=== PATIENT | female | born 1955 | race Caucasian/White ===

== ENCOUNTER 2017-04-15 17:23 | Emergency (ER) | payer OTHER ==
[~2017-04-15] VITALS: Ht 163.8 cm; Wt 91.1 kg
[2017-04-15 17:25] VITALS: BP 182/96; PULSE 100; TEMP 36.4; O2SAT 97; Ht 163.8 cm; Wt 91.1 kg
[2017-04-15] MEDS ORDERED: SULF-183 PO (18:17)
--- NOTE | 2017-04-15 20:33 | EMERGENCY ROOM VISIT NOTE ---
ED Visit Note First contact with patient: 17:32 CHIEF COMPLAINT: Nosebleed HISTORY OF PRESENT ILLNESS: This 61-year-old white female patient developed sudden onset of a nosebleed from the left nares about 30 minutes ago. The bleeding has not stopped with pressure. There was no trauma to the nose. She states she is being treated for sinusitis on the left side. She has are been on 3 weeks worth of Augmentin but did not take care of her sinus infection. She has been on 3 days of Bactrim. She does get migraine headaches with sinusitis. She has taken 3 Excedrin today. She notes fatigue and difficulty sleeping. She states that when she takes frequent Excedrin, she usually gets nosebleeds. The patient is not on Coumadin or other anticoagulants. No difficulty breathing, no cough, or sore throat. No other complaints. She notes some pressure in her left ear, but denies any pain. REVIEW OF SYSTEMS: Throat: No sore throat, dysphagia, or hoarseness. Neurological: No new changes in mental status, vertigo, focal weakness, numbness. Cardiac: No chest pain, diaphoresis, dyspnea on exertion, orthopnea , pedal edema, or palpitations. Respiratory: No cough, change in sputum, wheezes, hemoptysis, shortness of breath, or stridor. General: No fever or chills, fatigue, loss of appetite, or significant recent weight gain or loss. PMH: Significant for frequent sinus infections, migraine headaches, and occasional nosebleeds Previous surgeries: None Current medications: Excedrin and Bactrim Allergies: NKDA Family history: Significant for diabetes, heart attack, dementia, and hypertension. Parents are . SOCIAL HISTORY: Patient lives at home with her . No tobacco use, no EtOH use. Unemployed. PHYSICAL EXAM: Vital Signs: Reviewed Nurse's notes. Afebrile. General appearance: The patient is sitting upright and has nasal clips in place. Bleeding is stopped. The patient is alert, oriented, coherent, and cooperative. There is no tachypnea or dyspnea. HEENT: Normocephalic atraumatic. Eyes PERRLA, EOMI. No conjunctiva or scleral injection. Ears TMs intact bilaterally with good light reflex on the right. Left TM is bulging significantly without erythema. No hemotympanum. Canals are patent. Nares patent on the right without turbinate enlargement. Left nares was evaluated after the clips were in place for 10 minutes. She has a large visible clot. Bleeding is controlled. No septal defect. Oropharynx without erythema or exudate. No bloody drainage into the oropharynx. Uvula midline, oral mucosa moist. No lesions present. Lymphatics are palpated without anterior or posterior chain enlargement or tenderness. Heart: Heart RRR. 2/6 Systolic ejection murmur noted. No gallops or rubs. Peripheral pulses are 2+. Lungs: Lungs are clear to auscultation. No crackles rhonchi or wheezing. Good air movement. The patient is able to take a deep breath. EMERGENCY DEPARTMENT COURSE: Patient was given nasal clips. Bleeding stopped. She was reexamined. She had some very minor oozing of blood tinged mucus. Option of silver nitrate cautery was discussed multiple times with the patient. She will hold off for now. She understands that she will need to return and have this done if the bleeding recurs in a significant fashion. She may use the nasal clips at home if it does start bleeding. Follow-up with her PCP to have her left TM is evaluated and to confirm her systolic murmur. Nosebleed handout was provided. DIAGNOSIS: Epistaxis. Left ear serous otitis media. Current/Historical Medications Scheduled Sulfamethoxazole-Trimethoprim (Smz-Tmp Ds), 1 TAB PO BID Allergies Coded Allergies: No Known Allergies (Unverified , 04/15/17) Vital Signs Date Time Temp Pulse Resp B/P (MAP) Pulse Ox O2 Delivery O2 Flow Rate FiO2 04/15/17 17:25 36.4 100 22 182/96 97 Room Air Departure Information Impression Primary Impression: Anterior epistaxis Dispostion Home / Self-Care Forms WORK / SCHOOL INSTRUCTIONS, HOME CARE DOCUMENTATION FORM, IMPORTANT VISIT INFORMATION Patient Instructions Nosebleeds - [facility], [place], [facility] [employer] Additional Instructions Avoid picking at your nose for 48 hours Avoid blowing your nose for 48 hours If the nose starts bleeding again, apply the nasal clips for 10 minutes and sit quietly with your head tilted forward. If the bleeding is not able to be controlled, return to the ED for evaluation
== END 2017-04-15 19:03 | disposition home or self-care (01) ==
LOC: MERGE 17:25 → C.EDB 17:25 → C.EDD 19:03
DX: R04.0 Epistaxis (principal); H65.02 Acute serous otitis media, left ear; J32.9 Chronic sinusitis, unspecified; G43.709 Chronic migraine without aura, not intractable, without status migrainosus; Z83.3 Family history of diabetes mellitus; Z82.49 Family history of ischemic heart disease and other diseases of the circulatory system; Z82.0 Family history of epilepsy and other diseases of the nervous system

== ENCOUNTER 2017-04-22 06:28 | Emergency (ER) | payer OTHER ==
[~2017-04-22] VITALS: Ht 162.6 cm; Wt 90.2 kg
[~2017-04-22 06:28] MED LIST: SULF-302 PO
[2017-04-22 06:35] VITALS: Ht 162.6 cm; Wt 90.2 kg
[2017-04-22] MEDS ORDERED: OXYMETAZOLINE HCL 0.05% NA SPR 15 ML BTL ONE (06:39)
--- NOTE | 2017-04-22 06:55 | EMERGENCY ROOM VISIT NOTE ---
History Report prepared by Candida: Manuel Ayers Under the Supervision of: Dr. Darci Smyth M.D. First contact with patient: 06:46 Chief Complaint: NOSE BLEED (MINOR) Stated Complaint: NOSE BLEED History of Present Illness The patient is a 61 year old female who presents to the Emergency Room with complaints of a persistent nose bleed prior to arrival this morning. She states that she was here a week ago for a similar nose bleed. The patient says that she had one little nose bleed over the past week, but got it stopped. However, she notes that she currently has a bad sinus infection, and due to the pain she took 1000 mg of Vitamin E and omegas, which she thinks caused her nose bleed this morning. Per the nursing staff, the patient's nose bleed is worse in the left nary than the right. The patient says that the blood is not going down back down her throat. She denies any trauma to the nose or chest pain. She adds that she is not on any blood thinners daily. The patient notes that she has been having an intermittent fever. Source of History: patient, spouse/significant other, nursing staff Onset: [employer] this morning Position: nose Quality: other (bleed) Timing: other (persistent) Associated Symptoms: + fevers, No chest pain Note: Associated symptoms: Denies trauma to nose. Review of Systems See HPI for pertinent positives & negatives. A total of 10 systems reviewed and were otherwise negative. Past Medical & Surgical Medical Problems: (1) No chronic diseases present Old medical records were reviewed. Nurse's notes were reviewed and I agree with. Family History Diabetes mellitus Hypertension Social History Smoking Status: Never Smoker Marital Status: Housing Status: lives with family Occupation Status: unemployed Current/Historical Medications Scheduled Levofloxacin (Levaquin), 500 MG PO DAILY Allergies Coded Allergies: No Known Allergies (Unverified , 04/22/17) Physical Exam Vital Signs Date Time Temp Pulse Resp B/P (MAP) Pulse Ox O2 Delivery O2 Flow Rate FiO2 04/22/17 07:27 102 18 139/108 96 Room Air 04/22/17 06:35 77 20 163/127 96 Room Air Physical Exam General: Non-ill appearing middle-aged female. Has a nasal clip on nose, and holding pressure. No active bleeding seen. HEENT: Pupils are equal round and reactive to light. Extraocular movements are intact. Oropharynx is pink with moist mucous membranes. No swelling of the mouth lips or tongue. Neck: Supple with a midline trachea. No meningeal signs or stiffness, no JVD or bruits. No Stridor. Chest: Clear to auscultation bilaterally. No wheezes or rhonchi. No increased work of breathing. Heart: regular rate and rhythm. Abdomen: Soft nontender, nondistended without rebound guarding or rigidity. Extremities: No cyanosis clubbing or edema. No calf tenderness or assymetry Spine/Back. Non tender to palpation. No CVA tenderness Skin: Good turgor without rashes. Neurologic exam: Cranial nerves two through 12 are intact. Motor and sensation are intact and symmetrical throughout. Medical Decision & Procedures Medications Administered Medications (Trade) Dose Ordered Sig/Kath Route Start Time Stop Time Status Last Admin Dose Admin Oxymetazoline HCl (Afrin 0.05% Nasal [place]) 75 sprays STK-MED ONCE .ROUTE 04/22/17 06:39 04/22/17 06:40 DC 04/22/17 06:39 75 SPRAYS ED Course 0626: Past medical records reviewed. The patient was evaluated in room A11B, and a complete history and physical examination were performed. 0729: I reevaluated the patient and her clip fell off and is having some mild bleeding. We will get another dose of Afrin. 0814: The patient was seen by the PAChrisC for possible cautery and at that point the bleeding had stopped, please refer to Bonnie Pendleton's note. The patient was given home instructions at length and when I went to recheck her she had left prior to getting written instructions. Medical Decision Differentials include nose bleed, anemia, electrolyte or metabolic abnormality. This patient comes in as described above she has a nosebleed coming from her left nares. She had a similar episode a week ago she's been suffering from some sinus issues and also took an NSAID which cause her to bleed in the past she tells me. She was placed in room A 10 and then nurse as per protocol had her blow her clots out and applied Afrin and held pressure for 15 minutes. She was reassessed. She had no significant further bleeding and we removed the clip and we want to recheck her after talking to her about strategies and she had left. She will follow up with her doctor this week for recheck and return if any new problems or concerns. Medication Reconcilliation Current Medication List: was personally reviewed by me Blood Pressure Screening Patient's blood pressure: Elevated blood pressure Blood pressure disposition: Referred to PCP Impression Primary Impression: Left-sided epistaxis Additional Impression: Anterior epistaxis Scribe Attestation The scribe's documentation has been prepared under my direction and personally reviewed by me in its entirety. I confirm that the note above accurately reflects all work, treatment, procedures, and medical decision making performed by me. Departure Information Dispostion Home / Self-Care Referrals No Doctor, Assigned (PCP) Patient Instructions My [facility] Problem Qualifiers
[2017-04-22 07:27] VITALS: BP 139/108; PULSE 102; O2SAT 96
[2017-04-22] MEDS ORDERED: LEVO1TAB34 PO (07:27)
--- NOTE | 2017-04-22 08:22 | EMERGENCY ROOM VISIT NOTE ---
ED Visit Note I was asked to reassess the patient to ensure the bleeding has stopped by Dr. Smyth, as he was seeing several critical patients at the time. I evaluated her bilateral naris, and there was blood within the left naris and what appears to be a blood clot. There is no active bleeding. The right naris was clear with the exception of a small amount of dried blood on the anterior aspect. As the bleeding has stopped, I do not feel that the patient needs to have the naris cauterized. I did discuss home care instructions with her including direct pressure for 10 minutes, ice with pressure for 10 minutes, then Afrin 1- 2 sprays in the bleeding naris with pressure for 10 minutes, and if no improvement, return to the ED for possible cauterization/packing. I encouraged her to use a humidifier, nasal saline spray, Aquaphor in the nares, and avoid blowing her nose. I discussed with the patient that I would like to speak with Dr. Smyth and would be back in shortly to determine whether the nose stopped bleeding or if she experiences a rebleed. When I went to reassess the patient in approximately 15 minutes, she was no longer in the room, and all of her belongings. They do suspect the patient left without discharge instructions, though I did provide them to her verbally. It does appear that she did take the Afrin with her.
[2017-09-05] MEDS ORDERED: DOCU100C31 PO (09:52)
[2017-09-05] MEDS ORDERED: ONDA-170 PO (09:52)
[2017-10-12] MEDS ORDERED: PROC10TA PO (10:45)
[2017-10-12] MEDS ORDERED: CEPH500C2 PO (10:45)
[2017-10-12] MEDS ORDERED: DEXA1TAB16 PO (10:45)
[2017-10-12] MEDS ORDERED: CIPR-255 PO (10:45)
[2017-10-19] MEDS ORDERED: CEFT1INJ6 IV (07:56)
[2017-10-19] MEDS ORDERED: MRLP17 PO (16:39)
[2017-10-19] MEDS ORDERED: XRL15 PO (16:39)
[2017-10-19] MEDS ORDERED: IBUP-1105 PO (16:39)
[2017-10-19] MEDS ORDERED: RIVA1TAB4 PO (16:39)
[2017-10-19] MEDS ORDERED: Boost PO (16:39)
[2017-10-24] MEDS ORDERED: FNTTP25 TOP (09:52)
[2017-10-24] MEDS ORDERED: OXYC-164 PO (10:45)
[2017-10-24] MEDS ORDERED: IBUP-1050 PO (21:18)
[2017-10-24] MEDS ORDERED: FURO-85 PO (21:18)
[2017-10-24] MEDS ORDERED: ONDA8TAB12 PO (21:18)
[2017-10-31] MEDS ORDERED: MTR800 PO (16:33)
[2017-10-31] MEDS ORDERED: ACET-1047 PO (16:33)
[2017-10-31] MEDS ORDERED: RXC5 PO (16:33)
[2017-10-31] MEDS ORDERED: XRL15 PO (16:33)
[2017-10-31] MEDS ORDERED: DRGTP50 TD (16:33)
[2017-10-31] MEDS ORDERED: MRLP17X PO (16:33)
[2017-10-31] MEDS ORDERED: CEFT1INJ6 IV (16:33)
[2017-11-04] MEDS ORDERED: CEFT1INJ57 IV ×2 (17:48→18:06)
[2017-11-04] MEDS ORDERED: FNTTP50 TD (17:51)
[2017-11-04] MEDS ORDERED: ACET-1311 PO (17:52)
[2017-11-04] MEDS ORDERED: IBUP-1428 PO ×2 (17:54→18:12)
[2017-11-04] MEDS ORDERED: OXYC-90 PO ×3 (17:56→18:22)
[2017-11-04] MEDS ORDERED: XRL10 PO (17:59)
[2017-11-04] MEDS ORDERED: RIVA1TAB4 PO ×2 (18:00→18:25)
[2017-11-04] MEDS ORDERED: DRGTP50 TD (18:08)
[2017-11-04] MEDS ORDERED: XRL15 PO (18:24)
[2017-11-08] MEDS ORDERED: CEPH-571 PO (10:38)
[2017-11-08] MEDS ORDERED: DOXY100C76 PO (20:05)
[2017-11-13] MEDS ORDERED: KETO10TA PO (11:53)
[2017-11-18] MEDS ORDERED: ACET-1311 PO (18:06)
[2017-11-18] MEDS ORDERED: FURO-85 PO (18:11)
[2017-11-18] MEDS ORDERED: ONDA-170 PO (18:14)
[2017-12-04] MEDS ORDERED: FNTTP50 TD (08:30)
== END 2017-04-22 08:33 | disposition home or self-care (01) ==
LOC: C.EDB 06:29 → C.EDA 08:33
DX: J32.9 Chronic sinusitis, unspecified (principal); R03.0 Elevated blood-pressure reading, without diagnosis of hypertension; Z83.3 Family history of diabetes mellitus; Z82.49 Family history of ischemic heart disease and other diseases of the circulatory system

== ENCOUNTER → 2017-05-11 | Outpatient (CLI) | payer OTHER ==
[~2017-05-11] MED LIST changes: +LEVO1TAB34 PO; -SULF-302 PO
== END | disposition home or self-care (01) ==
LOC: C.LAB1850 08:04
PROVIDERS: ATTEND Nurse Practitioner Family
DX: G43.909 Migraine, unspecified, not intractable, without status migrainosus (principal); R61 Generalized hyperhidrosis

== ENCOUNTER → 2017-05-19 | Outpatient (CLI) | payer OTHER ==
--- NOTE | 2017-05-19 12:55 | DIAGNOSTIC IMAGING REPORT ---
CT OF THE SINUSES WITHOUT CONTRAST FUSION PROTOCOL CLINICAL HISTORY: Chronic sinusitis. Progressive sinus pain with purulence and concerning mass within the left nasal cavity on exam. COMPARISON STUDY: No previous studies for comparison. TECHNIQUE: Axial images of the sinuses were obtained without IV contrast according to the Fusion protocol. Coronal and sagittal reformats were viewed. FINDINGS: Mastoid air cells are clear. Note is made of a large destructive mass-like abnormality centered within the left ethmoid sinus and left nasal cavity with associated bony destruction involving a large portion of the cribriform plate, the medial wall of the left orbit, the posterior wall of the left maxillary sinus, the medial wall the left maxillary sinus and portions of the ethmoid and sphenoid sinuses. This mass is suboptimally assessed on this unenhanced exam but measures approximately 5.1 x 5.1 x 3.4 cm. There is suspected intracranial extension. There is definitive extension into the medial aspect of the left orbit as well as extension into the left infratemporal fossa. The left frontal sinus is opacified. The left ethmoid and maxillary sinuses are nearly completely opacified. There is moderate rightward deviation of the nasal septum. Invasion into the nasal septum is noted. A 1.4 cm right basal ganglia hypodensity favors a prominent perivascular space although old lacunar infarct would appear similar. There is no hydrocephalus. The basilar cisterns are patent. IMPRESSION: Large sinonasal mass, measuring approximately 5.1 x 5.1 x 3.4 cm, centered within the left ethmoid sinus and left nasal cavity with extensive bony destruction involving the cribriform plate, medial wall of the left orbit and posterior and medial horne of the left maxillary sinus. This lesion is suboptimally assessed on this unenhanced exam however there is suspected intracranial extension with definitive extension into the left orbit and left infratemporal fossa. Associated opacification of the left frontal and ethmoid sinuses with near complete opacification of the left maxillary sinus. 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 Lymphoma or chondrosarcoma could appear similar. Electronically signed by: Reji Boo M.D. 05/19/2017 12:54 PM Dictated Date/Time: 05/19/2017 11:55 AM
== END | disposition home or self-care (01) ==
LOC: C.CTS 11:19
DX: J32.9 Chronic sinusitis, unspecified (principal)

== ENCOUNTER → 2017-06-01 | Outpatient (CLI) | payer OTHER | END | disposition home or self-care (01) | LOC: C.PATHSPEC 12:03 | DX: J34.89 Other specified disorders of nose and nasal sinuses (principal) ==

== ENCOUNTER → 2017-06-12 | Outpatient (CLI) | payer OTHER ==
--- NOTE | 2017-06-12 10:49 | DIAGNOSTIC IMAGING REPORT ---
PET/CT SKULL-THIGH CLINICAL HISTORY: HEAD NECK CANCER COMPARISON STUDY: CT scan of the paranasal sinuses dated 05/19/2017 FINDINGS: The patient was injected with 13.4 mCi of F 18 labeled FDG. Findings standard induction phase, PET/CT scanning was performed from the skull apex to the upper thigh region. There is a large intensely FDG avid mass centered within the left ethmoid and maxillary sinus region. There is extension into the sphenoid sinus. There is extension into the medial aspect of the left orbit. There is bony destruction of the maxilla sinus horne. There is involvement of the left nasal cavity. The mass extends posteriorly medial to the pterygoid plates. There is involvement of the left pterygopalatine fossa. The mass measures 6.5 cm in maximal AP diameter 35 mm transversely, and 60 mm in craniocaudad dimension. There is destruction of the cribriform plate with suspected intracranial extension. The mass has an SUV maximum of 17. There is an indeterminate 14 x 8 mm left retromandibular lymph node with an SUV maximum of 4.2. There are a few additional mildly prominent cervical lymph nodes, including an 11 x 5 mm lymph node within the base of the left neck deep to the left sternocleidomastoid with an SUV maximum of 3.1. Within the chest, there are is no FDG avid adenopathy. There are no FDG avid pulmonary nodules. In the abdomen and pelvis, there is no FDG avid masses or adenopathy. There is physiologic urinary tract and bowel activity. There are no FDG avid skeletal lesions, remote from the primary tumor. IMPRESSION: 1. Large sinonasal mass , measuring 65 x 60 x 35 mm. The mass is intensely FDG avid with SUV maximum of 17. The mass is centered within the left ethmoid and maxillary regions with extension to the left sphenoid sinus, extension into the medial aspect the left orbit, bony destruction of the maxillary sinus horne, involvement of the left nasal cavity, involvement of the left pterygopalatine fossa, and cribriform plate destruction. 2. Indeterminate 14 x 8 mm left retrolenticular lymph node with SUV maximum of 4.2, and indeterminate 11 x 5 mm lymph node at the base the left neck with SUV maximum of 3.1 3. No evidence of thoracic or abdominal/pelvic metastatic disease Electronically signed by: Maxim Ku M.D. 06/12/2017 10:48 AM Dictated Date/Time: 06/12/2017 10:28 AM
== END | disposition home or self-care (01) ==
LOC: C.PET 07:34
DX: C31.9 Malignant neoplasm of accessory sinus, unspecified (principal)

== ENCOUNTER → 2017-06-19 | Outpatient (CLI) | payer OTHER ==
[2017-06-19 12:40] LABS: BLOOD UREA NITROGEN 17 mg/dl (7-18); CREATININE 0.99 mg/dl (0.60-1.20)
== END | disposition home or self-care (01) ==
LOC: C.LABBFT 10:12
PROVIDERS: ATTEND Otolaryngology
DX: R22.0 Localized swelling, mass and lump, head (principal)

== ENCOUNTER → 2017-06-22 | Outpatient (CLI) | payer OTHER ==
[~2017-06-22] MED LIST changes: +GADAVIST IV PRN
--- NOTE | 2017-06-22 09:32 | DIAGNOSTIC IMAGING REPORT ---
BRAIN COMBO HISTORY: 61 years-old Female NASAL MASS follow-up study in a patient with a large FDG avid sinonasal mass. History of chronic sinusitis. COMPARISON: Head CT 06/12/2017, CT sinus study 05/19/2017 TECHNIQUE: Multiplanar multisequence MRI of the brain was obtained both with and without the use of 8 mL Gadavist FINDINGS: There is no restricted diffusion to suggest acute infarction. Corpus callosum, brainstem, optic chiasm, pituitary and pineal glands are unremarkable. No cerebellar tonsillar herniation. Degenerative changes of the cervical spine are noted. Mild brain atrophy with a few scattered foci of increased T2/FLAIR signal within the periventricular white matter suggesting probable mild chronic microvascular ischemic changes. Prominent perivascular space of the right basal ganglia. There is redemonstration of a large destructive and heterogeneous avidly enhancing sinonasal mass which appears to be centered within the ethmoid air cells and left nasal turbinate extending into the left maxillary and ethmoid air cells as well as into the left nasopharynx through the left posterior nasal aperture overall measuring 6.2 x 4.9 x 6.8 cm in AP, transverse and craniocaudal dimensions respectively. There is destruction of the posterior lateral left maxillary wall. There is also invasion of the medial wall left orbit and possibly also into the medial wall the right orbit. There is invasion of the mass into the left pterygopalatine fossa with destruction and invasion through the cribriform plate. Abnormal enhancement with opacification of the frontal sinuses likely signifies associated obstructive changes from the large mass with possible extension through the frontoethmoidal recesses. There is thick pachymeningeal enhancement of the bilateral frontal lobes anteriorly, left greater than right compatible with tumor invasion. Mild vasogenic edema of the left frontal lobe is nicely seen on images 4 through 7 of series 6 with lesser extent of vasogenic edema of the right frontal lobe as seen on image 7 of series 6. Additionally, there is thick nodular lesion of the meninges measuring up to 2.1 cm in length nicely seen on image 35 series 11 and image 12 of series 10 and abutting and invading the adjacent frontal lobes near the midline. 5 mm ring-enhancing intra-axial lesion of the left frontal lobe seen on image 37 series 11 and image 12 series 10 with vasogenic edema surrounding this lesion. No distant lesions identified. IMPRESSION: 1. Large destructive heterogeneous avidly enhancing sinonasal mass centered within the ethmoid air cells and left nasal turbinate is again seen with invasion of adjacent structures as above. The mass has eroded through the cribriform plate and abuts and invades the meninges of the frontal lobes near the midline with intraparenchymal extension and associated vasogenic edema as above. 2. No distant metastatic foci identified. 3. No acute infarction or intracranial hemorrhage. The above report was generated using voice recognition software. It may contain grammatical, syntax or spelling errors. Electronically signed by: Adrian Robertson M.D. 06/22/2017 9:31 AM Dictated Date/Time: 06/22/2017 9:04 AM
== END | disposition home or self-care (01) ==
LOC: C.MRI 07:58
PROVIDERS: ATTEND Otolaryngology
DX: R22.0 Localized swelling, mass and lump, head (principal); J34.89 Other specified disorders of nose and nasal sinuses

== ENCOUNTER → 2017-07-18 | Outpatient (CLI) | payer OTHER ==
[~2017-07-18] MED LIST changes: -GADAVIST IV PRN
--- NOTE | 2017-07-18 15:53 | DIAGNOSTIC IMAGING REPORT ---
ULTRASOUND BILATERAL LOWER EXTREMITY VENOUS CLINICAL HISTORY: Lower extremity edema. COMPARISON STUDY: No priors. TECHNIQUE: Real-time, grayscale, and color Doppler sonography of the deep veins of the right and left lower extremity was performed from the inguinal crease to the calf. Compression and augmentation were utilized. FINDINGS: There is no sonographic evidence of deep venous thrombosis identified in the right or left lower extremity. The common femoral, superficial femoral, and popliteal veins are patent and normally compressible bilaterally. The greater saphenous vein and the profunda femoris vein at the junction with the common femoral vein are clear in both legs. The visualized calf veins are patent bilaterally. IMPRESSION: There is no sonographic evidence of deep venous thrombosis identified in the right or left lower extremity. Electronically signed by: Torrey Villasenor M.D. 07/18/2017 3:51 PM Dictated Date/Time: 07/18/2017 3:51 PM
== END | disposition home or self-care (01) ==
LOC: C.ULTR 15:09
PROVIDERS: ATTEND Internal Medicine Hematology & Oncology
DX: C31.1 Malignant neoplasm of ethmoidal sinus (principal)

== ENCOUNTER 2017-08-18 20:58 | Emergency (ER) | payer OTHER ==
[~2017-08-18] VITALS: Ht 162.6 cm; Wt 84.5 kg
[2017-08-18 21:01] VITALS: TEMP 36.6; Ht 162.6 cm; Wt 84.5 kg
--- NOTE | 2017-08-18 21:15 | EMERGENCY ROOM VISIT NOTE ---
History Report prepared by Candida: Alessandra De La Cruz Under the Supervision of: Jean LaneO. 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 She states she noticed the swelling when she started her first chemotherapy treatment and she also notes she has eaten "bad stuff" lately which she describes as "very salty". She also states that she has numbness and tingling in her legs. Pt denies headache, change in vision, fevers, chest pain, shortness of breath, nausea, vomiting, diarrhea, pain with urination, melena, or history of blood clots. The patient has a history of nasal cancer. 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 Negative changes in vision or history of blood clots. Review of Systems See HPI for pertinent positives & negatives. A total of 10 systems reviewed and were otherwise negative. Past Medical & Surgical Medical Problems: (1) No chronic diseases present Family History Diabetes mellitus Hypertension Social History Smoking Status: Never Smoker Marital Status: Housing Status: lives with family Occupation Status: unemployed Current/Historical Medications Scheduled Furosemide (Lasix), 1 TAB PO DAILY Propranolol HCl (Propranolol HCl), 10 MG PO BID Scheduled PRN Naproxen (Aleve), 220 MG PO Q12 PRN for Pain Oxycodone/Acetaminophen 5MG/325MG (Oxycodone/Acetaminophen 5MG/325MG), 1 TABLET PO Q4H PRN for Pain Allergies Coded Allergies: No Known Allergies (Unverified , 08/18/17) Physical Exam Vital Signs Date Time Temp Pulse Resp B/P (MAP) Pulse Ox O2 Delivery O2 Flow Rate FiO2 08/19/17 00:18 78 18 151/91 98 Room Air 08/18/17 22:27 80 18 130/80 95 Room Air 08/18/17 21:01 36.6 98 18 145/83 98 Room Air Physical Exam GENERAL: alert, well appearing, well nourished, no distress, non-toxic EYE EXAM: normal conjunctiva, PERRL and EOM's grossly intact OROPHARYNX: no exudate, no erythema, lips, buccal mucosa, and tongue normal and mucous membranes are moist NECK: supple, no nuchal rigidity, no adenopathy, non-tender LUNGS: Clear to auscultation. Normal chest wall mechanics HEART: no murmurs, S1 normal and S2 normal ABDOMEN: abdomen soft, non-tender, normo-active bowel sounds, no masses, no rebound or guarding. BACK: Back is symmetrical on inspection and there is no deformity, no midline tenderness, no CVA tenderness. SKIN: no rashes and no bruising UPPER EXTREMITIES: upper extremities are grossly normal. LOWER EXTREMITIES: 2+ LE edema NEURO EXAM: Normal sensorium, cranial nerves II-XII grossly intact, normal speech, no gross weakness of arms, no gross weakness of legs. Medical Decision & Procedures ER Provider Diagnostic Interpretation: ULTRASOUND BILATERAL LOWER EXTREMITY VENOUS CLINICAL HISTORY: Lower extremity edema COMPARISON STUDY: Bilateral lower extremity venous ultrasound dated 07/18/2017. TECHNIQUE: Real-time, grayscale, and color Doppler sonography of the deep veins of the right and left lower extremity was performed from the inguinal crease to the calf. Compression and augmentation were utilized. FINDINGS: Right lower extremity: The deep veins of the right lower extremity are patent. The common femoral, superficial femoral, and popliteal veins are patent and normally compressible. There is superficial venous thrombus seen within the greater saphenous vein at the junction with the common femoral vein. The profunda femoris vein at the junction with the common femoral vein is clear. The visualized calf veins are patent. Left lower extremity: There is no sonographic evidence of deep venous thrombosis identified in the left lower extremity. The common femoral, superficial femoral, and popliteal veins are patent and normally compressible. The greater saphenous vein and the profunda femoris vein at the junction with the common femoral vein are clear. The visualized calf veins are patent. IMPRESSION: 1. There is superficial venous thrombus identified within the greater saphenous vein at the junction with the common femoral vein. 2. There is no sonographic evidence of deep venous thrombosis in the right or left lower extremity. Electronically signed by: Torrey Villasenor M.D. 08/18/2017 11:31 PM Dictated Date/Time: 08/18/2017 11:29 PM Laboratory Results 08/18/17 21:35 Red Blood Count 4.65, Mean Corpuscular Volume 88.6, Mean Corpuscular Hemoglobin 29.5, Mean Corpuscular Hemoglobin Concent 33.3, Mean Platelet Volume 9.1, Neutrophils (%) (Auto) 86.9, Lymphocytes (%) (Auto) 7.7, Monocytes (%) (Auto) 4.8, Eosinophils (%) (Auto) 0.1, Basophils (%) (Auto) 0.0, Neutrophils # (Auto) 8.75, Lymphocytes # (Auto) 0.77, Monocytes # (Auto) 0.48, Eosinophils # (Auto) 0.01, Basophils # (Auto) 0.00 08/18/17 21:35 Test 08/18/17 21:35 White Blood Count 10.06 K/uL (4.8-10.8) Red Blood Count 4.65 M/uL (4.2-5.4) Hemoglobin 13.7 g/dL (12.0-16.0) Hematocrit 41.2 % (37-47) Mean Corpuscular Volume 88.6 fL (80-100) Mean Corpuscular Hemoglobin 29.5 pg (25-34) Mean Corpuscular Hemoglobin Concent 33.3 g/dl (32-36) Platelet Count 274 K/uL (130-400) Mean Platelet Volume 9.1 fL (7.4-10.4) Neutrophils (%) (Auto) 86.9 % Lymphocytes (%) (Auto) 7.7 % Monocytes (%) (Auto) 4.8 % Eosinophils (%) (Auto) 0.1 % Basophils (%) (Auto) 0.0 % Neutrophils # (Auto) 8.75 K/uL (1.4-6.5) Lymphocytes # (Auto) 0.77 K/uL (1.2-3.4) Monocytes # (Auto) 0.48 K/uL (0.11-0.59) Eosinophils # (Auto) 0.01 K/uL (0-0.5) Basophils # (Auto) 0.00 K/uL (0-0.2) RDW Standard Deviation 64.0 fL (36.4-46.3) RDW Coefficient of Variation 20.0 % (11.5-14.5) Immature Granulocyte % (Auto) 0.5 % Immature Granulocyte # (Auto) 0.05 K/uL (0.00-0.02) Anisocytosis PRESENT Spherocytes 1+ Stomatocytes 1+ Prothrombin Time 9.5 SECONDS (9.0-12.0) Prothromb Time International Ratio 0.9 (0.9-1.1) D-Dimer 1420 ug/L FEU (0-500) Anion Gap 4.0 mmol/L (3-11) Est Creatinine Clear Calc Drug Dose 82.9 ml/min Estimated GFR () 100.6 Estimated GFR (Non- 86.8 BUN/Creatinine Ratio 38.6 (10-20) Calcium Level 8.2 mg/dl (8.5-10.1) Total Bilirubin 0.5 mg/dl (0.2-1) Aspartate Amino Transf (AST/SGOT) 26 U/L (15-37) Alanine Aminotransferase (ALT/SGPT) 62 U/L (12-78) Alkaline Phosphatase 60 U/L (45-117) Pro-B-Type Natriuretic Peptide 319 pg/ml (0-900) Total Protein 6.2 gm/dl (6.4-8.2) Albumin 3.0 gm/dl (3.4-5.0) Globulin 3.2 gm/dl (2.5-4.0) Albumin/Globulin Ratio 0.9 (0.9-2) Laboratory results per my review. Medications Administered Medications (Trade) Dose Ordered Sig/Kath Route Start Time Stop Time Status Last Admin Dose Admin Furosemide (Lasix Tab) 20 mg NOW STAT PO 08/19/17 00:04 08/19/17 00:06 DC 08/19/17 00:38 20 MG ED Course 2106: The patient was evaluated in room A10. A complete history and physical exam was performed. Medical Decision Differential diagnosis: Etiologies such as DVT, musculoskeletal, infection, joint effusion, trauma, lymphedema, idiopathic, CHF, as well as others were entertained.. Discussed with pt superficial thrombus and close f/u given cancer diagnosis. Discussed no indication at this time for anticoagulation. Pt with appt with oncologist on Monday. Discussed all labs. Discussed elevation of legs at rest , use of compression stockings, use of diuretic shortterm and discussion with oncologist. Discussed risks of diuretic, close monitoring of labs including kidney function. Discussed sx to watch/return for, she verbalized understanding. No sx to suggest PE at this time. Medication Reconcilliation Current Medication List: was personally reviewed by me Blood Pressure Screening Patient's blood pressure: Elevated blood pressure Blood pressure disposition: Elevated BP felt to be situational Impression Primary Impression: Lower extremity edema Additional Impression: Superficial vein thrombosis Scribe Attestation The scribe's documentation has been prepared under my direction and personally reviewed by me in its entirety. I confirm that the note above accurately reflects all work, treatment, procedures, and medical decision making performed by me. Departure Information Dispostion Home / Self-Care Prescriptions Furosemide (LASIX) 20 Mg Tab 1 TAB PO DAILY, #5 TAB 1 Refill Prov: Jaquelin Moreland, DO 08/19/17 Referrals Timothy Diaz M.D. (PCP) Patient Instructions My [facility] Additional Instructions Please keep your appointment on Monday. You may use a small dose of the diuretic daily. Please also avoid salt in your diet. Please consider wearing compression stockings when you are on your feet during the day at work. Please elevate your legs when seated and at rest. If you have any worsening swelling, develop pain, fevers or chills, vomiting, chest pain, palpitations, trouble breathing, you have any other new concerns, please return the emergency room. Problem Qualifiers
[2017-08-18 21:44] LABS: EOS % 0.1 %; EOS ABS # 0.01 K/uL (0-0.5); HEMATOCRIT 41.2 % (37-47); HEMOGLOBIN 13.7 g/dL (12.0-16.0); IG# 0.05 K/uL (0.00-0.02); LYMPH % 7.7 %; LYMPH ABS # 0.77 K/uL (1.2-3.4); MEAN CELL VOLUME 88.6 fL (80-100); MEAN CORPUSCULAR HEMOGLOBIN 29.5 pg (25-34); MEAN CORPUSCULAR HGB CONC 33.3 g/dl (32-36); MEAN PLATELET VOLUME 9.1 fL (7.4-10.4); MONO % 4.8 %; MONO ABS # 0.48 K/uL (0.11-0.59); NEUT % 86.9 %; NEUT ABS # 8.75 K/uL (1.4-6.5); PLATELET COUNT 274 K/uL (130-400); WHITE BLOOD COUNT 10.06 K/uL (4.8-10.8)
[2017-08-18 22:02] LABS: CALCIUM 8.2 mg/dl (8.5-10.1); CREATININE 0.74 mg/dl (0.60-1.20); POTASSIUM 4.4 mmol/L (3.5-5.1)
[2017-08-18 22:07] LABS: TOTAL PROTEIN 6.2 gm/dl (6.4-8.2)
[2017-08-18 22:09] LABS: INR 0.9 (0.9-1.1)
[2017-08-18] MEDS ORDERED: PROP10TA54 PO (22:11)
[2017-08-18] MEDS ORDERED: NAPR1TAB9 PO (22:11)
[2017-08-18] MEDS ORDERED: OXYC-643 PO (22:11)
--- NOTE | 2017-08-18 23:33 | DIAGNOSTIC IMAGING REPORT ---
ULTRASOUND BILATERAL LOWER EXTREMITY VENOUS CLINICAL HISTORY: Lower extremity edema COMPARISON STUDY: Bilateral lower extremity venous ultrasound dated 07/18/2017. TECHNIQUE: Real-time, grayscale, and color Doppler sonography of the deep veins of the right and left lower extremity was performed from the inguinal crease to the calf. Compression and augmentation were utilized. FINDINGS: Right lower extremity: The deep veins of the right lower extremity are patent. The common femoral, superficial femoral, and popliteal veins are patent and normally compressible. There is superficial venous thrombus seen within the greater saphenous vein at the junction with the common femoral vein. The profunda femoris vein at the junction with the common femoral vein is clear. The visualized calf veins are patent. Left lower extremity: There is no sonographic evidence of deep venous thrombosis identified in the left lower extremity. The common femoral, superficial femoral, and popliteal veins are patent and normally compressible. The greater saphenous vein and the profunda femoris vein at the junction with the common femoral vein are clear. The visualized calf veins are patent. IMPRESSION: 1. There is superficial venous thrombus identified within the greater saphenous vein at the junction with the common femoral vein. 2. There is no sonographic evidence of deep venous thrombosis in the right or left lower extremity. Electronically signed by: Torrey Villasenor M.D. 08/18/2017 11:31 PM Dictated Date/Time: 08/18/2017 11:29 PM
[2017-08-19] MEDS ORDERED: FUROSEMIDE 20 MG TAB PO STA (00:04)
[2017-08-19] MEDS ORDERED: FURO20TA PO (00:12)
[2017-08-19 00:18] VITALS: BP 151/91; PULSE 78; O2SAT 98
[2017-08-19] MEDS ORDERED: FUROSEMIDE 40 MG TAB ONE (00:34)
== END 2017-08-19 00:38 | disposition home or self-care (01) ==
LOC: C.EDB 20:59 → C.EDA 08-19 00:38
DX: R60.0 Localized edema (principal); I82.811 Embolism and thrombosis of superficial veins of right lower extremity; Z85.22 Personal history of malignant neoplasm of nasal cavities, middle ear, and accessory sinuses; Z79.899 Other long term (current) drug therapy

== ENCOUNTER → 2017-09-08 | Outpatient (CLI) | payer OTHER ==
[~2017-09-08] MED LIST changes: +DOCU100C31 PO; +FNTTP25 TD; +FURO20TA PO; +GADAVIST IV PRN; -LEVO1TAB34 PO; +NAPR1TAB9 PO; +ONDA-170 PO; +OXYC-643 PO; +PROP10TA54 PO
--- NOTE | 2017-09-08 08:51 | DIAGNOSTIC IMAGING REPORT ---
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 COMPARISON: Brain MRI 06/22/2017, PET CT 06/12/2017 TECHNIQUE: Multiplanar multisequence MRI of the brain was obtained both with and without the use of 7 mL Gadavist FINDINGS: There is no restricted diffusion to suggest acute or subacute infarction. Midline structures including the corpus callosum, brainstem, optic chiasm, pituitary and pineal glands are unremarkable in the sagittal T1 series. No cerebellar tonsillar herniation. Imaged cervical spine is unremarkable. There is mild brain atrophy. A few scattered foci of T2/FLAIR prolongation within the periventricular white matter suggest probable chronic microvascular ischemic changes. Slightly increased flow about the left transverse and sigmoid sinuses likely secondary to slow venous flow. Flow voids at the level of the skull base appear patent. Orbits are symmetric and within normal limits. Mastoid air cells are clear. Postoperative changes with interval resection of the large polypoid sinonasal mass centered about the ethmoid air cells and left nasal turbinate with evidence of prior resection involving the superior and middle nasal turbinates on the left. Prior maxillary antrostomy. Status post removal of the entirety of the left ethmoid air cells. Loculated peripherally enhancing fluid within the left maxillary and left frontal sinuses. Moderate mucoperiosteal thickening with peripheral enhancement involves the sphenoid sinuses. No solid enhancing tissue identified to suggest residual or recurrent disease within the paranasal sinuses. There is resolution of the previously noted vasogenic edema of the frontal lobes. Mild enhancement of the pachy meninges adjacent to the left greater than right inferior frontal lobes adjacent to the frontal sinuses is nicely seen on image 6 series 9 with enhancement tracking along the anterior aspect of the falx cerebri, images 55 and 56 of series 10. IMPRESSION: 1. Status post resection of the large polypoid mass centered about the left ethmoid air cells and left nasal turbinates with postoperative changes of the nasal turbinates and sinuses as above. Peripherally enhancing fluid about the left frontal, left maxillary and bilateral sphenoid sinuses with asymmetric mucosal enhancement about the left nasal turbinates suggests reactive/post surgical changes without enhancing nodularity to suggest recurrent or residual disease. Continued follow-up is recommended. 2. Resolved vasogenic edema about the frontal lobes with persistent pachymeningeal enhancement of the left greater than right inferior frontal lobes with enhancement tracking along the anteroinferior aspect of the falx cerebri again suggests dural metastasis. No evidence of progressive meningeal metastasis. The above report was generated using voice recognition software. It may contain grammatical, syntax or spelling errors. Electronically signed by: Adrian Robertson M.D. 09/08/2017 8:50 AM Dictated Date/Time: 09/08/2017 8:34 AM
== END | disposition home or self-care (01) ==
LOC: C.MRI 07:38
PROVIDERS: ATTEND Internal Medicine Hematology & Oncology
DX: C31.1 Malignant neoplasm of ethmoidal sinus (principal)

== ENCOUNTER 2017-11-18 20:33 | Inpatient (IN) | payer OTHER ==
[~2017-11-18] VITALS: Ht 162.6 cm; Wt 88.0 kg
[~2017-11-18 20:33] MED LIST changes: +ACET-1311 PO; +CEPH-571 PO; -DOCU100C31 PO; +DRGTP50 TD; -FNTTP25 TD; +FURO-85 PO; -FURO20TA PO; -GADAVIST IV PRN; +KETO10TA PO; -NAPR1TAB9 PO; -OXYC-643 PO; +OXYC-90 PO; -PROP10TA54 PO
[2017-11-18] MEDS ORDERED: MoRPHine SULFATE 4 MG/ML 1 ML CARP\\VIAL IV STA (21:17)
[2017-11-18] MEDS ORDERED: SODIUM CHLORIDE 0.9% 500ML 500 ML IV STA (21:17)
[2017-11-18] MEDS ORDERED: ONDANSETRON INJ 2 MG/ML 2 ML VIAL IV STA (21:17)
[2017-11-18] MEDS ORDERED: FENT75DI2 TOP (21:39)
[2017-11-18] MEDS ORDERED: ATIVAN PO (21:40)
[2017-11-18] MEDS ORDERED: CEPH500C2 PO (21:40)
[2017-11-18] MEDS ORDERED: RIVA1TAB4 PO (21:40)
[2017-11-18] MEDS ORDERED: OXY/15 PO (21:40)
[2017-11-18] MEDS ORDERED: IBUP-1427 PO (21:40)
--- NOTE | 2017-11-18 21:50 | DIAGNOSTIC IMAGING REPORT ---
CHEST ONE VIEW PORTABLE CLINICAL HISTORY: Sepsis COMPARISON STUDY: 11/04/2017 FINDINGS: The heart is normal in size. There is mild prominence the right paratracheal soft tissues. The right-sided PICC catheter has been removed. There is no failure. There is no lobar consolidation. There are basilar linear atelectatic changes.[ IMPRESSION: 1. Interval removal of the right-sided PICC catheter 2. Basilar atelectasis Electronically signed by: Maxim Ku M.D. 11/18/2017 9:49 PM Dictated Date/Time: 11/18/2017 9:48 PM
[2017-11-18 21:52] LABS: BASO % 0.2 %; BASO ABS # 0.01 K/uL (0-0.2); EOS ABS # 0.17 K/uL (0-0.5); HEMATOCRIT 36.2 % (37-47); HEMOGLOBIN 11.5 g/dL (12.0-16.0); IG# 0.01 K/uL (0.00-0.02); LYMPH % 23.4 %; LYMPH ABS # 1.33 K/uL (1.2-3.4); MEAN CELL VOLUME 94.8 fL (80-100); MEAN CORPUSCULAR HEMOGLOBIN 30.1 pg (25-34); MEAN CORPUSCULAR HGB CONC 31.8 g/dl (32-36); MEAN PLATELET VOLUME 9.8 fL (7.4-10.4); MONO % 4.8 %; MONO ABS # 0.27 K/uL (0.11-0.59); NEUT % 68.4 %; NEUT ABS # 3.89 K/uL (1.4-6.5); PLATELET COUNT 251 K/uL (130-400); RED CELL DISTRIBUTION WIDTH CV 15.5 % (11.5-14.5); RED CELL DISTRIBUTION WIDTH SD 53.8 fL (36.4-46.3); WHITE BLOOD COUNT 5.68 K/uL (4.8-10.8)
[2017-11-18 22:01] LABS: INR 1.2 (0.9-1.1); PTT PATIENT 35.1 SECONDS (21.0-31.0)
[2017-11-18 22:20] LABS: ALBUMIN 2.9 gm/dl (3.4-5.0); ALKALINE PHOSPHATASE 79 U/L (45-117); ALT/SGPT 19 U/L (12-78); AST/SGOT 19 U/L (15-37); BLOOD UREA NITROGEN 10 mg/dl (7-18); CALCIUM 9.1 mg/dl (8.5-10.1); CARBON DIOXIDE 29 mmol/L (21-32); CREATININE 0.54 mg/dl (0.60-1.20); GLUCOSE 91 mg/dl (70-99); POTASSIUM 3.8 mmol/L (3.5-5.1); SODIUM 136 mmol/L (136-145); TOTAL PROTEIN 6.8 gm/dl (6.4-8.2)
[2017-11-18] MEDS ORDERED: CEFTRIAXONE SOD INJ 1 GM ADDVIAL IV STA (22:42)
--- NOTE | 2017-11-18 23:54 | History and Physical ---
History & Physical Date & Time of Service: Nov 18, 2017 at 23:53 Chief Complaint: Urinary Pain Primary Care Physician: Timothy Diaz M.D. 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 Recent admission for RLE cellulitis and abscess 10/12/17 and PNA on 10/25/17. She presents to the ER complaining of general malaise , fatigue and weakness. Incidentally she also states that the cellulitis in the RLE has worsened. Her states that she is on Keflex for her cellulitis although the patient believes she has discontinued the Keflex one week prior. Per chart review she has completed a 21 day course of IV Ceftriaxone for the RLE cellulitis. Per patient she has recently started radiation and chemotherapy with Dr. Gonzalez. The patient did express a desire to me to stop her treatment She is also on Xarelto for bilateral PEs. Review of systems is positive for SOB and sternal pain on movement. There is also constant pain in her sinuses. 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 (16) Medication side effect (17) Nausea (18) No chronic diseases present (19) Weakness Family History Diabetes mellitus Hypertension Social History Smoking Status: Never Smoker Smokeless Tobacco Use: No Alcohol Use: none Drug Use: none Marital Status: Housing status: lives with family Occupational Status: unemployed Immunizations History of Influenza Vaccine: Unknown History of Tetanus Vaccine?: Unknown History of Pneumococcal: Unknown History of Hepatitis B Vaccine: Unknown Allergies Coded Allergies: No Known Allergies (Unverified , 11/02/17) Home Medications Scheduled Cephalexin Monohydrate (Keflex), 500 MG PO TID Fentanyl (Fentanyl), 75 MCG TOP CQ72HR Furosemide (Lasix), 20 MG PO DAILY Oxycodone Hcl (Oxycodone Hcl), 15 MG PO QID Rivaroxaban (Xarelto), 20 MG PO DAILY [Ativan], 1 DOSE PO UD Scheduled PRN Acetaminophen (Tylenol), 650 MG PO Q4H PRN for Pain Ibuprofen Tab (Motrin), 600 MG PO TID PRN for Pain Ondansetron Hcl (Zofran), 8 MG PO Q8 PRN for Nausea Review of Systems Constitutional: + chills, No fever Respiratory: + shortness of breath, No cough, No sputum, No wheezing Cardiovascular: + chest pain Abdomen: No pain, No nausea, No vomiting, No diarrhea, No constipation Musculoskeletal: No joint pain Genitourinary - Female: No dysuria Neurologic: No memory loss Endocrine: + fatigue Physical Exam Vital Signs Date Time Temp Pulse Resp B/P (MAP) Pulse Ox O2 Delivery O2 Flow Rate FiO2 11/18/17 23:29 93 16 185/97 95 Room Air 11/18/17 22:18 77 16 178/98 96 Room Air 11/18/17 21:51 69 16 174/100 97 Room Air 11/18/17 21:33 100 Room Air 11/18/17 20:54 84 11/18/17 20:36 36.6 97 20 173/114 97 Room Air General Appearance: WD/WN, no apparent distress, + obese Head: normocephalic, atraumatic Eyes: normal inspection Neck: supple, no adenopathy Respiratory/Chest: chest non-tender, lungs clear, normal breath sounds, no respiratory distress, no accessory muscle use Cardiovascular: regular rate, rhythm, no edema, no gallop, no JVD, no murmur, normal peripheral pulses Abdomen/GI: normal bowel sounds, non tender, soft, no organomegaly, no pulsatile mass, normal rectal exam Genitourinary - Female: external genitalia normal Back: normal inspection, no CVA tenderness, no muscle spasm Extremities/Musculoskelatal: no calf tenderness, normal range of motion, + pertinent finding (There is erythema on the Right lower extremity distal to the R knee and ending at hte R toes. 2+ pitting edema bilaterally. ) Neurologic/Psych: power checker II-XII nml as tested, no motor/sensory deficits, alert, normal mood/affect, normal reflexes, oriented x 3 Diagnostics Laboratory Results Results Past 24 Hours Test 11/18/17 20:45 11/18/17 21:10 11/18/17 21:19 Range/Units Urine Color YELLOW Urine Appearance SL CLOUDY CLEAR Urine pH 7.5 4.5-7.5 Urine Specific [place] 1.020 1.000-1.030 Urine Protein NEG NEG Urine Glucose (UA) NEG NEG Urine Ketones NEG NEG Urine Occult Blood NEG NEG Urine Nitrite NEG NEG Urine Bilirubin NEG NEG Urine Urobilinogen NEG NEG Urine Leukocyte Esterase NEG NEG Urine RBC 0-4 0-4 /hpf Urine WBC 1-5 0-5 /hpf Urine Epithelial Cells >30 0-5 /lpf Urine Bacteria NEG NEG White Blood Count 5.68 4.8-10.8 K/uL Red Blood Count 3.82 4.2-5.4 M/uL Hemoglobin 11.5 12.0-16.0 g/dL Hematocrit 36.2 37-47 % Mean Corpuscular Volume 94.8 80-100 fL Mean Corpuscular Hemoglobin 30.1 25-34 pg Mean Corpuscular Hemoglobin Concent 31.8 32-36 g/dl Platelet Count 251 130-400 K/uL Mean Platelet Volume 9.8 7.4-10.4 fL Neutrophils (%) (Auto) 68.4 % Lymphocytes (%) (Auto) 23.4 % Monocytes (%) (Auto) 4.8 % Eosinophils (%) (Auto) 3.0 % Basophils (%) (Auto) 0.2 % Neutrophils # (Auto) 3.89 1.4-6.5 K/uL Lymphocytes # (Auto) 1.33 1.2-3.4 K/uL Monocytes # (Auto) 0.27 0.11-0.59 K/uL Eosinophils # (Auto) 0.17 0-0.5 K/uL Basophils # (Auto) 0.01 0-0.2 K/uL RDW Standard Deviation 53.8 36.4-46.3 fL RDW Coefficient of Variation 15.5 11.5-14.5 % Immature Granulocyte % (Auto) 0.2 % Immature Granulocyte # (Auto) 0.01 0.00-0.02 K/uL Prothrombin Time 12.5 9.0-12.0 SECONDS Prothromb Time International Ratio 1.2 0.9-1.1 Activated Partial Thromboplast Time 35.1 21.0-31.0 SECONDS Partial Thromboplastin Ratio 1.4 Sodium Level 136 136-145 mmol/L Potassium Level 3.8 3.5-5.1 mmol/L Chloride Level 101 98-107 mmol/L Carbon Dioxide Level 29 21-32 mmol/L Anion Gap 7.0 3-11 mmol/L Blood Urea Nitrogen 10 7-18 mg/dl Creatinine 0.54 0.60-1.20 mg/dl Est Creatinine Clear Calc Drug Dose 119.2 ml/min Estimated GFR () 117.2 Estimated GFR (Non- 101.1 BUN/Creatinine Ratio 18.3 10-20 Random Glucose 91 70-99 mg/dl Calcium Level 9.1 8.5-10.1 mg/dl Total Bilirubin 0.6 0.2-1 mg/dl Aspartate Amino Transf (AST/SGOT) 19 15-37 U/L Alanine Aminotransferase (ALT/SGPT) 19 12-78 U/L Alkaline Phosphatase 79 45-117 U/L Troponin I < 0.015 0-0.045 ng/ml Total Protein 6.8 6.4-8.2 gm/dl Albumin 2.9 3.4-5.0 gm/dl Globulin 3.9 2.5-4.0 gm/dl Albumin/Globulin Ratio 0.7 0.9-2 Bedside Lactic Acid Venous 0.54 0.90-1.70 mmol/L Microbiology Results 11/18/17 Blood Culture, Received Pending 11/18/17 Blood Culture, Received Pending Diagnostic Radiology CHEST ONE VIEW PORTABLE CLINICAL HISTORY: Sepsis COMPARISON STUDY: 11/04/2017 FINDINGS: The heart is normal in size. There is mild prominence the right paratracheal soft tissues. The right-sided PICC catheter has been removed. There is no failure. There is no lobar consolidation. There are basilar linear atelectatic changes.[ IMPRESSION: 1. Interval removal of the right-sided PICC catheter 2. Basilar atelectasis Impression Assessment and Plan 62F h/o squamous CA of the sinuses recently restarted on radiation and chemotherapy, recent PEs, leg MSSA cellulitis/abscess, and obesity, here with general fatigue, weakness and a worsening of her right lower extremity cellulitis. Cellulitis Per chart review patient has completed a 21 day course of Rocephin via PICC line on 11/08/17 and scheduled to see wound care on discharge. Her med rec has her taking Keflex TID - pt denies taking Keflex but her thinks she has been taking it. Will restart IV Rocephin, wound was MSSA previously. Will concult wound care for a weeping lesion on the R lateral malleoli. Sinus CA with dural metastases - Patient did express a concern to me to stop treatment. Unsure if this is a final decision or just due to a transient emotional state. Suggested to the patient that she have an honest discussion with Dr. Gonzalez regarding goals of care. Oncology is consulted. Consider Palliative care consult. (from my conversation pt may be leaning towards this - I'm unsure if her cancer has a good prognosis) Facial Pain (chronic) Per previous discharge summery, pain likely 2/2 to bony destruction from her squamous cell carcinoma of her sinuses. There has been minimal to no improvement since starting radiation treatment. h/o PEs and RLE superficial thrombus - likely explains her SOB on ROS, good saturations on room air, will hold off on rescanning her chest, cont xarelto 20 mg daily on 11/04. ?Cognitive impairment/intermittent encephalopathy -Problem copied from previous DC Summary, I did not appreciate significant cognitive impairement when talking to patient Chronic opioid dependence - fentanyl patch 75mcg q3days, and oxycodone at home dose. Dispo: Med Surg DVT Proph: On Xarelto Diet: Regular FULL CODE - please discuss with patient. Attending addendum: I have physically seen this patient, have supervised the medical residents activities, and agree with the H&P unless as otherwise noted. Assessment and Plan: Recurrent/incompletely treated right lower extremity cellulitis/known MSSA-- Completed 21 day course of ceftriaxone IV Resume ceftriaxone 1 g IV daily. Consult wound care. Sinus cancer/dural metastases-- Undergoing chemotherapy with Dr. Gonzalez. Pulmonary emboli/right lower extremity superficial thrombus-- Continue Xarelto Chronic pain syndrome-- Part of her pain recurrence likely withdrawal as they may miss her fentanyl patch a day at a time, and she likely is going through part withdrawal as this happens as well, as well as overall less than ideal pain control. Continue fentanyl patch and oxycodone. Remainder of orders and notations as above. Agree with consideration of palliative care consult. Advanced Directives Existing Advance Directive: No Existing Living Will: No Existing Power of Pig Furnace Operator: No Resuscitation Status VTE Prophylaxis Will order VTE Prophylaxis: Yes Social Service Consult Cancer Patient Under [place] Resident Involvement: Resident Care Provided Care Provided: Adult Hospital Medicine
[2017-11-19] MEDS ORDERED: MAGNESIUM HYDROXIDE SUSP 30 ML UDC PO PRN
[2017-11-19] MEDS ORDERED: POLYETHYLENE (MIRALAX) 17 GM PACK PO PRN
[2017-11-19] MEDS ORDERED: ZOLPIDEM TARTRATE 5 MG TAB PO PRN
[2017-11-19] MEDS ORDERED: ALUMINUM/MAGNESIUM/SIMETH (MAALOX MAX) 30 ML UDC PO PRN
[2017-11-19] MEDS: ACETAMINOPHEN 325 MG TAB PO PRN ×3 (00:15→20:59)
--- NOTE | 2017-11-19 00:20 | EMERGENCY ROOM VISIT NOTE ---
History Report prepared by Candida: Eleazar Huntley Under the Supervision of: Dr. Bhupendra Balderas M.D. First contact with patient: 20:57 Chief Complaint: ILLNESS Stated Complaint: URINARY PAIN History of Present Illness The patient is a 62 year old female who presents to the Emergency Room with complaints of constant illness beginning a few weeks ago. The patient states she cannot eat, sleep, or drink. She reports she has chest pain with shortness of breath. She reports she was hospitalized a month ago for an infection in her feet and legs, pneumonia, and pulmonary emboli. The patient notes she was placed on Xarelto. The patient notes she was evaluated two weeks ago for similar symptoms and diagnosed with a UTI. She states she had an EKG and CT of her chest performed. The patient reports she was discharged with doxycycline. She notes she finished the doxycycline. The patient states she has also had intermittent fevers with constant chills for a few weeks. She denies missing her medication doses and vomiting. The patient states her right leg is more swollen and red. The patient's [id number] reports the patient started chemotherapy last week, and swelling is a side effect. She notes the patient had DVTs that broke to her PEs. The [id number] states she is not sure if they are bilateral. HPI limited secondary to the patient's lack of cooperation. Source of History: patient, family History Limited By: poor cooperation (The patient appears very uncomfortable and therefore unable to give a significant history) Review of Systems ROS limited secondary to the patient's lack of cooperation. Past Medical & Surgical Medical Problems: (1) Cellulitis (2) Cellulitis of leg (3) No chronic diseases present Family History Diabetes mellitus Hypertension Social History Smoking Status: Never Smoker Marital Status: Housing Status: lives with family Occupation Status: unemployed Current/Historical Medications Scheduled Cephalexin Monohydrate (Keflex), 500 MG PO TID Fentanyl (Fentanyl), 75 MCG TOP CQ72HR Furosemide (Lasix), 20 MG PO DAILY Oxycodone Hcl (Oxycodone Hcl), 15 MG PO QID Rivaroxaban (Xarelto), 20 MG PO DAILY [Ativan], 1 DOSE PO UD Scheduled PRN Acetaminophen (Tylenol), 650 MG PO Q4H PRN for Pain Ibuprofen Tab (Motrin), 600 MG PO TID PRN for Pain Ondansetron Hcl (Zofran), 8 MG PO Q8 PRN for Nausea Allergies Coded Allergies: No Known Allergies (Unverified , 11/02/17) Physical Exam Vital Signs Date Time Temp Pulse Resp B/P (MAP) Pulse Ox O2 Delivery O2 Flow Rate FiO2 11/19/17 00:03 100 11/19/17 00:01 99 20 158/93 97 Room Air 11/18/17 23:29 93 16 185/97 95 Room Air 11/18/17 22:18 77 16 178/98 96 Room Air 11/18/17 21:51 69 16 174/100 97 Room Air 11/18/17 21:33 100 Room Air 11/18/17 20:54 84 11/18/17 20:36 36.6 97 20 173/114 97 Room Air Physical Exam Constitutional: Vital signs reviewed. Eyes: Pupils are equal round reactive to light. Conjunctiva are noninjected. ENT: Pharynx is clear without erythema or exudate. Mucous membranes are dry. Neck supple without meningeal signs. Respiratory: Clear to auscultation bilaterally. Breath sounds are equal bilaterally. Cardiovascular: Regular rate and rhythm. No rubs or gallops. GI: Soft, nondistended and nontender. Bowel sounds are present. Musculoskeletal: Edema and erythema to the right lower extremity. No fluctuance. Slightly increased warmth. Integumentary: No cyanosis. Neurological: The patient is awake and alert. No focal deficits. Psychiatric: Anxious appearing. Medical Decision & Procedures ER Provider Diagnostic Interpretation: X-ray results as stated below per interpretation by me and the radiologist: CHEST ONE VIEW PORTABLE CLINICAL HISTORY: Sepsis COMPARISON STUDY: 11/04/2017 FINDINGS: The heart is normal in size. There is mild prominence the right paratracheal soft tissues. The right-sided PICC catheter has been removed. There is no failure. There is no lobar consolidation. There are basilar linear atelectatic changes.[ IMPRESSION: 1. Interval removal of the right-sided PICC catheter 2. Basilar atelectasis Electronically signed by: Maxim Ku M.D. 11/18/2017 9:49 PM Dictated Date/Time: 11/18/2017 9:48 PM Laboratory Results 11/18/17 21:10 Red Blood Count 3.82, Mean Corpuscular Volume 94.8, Mean Corpuscular Hemoglobin 30.1, Mean Corpuscular Hemoglobin Concent 31.8, Mean Platelet Volume 9.8, Neutrophils (%) (Auto) 68.4, Lymphocytes (%) (Auto) 23.4, Monocytes (%) (Auto) 4.8, Eosinophils (%) (Auto) 3.0, Basophils (%) (Auto) 0.2, Neutrophils # (Auto) 3.89, Lymphocytes # (Auto) 1.33, Monocytes # (Auto) 0.27, Eosinophils # (Auto) 0.17, Basophils # (Auto) 0.01 11/18/17 21:10 Test 11/18/17 20:45 11/18/17 21:10 11/18/17 21:19 Urine Color YELLOW Urine Appearance SL CLOUDY (CLEAR) Urine pH 7.5 (4.5-7.5) Urine Specific [place] 1.020 (1.000-1.030) Urine Protein NEG (NEG) Urine Glucose (UA) NEG (NEG) Urine Ketones NEG (NEG) Urine Occult Blood NEG (NEG) Urine Nitrite NEG (NEG) Urine Bilirubin NEG (NEG) Urine Urobilinogen NEG (NEG) Urine Leukocyte Esterase NEG (NEG) Urine RBC 0-4 /hpf (0-4) Urine WBC 1-5 /hpf (0-5) Urine Epithelial Cells >30 /lpf (0-5) Urine Bacteria NEG (NEG) White Blood Count 5.68 K/uL (4.8-10.8) Red Blood Count 3.82 M/uL (4.2-5.4) Hemoglobin 11.5 g/dL (12.0-16.0) Hematocrit 36.2 % (37-47) Mean Corpuscular Volume 94.8 fL (80-100) Mean Corpuscular Hemoglobin 30.1 pg (25-34) Mean Corpuscular Hemoglobin Concent 31.8 g/dl (32-36) Platelet Count 251 K/uL (130-400) Mean Platelet Volume 9.8 fL (7.4-10.4) Neutrophils (%) (Auto) 68.4 % Lymphocytes (%) (Auto) 23.4 % Monocytes (%) (Auto) 4.8 % Eosinophils (%) (Auto) 3.0 % Basophils (%) (Auto) 0.2 % Neutrophils # (Auto) 3.89 K/uL (1.4-6.5) Lymphocytes # (Auto) 1.33 K/uL (1.2-3.4) Monocytes # (Auto) 0.27 K/uL (0.11-0.59) Eosinophils # (Auto) 0.17 K/uL (0-0.5) Basophils # (Auto) 0.01 K/uL (0-0.2) RDW Standard Deviation 53.8 fL (36.4-46.3) RDW Coefficient of Variation 15.5 % (11.5-14.5) Immature Granulocyte % (Auto) 0.2 % Immature Granulocyte # (Auto) 0.01 K/uL (0.00-0.02) Prothrombin Time 12.5 SECONDS (9.0-12.0) Prothromb Time International Ratio 1.2 (0.9-1.1) Activated Partial Thromboplast Time 35.1 SECONDS (21.0-31.0) Partial Thromboplastin Ratio 1.4 Anion Gap 7.0 mmol/L (3-11) Est Creatinine Clear Calc Drug Dose 119.2 ml/min Estimated GFR () 117.2 Estimated GFR (Non- 101.1 BUN/Creatinine Ratio 18.3 (10-20) Calcium Level 9.1 mg/dl (8.5-10.1) Total Bilirubin 0.6 mg/dl (0.2-1) Aspartate Amino Transf (AST/SGOT) 19 U/L (15-37) Alanine Aminotransferase (ALT/SGPT) 19 U/L (12-78) Alkaline Phosphatase 79 U/L (45-117) Troponin I < 0.015 ng/ml (0-0.045) Total Protein 6.8 gm/dl (6.4-8.2) Albumin 2.9 gm/dl (3.4-5.0) Globulin 3.9 gm/dl (2.5-4.0) Albumin/Globulin Ratio 0.7 (0.9-2) Bedside Lactic Acid Venous 0.54 mmol/L (0.90-1.70) Laboratory results as reviewed by me. Medications Administered Medications (Trade) Dose Ordered Sig/Kath Route Start Time Stop Time Status Last Admin Dose Admin Sodium Chloride 500 ml @ 999 mls/hr Q31M STAT IV 11/18/17 21:17 11/18/17 21:47 DC 11/18/17 21:26 999 MLS/HR Morphine Sulfate (MoRPHine SULFATE INJ) 4 mg NOW STAT IV 11/18/17 21:17 11/18/17 21:18 DC 11/18/17 21:27 4 MG Ondansetron HCl (Zofran Inj) 4 mg NOW STAT IV 11/18/17 21:17 11/18/17 21:18 DC 11/18/17 21:25 4 MG Ceftriaxone Sodium (Rocephin Inj) 1 gm NOW STAT IV 11/18/17 22:42 11/18/17 22:43 DC 11/18/17 22:52 1 GM ECG Per My Interpretation Indication: chest pain Rate (beats per minute): 69 Rhythm: normal sinus Findings: other (No ST elevation. No PVCs.) ED Course 2100: The patient was evaluated in room B06. A complete history and physical exam was performed. 2116: Ordered Zofran 4mg IV, Morphine Sulfate 4mg IV, Sodium Chloride 500 ml @ 999 mls/hr IV 2237: I reevaluated the patient and discussed her test results with her and her . She does not feel better and is unable to eat or drink much at home. 2240: I discussed the patient's case with Dr. Reyes, [facility] Hospitalist. The patient will be evaluated for further care. 2241: Ordered Rocephin 1gm IV Medical Decision This is a 62-year-old female who presents with general malaise. Differential diagnosis includes dehydration, malnutrition, metabolic derangement, sepsis, cellulitis. I did perform a limited focused review of portions of the patient' s old chart on the electronic medical record. The patient was seen on November [address] of the head and sinuses. 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 She was discharged on doxycycline and was told to stop her Macrobid. She also received a dose of fosfomycin. She had ESBL E. Coli in her urine. She was admitted on October 25 for bilateral pneumonia and PEs, leg MSSA cellulitis with abscess, and right lower extremity superficial thrombus. She had blood work yesterday that was unremarkable. I did evaluate the patient as noted above. I did obtain history from the patient as well as her [id number] and her . The patient is a poor historian likely because she is very uncomfortable. She has not been able to eat or drink very much over the past several days and has noticed worsening redness to her right leg where she had cellulitis. She has also had chills and generalized weakness. IV access was established. The patient was placed on a continuous appliance technician. I did order and personally review the patient's 12- lead EKG and chest x-ray as described above. I did order and review the patient 's blood work as noted in the electronic medical record. I did treat patient with normal saline IV. She was also given Zofran IV and morphine IV. I did reassess the patient. She is feeling slightly better. Because of her worsening cellulitis to the right leg and inability to eat or drink very much at home with worsening weakness I did feel she would benefit from hospitalization. I did discuss the case with the hospitalist and clinical case manager. I did treat her with ceftriaxone IV. Medication Reconcilliation Current Medication List: was personally reviewed by me Blood Pressure Screening Patient's blood pressure: Elevated blood pressure Blood pressure disposition: Referred to PCP Consults Time Called: 2238 Consulting Physician: Dr. Reyes, [facility] Hospitalist Returned Call: 2240 I discussed the patient's case with Dr. Reyes, [facility] Hospitalist. The patient will be evaluated for further care. Impression Primary Impression: Cellulitis of right leg Additional Impressions: Failure of outpatient treatment Dehydration Generalized weakness Scribe Attestation The scribe's documentation has been prepared under my direct and personally reviewed by me in its entirety. I confirm that the note above accurately reflects all work, treatment, procedures, and medical decision making performed by me. Departure Information Referrals Timothy Diaz M.D. (PCP) Patient Instructions [facility] Problem Qualifiers
[2017-11-19] MEDS ORDERED: NON-FORMULARY MEDICATION (Fentanyl 75 MCG) TOP SCH (01:45)
[2017-11-19] MEDS ORDERED: LORAZEPAM 0.5 MG TAB PO PRN (01:45)
[2017-11-19 03:42] VITALS: BP 151/101; PULSE 90; TEMP 36.8; O2SAT 97; BMI 35.2
[2017-11-19] MEDS: IBUPROFEN 600 MG TAB PO PRN ×2 (04:21→16:14)
[2017-11-19 07:27] VITALS: BP 158/95; PULSE 81; TEMP 36.6; O2SAT 98
--- NOTE | 2017-11-19 08:11 | Family Medicine Progress Note ---
Progress Note Date of Service Nov 19, 2017. Subjective Pt evaluation today including: conversation w/ patient, conversation w/ family , physical exam, chart review, lab review, review of studies, review of inpatient medication list Pain: 01/31 PO Intake: tolerating but not significant intake Subjective: Patient was with her family and in significant pain when I examined her this morning. Patient reports no complaints overnight besides pain, did not sleep well 2/2 pain, voiding and stooling appropriately. Diet is not great but she is eating. 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 Recent admission for RLE cellulitis and abscess 10/12/17 and PNA on 10/25/17. She presents to the ER complaining of general malaise , fatigue and weakness. Incidentally she also states that the cellulitis in the RLE has worsened. Her states that she is on Keflex for her cellulitis although the patient believes she has discontinued the Keflex one week prior. Per chart review she has completed a 21 day course of IV Ceftriaxone for the RLE cellulitis. Per patient she has recently started radiation and chemotherapy with Dr. Gonzalez. The patient did express a desire to me to stop her treatment She is also on Xarelto for bilateral PEs. Review of systems is positive for SOB and sternal pain on movement. There is also constant pain in her sinuses. Constitutional: + weakness, No fever, No chills, No sweats Eyes: No worsening of vision ENT: + nasal symptoms (Significant pain in the V2/V3 distribution), No hearing loss Respiratory: + dyspnea on exertion, No cough, No sputum, No wheezing, No shortness of breath Cardiovascular: No chest pain, No orthopnea, No PND, No edema Abdomen: + pain, + nausea, No vomiting, No diarrhea, No constipation Musculoskeletal: + problem reported (pain in lower legs were cellulitis was) , No joint pain Neurologic: No memory loss Psychiatric: + depression symptoms, + anxiety, + insomnia Heme: No abnormal bleeding/bruising Endo: + fatigue Skin: + rash (resolving cellulitis), No itch All Other Systems: Reviewed and Negative Medications Current Inpatient Medications Medications (Trade) Dose Ordered Sig/Kath Route Start Time Stop Time Status Last Admin Dose Admin Acetaminophen (Tylenol Tab) 650 mg Q4H PRN PO 11/19/17 00:00 12/19/17 00:00 11/19/17 00:15 650 MG Al Hydrox/Mg Hydrox/Simethicone (Maalox Max Susp) 15 ml Q4H PRN PO 11/19/17 00:00 12/19/17 00:00 Magnesium Hydroxide (Milk Of Magnesia Susp) 30 ml Q6H PRN PO 11/19/17 00:00 12/19/17 00:00 Polyethylene (Miralax Powder Packet) 17 gm DAILY PRN PO 11/19/17 00:00 12/19/17 00:00 Zolpidem Tartrate (Ambien Tab) 5 mg HSZ PRN PO 11/19/17 00:00 12/19/17 00:00 Ondansetron HCl (Zofran Inj) 4 mg Q6H PRN IV 11/19/17 00:00 12/19/17 00:00 Ceftriaxone Sodium 1 gm/ Dextrose 50 ml @ 100 mls/hr Q24H IV 11/19/17 23:00 11/27/17 23:29 Furosemide (Lasix Tab) 20 mg DAILY PO 11/19/17 08:00 12/19/17 07:59 Ibuprofen (Motrin Tab) 600 mg TID PRN PO 11/19/17 01:45 12/19/17 01:44 11/19/17 04:21 600 MG Ondansetron HCl (Zofran Tab) 8 mg Q8 PRN PO 11/19/17 01:45 12/19/17 01:44 Rivaroxaban (Xarelto Tab) 20 mg DAILY PO 11/19/17 08:00 12/19/17 07:59 Oxycodone HCl (Roxicodone Immediate Rel Tab) 15 mg QID PO 11/19/17 08:00 12/19/17 07:59 Lorazepam (Ativan Tab) 0.5 mg BID PRN PO 11/19/17 01:45 12/19/17 01:44 Fentanyl (Duragesic Patch) 75 mcg Q3D TD 11/21/17 08:00 12/05/17 07:59 Miscellaneous (Fentanyl Patch Remove & Waste) 1 ea Q3D N/A 11/21/17 07:59 12/21/17 07:58 Miscellaneous Information (Check Fentanyl Patch Placement) 1 ea QS N/A 11/19/17 08:00 12/19/17 07:59 Objective Vital Signs Date Time Temp Pulse Resp B/P (MAP) Pulse Ox O2 Delivery O2 Flow Rate FiO2 11/19/17 07:27 36.6 81 20 158/95 (116) 98 11/19/17 03:42 36.8 90 16 151/101 97 Room Air 11/19/17 00:03 100 11/19/17 00:01 99 20 158/93 97 Room Air 11/18/17 23:29 93 16 185/97 95 Room Air 11/18/17 22:18 77 16 178/98 96 Room Air 11/18/17 21:51 69 16 174/100 97 Room Air 11/18/17 21:33 100 Room Air 11/18/17 20:54 84 11/18/17 20:36 36.6 97 20 173/114 97 Room Air Physical Exam General Appearance: WD/WN, + severe distress (severe pain & nausea v2/v3 distribution of the trigeminal nerve) Eyes: normal inspection, EOMI, sclerae normal Neck: supple, no adenopathy, thyroid normal, no JVD, no carotid bruits, trachea midline Respiratory/Chest: chest non-tender, lungs clear, normal breath sounds, no respiratory distress, no accessory muscle use Cardiovascular: no gallop, no JVD, + normal peripheral pulses, + pertinent finding (murmur) Abdomen: normal bowel sounds, non tender, soft, no organomegaly, no pulsatile mass Extremities: non-tender, normal inspection, no calf tenderness, normal capillary refill, + pedal edema (1+) Neurologic/Psychiatric: alert, oriented x 3, + depressed affect Skin: normal color, warm/dry, + rash (Resolving Cellulitis) Lymphatic: no adenopathy Laboratory Results Last Resulted 11/18/17 21:10 Red Blood Count 3.82, Mean Corpuscular Volume 94.8, Mean Corpuscular Hemoglobin 30.1, Mean Corpuscular Hemoglobin Concent 31.8, Mean Platelet Volume 9.8, Neutrophils (%) (Auto) 68.4, Lymphocytes (%) (Auto) 23.4, Monocytes (%) (Auto) 4.8, Eosinophils (%) (Auto) 3.0, Basophils (%) (Auto) 0.2, Neutrophils # (Auto) 3.89, Lymphocytes # (Auto) 1.33, Monocytes # (Auto) 0.27, Eosinophils # (Auto) 0.17, Basophils # (Auto) 0.01 Last Resulted 11/18/17 21:10 Past 24 Hours Test 11/18/17 21:10 Range/Units Prothromb Time International Ratio 1.2 H 0.9-1.1 Prothrombin Time 12.5 H 9.0-12.0 SECONDS Troponin I < 0.015 0-0.045 ng/ml Date/Time Source Procedure Growth Status 11/18/17 22:02 Blood Blood Culture Pending Received 11/18/17 21:10 Blood Blood Culture Pending Received Assessment and Plan 62F h/o squamous CA of the sinuses recently restarted on radiation and chemotherapy, recent PEs, leg MSSA cellulitis/abscess, and obesity, here with general fatigue, weakness and a worsening of her right lower extremity cellulitis. Cellulitis -Per chart review patient has completed a 21 day course of Rocephin via PICC line on 11/08/17 and scheduled to see wound care on discharge. -med rec has her taking Keflex TID - pt denies taking Keflex but her thinks she has been taking it. -Will restart IV Rocephin, wound was MSSA previously. -Consulted wound care for a weeping lesion on the R lateral malleoli. Sinus CA with dural metastases - -Oncology is consulted. "- frustrated and depressed that her pain has not been controlled. -Dr. Faith again and strongly considered conversion to methadone. This agent is more efficacious for neuropathic as well as somatic pain. -discussed moving forward with chemoradiation. -had 2 fractions of radiation and one course of chemotherapy thus far. -much too early to consider abandoning therapy, but will proceed with Michelle' s wishes moving forward. -Michelle wants to talk to her family and discuss issues and the possibility of incorporating hospice if the decision is made to abandon salvage treatment. -She understands her disease most likely may not be cured -I would continue supportive care -advised Michelle I would be more than happy to help her in the transition to hospice and manage her symptoms to the best of my ability. -Will continue to follow her periodically during hospital stay. -I would inform radiation oncology of the patient's admission to hospital." Facial Pain (chronic) -Per previous discharge summery, pain likely 2/2 to bony destruction from her squamous cell carcinoma of her sinuses. -There has been minimal to no improvement since starting radiation treatment. -Started Marinol 2.5 BID, for appetite stimulation, pain, mood, seems to have significant improvement in mood and appetite this evening -Started Amitriptylene 50 mg HS in hopes it will help with neuropathic pain, sleep, and mood -Started Gabapentin 300 mg TID for Pain -Started Fiorcet q4h prn for headache/vascular pain -Request Dr. Gray and primary care team have a low threshold for uptitrating dose of Marinol and Gabapentin to effective levels (watch for side affects d/w ) -Suggest Marinol -> 5 BID tomorrow, assess efficacy if tolerating -> 7.5 BID Monday, assess efficacy if tolerating -> 10 mg BID Monday -Suggest Gabapentin if tolerating and lack of efficacy-> 600 mg tomorrow TID for Pain tomorrow if tolerating and lack of efficacy -> 900 mg Monday TID if tolerating and lack of efficacy -> max dose 1200 TID Monday -Similar schedule with amitriptylene -make changes to above schedule as you see fit -I think this patient [place] an [place] through nurse coordinator -Agree with Dr. Gonzalez regarding transition to methadone h/o PEs and RLE superficial thrombus - likely explains her SOB on ROS, good saturations on room air, will hold off on rescanning her chest, cont xarelto 20 mg daily on 11/04. -obtained Xa level to determine compliance -understand that test cannot be used to asses quantitative efficacy of xarelto but can asses qualitative -high anti Xa levels 2.76 indicates lack of significant anti coagulation and or significant drug levels. -f/u levels tomorrow if still elevated would consider switching AC as likely pharmocokinetic/dynamic interferance from other medicines Cognitive impairment/intermittent encephalopathy - AAOx3 - Some memory impairment likely 2/2 to brain mets and or chemo/radiation - continue to monitor Chronic opioid dependence - fentanyl patch 75mcg q3days, and oxycodone at home dose. - opioids likely not helping pain as she is now tolerant, would consider alternative therapy listed above and or significant dose/drug class escalation such as methadone - reviewed Oncology Palliative Care studies only additional suggestion would be glucocorticoids, I am partial to decadron -will reassess patient on my way out this evening Transition of Care -Dr. Gray will resume care of Ms. Jacobson Dispo: Med Surg DVT Proph: On Xarelto Diet: Regular FULL CODE - please discuss with patient. Resident Physician Supervision Note: I interviewed and examined the patient. Discussed with Dr. Rubio and agree with findings and plan as documented in the note. Any exceptions or clarifications are listed here: None Documented By: Claudio Akbar severe intractable pain across face from sinus vitals noted sitting up in bed leaning forward holding face visibly in pain facial pain - appearing to be coming from V2 - ?cancer related vs radiation induced but appearing to be trigeminal pain -current regimen not helping -for now escalate prn to dilauded for hopefully immediate relief - but likely more neuropathic approach to be of more benefit than strictly narcotics in longer term --gabapentin - start 300mg tid and escalate as quickly as she tolerates ( risk of sedation outlined) --amitryptilline 50mg HS (because pain also keeping her awake) (fatigue, dry mount, orthostasis outlined) ---can escalate dosing of above - d/w pt and with acuity and severity of pain, and given that inpt setting is supervised, can escalate dosing more quickly in this setting than can be done at home ---if doesn't show improvement with above / escalations --> can consider pain management consult re ?nerve block/ablation type procedures intractable nausea -likely multifactorial; pain control might affect some improvement -trial of marinol to improve sx, much as above, would titrate up daily unless side effects develop, until either symptoms alleviated or maximum dosing reached otherwise as above Continued [facility] stay due to: inadequate oral pain control Discharge planning: home with home health Resident Tracking Resident Involvement: Resident Care Provided Care Provided: Adult Hospital Medicine
[2017-11-19] MEDS: OXYCODONE HCL IR 5 MG TAB (IMMEDIATE RELEASE) PO SCH ×4 (08:24→20:10)
[2017-11-19] MEDS: FUROSEMIDE 20 MG TAB PO SCH (08:26)
[2017-11-19] MEDS: RIVAROXABAN 10 MG TAB PO SCH (08:26)
[2017-11-19] MEDS: CHECK FENTANYL PATCH PLACEMENT SCH ×3 (08:27→23:58)
[2017-11-19 08:30] VITALS: O2SAT 98
--- NOTE | 2017-11-19 09:56 | ONCOLOGY CONSULTATION ---
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 Michelle has been battling this disease for several months, initially received carboplatin, paclitaxel and Erbitux, which resulted in a transient response. However, because of cellulitis, it was delayed in commencing chemoradiation which was previously planned. She has had multiple hospitalizations and continues to reyna with pain control. She has utilized corticosteroids, powerful nonsteroidal anti-inflammatory agents and is on a regular dose of chronic opioids. She recently started weekly carboplatin and paclitaxel and has had 2 radiation treatments thus far. However, Michelle has become increasingly frustrated because of poor pain control and is considering discontinuing all treatments. Briefly discussed the possibility of asking Dr. Faith to visit with her and incorporating methadone in lieu of her current opioid regimen. Her appetite has been poor and clearly her mood has been depressed. She imparted wishing to speak to her family before final decision is made. I encouraged her to consider moving forward as she is very early in the combined modality treatment phase. 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 MEDICATIONS: Include Keflex 500 mg p.o. t.i.d., fentanyl 75 mcg topically q. 72 hours, Lasix 20 mg p.o. daily, oxycodone 15 mg p.o. q.i.d. p.r.n. for breakthrough, Xarelto 20 mg p.o. daily and p.r.n. Ativan. ALLERGIES: No known drug allergies. FAMILY HISTORY: Positive for diabetes mellitus and hypertension. SOCIAL HISTORY: The patient is , resides with her family. She is a nonsmoker, nondrinker. REVIEW OF SYSTEMS: Most notably for facial pain and anorexia as a result. No fevers, chills or sweats presently. SKIN: No rashes or lesions. Recently developed lower extremity cellulitis and continues on chronic antibiotics. HEENT: No headaches, lightheadedness or dizziness presently. She denies any visual or hearing deficits. Positive for a painful sinus. No rhinorrhea or discharge. Throat: Negative for sore throat, no dysphagia presently. LYMPHAT`IC: No history of lymphoproliferative disease. CARDIAC: No history of coronary artery disease, no angina or palpitations. PULMONARY: Negative for COPD. No shortness of breath, dyspnea or orthopnea. No cough or hemoptysis. GASTROINTESTINAL: Negative for abdominal pain, nausea, vomiting, diarrhea or constipation, hematochezia or melena stools. GENITOURINARY: No hematuria, dysuria or urinary incontinence. PSYCHIATRIC: Positive for depression, positive for anxiety. ENDOCRINE: Negative for diabetes or thyroid disease. NEUROLOGIC: Negative for seizure, stroke, or migraine headache. HEMATOLOGIC: Positive for treatment-induced anemia. PHYSICAL EXAMINATION: GENERAL: Very depressed 62-year-old female patient, awake, alert and otherwise appropriate, in no acute distress. VITAL SIGNS: Temperature 36.6, pulse 81, respiratory rate 20, blood pressure 158/95. SKIN: Warm, dry, noncyanotic without petechia, rash or ecchymosis. HEENT: Oral mucosa without erythema or ulceration. HEART: Regular rate and rhythm. No clicks, rubs, murmurs or gallops. LUNGS: Clear to auscultation bilaterally. ABDOMEN: Obese, soft, nontender, nondistended. Large ventral hernia which is chronic. EXTREMITIES: No clubbing, cyanosis or edema. Pulses and strength are equal in all 4 quadrants. NEUROLOGICALLY: She is awake, alert and oriented x3. Cranial nerves are grossly intact. LABORATORY DATA: WBC count 5680, hemoglobin 11.5, platelet count 251,000. Chemistries, ____ 136, potassium 3.8, chloride 101, carbon dioxide 29, creatinine 0.54, BUN 10, albumin 2.9. IMPRESSION: 1. Facial pain, attributable to disease progression. 2. Lower extremity cellulitis, was on antibiotics prior to admission. 3. Hypoalbuminemia. 4. 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 5. Intractable facial pain. PLAN: Michelle was seen and examined at bedside today. She was clearly frustrated and depressed that her pain has not been controlled. She has seen Dr. Faith in the past, but does not recall what was discussed. I would like her to see Dr. Faith again and strongly considered conversion to methadone. This agent is more efficacious for neuropathic as well as somatic pain and may be a good option in Michelle's case. I also discussed moving forward with chemoradiation. She has only had 2 fractions of radiation and one course of chemotherapy thus far. I believe it is much too early to consider abandoning therapy, but will proceed with Michelle's wishes moving forward. Michelle wants to talk to her family and discuss issues and the possibility of incorporating hospice if the decision is made to abandon salvage treatment. She understands her disease most likely may not be cured and again needs to consider her options. I would continue supportive care as you have. I have nothing from an oncologic standpoint to offer. I advised Michelle I would be more than happy to help her in the transition to hospice and manage her symptoms to the best of my ability. Will continue to follow her periodically during hospital stay. Additionally, I would inform radiation oncology of the patient's admission to hospital. Thank you for assisting us in the care of this very pleasant but complex patient. GOOD SAMARITAN HOSPITALMeghan
[2017-11-19 13:59] VITALS: Ht 162.6 cm; Wt 88.0 kg
[2017-11-19] MEDS ORDERED: ONDANSETRON INJ 2 MG/ML 2 ML VIAL IV PRN ×2 (14:15)
[2017-11-19] MEDS ORDERED: DRONABINOL 2.5 MG CAP PO ONE (14:17)
[2017-11-19] MEDS ORDERED: ONDANSETRON INJ 8 MG in DEXTROSE 5% 50ML 50 ML IV PRN (14:30)
[2017-11-19] MEDS: HYDROmorphone INJ 0.5 MG/0.5 ML SYR IV PRN ×2 (14:49→20:13)
[2017-11-19 15:40] VITALS: BP 164/112; PULSE 72; TEMP 36.7; O2SAT 97
[2017-11-19] MEDS ORDERED: BUTALBITAL/ACETAMIN/CAFFEINE TAB PO ONE (16:15)
[2017-11-19 19:45] VITALS: BP 153/100; PULSE 93; TEMP 36.6; O2SAT 98
[2017-11-19] MEDS: DRONABINOL 2.5 MG CAP PO SCH (20:09)
[2017-11-19] MEDS: GABAPENTIN 300 MG CAP PO SCH (20:10)
[2017-11-19] MEDS: AMITRIPTYLINE HCL 50 MG TAB PO SCH (20:10)
[2017-11-19] MEDS: BOOST GLUCOSE CONTROL VANILLA PO SCH (20:11)
[2017-11-19] MEDS: BUTALBITAL/ACETAMIN/CAFFEINE TAB PO PRN (21:00)
[2017-11-19] MEDS: CEFTRIAXONE SOD INJ 1 GM in DEXTROSE 5% ADD-VANTAGE 50ML 50 ML IV SCH (22:28)
[2017-11-19 22:36] VITALS: BP 150/84; PULSE 89; TEMP 36.6; O2SAT 90
[2017-11-20] VITALS (7 sets, daily range): BP systolic 162–185; BP diastolic 98–113; PULSE 88–109; TEMP 36.8–38; O2SAT 90–95
[2017-11-20 06:53] LABS: HEMOGLOBIN 11.6 g/dL (12.0-16.0); MEAN CELL VOLUME 95.1 fL (80-100); MEAN CORPUSCULAR HEMOGLOBIN 29.8 pg (25-34); MEAN CORPUSCULAR HGB CONC 31.4 g/dl (32-36); MEAN PLATELET VOLUME 9.7 fL (7.4-10.4); PLATELET COUNT 243 K/uL (130-400); RED CELL DISTRIBUTION WIDTH CV 15.4 % (11.5-14.5); RED CELL DISTRIBUTION WIDTH SD 52.9 fL (36.4-46.3)
[2017-11-20 06:59] LABS: CALCIUM 8.6 mg/dl (8.5-10.1); CREATININE 0.54 mg/dl (0.60-1.20); POTASSIUM 3.7 mmol/L (3.5-5.1)
[2017-11-20] MEDS: HYDROmorphone INJ 0.5 MG/0.5 ML SYR IV PRN (07:56)
[2017-11-20] MEDS: BOOST GLUCOSE CONTROL VANILLA PO SCH ×2 (07:56→20:00)
[2017-11-20] MEDS: GABAPENTIN 300 MG CAP PO SCH ×3 (07:56→20:07)
[2017-11-20] MEDS: RIVAROXABAN 10 MG TAB PO SCH (07:57)
[2017-11-20] MEDS: DRONABINOL 2.5 MG CAP PO SCH ×2 (07:57→20:08)
[2017-11-20] MEDS: FUROSEMIDE 20 MG TAB PO SCH (07:57)
[2017-11-20] MEDS: OXYCODONE HCL IR 5 MG TAB (IMMEDIATE RELEASE) PO SCH ×4 (07:57→20:08)
[2017-11-20] MEDS: CHECK FENTANYL PATCH PLACEMENT SCH ×3 (07:58→23:55)
--- NOTE | 2017-11-20 08:53 | HEME/ONC PROGRESS NOTE ---
DATE: 11/20/2017 DIAGNOSES: 1. Facial pain attributable to disease progression. 2. Lower extremity cellulitis. 3. Hypoalbuminemia. 4. 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 SUBJECTIVE: Michelle was seen and examined at bedside today. She apparently engaged in discussion with her family regarding going forward. From what I gathered, they told her the decision is totally up to her. I have asked radiation oncology to visit with Michelle if she decides to proceed with further radiation therapy. She slept reasonably well, was medicated last night which was effective in controlling pain. I again asked her about considering methadone as the opioid of choice to control pain more effectively. She is tolerating her diet, has not moved her bowels in 24 hours. Nursing reports no overnight difficulties. PHYSICAL EXAMINATION: GENERAL: She is in no acute distress. VITAL SIGNS: Temperature is 36.9, pulse 91, respiratory rate 16, blood pressure 171/111. SKIN: Without rash or lesion. HEENT: Oral mucosa without erythema or ulceration. NECK: Supple. HEART: Regular rate and rhythm. LUNGS: Clear to auscultation bilaterally. ABDOMEN: Soft, nontender, nondistended. EXTREMITIES: No clubbing, cyanosis, or edema. NEUROLOGIC: Grossly intact. LABORATORY DATA: WBC count 4300, hemoglobin 11.6, platelet count 243,000. Sodium 138, potassium 3.7, chloride 103, carbon dioxide 28, creatinine 0.54. IMPRESSION: 1. Intractable facial pain attributable to disease progression. 2. Lower extremity cellulitis for the most part has resolved. 3. Hypoalbuminemia. 4. 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 PLAN: I had the pleasure of seeing Michelle again at bedside. She had a decent overnight, was medicated satisfactorily, pain is better controlled. Again, she engaged in discussion with her family regarding palliation versus continuing on with chemoradiation. Final decision has not been made and would like radiation oncology to see her today to discuss options. Additionally, I would like Michelle to consider methadone and would be more than happy to involve Dr. Faith. Continue care as prescribed. I have nothing from an oncologic standpoint to add. I will continue to follow her during hospital stay. Thank you for assisting us in the care of this very pleasant and somewhat complex patient. [facility]
[2017-11-20] MEDS ORDERED: CEPH500C2 PO (13:23)
[2017-11-20] MEDS ORDERED: AMT50 PO (13:23)
[2017-11-20] MEDS ORDERED: MRN25 PO (13:23)
[2017-11-20] MEDS ORDERED: NRN300 PO (13:23)
--- NOTE | 2017-11-20 13:45 | Discharge Instructions ---
Discharge Instructions Date of Service Nov 20, 2017. Admission Reason for Admission: Cellulitis Discharge Discharge Diagnosis / Problem: Cellulitis, Fatigue, Weakness, Pain Discharge Goals Goal(s): Decrease discomfort, Improve function, Increase independence, Improve nutritional status, Learn about illness Activity Recommendations Activity Limitations: resume your previous activity . Instructions / Follow-Up Instructions / Follow-Up Ms. Jacobson, Saman have been discharged from your hospital stay for cellulitis, pain and fatigue on several new medications. You have been discharged with 2 neuropathic pain medications gabapentin and amitriptylene. Information on these medications and how to take them will be provided. You are also being discharged on marinol , this a medication intended to increase your appetitie and improve your overall well being. It is to be taken two times a day. Sometimes, it can lead to dizziness, drowsiness or lightheadedness. If these symptoms arise please consult your primary care physician. You are also being discharged on 8 days of Keflex. This is an antibiotic intended to finish clearing up your cellulitis on your lower leg. Information on Keflex is provided. If your cellulitis returns, or your pain and fatigue get worse, please contact your primary care provider. Return to normal activities as tolerated. It has been our pleasure treating you. Please follow up with your primary care provider within seven days and we recommend that you continue with your oncology appointments as scheduled. Current Hospital Diet Patient's current hospital diet: Regular Diet Discharge Diet Recommended Diet: Regular Diet Fluid Restriction: None Pending Studies Studies pending at discharge: no Medical Emergencies . Who to Call and When: Medical Emergencies: If at any time you feel your situation is an emergency, please call 911 immediately. . Non-Emergent Contact Non-Emergency issues call your: Primary Care Provider, Oncologist . 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 "Provider Documentation" section prepared by Alfredo Gray. . Locksmith Helper Recommendations Locksmith Helper Recommendations: Dr Gonzalez from oncology was consulted and he suggested continuing with outpatient radiation and chemotherapy treatment. [place] Drug Monitoring Program Search Results: no issues identified Resident Involvement: Resident Care Provided Care Provided: Adult Hospital Medicine
[2017-11-20] MEDS ORDERED: ONDANSETRON 8MG OD TAB PO PRN (15:45)
--- NOTE | 2017-11-20 16:08 | Radiation Oncology Progress Nt ---
Radiation Oncology Progress Nt Date of Service Date of Service: Nov 20, 2017. 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 Jacobson is currently under treatment for head and neck cancer with chemotherapy and radiation therapy. She has been admitted to the hospital due to cellulitis unrelated to her radiation therapy. She is currently considering stopping all treatment including radiation therapy. She has been seen by Dr. Gonzalez from medical oncology who plans to see her in the outpatient setting to further discuss the role of systemic therapy. Radiation Therapy Has patient started Radiation: Yes Number of Treatments Received: 4 Number of Treatments Planned: 35 Current Chemotherapy: Yes Type of Chemotherapy: Cisplatin Objective Vital Signs Date Time Temp Pulse Resp B/P (MAP) Pulse Ox O2 Delivery O2 Flow Rate FiO2 11/20/17 13:49 37.1 109 18 95 Room Air 11/20/17 11:40 37.1 109 18 185/110 (135) 95 11/20/17 08:00 92 Room Air 11/20/17 07:35 36.9 91 16 171/111 (131) 92 11/20/17 03:46 36.8 88 18 170/113 (132) 91 Room Air 11/19/17 23:30 Room Air 11/19/17 22:36 36.6 89 18 150/84 (106) 90 Room Air 11/19/17 19:45 36.6 93 18 153/100 (117) 98 Room Air 11/19/17 16:15 Room Air Physical Exam General Appearance: + mild distress ENT: normal ENT inspection Neck: supple, no adenopathy Laboratory Results Last 24 Hours Test 11/20/17 06:06 11/20/17 14:11 White Blood Count 4.30 K/uL Red Blood Count 3.89 M/uL Hemoglobin 11.6 g/dL Hematocrit 37.0 % Mean Corpuscular Volume 95.1 fL Mean Corpuscular Hemoglobin 29.8 pg Mean Corpuscular Hemoglobin Concent 31.4 g/dl Platelet Count 243 K/uL Mean Platelet Volume 9.7 fL RDW Standard Deviation 52.9 fL RDW Coefficient of Variation 15.4 % Neutrophils % (Manual) 78.1 % Lymphocytes % (Manual) 17.5 % Monocytes % (Manual) 4.4 % Neutrophils # (Manual) 3.36 K/uL Total Absolute Neutrophils 3.36 K/uL Lymphocytes # (Manual) 0.75 K/uL Total Absolute Lymphocytes 0.75 K/uL Monocytes # (Manual) 0.19 K/uL Sodium Level 138 mmol/L Potassium Level 3.7 mmol/L Chloride Level 103 mmol/L Carbon Dioxide Level 28 mmol/L Anion Gap 7.0 mmol/L Blood Urea Nitrogen 5 mg/dl Creatinine 0.54 mg/dl Est Creatinine Clear Calc Drug Dose 117.7 ml/min Estimated GFR () 117.2 Estimated GFR (Non- 101.1 BUN/Creatinine Ratio 9.2 Random Glucose 83 mg/dl Calcium Level 8.6 mg/dl Assessment and Plan I had an in-depth discussion with patient regarding the continuation of radiation therapy. At this point she would like to hold all treatment related to her cancer until she is discharged from the hospital. I have encouraged her to continue with radiation therapy and chemotherapy given the locally advanced nature of her tumor. Regardless, I have encouraged to meet with the patient and her family in the outpatient setting after discharge to discuss the role of continuing further radiation therapy and treatment in general. We will coordinate follow-up for the patient in the outpatient setting. We would be happy to consider continuing radiation therapy while in the inpatient setting if the patient is willing to. Please call us any further questions or concerns.
--- NOTE | 2017-11-20 17:36 | Family Medicine Progress Note ---
Progress Note Date of Service Nov 20, 2017. Subjective Pt evaluation today including: conversation w/ patient, conversation w/ family , physical exam Pain: 0/10 Patient reports that she slept well, pain was 0/10 this morning. Patient is confused and has some difficulty with conversation. She has no specific complaints but makes several comments about wishing she had more "pep in her step to clean this place up" and could "help out around here more". She also stated that her leg pain and swelling has gone away. She was very somnolent at first but became more alert as the conversation progressed. Constitutional: + fatigue, No fever, No chills, No sweats, No weight loss Respiratory: No cough, No wheezing, No shortness of breath Cardiovascular: No chest pain Abdomen: No pain, No nausea, No vomiting, No diarrhea Endo: + fatigue Objective Physical Exam General Appearance: WD/WN, no apparent distress, + pertinent finding (Somnolent ) Eyes: normal inspection Respiratory/Chest: chest non-tender, lungs clear, normal breath sounds, no respiratory distress, no accessory muscle use Cardiovascular: regular rate, rhythm, no JVD, no murmur Abdomen: normal bowel sounds, non tender, soft, no organomegaly Extremities: non-tender, no calf tenderness Neurologic/Psychiatric: + pertinent finding (Alert and Oriented to person and place but not to situation or time.) Laboratory Results 11/20/17 06:06 Red Blood Count 3.89, Mean Corpuscular Volume 95.1, Mean Corpuscular Hemoglobin 29.8, Mean Corpuscular Hemoglobin Concent 31.4, Mean Platelet Volume 9.7 11/20/17 06:06 Test 11/20/17 06:06 11/20/17 14:11 White Blood Count 4.30 K/uL (4.8-10.8) Red Blood Count 3.89 M/uL (4.2-5.4) Hemoglobin 11.6 g/dL (12.0-16.0) Hematocrit 37.0 % (37-47) Mean Corpuscular Volume 95.1 fL (80-100) Mean Corpuscular Hemoglobin 29.8 pg (25-34) Mean Corpuscular Hemoglobin Concent 31.4 g/dl (32-36) Platelet Count 243 K/uL (130-400) Mean Platelet Volume 9.7 fL (7.4-10.4) RDW Standard Deviation 52.9 fL (36.4-46.3) RDW Coefficient of Variation 15.4 % (11.5-14.5) Neutrophils % (Manual) 78.1 % Lymphocytes % (Manual) 17.5 % Monocytes % (Manual) 4.4 % Neutrophils # (Manual) 3.36 K/uL (1.4-6.5) Total Absolute Neutrophils 3.36 K/uL (1.4-6.5) Lymphocytes # (Manual) 0.75 K/uL (1.2-3.4) Total Absolute Lymphocytes 0.75 K/uL (1.2-3.4) Monocytes # (Manual) 0.19 K/uL (0.11-0.59) Anion Gap 7.0 mmol/L (3-11) Est Creatinine Clear Calc Drug Dose 117.7 ml/min Estimated GFR () 117.2 Estimated GFR (Non- 101.1 BUN/Creatinine Ratio 9.2 (10-20) Calcium Level 8.6 mg/dl (8.5-10.1) Heparin Anti-Xa Act, Low Molec Wt > 2.76 IU/ML (0 - <0.10) Assessment and Plan Pain -Patient is currently receiving fentanyl patch, amitriptylene, oxycodone, and IV dilaudid. -IV dilaudid stopped and PO dilaudid started. We will see how patient tolerates a day without any IV pain meds per request of daughter. -Outpatient follow up scheduled for Monday with Dr. Darci Rubio and in pain management clinic. -Daughter in law does not feel patient is ready to come home yet and reports that the patient expressed very depressed hopeless feelings on Monday. Cellulitis -Resolving on Ceftriaxone Sinus Cx -Received radiation treatment today. -Follow up with Oncology on discharge to continue treatment. DVT PPx -Continue Xarelto 20 mg due to PE history. Resident Tracking Resident Involvement: Resident Care Provided Care Provided: Adult [facility] Medicine
[2017-11-20] MEDS: AMITRIPTYLINE HCL 50 MG TAB PO SCH (20:07)
[2017-11-20] MEDS: HYDROmorphone HCL 2 MG TAB PO PRN (20:59)
[2017-11-20] MEDS: CEFTRIAXONE SOD INJ 1 GM in DEXTROSE 5% ADD-VANTAGE 50ML 50 ML IV SCH (23:07)
[2017-11-20] MEDS: ACETAMINOPHEN 325 MG TAB PO PRN (23:43)
[2017-11-21] VITALS (9 sets, daily range): BP systolic 129–161; BP diastolic 84–109; PULSE 81–106; TEMP 36.3–36.9; O2SAT 91–97
[2017-11-21] MEDS: OXYCODONE HCL IR 5 MG TAB (IMMEDIATE RELEASE) PO SCH ×4 (07:39→20:14)
[2017-11-21] MEDS: GABAPENTIN 300 MG CAP PO SCH ×3 (07:39→20:15)
[2017-11-21] MEDS: DRONABINOL 2.5 MG CAP PO SCH ×2 (07:39→20:14)
[2017-11-21] MEDS: BUTALBITAL/ACETAMIN/CAFFEINE TAB PO PRN ×4 (07:39→21:09)
[2017-11-21] MEDS: FENTANYL 75 MCG/HR TDSY TD SCH (07:40)
[2017-11-21] MEDS: RIVAROXABAN 10 MG TAB PO SCH (07:40)
[2017-11-21] MEDS: FUROSEMIDE 20 MG TAB PO SCH (07:40)
[2017-11-21] MEDS: CHECK FENTANYL PATCH PLACEMENT SCH ×2 (07:40→16:55)
[2017-11-21] MEDS: FENTANYL PATCH REMOVE & WASTE SCH (07:45)
[2017-11-21] MEDS: BOOST GLUCOSE CONTROL VANILLA PO SCH ×2 (07:46→20:14)
--- NOTE | 2017-11-21 12:36 | Family Medicine Progress Note ---
Progress Note Date of Service Nov 21, 2017. Subjective Pt evaluation today including: conversation w/ patient, physical exam Pain: 2/10 PO Intake: Ate well today Voiding: no voiding problems, no incontinence Patient is both more alert today and has less pain than when I left her yesterday evening. She reports the pain as 2-3/10 and while she still feels sleepy she thinks she is more with it today. She expresses the desire to return home as soon as possible. She was seen by PT/OT and case management today to discuss disposition. She is adamant she wants to return home and thinks she just needs "the right prescription". She expresses a large appetite and dizziness on standing and walking. Constitutional: + fatigue, No fever, No chills, No sweats, No weakness Respiratory: No cough, No shortness of breath Cardiovascular: No chest pain, No orthopnea Abdomen: No pain, No nausea, No vomiting, No diarrhea, No constipation Musculoskeletal: No joint pain, No muscle pain, No swelling Objective Physical Exam General Appearance: WD/WN, no apparent distress Respiratory/Chest: chest non-tender, lungs clear, normal breath sounds Cardiovascular: regular rate, rhythm, no gallop, no murmur Assessment and Plan 62F h/o squamous CA of the sinuses recently restarted on radiation and chemotherapy, recent PEs, leg MSSA cellulitis/abscess, and obesity, here with general fatigue, weakness and a worsening of her right lower extremity cellulitis. Facial Pain -Patient tolerated oral pain meds well, and is doing better and more alert today. Her family says that she is more "with it" today than she has been in weeks. -Patient is currently receiving fentanyl patch, amitriptylene, oxycodone, and PO dilaudid. -Outpatient follow up scheduled for Monday with Dr. Doyle Rubio and with Dr Faith for pain management. Cellulitis -Resolving on Ceftriaxone- started 11/19. Had finished 21 day course earlier - culture with MSSA. - wound care following Sinus Cx with dural mets -Received radiation treatment today. -Follow up with Oncology on discharge to continue treatment. h/o PE - On xarelto. Unsure of role of Anti-Xa level in effectiveness of medication. Cognitive impairment/intermittent encephalopathy - AAOx3 - Some memory impairment likely 2/2 to brain mets and or chemo/radiation - continue to monitor Disposition -Seen by PT/OT and case management. -Consensus is that patient is not safe to go home by herself. -Patient has been consulted on SNF by human services case manager. DVT PPx -Continue Xarelto 20 mg due to PE history. Resident Tracking Resident Involvement: Resident Care Provided Care Provided: Adult [facility] Medicine Reviewed: Pt Seen/Exam by Me History pain was worse last evening but much better controlled this am Constitutional: denies: fever Respiratory: negative: short of breath Cardiovascular: denies chest pain General Appearance: no apparent distress (sitting in chair) Respiratory: lungs clear, no respiratory distress Cardiovascular: regular rate, rhythm Neurologic/Psychiatric: alert, oriented x 3 Skin Characteristics: warm/dry Assessment/Plan Resident Physician Supervision Note: I independently interviewed and examined the patient and verified the pearl history and physical, reviewed labs and image studies, discussed the case with the resident Dr. Gray and agree with the findings and care plan.
--- NOTE | 2017-11-21 15:32 | HEME/ONC PROGRESS NOTE ---
DATE: 11/21/2017 DIAGNOSES: 1. Facial pain, attributable to disease progression. 2. Lower extremity cellulitis. 3. Hypoalbuminemia. 4. 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 SUBJECTIVE: Michelle was seen and examined at bedside this afternoon. Appreciate radiation oncology's desire to continue radiation once the patient decides to move forward. I explained to Michelle that if we are going to pursue treatment, she should also receive chemotherapy. I explained to her that this would be the most effective way to rapidly control disease progression and subsequently the facial pain. Nursing informs me she was somewhat disoriented today, but seems to be competent to make medical decisions at this point. I also agree with Dr. Vianney benavidez to consider methadone as a possibility for chronic pain management. PHYSICAL EXAMINATION: GENERAL: She is in no acute distress. VITAL SIGNS: Temperature 36.8, pulse 106, respiratory rate 16, blood pressure 147/93. SKIN: Without rash or lesion. HEENT: Oral mucosa without erythema or ulceration. NECK: Supple. HEART: Regular rate and rhythm. LUNGS: Clear to auscultation. ABDOMEN: Soft, nontender, nondistended. EXTREMITIES: No clubbing, cyanosis or edema. NEUROLOGIC: Grossly intact. LABORATORY DATA: WBC count 4300, hemoglobin 11.6, platelet count 243,000. Chemistries, ____ 138, potassium 3.7, chloride 103, carbon dioxide 28, BUN 5, creatinine 0.54. IMPRESSION: 1. Intractable facial pain, attributable to disease progression. 2. Lower extremity cellulitis. 3. Hypoalbuminemia. 4. 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 5. Altered mental status. PLAN: Nursing reports patient was somewhat confused this morning. I suspect sundowning versus medication effect overall. Engaged once again in discussions regarding treatment moving forward. Read previous clinical notes which suggested she may want to pursue palliation. At the bedside with me, she has decided to pursue treatment. Appreciate radiation oncology's input and willingness to continue with treatment upon Michelle's request. Additionally, I feel that she is going to pursue treatment, she should receive her customary weekly carbo Taxol as a radiosensitizer. We will review her outpatient records to determine when she is due to receive CarboTaxol and in lieu of the fact that occupational therapy deems patient unsafe to be discharged home consider treating her while in house. Will continue to follow Ms. Jacobson during her inpatient stay.
[2017-11-21] MEDS: AMITRIPTYLINE HCL 50 MG TAB PO SCH (20:15)
[2017-11-21] MEDS: CEFTRIAXONE SOD INJ 1 GM in DEXTROSE 5% ADD-VANTAGE 50ML 50 ML IV SCH (22:34)
[2017-11-21] MEDS: ACETAMINOPHEN 325 MG TAB PO PRN (22:42)
[2017-11-22] VITALS (17 sets, daily range): BP systolic 86–196; BP diastolic 58–139; PULSE 71–128; TEMP 36.3–36.9; O2SAT 91–100
[2017-11-22] MEDS: CHECK FENTANYL PATCH PLACEMENT SCH ×4 (00:40→23:19)
[2017-11-22] MEDS: BUTALBITAL/ACETAMIN/CAFFEINE TAB PO PRN (07:09)
[2017-11-22] MEDS: GABAPENTIN 300 MG CAP PO SCH (07:35)
[2017-11-22] MEDS: BOOST GLUCOSE CONTROL VANILLA PO SCH ×2 (07:36→20:00)
[2017-11-22] MEDS: RIVAROXABAN 10 MG TAB PO SCH (07:36)
[2017-11-22] MEDS: FUROSEMIDE 20 MG TAB PO SCH (07:36)
[2017-11-22] MEDS: DRONABINOL 2.5 MG CAP PO SCH ×2 (07:42→20:24)
[2017-11-22] MEDS: OXYCODONE HCL IR 5 MG TAB (IMMEDIATE RELEASE) PO SCH ×4 (07:42→20:00)
[2017-11-22] MEDS: HYDROmorphone HCL 2 MG TAB PO PRN (11:05)
[2017-11-22] MEDS ORDERED: CETIRIZINE HCL 10 MG TAB PO ONE (14:30)
[2017-11-22] MEDS: GABAPENTIN 400 MG CAP PO SCH ×2 (14:30→20:24)
[2017-11-22] MEDS ORDERED: ONDANSETRON 8 MG TAB PO ONE (14:30)
[2017-11-22] MEDS ORDERED: DEXAMETHASONE 4 MG TAB PO ONE (14:30)
[2017-11-22] MEDS ORDERED: FAMOTIDINE IV INJ 20 MG in SYRINGE 3 ML IV ONE (14:30)
[2017-11-22] MEDS ORDERED: POLYOLEFIN IV SCH ×2 (15:00)
[2017-11-22] MEDS ORDERED: PACLITAXEL IV SCH ×2 (15:00)
[2017-11-22] MEDS ORDERED: SOD CHL IV SCH ×2 (15:00)
[2017-11-22] MEDS ORDERED: SODIUM CHLORIDE 0.9% IV SCH (16:00)
[2017-11-22] MEDS ORDERED: CARBOPLATIN IV SCH (16:00)
[2017-11-22] MEDS: ONDANSETRON 8 MG TAB PO PRN (18:03)
[2017-11-22] MEDS ORDERED: NURSING VERBAL MED ORDER ONE (18:30)
--- NOTE | 2017-11-22 19:24 | Family Medicine Progress Note ---
Progress Note Date of Service Nov 22, 2017. Subjective Pt evaluation today including: conversation w/ patient, conversation w/ family , physical exam Voiding: no voiding problems Patient continues to be more alert and lucid. She reports varying amounts of pain from 3-8 out of 10. She decided to resume her chemotherapy and radiation treatments and began today. Patient remains wary as to whether she wants to go to a Custodial Facility or a rehab facility despite case management and her daughter's suggestions. Medications Current Inpatient Medications Medications (Trade) Dose Ordered Sig/Kath Route Start Time Stop Time Status Last Admin Dose Admin Acetaminophen (Tylenol Tab) 650 mg Q4H PRN PO 11/19/17 00:00 12/19/17 00:00 11/21/17 22:42 650 MG Al Hydrox/Mg Hydrox/Simethicone (Maalox Max Susp) 15 ml Q4H PRN PO 11/19/17 00:00 12/19/17 00:00 Magnesium Hydroxide (Milk Of Magnesia Susp) 30 ml Q6H PRN PO 11/19/17 00:00 12/19/17 00:00 Polyethylene (Miralax Powder Packet) 17 gm DAILY PRN PO 11/19/17 00:00 12/19/17 00:00 Zolpidem Tartrate (Ambien Tab) 5 mg HSZ PRN PO 11/19/17 00:00 12/19/17 00:00 Ceftriaxone Sodium 1 gm/ Dextrose 50 ml @ 100 mls/hr Q24H IV 11/19/17 23:00 11/27/17 23:29 11/21/17 22:34 100 MLS/HR Furosemide (Lasix Tab) 20 mg DAILY PO 11/19/17 08:00 12/19/17 07:59 11/22/17 07:36 20 MG Ibuprofen (Motrin Tab) 600 mg TID PRN PO 11/19/17 01:45 12/19/17 01:44 11/19/17 16:14 600 MG Ondansetron HCl (Zofran Tab) 8 mg Q8 PRN PO 11/19/17 01:45 12/19/17 01:44 11/22/17 18:03 8 MG Rivaroxaban (Xarelto Tab) 20 mg DAILY PO 11/19/17 08:00 12/19/17 07:59 11/22/17 07:36 20 MG Oxycodone HCl (Roxicodone Immediate Rel Tab) 15 mg QID PO 11/19/17 08:00 12/19/17 07:59 11/22/17 16:29 15 MG Fentanyl (Duragesic Patch) 75 mcg Q3D TD 11/21/17 08:00 12/05/17 07:59 11/21/17 07:40 75 MCG Miscellaneous (Fentanyl Patch Remove & Waste) 1 ea Q3D N/A 11/21/17 07:59 12/21/17 07:58 11/21/17 07:45 1 EA Miscellaneous Information (Check Fentanyl Patch Placement) 1 ea QS N/A 11/19/17 08:00 12/19/17 07:59 11/22/17 16:02 1 EA Lorazepam (Ativan Tab) 0.5 mg Q4H PRN PO 11/19/17 11:30 12/19/17 11:29 Enteral Nutritional Formula (Boost Glucose Control) 1 can BID PO 11/19/17 20:00 12/19/17 19:59 11/22/17 07:36 1 CAN Amitriptyline HCl (Elavil Tab) 50 mg HS PO 11/19/17 21:00 12/19/17 20:59 11/21/17 20:15 50 MG Dronabinol (Marinol Cap) 2.5 mg BID PO 11/19/17 20:00 12/19/17 19:59 11/22/17 07:42 2.5 MG Acetaminophen/ Butalbital/ Caffeine (Fioricet Tab) 1 tab Q4H PRN PO 11/19/17 16:00 12/19/17 15:59 11/22/17 07:09 1 TAB Ondansetron HCl (Zofran Odt) 8 mg Q6H PRN PO 11/20/17 15:45 12/20/17 15:44 Hydromorphone HCl (Dilaudid Tab) 2 mg Q4H PRN PO 11/20/17 15:45 12/04/17 15:44 11/22/17 11:05 2 MG Gabapentin (Neurontin Cap) 400 mg TID PO 11/22/17 14:00 12/19/17 19:59 11/22/17 14:30 400 MG Paclitaxel 100 mg/ Sodium Chloride 266.6667 ml @ 266.... TODAY@1500 IV 11/22/17 15:00 11/22/17 23:59 11/22/17 15:56 266.667 MLS/HR Carboplatin 280 mg/Sodium Chloride 278 ml @ 278 mls/hr TODAY@1600 IV 11/22/17 16:00 11/22/17 23:59 Future hold 11/22/17 17:34 556 MLS/HR Objective Vital Signs Date Time Temp Pulse Resp B/P (MAP) Pulse Ox O2 Delivery O2 Flow Rate FiO2 11/22/17 18:53 36.6 95 20 157/100 (119) 100 Room Air 11/22/17 18:36 36.3 112 18 175/103 (127) 91 Room Air 11/22/17 18:06 36.8 128 20 196/139 (158) 95 Room Air 11/22/17 17:30 36.6 90 20 150/109 (123) 93 Room Air 11/22/17 16:45 98 Room Air 11/22/17 16:31 36.3 98 20 152/99 (116) 98 Room Air 11/22/17 15:55 36.7 86 20 160/106 (124) 98 Room Air 11/22/17 15:25 159/115 (130) 11/22/17 15:19 36.7 105 22 86/58 (67) 98 Room Air 11/22/17 11:06 36.7 102 18 157/94 (115) 97 Room Air 11/22/17 08:30 96 Room Air 11/22/17 07:37 36.6 101 16 154/109 (124) 96 Room Air 11/22/17 03:32 36.7 82 18 152/97 (115) 92 Room Air 11/22/17 00:30 Room Air 11/21/17 23:07 36.6 81 18 154/90 (111) 91 Room Air 11/21/17 20:00 Room Air Physical Exam General Appearance: WD/WN, no apparent distress Respiratory/Chest: chest non-tender, lungs clear, normal breath sounds, no respiratory distress, no accessory muscle use Cardiovascular: regular rate, rhythm, no gallop, no murmur Assessment and Plan 62F h/o squamous CA of the sinuses recently restarted on radiation and chemotherapy, recent PEs, leg MSSA cellulitis/abscess, and obesity, here with general fatigue, weakness and a worsening of her right lower extremity cellulitis. Facial Pain -Continuing with current regimen, which has shown an improvement in pain control and lucidity - fentanyl patch, amitriptylene, oxycodone, and PO dilaudid. -Outpatient follow up with Dr. Faith for pain management -Chemo/Radiation therapy resumed today, may help with some of the pain. Cellulitis -Resolving on Ceftriaxone- started 11/19. Had finished 21 day course earlier - culture with MSSA. 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 h/o PE - On xarelto. Cognitive impairment/intermittent encephalopathy - AAOx3 - Some memory impairment likely 2/2 to brain mets and or chemo/radiation - continue to monitor Disposition: -Patient in discussions with case management and daughter in law in determining best placement. -PT/OT recommendations unsafe to be at home by herself which she would be currently. -Per Case management discussed [facility] and [facility] as possible destinations. DVT PPx -Xarelto for previous PEs bilaterally. Resident Tracking Resident Involvement: Resident Care Provided Care Provided: Adult Hospital Medicine Reviewed: Pt Seen/Exam by Me History initial conversation - says pain well controlled. later in the visit - c/o pain in left side of face 10/31 Constitutional: denies: fever Respiratory: negative: short of breath Cardiovascular: denies chest pain General Appearance: no apparent distress Respiratory: lungs clear, no respiratory distress Cardiovascular: regular rate, rhythm Neurologic/Psychiatric: alert, oriented x 3 Skin Characteristics: warm/dry Assessment/Plan Resident Physician Supervision Note: I independently interviewed and examined the patient and verified the pearl history and physical, reviewed labs and image studies, discussed the case with the resident Dr. Gray and agree with the findings and care plan.
[2017-11-22] MEDS: AMITRIPTYLINE HCL 50 MG TAB PO SCH (20:24)
[2017-11-22] MEDS: CEFTRIAXONE SOD INJ 1 GM in DEXTROSE 5% ADD-VANTAGE 50ML 50 ML IV SCH (23:19)
[2017-11-23] VITALS (8 sets, daily range): BP systolic 128–169; BP diastolic 86–119; PULSE 93–118; TEMP 36.6–36.9; O2SAT 93–99
[2017-11-23] MEDS: CHECK FENTANYL PATCH PLACEMENT SCH ×3 (08:00→23:44)
--- NOTE | 2017-11-23 08:42 | HEME/ONC PROGRESS NOTE ---
DATE: 11/23/2017 DIAGNOSES: 1. Facial pain attributable to disease progression. 2. Lower extremity cellulitis (resolved). 3. Hypoalbuminemia. 4. 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 SUBJECTIVE: Michelle was seen and examined at bedside this morning. She received both radiation therapy and carboplatin and paclitaxel. I was contacted by nursing, carboplatin was interrupted briefly because of the patient's discomfort. Not clear whether she developed a full blown carboplatin reaction, but according to Michelle, infusion did resume and she completed the full dose. Michelle seems to be tolerating her diet, but admits to being a bit wobbly when she ambulates. She actually admitted her facial pain is little better today. Nursing reported no significant difficulties; however, there are intermittent bouts of confusion noted. I believe the plan moving forward is possibly a skilled care post-discharge and will discuss further with the hospitalist. PHYSICAL EXAMINATION: GENERAL: She is in no acute distress. VITAL SIGNS: Temperature 36.6, pulse 94, respiratory rate 18, blood pressure 161/101. SKIN: Without rash or lesion. HEENT: Oral mucosa without erythema or ulceration. NECK: Supple. HEART: Regular rate and rhythm. LUNGS: Clear to auscultation bilaterally. ABDOMEN: Soft, nontender, nondistended. EXTREMITIES: No clubbing, cyanosis or edema. NEUROLOGIC: Grossly intact. LABORATORY DATA: There are no labs pending. IMPRESSION: 1. Intractable facial pains attributable to disease progression. 2. Hypoalbuminemia. 3. 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 4. Altered mental status. PLAN: Michelle received carboplatin and paclitaxel yesterday with some difficulty particularly "not feeling well", necessitating holding therapy for about an hour. According to the patient, therapy did resume and she completed her dose. She continues daily radiation therapy. I think at this point we could proceed towards discharge, if there is disposition to send her to halfway facility versus home. Again, I believe her facial pain will improve as long as she stays on course with treatment. I will plan to schedule her for followup sometime next week. I have nothing further to add today. Thank you very much for assisting us in the care of this very pleasant, somewhat complex patient.
[2017-11-23] MEDS: OXYCODONE HCL IR 5 MG TAB (IMMEDIATE RELEASE) PO SCH ×4 (08:59→20:29)
[2017-11-23] MEDS: RIVAROXABAN 10 MG TAB PO SCH (08:59)
[2017-11-23] MEDS: GABAPENTIN 400 MG CAP PO SCH ×3 (08:59→20:26)
[2017-11-23] MEDS: FUROSEMIDE 20 MG TAB PO SCH (09:00)
[2017-11-23] MEDS: BOOST GLUCOSE CONTROL VANILLA PO SCH ×2 (09:00→20:00)
[2017-11-23] MEDS: DRONABINOL 2.5 MG CAP PO SCH ×2 (09:08→20:26)
[2017-11-23] MEDS: HYDROmorphone HCL 2 MG TAB PO PRN (13:25)
[2017-11-23] MEDS: BUTALBITAL/ACETAMIN/CAFFEINE TAB PO PRN ×2 (14:31→19:14)
[2017-11-23] MEDS: ACETAMINOPHEN 325 MG TAB PO PRN (16:02)
--- NOTE | 2017-11-23 17:25 | Family Medicine Progress Note ---
Progress Note Date of Service Nov 23, 2017. Subjective Patient is wide awake and devouring her breakfast this morning. She is in bright spirits and excited to have resumed her treatment. She remains confused and had a misunderstanding about discharge this morning where she called her to come pick her up because she thought she was being immediately discharged. She remains confused and the family believes she may have hallucinated a bit last night. She tells me she feels pain free currently and is feeling well. Medications Current Inpatient Medications Medications (Trade) Dose Ordered Sig/Kath Route Start Time Stop Time Status Last Admin Dose Admin Acetaminophen (Tylenol Tab) 650 mg Q4H PRN PO 11/19/17 00:00 12/19/17 00:00 11/23/17 16:02 650 MG Al Hydrox/Mg Hydrox/Simethicone (Maalox Max Susp) 15 ml Q4H PRN PO 11/19/17 00:00 12/19/17 00:00 Magnesium Hydroxide (Milk Of Magnesia Susp) 30 ml Q6H PRN PO 11/19/17 00:00 12/19/17 00:00 Polyethylene (Miralax Powder Packet) 17 gm DAILY PRN PO 11/19/17 00:00 12/19/17 00:00 Zolpidem Tartrate (Ambien Tab) 5 mg HSZ PRN PO 11/19/17 00:00 12/19/17 00:00 Ceftriaxone Sodium 1 gm/ Dextrose 50 ml @ 100 mls/hr Q24H IV 11/19/17 23:00 11/27/17 23:29 11/22/17 23:19 100 MLS/HR Furosemide (Lasix Tab) 20 mg DAILY PO 11/19/17 08:00 12/19/17 07:59 11/23/17 09:00 20 MG Ibuprofen (Motrin Tab) 600 mg TID PRN PO 11/19/17 01:45 12/19/17 01:44 11/19/17 16:14 600 MG Ondansetron HCl (Zofran Tab) 8 mg Q8 PRN PO 11/19/17 01:45 12/19/17 01:44 11/22/17 18:03 8 MG Rivaroxaban (Xarelto Tab) 20 mg DAILY PO 11/19/17 08:00 12/19/17 07:59 11/23/17 08:59 20 MG Oxycodone HCl (Roxicodone Immediate Rel Tab) 15 mg QID PO 11/19/17 08:00 12/19/17 07:59 11/23/17 17:04 15 MG Fentanyl (Duragesic Patch) 75 mcg Q3D TD 11/21/17 08:00 12/05/17 07:59 11/21/17 07:40 75 MCG Miscellaneous (Fentanyl Patch Remove & Waste) 1 ea Q3D N/A 11/21/17 07:59 12/21/17 07:58 11/21/17 07:45 1 EA Miscellaneous Information (Check Fentanyl Patch Placement) 1 ea QS N/A 11/19/17 08:00 12/19/17 07:59 11/23/17 16:01 1 EA Lorazepam (Ativan Tab) 0.5 mg Q4H PRN PO 11/19/17 11:30 12/19/17 11:29 Enteral Nutritional Formula (Boost Glucose Control) 1 can BID PO 11/19/17 20:00 12/19/17 19:59 11/23/17 09:00 1 CAN Amitriptyline HCl (Elavil Tab) 50 mg HS PO 11/19/17 21:00 12/19/17 20:59 11/22/17 20:24 50 MG Dronabinol (Marinol Cap) 2.5 mg BID PO 11/19/17 20:00 12/19/17 19:59 11/23/17 09:08 2.5 MG Acetaminophen/ Butalbital/ Caffeine (Fioricet Tab) 1 tab Q4H PRN PO 11/19/17 16:00 12/19/17 15:59 11/23/17 14:31 1 TAB Ondansetron HCl (Zofran Odt) 8 mg Q6H PRN PO 11/20/17 15:45 12/20/17 15:44 Hydromorphone HCl (Dilaudid Tab) 2 mg Q4H PRN PO 11/20/17 15:45 12/04/17 15:44 11/23/17 13:25 2 MG Gabapentin (Neurontin Cap) 400 mg TID PO 11/22/17 14:00 12/19/17 19:59 11/23/17 13:24 400 MG Objective Vital Signs Date Time Temp Pulse Resp B/P (MAP) Pulse Ox O2 Delivery O2 Flow Rate FiO2 11/23/17 16:00 Room Air 11/23/17 15:25 36.7 102 16 128/86 (100) 95 Room Air 11/23/17 13:22 111 162/98 (119) 11/23/17 11:12 36.9 118 18 169/119 (136) 97 11/23/17 09:30 99 Nasal Cannula 2.0 11/23/17 06:25 36.6 94 18 161/101 (121) 99 Nasal Cannula 2.0 11/23/17 04:50 36.7 93 18 128/87 (101) 93 Nasal Cannula 2.0 11/23/17 00:25 Room Air 11/22/17 23:10 36.9 83 18 114/75 (88) 92 Nasal Cannula 2.0 11/22/17 21:30 Room Air 11/22/17 20:30 36.9 100 20 142/90 (107) 95 Room Air 11/22/17 19:25 36.8 101 20 148/92 (110) 93 Room Air 11/22/17 18:53 36.6 95 20 157/100 (119) 100 Room Air 11/22/17 18:36 36.3 112 18 175/103 (127) 91 Room Air 11/22/17 18:06 36.8 128 20 196/139 (158) 95 Room Air Physical Exam General Appearance: WD/WN, no apparent distress Respiratory/Chest: chest non-tender, lungs clear, normal breath sounds Cardiovascular: regular rate, rhythm, no edema Skin: normal color, warm/dry, no rash Notes: Wounds examined and cellulitis looked well healed with central ulceration. Assessment and Plan 62F h/o squamous CA of the sinuses recently restarted on radiation and chemotherapy, recent PEs, leg MSSA cellulitis/abscess, and obesity, here with general fatigue, weakness and a worsening of her right lower extremity cellulitis. Facial Pain -Continuing with current regimen, which has shown an improvement in pain control and lucidity - fentanyl patch, amitriptylene, oxycodone, and PO dilaudid. -Outpatient follow up with Dr. Faith for pain management -Chemo/Radiation therapy resumed today, may help with some of the pain. Cellulitis -Resolving on Ceftriaxone- started 11/19. Had finished 21 day course earlier - culture with MSSA. 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 h/o PE - On xarelto. Cognitive impairment/intermittent encephalopathy - Alert Awake and Oriented to person and place not to time and vaguely to situation. - Some memory impairment likely 2/2 to brain mets and or chemo/radiation - continue to monitor Disposition: -Case submitted to [employer], pending insurance approval. [facility] is a backup. -Patient in discussions with case management and daughter in law in determining best placement. -PT/OT recommendations unsafe to be at home by herself which she would be currently. -Per Case management discussed [employer] and [facility] as possible destinations. DVT PPx -Xarelto for previous PEs bilaterally. Resident Tracking Resident Involvement: Resident Care Provided Care Provided: Adult Hospital Medicine Reviewed: Pt Seen/Exam by Me History no new concerns pain much improved. Constitutional: denies: fever Gastrointestinal/Abdominal: positive: no symptoms reported General Appearance: no apparent distress Respiratory: lungs clear, no respiratory distress Cardiovascular: regular rate, rhythm Neurologic/Psychiatric: alert, oriented x 3 Skin Characteristics: other (wounds on both feet - healing) Assessment/Plan Resident Physician Supervision Note: I independently interviewed and examined the patient and verified the pearl history and physical, reviewed labs and image studies, discussed the case with the resident Dr. Gray and agree with the findings and care plan.
[2017-11-23] MEDS: AMITRIPTYLINE HCL 50 MG TAB PO SCH (20:51)
[2017-11-23] MEDS: CEFTRIAXONE SOD INJ 1 GM in DEXTROSE 5% ADD-VANTAGE 50ML 50 ML IV SCH (22:47)
[2017-11-24] MEDS: HYDROmorphone HCL 2 MG TAB PO PRN ×4 (02:57→22:11)
[2017-11-24] MEDS: BUTALBITAL/ACETAMIN/CAFFEINE TAB PO PRN ×3 (04:08→22:14)
[2017-11-24 04:14] VITALS: BP 182/110; PULSE 88; TEMP 36.6; O2SAT 95
[2017-11-24] MEDS: FENTANYL 75 MCG/HR TDSY TD SCH (07:20)
[2017-11-24] MEDS: CHECK FENTANYL PATCH PLACEMENT SCH ×3 (07:20→23:56)
[2017-11-24] MEDS: DRONABINOL 2.5 MG CAP PO SCH ×2 (07:20→20:35)
[2017-11-24] MEDS: OXYCODONE HCL IR 5 MG TAB (IMMEDIATE RELEASE) PO SCH ×4 (07:21→20:39)
[2017-11-24] MEDS: RIVAROXABAN 10 MG TAB PO SCH (07:21)
[2017-11-24 07:22] VITALS: BP 157/93; PULSE 93; TEMP 36.7; O2SAT 96
[2017-11-24] MEDS: FUROSEMIDE 20 MG TAB PO SCH (07:22)
[2017-11-24] MEDS: FENTANYL PATCH REMOVE & WASTE SCH (07:22)
[2017-11-24] MEDS: BOOST GLUCOSE CONTROL VANILLA PO SCH ×2 (07:26→20:35)
[2017-11-24] MEDS: GABAPENTIN 400 MG CAP PO SCH ×3 (07:42→20:36)
[2017-11-24 08:00] VITALS: O2SAT 96
[2017-11-24] MEDS: LORAZEPAM 0.5 MG TAB PO PRN ×3 (10:32→23:55)
[2017-11-24] MEDS: ACETAMINOPHEN 325 MG TAB PO PRN (10:33)
--- NOTE | 2017-11-24 15:18 | Family Medicine Progress Note ---
Progress Note Date of Service Nov 24, 2017. Subjective Pt evaluation today including: conversation w/ patient, conversation w/ family , physical exam patient up and eating breakfast and watching television. She is energetic and quite lucid today. She endorses left sided facial pain. She seems otherwise well and is in a jovial mood today. Anxiously awaiting D/C and placement. She is encouraged about resuming her chemo and radiation treatments. Constitutional: No fever, No chills, No sweats, No weight loss, No weakness , No fatigue Respiratory: No cough, No sputum, No wheezing, No shortness of breath Cardiovascular: No chest pain, No orthopnea, No edema, No palpitations Abdomen: No pain, No nausea, No vomiting, No diarrhea Neurologic: + memory loss, + balance problems Psychiatric: No insomnia Medications Current Inpatient Medications Medications (Trade) Dose Ordered Sig/Kath Route Start Time Stop Time Status Last Admin Dose Admin Acetaminophen (Tylenol Tab) 650 mg Q4H PRN PO 11/19/17 00:00 12/19/17 00:00 11/24/17 10:33 650 MG Al Hydrox/Mg Hydrox/Simethicone (Maalox Max Susp) 15 ml Q4H PRN PO 11/19/17 00:00 12/19/17 00:00 Magnesium Hydroxide (Milk Of Magnesia Susp) 30 ml Q6H PRN PO 11/19/17 00:00 12/19/17 00:00 Polyethylene (Miralax Powder Packet) 17 gm DAILY PRN PO 11/19/17 00:00 12/19/17 00:00 Zolpidem Tartrate (Ambien Tab) 5 mg HSZ PRN PO 11/19/17 00:00 12/19/17 00:00 Ceftriaxone Sodium 1 gm/ Dextrose 50 ml @ 100 mls/hr Q24H IV 11/19/17 23:00 11/27/17 23:29 11/23/17 22:47 100 MLS/HR Furosemide (Lasix Tab) 20 mg DAILY PO 11/19/17 08:00 12/19/17 07:59 11/24/17 07:22 20 MG Ibuprofen (Motrin Tab) 600 mg TID PRN PO 11/19/17 01:45 12/19/17 01:44 11/19/17 16:14 600 MG Ondansetron HCl (Zofran Tab) 8 mg Q8 PRN PO 11/19/17 01:45 12/19/17 01:44 11/22/17 18:03 8 MG Rivaroxaban (Xarelto Tab) 20 mg DAILY PO 11/19/17 08:00 12/19/17 07:59 11/24/17 07:21 20 MG Oxycodone HCl (Roxicodone Immediate Rel Tab) 15 mg QID PO 11/19/17 08:00 12/19/17 07:59 11/24/17 12:03 15 MG Fentanyl (Duragesic Patch) 75 mcg Q3D TD 11/21/17 08:00 12/05/17 07:59 11/24/17 07:20 75 MCG Miscellaneous (Fentanyl Patch Remove & Waste) 1 ea Q3D N/A 11/21/17 07:59 12/21/17 07:58 11/24/17 07:22 1 EA Miscellaneous Information (Check Fentanyl Patch Placement) 1 ea QS N/A 11/19/17 08:00 12/19/17 07:59 11/24/17 07:20 1 EA Lorazepam (Ativan Tab) 0.5 mg Q4H PRN PO 11/19/17 11:30 12/19/17 11:29 11/24/17 10:32 0.5 MG Enteral Nutritional Formula (Boost Glucose Control) 1 can BID PO 11/19/17 20:00 12/19/17 19:59 11/24/17 07:26 1 CAN Amitriptyline HCl (Elavil Tab) 50 mg HS PO 11/19/17 21:00 12/19/17 20:59 11/23/17 20:51 50 MG Dronabinol (Marinol Cap) 2.5 mg BID PO 11/19/17 20:00 12/19/17 19:59 11/24/17 07:20 2.5 MG Acetaminophen/ Butalbital/ Caffeine (Fioricet Tab) 1 tab Q4H PRN PO 11/19/17 16:00 12/19/17 15:59 11/24/17 04:08 1 TAB Ondansetron HCl (Zofran Odt) 8 mg Q6H PRN PO 11/20/17 15:45 12/20/17 15:44 Hydromorphone HCl (Dilaudid Tab) 2 mg Q4H PRN PO 11/20/17 15:45 12/04/17 15:44 11/24/17 09:39 2 MG Gabapentin (Neurontin Cap) 400 mg TID PO 11/22/17 14:00 12/19/17 19:59 11/24/17 15:02 400 MG Objective Physical Exam General Appearance: WD/WN, no apparent distress Eyes: EOMI Respiratory/Chest: chest non-tender, lungs clear, normal breath sounds Cardiovascular: regular rate, rhythm, no murmur Abdomen: normal bowel sounds, non tender, soft, no organomegaly 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 Facial Pain -Continuing with current regimen, which has shown an improvement in pain control and lucidity - fentanyl patch, amitriptylene, oxycodone, and PO dilaudid. -Outpatient follow up with Dr. Faith for pain management -Chemo/Radiation therapy resumed today, may help with some of the pain. Cellulitis -Resolving on Ceftriaxone- started 11/19. Had finished 21 day course earlier - culture with MSSA. 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 h/o PE - On xarelto. Cognitive impairment/intermittent encephalopathy - Alert Awake and Oriented to person and place not to time and vaguely to situation. - Some memory impairment likely 2/2 to intracranial progression and/or chemo/ radiation - continue to monitor Disposition: -Case submitted to [employer], pending insurance approval. [facility] is a backup. -Patient in discussions with case management and daughter in law in determining best placement. -PT/OT recommendations unsafe to be at home by herself which she would be currently. -Per Case management discussed [employer] and [facility] as possible destinations. DVT PPx -Xarelto for previous PEs bilaterally. Resident Tracking Resident Involvement: Resident Care Provided Care Provided: Adult Hospital Medicine Reviewed: Pt Seen/Exam by Me History no new concerns Constitutional: denies: fever Respiratory: negative: short of breath Cardiovascular: denies chest pain General Appearance: no apparent distress Respiratory: no respiratory distress Neurologic/Psychiatric: alert, oriented x 3 Skin Characteristics: warm/dry Assessment/Plan Resident Physician Supervision Note: I independently interviewed and examined the patient and verified the pearl history and physical, reviewed labs and image studies, discussed the case with the resident Dr. Gray and agree with the findings and care plan.
[2017-11-24 17:47] VITALS: BP 170/116
[2017-11-24 17:56] VITALS: BP 185/136; PULSE 92; TEMP 36.8; O2SAT 94
[2017-11-24] MEDS: AMITRIPTYLINE HCL 50 MG TAB PO SCH (20:37)
[2017-11-24] MEDS: CEFTRIAXONE SOD INJ 1 GM in DEXTROSE 5% ADD-VANTAGE 50ML 50 ML IV SCH (22:11)
[2017-11-24 23:52] VITALS: BP 189/146; PULSE 118; TEMP 36.8; O2SAT 94
[2017-11-25] VITALS (7 sets, daily range): BP systolic 137–177; BP diastolic 82–106; PULSE 89–101; TEMP 36.6–36.8; O2SAT 93–95
[2017-11-25] MEDS: DRONABINOL 2.5 MG CAP PO SCH ×2 (07:49→20:00)
[2017-11-25] MEDS: BOOST GLUCOSE CONTROL VANILLA PO SCH ×2 (07:49→17:15)
[2017-11-25] MEDS: OXYCODONE HCL IR 5 MG TAB (IMMEDIATE RELEASE) PO SCH ×5 (07:49→20:24)
[2017-11-25] MEDS: BUTALBITAL/ACETAMIN/CAFFEINE TAB PO PRN ×3 (07:50→17:21)
[2017-11-25] MEDS: GABAPENTIN 400 MG CAP PO SCH ×3 (07:50→20:23)
[2017-11-25] MEDS: RIVAROXABAN 10 MG TAB PO SCH (07:50)
[2017-11-25] MEDS: FUROSEMIDE 20 MG TAB PO SCH (07:50)
[2017-11-25] MEDS: CHECK FENTANYL PATCH PLACEMENT SCH ×2 (07:50→17:15)
--- NOTE | 2017-11-25 12:12 | Family Medicine Progress Note ---
Progress Note Date of Service Nov 25, 2017. Subjective Pt evaluation today including: conversation w/ patient, chart review Pain: Better than yesterday but has a headache today. Pt is a 62yo female with ethmoid sinus SCC being treated with chemotherapy and radiation who presented with generalized malaise, pain and leg cellulitis. States that her pain is better today except for a headache that she has currently. Denies SOB or chest pain currently. Still hoping to be discharged to [facility] rehab facility. Respiratory: No wheezing, No shortness of breath Cardiovascular: No chest pain Medications Current Inpatient Medications Medications (Trade) Dose Ordered Sig/Kath Route Start Time Stop Time Status Last Admin Dose Admin Acetaminophen (Tylenol Tab) 650 mg Q4H PRN PO 11/19/17 00:00 12/19/17 00:00 11/24/17 10:33 650 MG Al Hydrox/Mg Hydrox/Simethicone (Maalox Max Susp) 15 ml Q4H PRN PO 11/19/17 00:00 12/19/17 00:00 Magnesium Hydroxide (Milk Of Magnesia Susp) 30 ml Q6H PRN PO 11/19/17 00:00 12/19/17 00:00 Polyethylene (Miralax Powder Packet) 17 gm DAILY PRN PO 11/19/17 00:00 12/19/17 00:00 Zolpidem Tartrate (Ambien Tab) 5 mg HSZ PRN PO 11/19/17 00:00 12/19/17 00:00 Ceftriaxone Sodium 1 gm/ Dextrose 50 ml @ 100 mls/hr Q24H IV 11/19/17 23:00 11/27/17 23:29 11/24/17 22:11 100 MLS/HR Furosemide (Lasix Tab) 20 mg DAILY PO 11/19/17 08:00 12/19/17 07:59 11/25/17 07:50 20 MG Ibuprofen (Motrin Tab) 600 mg TID PRN PO 11/19/17 01:45 12/19/17 01:44 11/19/17 16:14 600 MG Ondansetron HCl (Zofran Tab) 8 mg Q8 PRN PO 11/19/17 01:45 12/19/17 01:44 11/22/17 18:03 8 MG Rivaroxaban (Xarelto Tab) 20 mg DAILY PO 11/19/17 08:00 12/19/17 07:59 11/25/17 07:50 20 MG Oxycodone HCl (Roxicodone Immediate Rel Tab) 15 mg QID PO 11/19/17 08:00 12/19/17 07:59 11/25/17 07:49 15 MG Fentanyl (Duragesic Patch) 75 mcg Q3D TD 11/21/17 08:00 12/05/17 07:59 11/24/17 07:20 75 MCG Miscellaneous (Fentanyl Patch Remove & Waste) 1 ea Q3D N/A 11/21/17 07:59 12/21/17 07:58 11/24/17 07:22 1 EA Miscellaneous Information (Check Fentanyl Patch Placement) 1 ea QS N/A 11/19/17 08:00 12/19/17 07:59 11/25/17 07:50 1 EA Lorazepam (Ativan Tab) 0.5 mg Q4H PRN PO 11/19/17 11:30 12/19/17 11:29 11/24/17 17:54 0.5 MG Enteral Nutritional Formula (Boost Glucose Control) 1 can BID PO 11/19/17 20:00 12/19/17 19:59 11/25/17 07:49 1 CAN Amitriptyline HCl (Elavil Tab) 50 mg HS PO 11/19/17 21:00 12/19/17 20:59 11/24/17 20:37 50 MG Dronabinol (Marinol Cap) 2.5 mg BID PO 11/19/17 20:00 12/19/17 19:59 11/25/17 07:49 2.5 MG Acetaminophen/ Butalbital/ Caffeine (Fioricet Tab) 1 tab Q4H PRN PO 11/19/17 16:00 12/19/17 15:59 11/25/17 07:50 1 TAB Ondansetron HCl (Zofran Odt) 8 mg Q6H PRN PO 11/20/17 15:45 12/20/17 15:44 Hydromorphone HCl (Dilaudid Tab) 2 mg Q4H PRN PO 11/20/17 15:45 12/04/17 15:44 11/24/17 22:11 2 MG Gabapentin (Neurontin Cap) 400 mg TID PO 11/22/17 14:00 12/19/17 19:59 11/25/17 07:50 400 MG Objective Vital Signs Date Time Temp Pulse Resp B/P (MAP) Pulse Ox O2 Delivery O2 Flow Rate FiO2 11/25/17 11:37 36.7 92 20 151/83 (105) 93 Room Air 11/25/17 09:00 Room Air 11/25/17 07:12 36.8 93 20 163/93 (116) 95 Room Air 11/25/17 04:39 36.8 101 18 162/98 (119) 93 Room Air 11/25/17 00:55 98 177/106 (129) 11/25/17 00:15 Room Air 11/24/17 23:52 36.8 118 20 189/146 (160) 94 Room Air 11/24/17 17:56 36.8 92 18 185/136 (152) 94 Room Air 11/24/17 17:47 170/116 (134) Physical Exam General Appearance: + mild distress (Holding head as we spoke) Respiratory/Chest: lungs clear, no respiratory distress Cardiovascular: regular rate, rhythm, no murmur Assessment and Plan 62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 Ethmoid Sinus SCC -Getting chemo/radiation treatment once more -Will follow-up with oncology as an outpatient Facial pain/Headache -Treatment with current pain medication combination and adjustment as needed -Will followup with outpatient pain management Cellulitis -Wound care following -Finished 8 days of ceftriaxone. d/c abx. outpatient wound follow. Cognitive impairment -currently not impaired -will continue to monitor Disposition -Case management working to find placement -Still no word back -Pt prefers [facility] vs. [facility] DVT prophylaxis/ DVT Hx -on Xarelto i Resident Involvement: Resident Care Provided Care Provided: Adult Hospital Medicine Reviewed: Pt Seen/Exam by Me History facial pain worse early in am but better later in the day Constitutional: denies: fever Respiratory: negative: short of breath Cardiovascular: denies chest pain General Appearance: no apparent distress Respiratory: lungs clear, no respiratory distress Cardiovascular: regular rate, rhythm Neurologic/Psychiatric: alert, oriented x 3 Skin Characteristics: warm/dry Assessment/Plan Resident Physician Supervision Note: I independently interviewed and examined the patient and verified the pearl history and physical, reviewed labs and image studies, discussed the case with the resident Dr. Fernandez and agree with the findings and care plan.
[2017-11-25] MEDS: ONDANSETRON 8 MG TAB PO PRN (17:13)
[2017-11-25] MEDS: AMITRIPTYLINE HCL 50 MG TAB PO SCH (20:22)
[2017-11-25] MEDS: CEFTRIAXONE SOD INJ 1 GM in DEXTROSE 5% ADD-VANTAGE 50ML 50 ML IV SCH (22:40)
[2017-11-26] VITALS (7 sets, daily range): BP systolic 144–187; BP diastolic 93–106; PULSE 81–92; TEMP 36.4–36.8; O2SAT 91–97
[2017-11-26] MEDS: CHECK FENTANYL PATCH PLACEMENT SCH ×3 (00:43→15:48)
[2017-11-26] MEDS: HYDROmorphone HCL 2 MG TAB PO PRN ×3 (04:17→14:52)
[2017-11-26] MEDS: BUTALBITAL/ACETAMIN/CAFFEINE TAB PO PRN ×2 (06:36→12:08)
[2017-11-26] MEDS: FUROSEMIDE 20 MG TAB PO SCH (07:59)
[2017-11-26] MEDS: BOOST GLUCOSE CONTROL VANILLA PO SCH ×2 (07:59→20:03)
[2017-11-26] MEDS: DRONABINOL 2.5 MG CAP PO SCH ×2 (08:00→20:03)
[2017-11-26] MEDS: GABAPENTIN 400 MG CAP PO SCH ×3 (08:00→20:03)
[2017-11-26] MEDS: RIVAROXABAN 10 MG TAB PO SCH (08:00)
[2017-11-26] MEDS: ACETAMINOPHEN 325 MG TAB PO PRN ×2 (09:24→17:04)
--- NOTE | 2017-11-26 10:00 | Family Medicine Progress Note ---
Progress Note Date of Service Nov 26, 2017. Subjective Pt evaluation today including: conversation w/ patient, physical exam Pain: Pain improved though not completely gone, including headache Voiding: no voiding problems Pt was sitting up in bed eating. States pain not completely gone, but meds help with taking the majority of it away. Still awaiting word on rehab placement. Constitutional: No fever, No chills Respiratory: No shortness of breath Cardiovascular: No chest pain, No palpitations Medications Current Inpatient Medications Medications (Trade) Dose Ordered Sig/Kath Route Start Time Stop Time Status Last Admin Dose Admin Acetaminophen (Tylenol Tab) 650 mg Q4H PRN PO 11/19/17 00:00 12/19/17 00:00 11/26/17 09:24 650 MG Al Hydrox/Mg Hydrox/Simethicone (Maalox Max Susp) 15 ml Q4H PRN PO 11/19/17 00:00 12/19/17 00:00 Magnesium Hydroxide (Milk Of Magnesia Susp) 30 ml Q6H PRN PO 11/19/17 00:00 12/19/17 00:00 Polyethylene (Miralax Powder Packet) 17 gm DAILY PRN PO 11/19/17 00:00 12/19/17 00:00 Zolpidem Tartrate (Ambien Tab) 5 mg HSZ PRN PO 11/19/17 00:00 12/19/17 00:00 Furosemide (Lasix Tab) 20 mg DAILY PO 11/19/17 08:00 12/19/17 07:59 11/26/17 07:59 20 MG Ibuprofen (Motrin Tab) 600 mg TID PRN PO 11/19/17 01:45 12/19/17 01:44 11/19/17 16:14 600 MG Ondansetron HCl (Zofran Tab) 8 mg Q8 PRN PO 11/19/17 01:45 12/19/17 01:44 11/25/17 17:13 8 MG Rivaroxaban (Xarelto Tab) 20 mg DAILY PO 11/19/17 08:00 12/19/17 07:59 11/26/17 08:00 20 MG Oxycodone HCl (Roxicodone Immediate Rel Tab) 15 mg QID PO 11/19/17 08:00 12/19/17 07:59 11/25/17 20:24 15 MG Fentanyl (Duragesic Patch) 75 mcg Q3D TD 11/21/17 08:00 12/05/17 07:59 11/24/17 07:20 75 MCG Miscellaneous (Fentanyl Patch Remove & Waste) 1 ea Q3D N/A 11/21/17 07:59 12/21/17 07:58 11/24/17 07:22 1 EA Miscellaneous Information (Check Fentanyl Patch Placement) 1 ea QS N/A 11/19/17 08:00 12/19/17 07:59 11/26/17 07:55 1 EA Lorazepam (Ativan Tab) 0.5 mg Q4H PRN PO 11/19/17 11:30 12/19/17 11:29 11/24/17 17:54 0.5 MG Enteral Nutritional Formula (Boost Glucose Control) 1 can BID PO 11/19/17 20:00 12/19/17 19:59 11/26/17 07:59 1 CAN Amitriptyline HCl (Elavil Tab) 50 mg HS PO 11/19/17 21:00 12/19/17 20:59 11/25/17 20:22 50 MG Dronabinol (Marinol Cap) 2.5 mg BID PO 11/19/17 20:00 12/19/17 19:59 11/26/17 08:00 2.5 MG Acetaminophen/ Butalbital/ Caffeine (Fioricet Tab) 1 tab Q4H PRN PO 11/19/17 16:00 12/19/17 15:59 11/26/17 06:36 1 TAB Ondansetron HCl (Zofran Odt) 8 mg Q6H PRN PO 11/20/17 15:45 12/20/17 15:44 Hydromorphone HCl (Dilaudid Tab) 2 mg Q4H PRN PO 11/20/17 15:45 12/04/17 15:44 11/26/17 09:22 2 MG Gabapentin (Neurontin Cap) 400 mg TID PO 11/22/17 14:00 12/19/17 19:59 11/26/17 08:00 400 MG Objective Vital Signs Date Time Temp Pulse Resp B/P (MAP) Pulse Ox O2 Delivery O2 Flow Rate FiO2 11/26/17 06:57 36.4 85 20 155/96 (115) 95 Room Air 11/26/17 05:27 Room Air 11/26/17 04:22 36.8 92 18 187/106 (133) 91 Room Air 11/25/17 23:23 36.6 95 20 161/94 (116) 94 Room Air 11/25/17 19:37 36.6 89 20 148/102 (117) 93 Room Air 11/25/17 19:00 Room Air 11/25/17 14:56 36.8 94 20 137/82 (100) 93 Room Air 11/25/17 11:37 36.7 92 20 151/83 (105) 93 Room Air Physical Exam General Appearance: WD/WN, no apparent distress ENT: hearing grossly normal Respiratory/Chest: lungs clear, normal breath sounds, no respiratory distress Cardiovascular: regular rate, rhythm, no murmur Extremities: normal inspection (bandages on right lower leg and left foot) Neurologic/Psychiatric: alert (Oriented to person, place, month but not year. Knows current President.) Skin: normal color Assessment and Plan 62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 Ethmoid Sinus SCC -Getting chemo/radiation treatment once more -Will follow-up with oncology as an outpatient Facial pain/Headache -Treatment with current pain medication combination and adjustment as needed -Will followup with outpatient pain management Cellulitis -Wound care following -Finished 8 days of ceftriaxone. outpatient wound following. Cognitive impairment -currently not impaired -will continue to monitor Disposition -Case management working to find placement -Still no word back -Pt prefers [facility] vs. [facility] DVT prophylaxis/ DVT Hx -on [place] Resident Tracking Resident Involvement: Resident Care Provided Care Provided: Adult Hospital Medicine Reviewed: Pt Seen/Exam by Me History still having pain in the head feeling sleepy Constitutional: denies: fever Respiratory: negative: short of breath Cardiovascular: denies chest pain General Appearance: no apparent distress Respiratory: no respiratory distress Neurologic/Psychiatric: alert, oriented x 3 Skin Characteristics: warm/dry Assessment/Plan Resident Physician Supervision Note: I independently interviewed and examined the patient and verified the pearl history and physical, reviewed labs and image studies, discussed the case with the resident Dr. Fernandez and agree with the findings and care plan.
[2017-11-26] MEDS: OXYCODONE HCL IR 5 MG TAB (IMMEDIATE RELEASE) PO SCH ×3 (12:05→20:03)
[2017-11-26] MEDS: IBUPROFEN 600 MG TAB PO PRN (13:48)
[2017-11-26] MEDS: AMITRIPTYLINE HCL 50 MG TAB PO SCH (20:03)
[2017-11-27] MEDS: HYDROmorphone HCL 2 MG TAB PO PRN ×3 (00:25→09:37)
[2017-11-27] MEDS: CHECK FENTANYL PATCH PLACEMENT SCH ×3 (00:30→16:46)
[2017-11-27] MEDS: BUTALBITAL/ACETAMIN/CAFFEINE TAB PO PRN ×2 (01:18→22:48)
[2017-11-27] MEDS: LORAZEPAM 0.5 MG TAB PO PRN (02:06)
[2017-11-27] MEDS: ACETAMINOPHEN 325 MG TAB PO PRN ×4 (02:07→18:42)
[2017-11-27 03:50] VITALS: BP 155/90; PULSE 89; TEMP 36.7; O2SAT 93
[2017-11-27] MEDS: IBUPROFEN 600 MG TAB PO PRN ×3 (05:11→22:51)
[2017-11-27] MEDS: FENTANYL PATCH REMOVE & WASTE SCH (07:34)
[2017-11-27 07:40] VITALS: BP 154/93; PULSE 85; TEMP 36.6; O2SAT 92
[2017-11-27] MEDS: FUROSEMIDE 20 MG TAB PO SCH (07:40)
[2017-11-27] MEDS: BOOST GLUCOSE CONTROL VANILLA PO SCH ×2 (07:40→20:19)
[2017-11-27] MEDS: DRONABINOL 2.5 MG CAP PO SCH ×2 (07:41→20:19)
[2017-11-27] MEDS: OXYCODONE HCL IR 5 MG TAB (IMMEDIATE RELEASE) PO SCH ×4 (07:41→20:19)
[2017-11-27] MEDS: GABAPENTIN 400 MG CAP PO SCH ×3 (07:41→20:20)
[2017-11-27] MEDS: RIVAROXABAN 10 MG TAB PO SCH (07:42)
[2017-11-27] MEDS: FENTANYL 75 MCG/HR TDSY TD SCH (07:43)
--- NOTE | 2017-11-27 08:41 | Pain Management Consultation ---
Pain Consultation Date of Service Nov 27, 2017. Pain Consultation Went to see the patient at [phone] and [phone] and she was not in the room. She is at radiation. Will check on her tomorrow.
[2017-11-27 11:29] VITALS: BP 142/92; PULSE 91; TEMP 36.6; O2SAT 96
--- NOTE | 2017-11-27 12:48 | HEME/ONC PROGRESS NOTE ---
DATE: 11/27/2017 DIAGNOSES: 1. Facial pain attributable to disease progression. 2. Lower extremity cellulitis (resolved). 3. Hypoalbuminemia. 4. 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 SUBJECTIVE: Michelle was seen and examined at bedside this afternoon. She continues daily radiation therapy and received her weekly course of carboplatin and paclitaxel late last week. For the most part, no significant side effects. A little bit discourage is Michelle states her facial pain has not improved a great deal. Apparently, the medicine service is incorporating pain management, which I believe is reasonable. I was hopeful that she would be placed either in a personal care facility or rehabilitation moving forward. Clinically, she actually looks a lot better. She does not seem as uncomfortable, but again, I have to take Michelle for her word stating her pain has not really improved significantly. OBJECTIVE: VITAL SIGNS: Temperature 36.6, pulse 91, respiratory rate 20, blood pressure 142/92. SKIN: Without rash or lesion. HEENT: Oral mucosa without erythema or ulceration. HEART: Regular rate and rhythm. LUNGS: Clear to auscultation. ABDOMEN: Soft, nontender, nondistended. EXTREMITIES: No clubbing, cyanosis, or edema. NEUROLOGIC: Grossly intact. LABORATORY DATA: None performed since 11/20/2017. IMPRESSION: 1. Intractable facial pain, attributable to disease progression. 2. Concurrent chemoradiation therapy. 3. Hypoalbuminemia. 4. 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 PLAN: Michelle seems to be doing reasonably well. There is a bit of discongruence regarding patient's outward mood/affect and her admission to having continued pain. Clearly, I think she is improving based on again her mood and affect, seems to be a lot more matter of fact. Obviously, would like to continue chemoradiation; however, would prefer she be outpatient. She will be due for weekly carboplatin and paclitaxel in the next couple of days, and therefore, would prefer that she be out of hospital. Will discuss her case further with radiation oncology department. I have nothing further to add. Will continue to follow her periodically while hospitalized.
[2017-11-27 16:12] VITALS: BP 163/99; PULSE 89; TEMP 36.6; O2SAT 98
--- NOTE | 2017-11-27 18:23 | Family Medicine Progress Note ---
Progress Note Date of Service Nov 27, 2017. Subjective Pt evaluation today including: conversation w/ patient Pain: 3/10 Voiding: no voiding problems Constitutional: + fatigue, No fever, No chills, No sweats, No weakness Respiratory: No cough, No sputum, No wheezing Cardiovascular: No chest pain, No orthopnea, No edema, No palpitations Abdomen: No pain, No nausea, No vomiting, No diarrhea Medications Current Inpatient Medications Medications (Trade) Dose Ordered Sig/Kath Route Start Time Stop Time Status Last Admin Dose Admin Acetaminophen (Tylenol Tab) 650 mg Q4H PRN PO 11/19/17 00:00 12/19/17 00:00 11/27/17 11:49 650 MG Al Hydrox/Mg Hydrox/Simethicone (Maalox Max Susp) 15 ml Q4H PRN PO 11/19/17 00:00 12/19/17 00:00 Magnesium Hydroxide (Milk Of Magnesia Susp) 30 ml Q6H PRN PO 11/19/17 00:00 12/19/17 00:00 Polyethylene (Miralax Powder Packet) 17 gm DAILY PRN PO 11/19/17 00:00 12/19/17 00:00 Zolpidem Tartrate (Ambien Tab) 5 mg HSZ PRN PO 11/19/17 00:00 12/19/17 00:00 Furosemide (Lasix Tab) 20 mg DAILY PO 11/19/17 08:00 12/19/17 07:59 11/27/17 07:40 20 MG Ibuprofen (Motrin Tab) 600 mg TID PRN PO 11/19/17 01:45 12/19/17 01:44 11/27/17 14:01 600 MG Ondansetron HCl (Zofran Tab) 8 mg Q8 PRN PO 11/19/17 01:45 12/19/17 01:44 11/25/17 17:13 8 MG Rivaroxaban (Xarelto Tab) 20 mg DAILY PO 11/19/17 08:00 12/19/17 07:59 11/27/17 07:42 20 MG Oxycodone HCl (Roxicodone Immediate Rel Tab) 15 mg QID PO 11/19/17 08:00 12/19/17 07:59 11/27/17 16:47 15 MG Fentanyl (Duragesic Patch) 75 mcg Q3D TD 11/21/17 08:00 12/05/17 07:59 11/27/17 07:43 75 MCG Miscellaneous (Fentanyl Patch Remove & Waste) 1 ea Q3D N/A 11/21/17 07:59 12/21/17 07:58 11/27/17 07:34 1 EA Miscellaneous Information (Check Fentanyl Patch Placement) 1 ea QS N/A 11/19/17 08:00 12/19/17 07:59 11/27/17 16:46 1 EA Lorazepam (Ativan Tab) 0.5 mg Q4H PRN PO 11/19/17 11:30 12/19/17 11:29 11/27/17 02:06 0.5 MG Enteral Nutritional Formula (Boost Glucose Control) 1 can BID PO 11/19/17 20:00 12/19/17 19:59 11/27/17 07:40 1 CAN Amitriptyline HCl (Elavil Tab) 50 mg HS PO 11/19/17 21:00 12/19/17 20:59 11/26/17 20:03 50 MG Dronabinol (Marinol Cap) 2.5 mg BID PO 11/19/17 20:00 12/19/17 19:59 11/27/17 07:41 2.5 MG Acetaminophen/ Butalbital/ Caffeine (Fioricet Tab) 1 tab Q4H PRN PO 11/19/17 16:00 12/19/17 15:59 11/27/17 01:18 1 TAB Ondansetron HCl (Zofran Odt) 8 mg Q6H PRN PO 11/20/17 15:45 12/20/17 15:44 Hydromorphone HCl (Dilaudid Tab) 2 mg Q4H PRN PO 11/20/17 15:45 12/04/17 15:44 Future Hold 11/27/17 09:37 2 MG Gabapentin (Neurontin Cap) 400 mg TID PO 11/22/17 14:00 12/19/17 19:59 11/27/17 14:00 400 MG Objective Physical Exam General Appearance: WD/WN, no apparent distress Respiratory/Chest: chest non-tender, lungs clear, normal breath sounds Cardiovascular: regular rate, rhythm, no edema, no gallop, no JVD, no murmur Abdomen: normal bowel sounds, non tender, soft Neurologic/Psychiatric: oriented x 3 (Month not day) Assessment and Plan 62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 Ethmoid Sinus SCC -Received radiation treatment this morning felt well post procedure -Will follow-up with oncology as an outpatient Facial pain/Headache -Well controlled today -Treatment with current pain medication combination and adjustment as needed -Will followup with outpatient pain management Cellulitis -Wound care following -Finished 8 days of ceftriaxone. outpatient wound following. Cognitive impairment -currently not impaired -will continue to monitor Disposition -Case management relates placement at [facility] -Need OT sign off DVT prophylaxis/ DVT Hx -on Xarelto Resident Physician Supervision Note: I interviewed and examined the patient. Discussed with Dr. Gray and agree with findings and plan as documented in the note. Any exceptions or clarifications are listed here: None Documented By: Claudio Akbar sleeping appearing comfortable at the time of my exam vitals noted nad breathing unlabored no pallor or icterus severe pain - appearing objectively comfortable, subjectively still has ups and downs. continue current care - she does look markedly more comfortable than when i last saw her a week ago. Await pain management input. work towards discharge planning Resident Tracking Resident Involvement: Resident Care Provided Care Provided: Adult Hospital Medicine
[2017-11-27] MEDS ORDERED: OXYMETAZOLINE HCL 0.05% NA SPR 15 ML BTL PRN (19:15)
[2017-11-27 19:17] VITALS: BP 150/105; PULSE 83; TEMP 36.7; O2SAT 99
[2017-11-27] MEDS: AMITRIPTYLINE HCL 50 MG TAB PO SCH (20:19)
[2017-11-28] VITALS (8 sets, daily range): BP systolic 124–171; BP diastolic 73–118; PULSE 66–104; TEMP 36.4–37.4; O2SAT 93–100
[2017-11-28] MEDS: CHECK FENTANYL PATCH PLACEMENT SCH ×3 (00:16→16:12)
[2017-11-28] MEDS: IBUPROFEN 600 MG TAB PO PRN ×2 (04:43→15:52)
[2017-11-28] MEDS: BUTALBITAL/ACETAMIN/CAFFEINE TAB PO PRN ×3 (04:46→15:24)
[2017-11-28] MEDS: RIVAROXABAN 10 MG TAB PO SCH (07:28)
[2017-11-28] MEDS: FUROSEMIDE 20 MG TAB PO SCH (07:28)
[2017-11-28] MEDS: GABAPENTIN 400 MG CAP PO SCH ×3 (07:28→19:52)
[2017-11-28] MEDS: DRONABINOL 2.5 MG CAP PO SCH ×2 (07:42→19:51)
[2017-11-28] MEDS: OXYCODONE HCL IR 5 MG TAB (IMMEDIATE RELEASE) PO SCH ×2 (07:42→12:23)
[2017-11-28] MEDS: BOOST GLUCOSE CONTROL VANILLA PO SCH ×2 (08:37→19:52)
--- NOTE | 2017-11-28 10:08 | Pain Management Consultation ---
Pain Management Consultation Date of Consultation Nov 28, 2017. Reason for Consultation Assistance with managing chronic oncologic pain. Pain Location 1 - Left facial pain 2 - Left frontal and temproal pain History Michelle Jacobson is a 60-year-old female with a history of squamous cell carcinoma of the ethmoid sinus. She is currently experiencing pain in the left frontal, temporal, infraorbital and maxillary region related to her underlying malignancy. She describes the pain as a constant burning/aching sensation in the above described area with intermittent lasting episodes in the infraorbital region. She rates the pain as 6/10 when severe and 2/10 when minimal. She reports pain to be present throughout the day and the night and is unrelated to positional change or tactile stimulation. She denies any rhinorrhea, facial flushing or any vasomotor changes associated with her pain. Pain occurs in episodes that last from several minutes to several hours at a time and "goes up and down" in intensity without any provocative factors. No auditory or visual changes associated with her facial pain. She is currently undergoing radiation therapy for her malignancy and is on 75 mcg of transdermal fentanyl as well as oxycodone for breakthrough pain. She reports that although her current regimen is able to control her pain to a significant degree, she requires the use of oxycodone every 4-6 hours to maintain the pain relief. She is also currently taking gabapentin 1600 mg daily dose with some efficacy. She attributes slight difficulty in recalling distant events as well as mild cognitive dysfunction with a sensation of "fogginess" which he attributes to the use of the gabapentin. She denies any other side effects to her opiate regimen. Consideration being given to place her on methadone as alternative to manage her pain by palliative care service. In the interim, consultation was requested in optimizing her analgesic regimen. Comorbid conditions include patient being on anticoagulant for superficial venous thrombosis of the right leg and bilateral lower extremity cellulitis. Past Medical: History of bilateral pneumonia. Family History Diabetes mellitus Hypertension Social / Work History Smokeless Tobacco Use: No Alcohol Use: none Marital Status: Housing Status: lives with family Occupation: unemployed Allergies Coded Allergies: No Known Allergies (Unverified , 11/02/17) Medications Current Inpatient Medications Medications (Trade) Dose Ordered Sig/Kath Route Start Time Stop Time Status Last Admin Dose Admin Acetaminophen (Tylenol Tab) 650 mg Q4H PRN PO 11/19/17 00:00 12/19/17 00:00 11/27/17 18:42 650 MG Al Hydrox/Mg Hydrox/Simethicone (Maalox Max Susp) 15 ml Q4H PRN PO 11/19/17 00:00 12/19/17 00:00 Magnesium Hydroxide (Milk Of Magnesia Susp) 30 ml Q6H PRN PO 11/19/17 00:00 12/19/17 00:00 Polyethylene (Miralax Powder Packet) 17 gm DAILY PRN PO 11/19/17 00:00 12/19/17 00:00 Zolpidem Tartrate (Ambien Tab) 5 mg HSZ PRN PO 11/19/17 00:00 12/19/17 00:00 Furosemide (Lasix Tab) 20 mg DAILY PO 11/19/17 08:00 12/19/17 07:59 11/28/17 07:28 20 MG Ibuprofen (Motrin Tab) 600 mg TID PRN PO 11/19/17 01:45 12/19/17 01:44 11/28/17 04:43 600 MG Ondansetron HCl (Zofran Tab) 8 mg Q8 PRN PO 11/19/17 01:45 12/19/17 01:44 11/25/17 17:13 8 MG Rivaroxaban (Xarelto Tab) 20 mg DAILY PO 11/19/17 08:00 12/19/17 07:59 11/28/17 07:28 20 MG Oxycodone HCl (Roxicodone Immediate Rel Tab) 15 mg QID PO 11/19/17 08:00 12/19/17 07:59 11/28/17 07:42 15 MG Fentanyl (Duragesic Patch) 75 mcg Q3D TD 11/21/17 08:00 12/05/17 07:59 11/27/17 07:43 75 MCG Miscellaneous (Fentanyl Patch Remove & Waste) 1 ea Q3D N/A 11/21/17 07:59 12/21/17 07:58 11/27/17 07:34 1 EA Miscellaneous Information (Check Fentanyl Patch Placement) 1 ea QS N/A 11/19/17 08:00 12/19/17 07:59 11/28/17 07:29 1 EA Lorazepam (Ativan Tab) 0.5 mg Q4H PRN PO 11/19/17 11:30 8/28/18 11:29 11/27/17 02:06 0.5 MG Enteral Nutritional Formula (Boost Glucose Control) 1 can BID PO 11/19/17 20:00 12/19/17 19:59 11/27/17 20:19 1 CAN Amitriptyline HCl (Elavil Tab) 50 mg HS PO 11/19/17 21:00 12/19/17 20:59 11/27/17 20:19 50 MG Dronabinol (Marinol Cap) 2.5 mg BID PO 11/19/17 20:00 12/19/17 19:59 11/28/17 07:42 2.5 MG Acetaminophen/ Butalbital/ Caffeine (Fioricet Tab) 1 tab Q4H PRN PO 11/19/17 16:00 12/19/17 15:59 11/28/17 04:46 1 TAB Ondansetron HCl (Zofran Odt) 8 mg Q6H PRN PO 11/20/17 15:45 12/20/17 15:44 Hydromorphone HCl (Dilaudid Tab) 2 mg Q4H PRN PO 11/20/17 15:45 12/04/17 15:44 Future Hold 11/27/17 09:37 2 MG Gabapentin (Neurontin Cap) 400 mg TID PO 11/22/17 14:00 12/19/17 19:59 11/28/17 07:28 400 MG Oxymetazoline HCl (Afrin 0.05% Nasal [place]) 1 sprays BID PRN NA 11/27/17 19:15 11/30/17 19:14 11/27/17 20:19 1 SPRAYS Review of Systems Patient describes malaise and failure to thrive with the lack of appetite. Otherwise, 8 point review of systems is unremarkable. Physical Exam Height & Weight: Height 5 feet, 4.00 inches. Weight 88.400 (Kilograms) 194 (Pounds) Last Vital Signs Documentation Date Time Temp Pulse Resp B/P (MAP) Pulse Ox O2 Delivery O2 Flow Rate FiO2 11/28/17 08:00 Room Air 11/28/17 07:11 36.6 91 20 139/86 (103) 95 11/23/17 09:30 2.0 Exam: Exam demonstrates Ms. Jacobson to be appearing older than his stated age of 62. She is in no acute distress at the present time. She is awake and alert and oriented to time place and person with clear sensorium. She has poor recall regarding her pain management regimen as well as her diagnosis. She does answer appropriately to questions. Eyes, ears nose and throat exam demonstrates reactive pupils with intact extraocular movements. Slight erythema is noted in the nasal mucosa on the left. Oropharynx is unremarkable. No hypoesthesia or allodynia is appreciable in the oropharynx. No nasal discharge is noted. Examination of the cranial nerves demonstrates intact cranial nerves II through XII. She has hyperesthesia and dysesthesia in the maxillary region on the left side as well as left frontal region. She demonstrates intact sensation and motor strength in the upper and lower extremities. Laboratory Laboratory Results (Last CBC): 11/20/17 06:06 Red Blood Count 3.89 L, Mean Corpuscular Volume 95.1, Mean Corpuscular Hemoglobin 29.8, Mean Corpuscular Hemoglobin Concent 31.4 L, Mean Platelet Volume 9.[address]: non enhanced, reports reviewed CT Findings SINUS CT: FINDINGS: No major change in the appearance of the sinus region compared to the prior study. Ethmoid sinus soft tissue mass with erosive changes to the cribriform plate. This extends to a lesser extent to the inferior aspect left frontal sinus. There are findings of a direct soft tissue extension to the left lateral sphenoid air cells, as well as to the posterior aspect of the left retro-orbital and retroseptal tissues. All findings appear similar compared to the prior exam. Moderate mucosal thickening and polypoid changes of the ethmoids. There is near-complete opacification of the residual component of the maxillary sinuses. Globes remain generally symmetric with no evidence for significant proptosis at this time. The mastoid air cells are clear. IMPRESSION: Ethmoid sinus soft tissue mass demonstrating erosive changes to the surrounding structures as described. No major change from the prior exam. Extension to the left retro-orbital region, cribriform plate, as well as sphenoid and left frontal sinus is similar. The above report was generated using voice recognition software. It may contain grammatical, syntax or spelling errors. Electronically signed by: Umer Padron M.D. 11/08/2017 7:04 PM Dictated Date/Time: 11/08/2017 7:01 PM [facility] Drug Monitoring Program Search Results: patient reviewed within database, no issues identified Drug Monitoring Findings: Drug monitoring left side was reviewed and indicates patient has been receiving transdermal fentanyl and oxycodone consistent with her given history. Assessment 1. Squamous cell carcinoma of the ethmoid sinus. Associated neuropathic and nociceptive pain in the frontal, maxillary and left temporal region. 2. Anticoagulant use due to superficial venous thrombosis right leg. Recommendations 1. Recommend increasing her current transdermal fentanyl dosage by 12 mcg and discontinuing the oxycodone for breakthrough pain. Instead, recommend hydrocodone for breakthrough pain once her transdermal fentanyl dose has been increased. 2. Consideration can be given to performing supraorbital, infraorbital, supratrochlear and temporal nerve blocks diagnostically with local anesthetic. If patient does receive the efficacy for the duration of local anesthetic, she may be candidate to undergo radiofrequency ablation of these peripheral nerves to provide her longer term pain relief and thus reduce her overall use of the opioids. However, risk of stopping the Xarelto must be considered. If the primary care team feels that there is some stopping her anticoagulation is minimal, she can undergo these diagnostic blocks as an outpatient in the [facility] pain management clinic. If this alternative is elected, please notify the pain management service so that she can be set up an appointment for follow- up after discharge.
--- NOTE | 2017-11-28 18:01 | Family Medicine Progress Note ---
Progress Note Date of Service Nov 28, 2017. Subjective Talked with Mrs. Jacobson about placement today, she was hoping to go to [facility] today, but was denied for rehabilitation. The plan now is to return home. I spoke with both the patient and the patient's daughter in law and they are dissapointed by the denail but amenable to to returning home to [facility] care. They are trying to make the house safe for her before her return. Additional Comments: Constitutional: + fatigue, No fever, No chills, No sweats, No weakness Respiratory: No cough, No sputum, No wheezing Cardiovascular: No chest pain, No orthopnea, No edema, No palpitations Abdomen: No pain, No nausea, No vomiting, No diarrhea Medications Current Inpatient Medications Medications (Trade) Dose Ordered Sig/Kath Route Start Time Stop Time Status Last Admin Dose Admin Acetaminophen (Tylenol Tab) 650 mg Q4H PRN PO 11/19/17 00:00 12/19/17 00:00 11/27/17 18:42 650 MG Al Hydrox/Mg Hydrox/Simethicone (Maalox Max Susp) 15 ml Q4H PRN PO 11/19/17 00:00 12/19/17 00:00 Magnesium Hydroxide (Milk Of Magnesia Susp) 30 ml Q6H PRN PO 11/19/17 00:00 12/19/17 00:00 Polyethylene (Miralax Powder Packet) 17 gm DAILY PRN PO 11/19/17 00:00 12/19/17 00:00 Zolpidem Tartrate (Ambien Tab) 5 mg HSZ PRN PO 11/19/17 00:00 12/19/17 00:00 Furosemide (Lasix Tab) 20 mg DAILY PO 11/19/17 08:00 12/19/17 07:59 11/28/17 07:28 20 MG Ibuprofen (Motrin Tab) 600 mg TID PRN PO 11/19/17 01:45 12/19/17 01:44 11/28/17 15:52 600 MG Ondansetron HCl (Zofran Tab) 8 mg Q8 PRN PO 11/19/17 01:45 12/19/17 01:44 11/25/17 17:13 8 MG Rivaroxaban (Xarelto Tab) 20 mg DAILY PO 11/19/17 08:00 12/19/17 07:59 11/28/17 07:28 20 MG Fentanyl (Duragesic Patch) 75 mcg Q3D TD 11/21/17 08:00 12/05/17 07:59 11/27/17 07:43 75 MCG Miscellaneous (Fentanyl Patch Remove & Waste) 1 ea Q3D N/A 11/21/17 07:59 12/21/17 07:58 11/27/17 07:34 1 EA Miscellaneous Information (Check Fentanyl Patch Placement) 1 ea QS N/A 11/19/17 08:00 12/19/17 07:59 11/28/17 16:12 1 EA Lorazepam (Ativan Tab) 0.5 mg Q4H PRN PO 11/19/17 11:30 12/19/17 11:29 11/27/17 02:06 0.5 MG Enteral Nutritional Formula (Boost Glucose Control) 1 can BID PO 11/19/17 20:00 12/19/17 19:59 11/27/17 20:19 1 CAN Amitriptyline HCl (Elavil Tab) 50 mg HS PO 11/19/17 21:00 12/19/17 20:59 11/27/17 20:19 50 MG Dronabinol (Marinol Cap) 2.5 mg BID PO 11/19/17 20:00 12/19/17 19:59 11/28/17 07:42 2.5 MG Acetaminophen/ Butalbital/ Caffeine (Fioricet Tab) 1 tab Q4H PRN PO 11/19/17 16:00 12/19/17 15:59 11/28/17 15:24 1 TAB Ondansetron HCl (Zofran Odt) 8 mg Q6H PRN PO 11/20/17 15:45 12/20/17 15:44 Hydromorphone HCl (Dilaudid Tab) 2 mg Q4H PRN PO 11/20/17 15:45 12/04/17 15:44 Future Hold 11/27/17 09:37 2 MG Gabapentin (Neurontin Cap) 400 mg TID PO 11/22/17 14:00 12/19/17 19:59 11/28/17 13:53 400 MG Oxymetazoline HCl (Afrin 0.05% Nasal [place]) 1 sprays BID PRN NA 11/27/17 19:15 11/30/17 19:14 11/27/17 20:19 1 SPRAYS Oxycodone HCl (Roxicodone Immediate Rel Tab) 15 mg QID PRN PO 11/28/17 13:00 12/19/17 07:59 Objective Vital Signs Date Time Temp Pulse Resp B/P (MAP) Pulse Ox O2 Delivery O2 Flow Rate FiO2 11/28/17 16:58 Room Air 11/28/17 15:15 36.9 95 18 150/107 (121) 96 Room Air 11/28/17 13:59 66 166/106 (126) 11/28/17 11:25 36.4 94 18 171/111 (131) 100 Room Air 11/28/17 08:00 Room Air 11/28/17 07:11 36.6 91 20 139/86 (103) 95 Room Air 11/28/17 04:24 36.6 87 19 166/118 (134) 95 Room Air 11/27/17 23:20 Room Air 11/27/17 20:00 Room Air 11/27/17 19:17 36.7 83 18 150/105 (120) 99 Room Air Physical Exam Notes: General Appearance: WD/WN, no apparent distress Respiratory/Chest: chest non-tender, lungs clear, normal breath sounds Cardiovascular: regular rate, rhythm, no edema, no gallop, no JVD, no murmur Abdomen: normal bowel sounds, non tender, soft Neurologic/Psychiatric: awake alert and oriented x3 Assessment and Plan 62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 Ethmoid Sinus SCC -Received radiation treatment this morning felt well post procedure -Chemo due tomorrow Facial pain/Headache -Well controlled today -Treatment with current pain medication combination and adjustment as needed -Made oxycodone QID PRN Cellulitis -Wound care following -Finished 8 days of ceftriaxone. outpatient wound following. Cognitive impairment -currently not impaired -will continue to monitor Disposition -[facility] denied patient for SNF rehab placement. -Plan is to send home to family possibly tomorrow DVT prophylaxis/ DVT Hx -on Xarelto Resident Physician Supervision Note: I interviewed and examined the patient. Discussed with Dr. Gray and agree with findings and plan as documented in the note. Any exceptions or clarifications are listed here: None Documented By: Claudio Akbar pain up and down but better than last week discussed dispo vitals noted nad breathing unlabored no pallor or icterus sinus cancer related trigeminal pain -continue med management Resident Tracking Resident Involvement: Resident Care Provided Care Provided: Adult Hospital Medicine
[2017-11-28] MEDS: OXYCODONE HCL IR 5 MG TAB (IMMEDIATE RELEASE) PO PRN (18:31)
[2017-11-28] MEDS: AMITRIPTYLINE HCL 50 MG TAB PO SCH (19:52)
[2017-11-28] MEDS: ACETAMINOPHEN 325 MG TAB PO PRN (20:54)
[2017-11-29] VITALS (7 sets, daily range): BP systolic 114–158; BP diastolic 80–109; PULSE 81–109; TEMP 36.6–37; O2SAT 94–98
[2017-11-29] MEDS: ACETAMINOPHEN 325 MG TAB PO PRN ×2 (02:04→12:11)
[2017-11-29] MEDS: IBUPROFEN 600 MG TAB PO PRN ×2 (04:47→17:59)
[2017-11-29] MEDS: BUTALBITAL/ACETAMIN/CAFFEINE TAB PO PRN ×3 (06:01→23:58)
[2017-11-29] MEDS: LORAZEPAM 0.5 MG TAB PO PRN (07:47)
[2017-11-29] MEDS: OXYCODONE HCL IR 5 MG TAB (IMMEDIATE RELEASE) PO PRN ×3 (07:47→17:14)
[2017-11-29] MEDS: CHECK FENTANYL PATCH PLACEMENT SCH ×4 (07:48→23:57)
--- NOTE | 2017-11-29 08:10 | HEME/ONC PROGRESS NOTE ---
DATE: 11/29/2017 DIAGNOSES: 1. Facial pain attributable to disease progression. 2. Lower extremity cellulitis. 3. Hypoalbuminemia. 4. 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 SUBJECTIVE: Michelle was seen and examined at bedside, sitting up, feeling relatively good. She complains of some mild to moderate facial discomfort, but pain seems to be adequately controlled. Nursing reports no overnight difficulties. She is tolerating her diet and ambulating ad josemanuel. The patient is due for chemotherapy, but would prefer that she receive treatment in the [facility]. She continues daily radiation therapy. OBJECTIVE: VITAL SIGNS: Temperature 36.8, pulse 81, respiratory rate 18, blood pressure 114/91. SKIN: Without rash or lesion. HEENT: Oral mucosa without erythema or ulceration. NECK: Supple. HEART: Regular rate and rhythm. LUNGS: Clear to auscultation. ABDOMEN: Obese, soft, nontender, nondistended. EXTREMITIES: No clubbing, cyanosis or edema. NEUROLOGIC: Grossly intact. LABORATORY DATA: WBC count 4300, hemoglobin 11.6, platelet count 243,000. Chemistries, ____ 138, potassium 3.7, chloride 103, carbon dioxide 28, BUN 5, creatinine 0.54. IMPRESSION: 1. Intractable facial pain, attributable to disease progression. 2. Concurrent chemoradiation. 3. Hypoalbuminemia. 4. 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 PLAN: Apparently, there are family dynamics in regards to patient's disposition. I would prefer not to give her further chemotherapy in the hospital. Anticipate discharge within the next 24 hours or so. She continues radiation daily and seems to be improving, although Michelle herself admits pain is only modestly improved. Her overall mood and affect seems to be vastly improved. If she is to be discharged today, please contact the cancer center to arrange carboplatin and paclitaxel for tomorrow. I have nothing further to add and really from a medical oncology standpoint, I see no reason why she cannot be discharged.
[2017-11-29] MEDS: GABAPENTIN 400 MG CAP PO SCH ×3 (08:57→20:06)
[2017-11-29] MEDS: DRONABINOL 2.5 MG CAP PO SCH ×2 (08:57→20:05)
[2017-11-29] MEDS: RIVAROXABAN 10 MG TAB PO SCH (08:58)
[2017-11-29] MEDS: FUROSEMIDE 20 MG TAB PO SCH (08:58)
[2017-11-29] MEDS: BOOST GLUCOSE CONTROL VANILLA PO SCH ×2 (08:59→20:05)
--- NOTE | 2017-11-29 09:42 | Family Medicine Progress Note ---
Progress Note Date of Service Nov 29, 2017. Subjective Talked with Ms Jacobson today for a bit, she is very ready to return home, feels pain is moderately well controlled. She has no complaints today and reports understanding with needing to follow up with oncology as an outpatient. She is sleeping well and her appetite continues to be up. Also spoke with Katina, patients daughter in law. She has finally managed to arrange for family and friends to be home with Michelle most of the day. Additional Comments: Constitutional: + fatigue, No fever, No chills, No sweats, No weakness Respiratory: No cough, No sputum, No wheezing Cardiovascular: No chest pain, No orthopnea, No edema, No palpitations Abdomen: No pain, No nausea, No vomiting, No diarrhea Objective Vital Signs Date Time Temp Pulse Resp B/P (MAP) Pulse Ox O2 Delivery O2 Flow Rate FiO2 11/29/17 19:08 37.0 97 16 148/93 (111) 97 Room Air 11/29/17 16:00 Room Air 11/29/17 15:25 36.6 18 148/93 (111) Room Air 11/29/17 10:54 36.6 96 18 116/80 (92) 98 11/29/17 07:45 Room Air 11/29/17 07:26 36.8 81 18 114/91 (99) 95 11/29/17 05:40 95 147/87 (107) 11/29/17 04:20 36.6 109 20 158/109 (125) 97 Room Air 11/29/17 00:00 Room Air 11/28/17 23:37 36.8 93 20 124/73 (90) 93 Room Air Physical Exam Notes: General Appearance: WD/WN, no apparent distress Respiratory/Chest: chest non-tender, lungs clear, normal breath sounds Cardiovascular: regular rate, rhythm, no edema, no gallop, no JVD, no murmur Abdomen: normal bowel sounds, non tender, soft Neurologic/Psychiatric: awake alert and oriented x3 Assessment and Plan 62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 Ethmoid Sinus SCC -Deferred Chemo for outpatient appointment tomorrow -Tolerating radiation therapy Facial pain/Headache -Well controlled today -Treatment with current pain medication combination and adjustment as needed -Made oxycodone QID PRN Cellulitis -Wound care following -Finished 8 days of ceftriaxone. outpatient wound following. Cognitive impairment -currently not impaired -will continue to monitor Disposition -After denial for SNF placement, patients family has finally made home safe for ms Jacobson and will have family and friends staying with her for the near foreseeable future. Family very thankful for our patience and communication -Patient medically stable to return home DVT prophylaxis/ DVT Hx -on [place] Resident Physician Supervision Note: I interviewed and examined the patient. Discussed with Dr. Gray and agree with findings and plan as documented in the note. Any exceptions or clarifications are listed here: None Documented By: Claudio Akbar feeling about the same as yesterday. for chemo as outpt tomorrow family getting safe support at home set up for tomorrow vitals noted nad breathing unlabored no pallor or icterus sinus cancer related trigeminal pain -continue med management -overall objectively doing better dispo -insurance inexplicably denied actual SNF, approved somewhat meaningless dispo of [facility] care -family working on rallying safe support at home Resident Tracking Resident Involvement: Resident Care Provided Care Provided: Adult Hospital Medicine
[2017-11-29 13:18] LABS: BASO % 0.3 %; BASO ABS # 0.01 K/uL (0-0.2); EOS % 1.7 %; EOS ABS # 0.06 K/uL (0-0.5); HEMATOCRIT 37.8 % (37-47); HEMOGLOBIN 12.3 g/dL (12.0-16.0); LYMPH % 25.3 %; MEAN CELL VOLUME 93.3 fL (80-100); MEAN CORPUSCULAR HEMOGLOBIN 30.4 pg (25-34); MEAN CORPUSCULAR HGB CONC 32.5 g/dl (32-36); MEAN PLATELET VOLUME 9.5 fL (7.4-10.4); NEUT % 58.7 %; NEUT ABS # 2.09 K/uL (1.4-6.5); PLATELET COUNT 317 K/uL (130-400); RED CELL DISTRIBUTION WIDTH CV 15.3 % (11.5-14.5); RED CELL DISTRIBUTION WIDTH SD 51.8 fL (36.4-46.3); WHITE BLOOD COUNT 3.56 K/uL (4.8-10.8)
[2017-11-29 13:37] LABS: ALBUMIN 2.8 gm/dl (3.4-5.0); CALCIUM 9.6 mg/dl (8.5-10.1); CREATININE 0.6 mg/dl (0.60-1.20); POTASSIUM 3.8 mmol/L (3.5-5.1); TOTAL PROTEIN 7.4 gm/dl (6.4-8.2)
[2017-11-29] MEDS: ONDANSETRON 8 MG TAB PO PRN (18:00)
[2017-11-29] MEDS: AMITRIPTYLINE HCL 50 MG TAB PO SCH (20:06)
[2017-11-30 03:59] VITALS: BP 151/89; PULSE 76; TEMP 36.9; O2SAT 96
[2017-11-30] MEDS: OXYCODONE HCL IR 5 MG TAB (IMMEDIATE RELEASE) PO PRN (04:03)
[2017-11-30] MEDS: ACETAMINOPHEN 325 MG TAB PO PRN (04:29)
[2017-11-30] MEDS: GABAPENTIN 400 MG CAP PO SCH (07:32)
[2017-11-30] MEDS: DRONABINOL 2.5 MG CAP PO SCH (07:32)
[2017-11-30] MEDS: RIVAROXABAN 10 MG TAB PO SCH (07:33)
[2017-11-30] MEDS: FUROSEMIDE 20 MG TAB PO SCH (07:33)
[2017-11-30] MEDS: FENTANYL PATCH REMOVE & WASTE SCH (07:34)
[2017-11-30] MEDS: FENTANYL 75 MCG/HR TDSY TD SCH (07:35)
[2017-11-30] MEDS: BOOST GLUCOSE CONTROL VANILLA PO SCH (07:38)
[2017-11-30] MEDS: CHECK FENTANYL PATCH PLACEMENT SCH (07:39)
[2017-11-30 08:21] VITALS: BP 151/89; PULSE 76; TEMP 36.9; O2SAT 96
[2017-11-30] MEDS ORDERED: GABA-113 PO (13:30)
[2017-11-30] MEDS ORDERED: AMT50 PO (13:30)
[2017-11-30] MEDS ORDERED: MRN/25 PO (13:30)
--- NOTE | 2017-11-30 13:45 | Discharge Summary ---
Discharge Summary Date of Service Nov 20, 2017. Discharge Summary Admission Date: Nov 18, 2017 at 23:58 Discharge Date: Nov 20, 2017 Discharge Disposition: Home Principal Diagnosis: Intractable Pain Problems/Secondary Diagnoses: Resolved cellulitis, altered mental status, generalized weakness and instability Immunizations: Have You Had Influenza Vaccine: Unknown History of Tetanus Vaccine?: Unknown History of Pneumococcal: Unknown History of Hepatitis B Vaccine: Unknown Medication Reconciliation New Medications: Amitriptyline Hcl (Elavil) 50 Mg Tab 50 MG PO HS for 30 Days, #30 TAB Dronabinol (Marinol) 2.5 Mg Cap 2.5 MG PO BID for 30 Days, #60 CAP Gabapentin (Gabapentin) 300 Mg Cap 300 MG PO TID for 30 Days, #90 CAP Continued Medications: Acetaminophen (Tylenol) 325 Mg Tab 650 MG PO Q4H PRN for Pain, TAB Cephalexin Monohydrate (Keflex) 500 Mg Cap 500 MG PO TID for 8 Days, #24 CAP (This prescription has been renewed) Fentanyl (Fentanyl) 75 Mcg/Hr Dis 75 MCG TOP CQ72HR Furosemide (Lasix) 20 Mg Tab 20 MG PO DAILY, TAB Ibuprofen Tab (Motrin) 600 Mg Tab 600 MG PO TID PRN for Pain, TAB Ondansetron Hcl (Zofran) 8 Mg Tab 8 MG PO Q8 PRN for Nausea, TAB Oxycodone Hcl (Oxycodone Hcl) 15 Mg Tab 15 MG PO QID, TAB Rivaroxaban (Xarelto) 20 Mg Tab 20 MG PO DAILY, TAB Discontinued Medications: [Ativan] () Unknown Strength 1 DOSE PO UD Discharge Exam Ms Jacobson is doing well today. She says she is very ready to return home, feels pain is moderately well controlled. She has no complaints today and reports understanding with needing to follow up with oncology as an outpatient. She is sleeping well and her appetite continues to be up. Also spoke with Katina, patients daughter in law. She has finally managed to arrange for family and friends to be home with Michelle most of the day. Additional Comments: Constitutional: + fatigue, No fever, No chills, No sweats, No weakness Respiratory: No cough, No sputum, No wheezing Cardiovascular: No chest pain, No orthopnea, No edema, No palpitations Abdomen: No pain, No nausea, No vomiting, No diarrhea General Appearance: WD/WN, no apparent distress Respiratory/Chest: chest non-tender, lungs clear, normal breath sounds Cardiovascular: regular rate, rhythm, no edema, no gallop, no JVD, no murmur Abdomen: normal bowel sounds, non tender, soft Neurologic/Psychiatric: awake alert and oriented x3 Hospital Course Ethmoid Sinus SCC -Has been receiving chemo and radiation therapy as an inpatient through Dr. Gonzalez. -Deferring today's chemo until discharge -Tolerating radiation therapy Facial pain/Headache -Improved from writhing uncontrollable pain unable to sleep to sleeping through the night, being able to converse, but still with pain in a waxing waning fashion. -Treatment with Fentanyl Patch, amitriptyline, gabapentin, oxycodone for breakthrough pain and marinol for appetite stimulation. -All oral Cellulitis -Resolved with residual ulceration -Finished 8 days of ceftriaxone. outpatient wound followup Cognitive impairment -currently not impaired -will continue to monitor Disposition -After denial for SNF placement, patients family has finally made home safe for ms Jacobson and will have family and friends staying with her for the near foreseeable future. Family very thankful for our patience and communication -Patient medically stable to return home Resident Physician Supervision Note: I interviewed and examined the patient. Discussed with Dr. Gray and agree with findings and plan as documented in the note. Any exceptions or clarifications are listed here: None Documented By: Claudio Akbar feeling ok for home. for chemo this AM vitals noted nad breathing unlabored no pallor or icterus sinus cancer related trigeminal pain -continue med management -overall objectively doing better -meds as above -outpt pain management if worsens/failing dispo -insurance inexplicably denied actual SNF, approved somewhat meaningless dispo of [facility] care -family was able to set up safe dispo for home - as much home support as possible to be arranged Total Time Spent: Greater than 30 minutes (55) This includes examination of the patient, discharge planning, medication reconciliation, and communication with other providers. Discharge Instructions Please refer to the electronic Patient Visit Report (Discharge Instructions) for additional information. Additional Copies To Kan Gonzalez D.O.; Claudio Akbar D.O.; Timothy Diaz M.D. Resident Involvement: Resident Care Provided Care Provided: [facility]
[2017-12-04] MEDS ORDERED: FNTTP50 TD (08:30)
== END 2017-11-30 09:30 | disposition home health service (06) | DRG 146 ==
LOC: C.EDB 20:34 → C.4E 23:58 → EDBEDREQSVC 11-19 00:02 → EDBEDREQ 11-19 00:02 → ENRESERV 11-19 00:29
PROVIDERS: ADMIT Family Medicine; ATTEND Family Medicine
PROC: DW011ZZ Beam Radiation of Head and Neck using Photons 1 - 10 MeV (ICD-10-PCS; principal; 2017-11-24)
PROC: 3E05305 Introduction of Other Antineoplastic into Peripheral Artery, Percutaneous Approach (ICD-10-PCS; principal; 2017-11-24)
DX: C31.1 Malignant neoplasm of ethmoidal sinus (principal); G93.49 Other encephalopathy; L03.115 Cellulitis of right lower limb; F11.20 Opioid dependence, uncomplicated; C79.49 Secondary malignant neoplasm of other parts of nervous system; G89.3 Neoplasm related pain (acute) (chronic); B95.61 Methicillin susceptible Staphylococcus aureus infection as the cause of diseases classified elsewhere; R11.0 Nausea; R51 Headache; Z79.01 Long term (current) use of anticoagulants; Z79.2 Long term (current) use of antibiotics; Z79.899 Other long term (current) drug therapy; Z92.3 Personal history of irradiation; Z86.711 Personal history of pulmonary embolism; Z86.718 Personal history of other venous thrombosis and embolism

== ENCOUNTER 2017-11-30 12:38 | Emergency (ER) | payer OTHER ==
[~2017-11-30] VITALS: Ht 162.6 cm; Wt 90.0 kg
[~2017-11-30 12:38] MED LIST changes: +AMT50 PO; -CEPH-571 PO; +CEPH500C2 PO; -DRGTP50 TD; +FENT75DI2 TOP; +IBUP-1427 PO; -KETO10TA PO; +MRN25 PO; +NRN300 PO; +OXY/15 PO; -OXYC-90 PO; +RIVA1TAB4 PO
[2017-11-30 12:56] VITALS: Ht 162.6 cm; Wt 90.0 kg
[2017-11-30 12:58] VITALS: O2SAT 99
[2017-11-30] MEDS ORDERED: SODIUM CHLORIDE 0.9% 500ML 500 ML IV STA (13:03)
[2017-11-30] MEDS ORDERED: FAMOTIDINE 20MG/5ML IV PUSH IV STA (13:03)
--- NOTE | 2017-11-30 13:08 | EMERGENCY ROOM VISIT NOTE ---
History Report prepared by Candida: Moon Cancino Under the Supervision of: Dr. Pablo Ingram M.D. First contact with patient: 12:58 Chief Complaint: ALLERGIC REACTION Stated Complaint: ALLERGIC REACTION Nursing Triage Summary: D/C FROM HOSPITAL THIS AM AND WENT TO [facility] FOR CHEMO. HAD 1 ST DOSE AND DID WELL 2 ND DOSE BECAME VERY RED FLUSHED. History of Present Illness The patient is a 62 year old female who presents to the Emergency Room with complaints of an episode of allergic reaction beginning this morning. The patient was discharged this morning following an admittance, and seen in the [facility] for treatment. During her second dose of chemo the patient became very red and began feeling like her throat was closing. She was hypertensive at this time. The patient notes her R ear is painful on the inside and outside. She denies any SOB, nausea or diarrhea. The patient does not normally wear oxygen, and sees sees Dr. Gonzalez as her oncologist. She was given Benadryl and Solu-Medrol in the cancer center. Source of History: patient Onset: this morning Position: other (skin) Quality: other (allergic reaction) Associated Symptoms: No SOB, No nausea, No diarrhea Note: Associated symptom: feeling of throat closing, red skin, R ear pain. Review of Systems See HPI for pertinent positives and negatives. A total of ten systems were reviewed and were otherwise negative. Past Medical & Surgical Medical Problems: (1) Cellulitis (2) Cellulitis of leg (3) No chronic diseases present Family History Diabetes mellitus Hypertension Social History Smoking Status: Never Smoker Drug Use: none Marital Status: Housing Status: lives with family Occupation Status: unemployed Current/Historical Medications Scheduled Amitriptyline Hcl (Elavil), 50 MG PO HS Dronabinol (Marinol), 2.5 MG PO BID Fentanyl (Fentanyl), 75 MCG TOP CQ72HR Furosemide (Lasix), 20 MG PO DAILY Gabapentin (Neurontin), 300 MG PO TID Oxycodone Hcl (Oxycodone Hcl), 15 MG PO QID Rivaroxaban (Xarelto), 20 MG PO DAILY Scheduled PRN Acetaminophen (Tylenol), 650 MG PO Q4H PRN for Pain Ibuprofen Tab (Motrin), 600 MG PO TID PRN for Pain Ondansetron Hcl (Zofran), 8 MG PO Q8 PRN for Nausea Allergies Coded Allergies: No Known Allergies (Unverified , 11/30/17) Physical Exam Vital Signs Date Time Temp Pulse Resp B/P (MAP) Pulse Ox O2 Delivery O2 Flow Rate FiO2 11/30/17 14:47 86 16 165/90 95 11/30/17 13:47 90 18 95 Room Air 11/30/17 12:58 99 Nasal Cannula 4.0 11/30/17 12:56 99 24 178/114 88 Room Air 11/30/17 12:51 88 Room Air Physical Exam Physical Exam GENERAL: She is oriented to person, place, and time. She appears well- developed and well-nourished. She does not appear distressed. HENT: Exam performed. Head: Normocephalic and atraumatic. Right Ear: External ear normal. No mastoid tenderness. Left Ear: External ear normal. No mastoid tenderness. Tympanic membranes edwards and clear bilaterally Mouth/Throat: The oropharynx is clear and moist. No trismus in the jaw. No dental abscesses or uvula swelling. No oropharyngeal exudate or tonsillar abscesses. No tongue elevation EYES: Conjunctivae and EOM are normal. Pupils are equal, round, and reactive to light. Right eye exhibits no discharge. Left eye exhibits no discharge. No scleral icterus. NECK: Normal range of motion. Neck supple. No JVD present. No spinous process tenderness present. No carotid bruit present. No rigidity. No tracheal deviation and normal range of motion present. No Brudzinski's sign and no Kernig 's sign noted. CV: Normal rate, regular rhythm, normal heart sounds and intact distal pulses. There is no peripheral edema. Palpable radial pulses bue. PULM/CHEST: Effort normal and breath sounds normal. No respiratory distress. No stridor. She has no wheezes. She has no rales. Chest Wall: She exhibits no tenderness. ABD: The abdomen is soft. Bowel sounds are normal. She has no distension. No mass is present. There is no tenderness. There is no rebound, no guarding, no Gutierrez's sign and no tenderness at McBurney's point. Rovsig negative MUSC/SKEL: Normal range of motion. There is no peripheral edema, tenderness or deformity. LYMPH: No cervical adenopathy. NEURO: She is alert and oriented to person, place, and time. She has normal strength. No cranial nerve deficit or sensory deficit. Coordination and gait normal. GCS eye subscore is 4. GCS verbal subscore is 5. GCS motor subscore is 6. Cerebellar tests wnl. SKIN: Skin is warm and dry. She is not diaphoretic. PSYCH: She has a normal mood and affect. Behavior is normal. Judgment and thought content normal. Medical Decision & Procedures ER Provider Diagnostic Interpretation: Radiology results as stated below per my review and radiologist interpretation: CHEST ONE VIEW PORTABLE CLINICAL HISTORY: Allergic reaction. COMPARISON STUDY: Chest CT October 24, 2017 and chest radiograph November 18, 2017. FINDINGS: No pneumothorax or pleural effusion is present. Linear bibasilar opacities suggest atelectasis. There is no consolidation. Cardiomediastinal silhouette is normal. Pulmonary vascularity is normal. IMPRESSION: 1. No acute cardiopulmonary findings. 2. Linear bilateral opacities suggestive of atelectasis. Electronically signed by: Reji Boo M.D. 11/30/2017 1:40 PM Dictated Date/Time: 11/30/2017 1:39 PM Laboratory Results 11/30/17 13:47 Red Blood Count 4.06, Mean Corpuscular Volume 93.6, Mean Corpuscular Hemoglobin 31.3, Mean Corpuscular Hemoglobin Concent 33.4, Mean Platelet Volume 9.6, Neutrophils (%) (Auto) 83.1, Lymphocytes (%) (Auto) 8.0, Monocytes (%) (Auto) 8.3, Eosinophils (%) (Auto) 0.3, Basophils (%) (Auto) 0.0, Neutrophils # (Auto) 3.31, Lymphocytes # (Auto) 0.32, Monocytes # (Auto) 0.33, Eosinophils # (Auto) 0.01, Basophils # (Auto) 0.00 11/30/17 13:47 Test 11/30/17 13:47 White Blood Count 3.98 K/uL (4.8-10.8) Red Blood Count 4.06 M/uL (4.2-5.4) Hemoglobin 12.7 g/dL (12.0-16.0) Hematocrit 38.0 % (37-47) Mean Corpuscular Volume 93.6 fL (80-100) Mean Corpuscular Hemoglobin 31.3 pg (25-34) Mean Corpuscular Hemoglobin Concent 33.4 g/dl (32-36) Platelet Count 349 K/uL (130-400) Mean Platelet Volume 9.6 fL (7.4-10.4) Neutrophils (%) (Auto) 83.1 % Lymphocytes (%) (Auto) 8.0 % Monocytes (%) (Auto) 8.3 % Eosinophils (%) (Auto) 0.3 % Basophils (%) (Auto) 0.0 % Neutrophils # (Auto) 3.31 K/uL (1.4-6.5) Lymphocytes # (Auto) 0.32 K/uL (1.2-3.4) Monocytes # (Auto) 0.33 K/uL (0.11-0.59) Eosinophils # (Auto) 0.01 K/uL (0-0.5) Basophils # (Auto) 0.00 K/uL (0-0.2) RDW Standard Deviation 52.4 fL (36.4-46.3) RDW Coefficient of Variation 15.4 % (11.5-14.5) Immature Granulocyte % (Auto) 0.3 % Immature Granulocyte # (Auto) 0.01 K/uL (0.00-0.02) Anion Gap 7.0 mmol/L (3-11) Est Creatinine Clear Calc Drug Dose 94.6 ml/min Estimated GFR () 109.2 Estimated GFR (Non- 94.2 BUN/Creatinine Ratio 11.8 (10-20) Lactic Acid Level 0.9 mmol/L (0.4-2.0) Calcium Level 9.0 mg/dl (8.5-10.1) Magnesium Level 2.0 mg/dl (1.8-2.4) Total Creatine Kinase 48 U/L (26-192) Laboratory results reviewed by me Medications Administered Medications (Trade) Dose Ordered Sig/Kath Route Start Time Stop Time Status Last Admin Dose Admin Famotidine (Pepcid 20mg Iv Push) 20 mg ONE STAT IV 11/30/17 13:03 11/30/17 13:06 DC 11/30/17 13:49 20 MG Sodium Chloride 500 ml @ 999 mls/hr Q31M STAT IV 11/30/17 13:03 11/30/17 13:33 DC 11/30/17 13:49 999 MLS/HR Oxycodone/ Acetaminophen (Percocet 5-325mg Tab) 1 tab ONE PRN PO 11/30/17 13:45 12/14/17 13:44 11/30/17 13:52 1 TAB ED Course 1257: The patient was evaluated in room A3. A complete history and physical exam was performed. Patient's oxygen saturation on room air was 88%. No stridor. Was immediately put on oxygen nasal cannula. 1303: Ordered Sodium Chloride 500 ml @ 999 mls/hr IV, Famotidine 20 mg IV. 1340: Upon reevaluation, the patient's oxygen saturations are stable on room air. No stridor, wheezes, respiratory distress. Oxygen was removed. She is requesting her home dose of oxycodone. 1345: Ordered Oxycodone/Acetaminophen 1 tab PO. 1440: Vital signs stable. Patient no respiratory distress. Tolerating p.o. No stridor, wheezing, difficulty swallowing, physical exam within normal limits. Labs within normal limits. I discussed the case with Dr. Gonzalez, [facility] oncology. He agrees that the patient is ready for discharge. DISCHARGE - Plan of care discussed with patient and questions answered. The patient was given both verbal and printed discharge instructions. The patient verbalized understanding and ability to comply. The patient is to seek outpatient follow up as noted in the discharge instructions. The patient verbalized understanding and ability to comply. The patient is discharged in stable condition. The patient was instructed to return for worsening symptoms. Medical Decision 1257: The patient was evaluated in room A3. A complete history and physical exam was performed. Patient's oxygen saturation on room air was 88%. No stridor. Was immediately put on oxygen nasal cannula. 1303: Ordered Sodium Chloride 500 ml @ 999 mls/hr IV, Famotidine 20 mg IV. 1340: Upon reevaluation, the patient's oxygen saturations are stable on room air. No stridor, wheezes, respiratory distress. Oxygen was removed. She is requesting her home dose of oxycodone. 1345: Ordered Oxycodone/Acetaminophen 1 tab PO. 1440: Vital signs stable. Patient no respiratory distress. Tolerating p.o. No stridor, wheezing, difficulty swallowing, physical exam within normal limits. Labs within normal limits. I discussed the case with Dr. Gonzalez, [facility] oncology. He agrees that the patient is ready for discharge. DISCHARGE - Plan of care discussed with patient and questions answered. The patient was given both verbal and printed discharge instructions. The patient verbalized understanding and ability to comply. The patient is to seek outpatient follow up as noted in the discharge instructions. The patient verbalized understanding and ability to comply. The patient is discharged in stable condition. The patient was instructed to return for worsening symptoms. Medication Reconcilliation Current Medication List: was personally reviewed by me Blood Pressure Screening Patient's blood pressure: Elevated blood pressure Blood pressure disposition: Elevated BP felt to be situational Consults Time Called: 1436 Consulting Physician: Dr. Gonzalez, [facility] oncology Returned Call: [phone] I discussed the case with Dr. Gonzalez, [facility] oncology. He agrees that the patient is ready for discharge. Impression Primary Impression: Adverse reaction to drug Critical Care I have personally spent greater than 48 minutes of critical care time in the direct management of this patient. This includes bedside care, interpretation of diagnostic studies, and testing, discussion with consultants, patient, and family members, and other required patient management activities. This 48 minutes is in excess of all separately billable procedures. Scribe Attestation The scribe's documentation has been prepared under my direction and personally reviewed by me in its entirety. I confirm that the note above accurately reflects all work, treatment, procedures, and medical decision making performed by me. The chart was completed utilizing [employer] Speech voice recognition software. Grammatical errors, random word insertions, pronoun errors, and incomplete sentences are an occasional consequence of this system due to software limitations, ambient noise, and hardware issues. Any formal questions or concerns about the content, text, or information contained within the body of this dictation should be directly addressed to the physician for clarification. Departure Information Dispostion Home / Self-Care Referrals Timothy Diaz M.D. (PCP) Forms HOME CARE DOCUMENTATION FORM, IMPORTANT VISIT INFORMATION Patient Instructions My [facility] Problem Qualifiers Primary Impression: Adverse reaction to drug Encounter type: initial encounter Qualified Codes: T50.905A - Adverse effect of unspecified drugs, medicaments and biological substances, initial encounter
[2017-11-30] MEDS ORDERED: AMT50 PO (13:30)
[2017-11-30] MEDS ORDERED: GABA-113 PO (13:30)
[2017-11-30] MEDS ORDERED: MRN/25 PO (13:30)
--- NOTE | 2017-11-30 13:41 | DIAGNOSTIC IMAGING REPORT ---
CHEST ONE VIEW PORTABLE CLINICAL HISTORY: Allergic reaction. COMPARISON STUDY: Chest CT October 24, 2017 and chest radiograph November 18, 2017. FINDINGS: No pneumothorax or pleural effusion is present. Linear bibasilar opacities suggest atelectasis. There is no consolidation. Cardiomediastinal silhouette is normal. Pulmonary vascularity is normal. IMPRESSION: 1. No acute cardiopulmonary findings. 2. Linear bilateral opacities suggestive of atelectasis. Electronically signed by: Reji Boo M.D. 11/30/2017 1:40 PM Dictated Date/Time: 11/30/2017 1:39 PM
[2017-11-30] MEDS ORDERED: OXYCODONE/ACETAMINOPHEN 5-325 TAB PO PRN (13:45)
[2017-11-30 14:07] LABS: EOS % 0.3 %; EOS ABS # 0.01 K/uL (0-0.5); HEMOGLOBIN 12.7 g/dL (12.0-16.0); IG# 0.01 K/uL (0.00-0.02); LYMPH ABS # 0.32 K/uL (1.2-3.4); MEAN CELL VOLUME 93.6 fL (80-100); MEAN CORPUSCULAR HEMOGLOBIN 31.3 pg (25-34); MEAN CORPUSCULAR HGB CONC 33.4 g/dl (32-36); MEAN PLATELET VOLUME 9.6 fL (7.4-10.4); MONO % 8.3 %; MONO ABS # 0.33 K/uL (0.11-0.59); NEUT % 83.1 %; NEUT ABS # 3.31 K/uL (1.4-6.5); PLATELET COUNT 349 K/uL (130-400); RED CELL DISTRIBUTION WIDTH CV 15.4 % (11.5-14.5); RED CELL DISTRIBUTION WIDTH SD 52.4 fL (36.4-46.3); WHITE BLOOD COUNT 3.98 K/uL (4.8-10.8)
[2017-11-30 14:31] LABS: CREATININE 0.67 mg/dl (0.60-1.20); POTASSIUM 3.7 mmol/L (3.5-5.1)
[2017-11-30 14:47] VITALS: BP 165/90; PULSE 86; O2SAT 95
[2017-12-04] MEDS ORDERED: FNTTP50 TD (08:30)
== END 2017-11-30 14:49 | disposition home or self-care (01) ==
LOC: EDBD 12:38 → C.EDA 12:39
DX: R09.89 Other specified symptoms and signs involving the circulatory and respiratory systems (principal); T50.905A Adverse effect of unspecified drugs, medicaments and biological substances, initial encounter; Z83.3 Family history of diabetes mellitus; Z82.49 Family history of ischemic heart disease and other diseases of the circulatory system

== ENCOUNTER → 2017-12-08 | Outpatient (CLI) | payer OTHER ==
[~2017-12-08] MED LIST changes: -CEPH500C2 PO; -FENT75DI2 TOP; +FNTTP50 TD; +GABA-113 PO; +GADAVIST IV PRN; +MRN/25 PO; -MRN25 PO; -NRN300 PO
--- NOTE | 2017-12-08 13:41 | DIAGNOSTIC IMAGING REPORT ---
MRI OF THE BRAIN COMBO CLINICAL HISTORY: Sinus carcinoma. COMPARISON STUDY: CT of the brain dated 11/08/2017. MRI of the brain dated 10/31/2017. TECHNIQUE: MRI of the brain was performed utilizing various T1 and T2-weighted sequences in the axial, sagittal, and coronal planes. Contrast-enhanced sequences were acquired following the administration of 7.6 cc of Gadavist. The examination is degraded by motion artifact. FINDINGS: Brain parenchyma: Again seen is postcontrast enhancement involving the roof of the ethmoid air cells, with enhancing soft tissue at the level of the cribriform plate. There is associated dural thickening and enhancement involving the frontal and temporal convexities bilaterally as well as the anterior falx. There is nodularity involving/invading the left frontal pole seen on axial high-resolution image #47 of 116. This is consistent with intracranial extension. There is nodular thickening with circumferential enhancing soft tissue identified involving the ethmoid and maxillary resection cavity. Abnormal soft tissue is seen involving the left orbital apex, and also extending into the anterior aspect of the left cavernous sinus. There is extensive tumor infiltrating and expanding the left pterygopalatine fossa towards the cellar pumper space, and also along the left vidian canal. No additional enhancing lesion is identified involving the brain parenchyma. There are age-related involutional changes noting mild subcortical and periventricular microangiopathic disease. There is no hemorrhage or mass effect. There is no restricted diffusion to suggest acute ischemia. No extra-axial fluid collection is seen. The cerebellar tonsils are normal in configuration. Ventricles, sulci, and cisterns: Prominent secondary to involutional change. Pituitary and sella: Unremarkable. Intracranial vasculature: Normal flow voids are maintained at the skull base. Orbits: The bony orbits are grossly intact. As noted above, there is abnormal soft tissue identified involving the inferior aspect of the left orbital apex. Orbital contents are otherwise normal in appearance. Sinuses and mastoids: The mastoid air cells are clear. Postsurgical changes noted in the paranasal sinuses. There is moderate mucosal thickening within the left maxillary antrum and the sphenoid sinuses. There is abnormal soft tissue thickening with associated enhancement identified circumferentially involving the left maxillary and ethmoid resection cavity as discussed above. Calvarium: Unremarkable. Cervical cord: Partially visualized cervical spinal cord is normal in morphology and signal intensity. IMPRESSION: 1. Again seen are postoperative changes involving the paranasal sinuses. 2. Extensive regional metastatic disease has modestly progressed from 10/31/2017. 3. There is persistent abnormal soft tissue thickening and enhancement identified involving the resection cavity consistent with residual tumor. This extends along the course of the V1 and V2 nerves, into the left orbital apex, as well into the anterior aspect of the left cavernous sinus. 4. There is significant tumor expanding the left pterygopalatine fossa and also involving the left vidian canal. 5. There is evidence of intracranial extension along the cribriform plate, with dural thickening and enhancement along the anterior convexity and the anterior midline falx. 6. There is evidence of direct extension into the left frontal pole. 7. No additional enhancing lesions are identified within the brain parenchyma. 8. There is no hemorrhage or evidence of acute ischemia. Electronically signed by: Torrey Villasenor M.D. 12/08/2017 1:40 PM Dictated Date/Time: 12/08/2017 1:07 PM
== END | disposition home or self-care (01) ==
LOC: C.MRI 12:02
PROVIDERS: ATTEND Radiology Radiation Oncology
DX: C00-D49 Neoplasms (principal)

== ENCOUNTER 2018-09-27 07:38 | Inpatient (IN) ==
--- OUTSIDE RECORDS SUMMARY | 2018-09-27 07:42 | External Medical Summary | Continuity of Care Document ---
:1955 Author Name Faustino Magana Address Unavailable Unavailable , Care Team Providers Name Role Phone Unavailable Unavailable Unavailable Stephane Diaz III, M.D.. Unavailable [email or web address] Unavailable [email or web address] [email or web address] M.D., Stephane Unavailable Unavailable Unavailable Unavailable Unavailable Problems Cellulitis (682.9) (L03.90) Constipation (564.00) (K59.00) Nausea and vomiting (787.01) (R11.2) Migraine headache (346.90) (G43.909) Excessive sweating (780.8) (R61) Abrasion of leg, right (916.0) (S80.811A) Edema (782.3) (R60.9) Sinus cancer with intracranial extension (160.9) (C31.9) Chronic sinusitis (473.9) (J32.9) DVT (deep venous thrombosis) (453.40) (I82.409) Pulmonary emboli (415.19) (I26.99) Insomnia (780.52) (G47.00) Lesion or mass of paranasal sinuses (478.19) (J34.89) Pain (780.96) (R52) Pneumonia (486) (J18.9) Abscess (682.9) (L02.91) Allergies and Adverse Reactions No Known Drug Allergies (Allergy) Medications Methadone HCl - 10 MG Oral Tablet; TAKE 1 TABLET 3 spencer es daily Chino Diaz III Refills: 0 Furosemide 20 MG Oral Tablet; TAKE 1 TABLET DAILY N EEDED. CHERY Martínez Start: 20-Oct-2017 Quantity: 30 Refills: 0 oxyCODONE HCl - 10 MG Oral Tablet; TAKE 10 TABLET AT 1 PM AND Q6HR PRN Chino Diaz III Start: 20-Oct-2017 Refills: 0 Decadron 4 MG Oral Tablet; TAKE 0.5 TABLET Daily Chino Diaz III Refills: 0 Acetaminophen 325 MG Oral Tablet; TAKE 2 TABLET Every 4 hours PRN FOR PAIN Chino Start: 01-Nov-2017 Refills: 0 Gabapentin 300 MG Oral Capsule; TAKE 1 CAPSULE AT BEDT TWYLA Chino Diaz III Start: 01-Dec-2017 Refills: 0 Xarelto 20 MG Oral Tablet; TAKE 1 TABLET Daily do NOT start until 11/04/2017 Chino Start: 20-Oct-2017 Refills: 0 MiraLax Oral Powder; USE DIRECTED. Chino St art: 20-Oct-2017 Refills: 0 Procedures History of no history of surgery Status: Completed Immunizations Immunizations not documented Family History Brother Family history of diabetes mellitus (V18.0) (Z83.3) Status: Active Father Family history of myocardial infarction (V17.3) (Z82.49) Sta tus: Active Family history of sinusitis (V17.6) (Z83.6) Status: Active Grandfather Family history of hypertension (V17.49) (Z82.49) Status: Act monserrat Family history of cerebrovascular accident (CVA) (V17.1) (Z8 2.3) Status: Active Mother Family history of cerebrovascular accident (CVA) (V17.1) (Z8 2.3) Status: Active Social History - Smoking Status Never smoker Plan of Treatment Planned Observations Planned Goals not documented Results No Known Results Results not documented Encounters Appointment; Jaquelin Martínez CRNP 22-Aug-2018 10:30 Encounter Diagnosis: Problem not documented Appointment; Edmond Larson M.D. 26-Jul-2018 8:50 Encounter Diagnosis: Problem not documented Appointment; Timothy Diaz III, M.D. 22-Jun-2018 10:50 Encounter Diagnosis: Problem not documented Appointment; Edmond Larson M.D. 12-Jun-2018 13:20 Encounter Diagnosis: Problem not documented Appointment; Edmond Larson M.D. 04-Jun-2018 13:10 Encounter Diagnosis: Problem not documented Appointment; Edmond Larson M.D. 22-Mar-2018 9:50 Encounter Diagnosis: Problem not documented Appointment; Denise Rodriguez CRNP 08-Jan-2018 8:45 Encounter Diagnosis: Problem not documented Appointment; Timothy Diaz III, M.D. 06-Nov-2017 13:50 Encounter Diagnosis: Problem not documented Appointment; Timothy Diaz III, M.D. 19-Jun-2017 9:30 Encounter Diagnosis: Problem not documented Appointment; Edmond Larson M.D. 01-Jun-2017 8:30 Encounter Diagnosis: Problem not documented Appointment; Edmond Larson M.D. 18-May-2017 10:50 Encounter Diagnosis: Problem not documented Appointment; David Chow CRNP 15-May-2017 14:20 Encounter Diagnosis: Problem not documented Appointment; David Chow CRNP 28-Apr-2017 13:20 Encounter Diagnosis: Problem not documented Appointment; David Chow CRNP 12-Apr-2017 14:40 Encounter Diagnosis: Problem not documented
[2018-09-27] MEDS ORDERED: SODIUM CHLORIDE 0.9% 1000ML 1,000 ML IV ONE (08:02)
[2018-09-27 08:28] LABS: Basophils # (auto) 0.02 K/uL (0-0.2); Basophils % (auto) 0.3 %; Eosinophils # (auto) 0.08 K/uL (0-0.5); Hematocrit (blood only) 44.1 % (37-47); Hemoglobin 14.8 g/dL (12.0-16.0); Immature Granulocytes # (auto) 0.02 K/uL (0.00-0.02); Immature Granulocytes % (auto) 0.3 %; Lymphocytes # (auto) 1.32 K/uL (1.2-3.4); Lymphocytes % (auto) 16.9 %; Mean Corpuscular Hgb Conc 33.6 g/dL (32-36); Mean Corpuscular Volume 94.4 fL (80-100); Mean Platelet Volume 9.1 fL (7.4-10.4); Monocytes # (auto) 0.83 K/uL (0.11-0.59); Monocytes % (auto) 10.6 %; Neutrophils # (auto) 5.53 K/uL (1.4-6.5); Neutrophils % (auto) 70.9 %; Platelet Count 314 K/uL (130-400); RDW Coefficient of Variation 14.9 % (11.5-14.5); Red Blood Count 4.67 M/uL (4.2-5.4)
[2018-09-27 08:38] LABS: INR 1.2 (0.9-1.1); Partial Thromboplastin Ratio 1.4; Partial Thromboplastin Time 36.7 Seconds (21.0-31.0); Prothrombin Time 12.6 Seconds (9.0-12.0)
--- NOTE | 2018-09-27 08:39 | XRay Report ---
XR chest 1V portable CLINICAL HISTORY: Sepsis COMPARISON STUDY: PET/CT May 02, 2018. Chest radiograph November 30, 2017. FINDINGS: Lung volumes are normal. There is no pneumothorax or pleural effusion. Linear bibasilar opa cities reflect atelectasis or scarring. Cardiac size is normal. Mediastinal contours are normal. Ther e is no evidence for pulmonary edema. IMPRESSION: No acute cardiopulmonary findings. Electronically signed by: Reji Boo M.D. 09/27/2018 8:38 AM
[2018-09-27 08:44] LABS: Albumin Level 3.4 gm/dl (3.4-5.0); BUN Creatinine Ratio 17.8 (10-20); Creatinine Clr Calc Pharmacy 73.5 ml/min; Est GFR (African American) 77.8; Est GFR (Non-African American) 67.1
[2018-09-27 08:49] LABS: Albumin Globulin Ratio 0.8 (0.9-2); Bilirubin,Total 0.5 mg/dl (0.2-1); Globulin 4.4 gm/dl (2.5-4.0); Total Protein 7.8 gm/dl (6.4-8.2)
[2018-09-27] MEDS ORDERED: IOVERSOL 100ml IV PRN (09:13)
--- NOTE | 2018-09-27 09:27 | CT Scan Report ---
CT OF THE HEAD WITHOUT CONTRAST CLINICAL HISTORY: Left thigh pain. Headache. History of sinus carcinoma. COMPARISON STUDY: Head CT November 08, 2017. MRI of the brain December 08, 2017. PET/CT May 02, 2018. CT DOSE: 748.75 mGy.cm TECHNIQUE: Helical axial images of the head were obtained without IV contrast. Automated exposure con trol was utilized for the study. A dose lowering technique was utilized adhering to the principles o f ALARA. FINDINGS: No acute intracranial hemorrhage, midline shift or mass effect is present. Ventricular syst em is normal. Basilar cisterns are patent. There are no extra axial collections. White matter hypoden sities are unchanged and suggest small vessel disease. There are no findings to suggest acute dural s inus thrombosis or acute territorial infarct. A hypodensity within the right basal ganglia reflects a prominent perivascular space or old lacunar infarct. This is unchanged. There are no significant amy varial abnormalities. Left periorbital soft tissue swelling is noted. There is no retrobulbar abscess . Postoperative findings within the sinuses are noted. Soft tissue thickening within the operative be d is noted. This is better depicted on the facial CT which will be reported separately. Soft tissue t hickening/mucosal thickening within the ethmoid, left frontal and sphenoid sinuses is noted. IMPRESSION: 1. No acute intracranial findings. 2. Left periorbital soft tissue swelling, postoperative findings within the sinuses with soft tissue thickening/mucosal thickening which is better depicted on the facial CT which will be reported separa [place]. Please see that report for further description. Electronically signed by: Reji Boo M.D. 09/27/2018 9:26 AM
--- NOTE | 2018-09-27 09:35 | CT Scan Report ---
CT facial bones w con HISTORY: 63 years-old Female L eye erythema and swelling acute pain and swelling about the left eye COMPARISON: CT head of same day, brain MRI 03/14/2018, PET CT 05/02/2018 TECHNIQUE: Multiple axial CT images of the facial bones were obtained following the intravenous admin istration of 94 mCi 320 IV contrast. A dose lowering technique was used consistent with the principal s of DESTINEY. FINDINGS: There is mild to moderate preseptal subcutaneous edema about the left orbit. The bilateral globes are unremarkable. There is mild fluid distention with peripheral enhancement about the left nasolacrimal duct, image 301 series 6 measuring up to 4 x 6 mm. The intraconal and extraconal fat planes bilatera lly appear well-maintained. No drainable fluid collection. Streak artifact from dental amalgam hardwa re limits the dilation of the adjacent tissues. Mild calcified plaque about the left carotid bulb. No high-grade stenosis identified. Calcified plaque about the cavernous segments of the bilateral inter nal carotid arteries. No adenopathy. Posterior min changes but the left maxillary sinus redemonstrate d. Moderate soft tissue/mucosal thickening about the left maxillary sinus, sphenoid sinuses and ethmo id air cells redemonstrated. Chronic changes about the left cavernous sinus, left orbital fissure and cribriform plate. No new enhancing soft tissue mass identified. Chronic sclerotic changes about the left sphenoid bone and cribriform plate. Mastoid air cells are cl ear. No acute facial bone fracture identified. IMPRESSION: 1. Chronic posttreatment changes of the paranasal sinuses, cribriform plate, left cavernous sinus, or bital fissure and skull base as above. No new enhancing soft tissue lesions identified. If there is c linical concern for progressive or recurrent disease, a follow-up brain MRI may be considered. 2. Mild to moderate left periorbital preseptal subcutaneous edema is suggestive of cellulitis or edgar ctive edema. Additionally, there is fluid distention and peripheral enhancement of the left nasal lac rimal duct compatible with dacryocystitis with possible dacryocystocele likely from infectious, infla mmatory or neoplastic occlusion. No drainable fluid collection or new post septal involvement. The above report was generated using voice recognition software. It may contain grammatical, syntax o r spelling errors. Electronically signed by: Adrian Robertson M.D. 09/27/2018 9:34 AM
[2018-09-27] MEDS ORDERED: CLINDAMYCIN 600 MG/54 ML BAG IV ONE (10:02)
[2018-09-27] MEDS ORDERED: CLINDAMYCIN 900 MG in DEXTROSE 5% 50 ML IV ONE (10:04)
--- NOTE | 2018-09-27 10:34 | History & Physical Report ---
Date of Service September 27, 2018 Assessment & Plan (1) Preseptal cellulitis: Patient states the last time she is been on clindamycin she had an upset stomach and could not complete the outpatient course. She is given a dose of clindamycin in the ER by ER physicians under direct reduction of Dr. Rojo. We will check a nasal swab for MRSA if negative will just proceed with Zosyn therapy and hopefully convert to Augmentin. If the MRSA swab is positive we will add vancomycin to the treatment and and tailor treatments towards MRSA appropriate medications Given the concern for dacryocystitis with possible dacryocystocele seen on facial CT we will consult Dr. 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 We will apply JAMARCUS mineshe as per her request (4) Hypertensive urgency: Patient's blood pressure is markedly elevated in the emergency department though she does not appear any significant stressor duress and she has no complaints of endorgan issues. We will give her a dose of IV Lasix to help lower extremity edema and also help her blood pressure. We will offer her p.o. 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 She had completed treatment here including chemo and XRT but with recurrence was referred to [facility]. 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 She does not have a significant WBC or Elevated Lactic Acid. Most recently she was started on lasix for lower extremity swelling, she does have a history of PE and takes Xarelto, but has not had recent DVT evaluation, she has no history of HF but does have significant BP elevation in the ER. She has no associated headache or chest pain with the hypertensive urgency. last bout of this issue she was treated with clindamycin but due to upset stomach this was stopped prematurely. Allergies Allergy/AdvReac Type Severity Reaction Status Date / Time No Known Allergies Allergy Verified 09/27/18 08:09 Home Medications Home Medications Medication Instructions Recorded Confirmed Type methadone 5 mg tablet 5 mg PO BID tab 01/09/18 09/27/18 History acetaminophen [Tylenol] 325 mg PO Q6H PRN 09/27/18 09/27/18 History furosemide [Lasix] 20 mg PO QAM 09/27/18 09/27/18 History gabapentin 300 mg PO HS 09/27/18 09/27/18 History oxycodone 10 mg PO DAILY PRN 09/27/18 09/27/18 History rivaroxaban [Xarelto] 20 mg PO QAM 09/27/18 09/27/18 History sodium chloride [Saline Nasal] 2 spray INTRANASAL QID PRN 09/27/18 09/27/18 History Past Med/Surg History Medical History 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 (06/01/17) "Development of left facial pain, numbness, and epistaxis Finding of a sinonasal mass Status post biopsy June 01, 2017 Squamous cell carcinoma Stage clinical T4b N2 M0 Completing 8 cycles of chemotherapy carboplatin, paclitaxel, and cetuximab" Family History Unknown Heart disease Social History Preferred Language: Citizen Of [place] Communication Ability: Effective Finisher Accordion Required: No Beliefs That Will Affect Care: None Current Living Situation: Spouse Feels Safe at Home: Yes Safety Concerns: Feels Safe At This Time Smoking Status: Never smoker Do You Dip or Chew Tobacco: No Second Hand Exposure: No Tobacco Cessation Education Requested by Patient: No Hx Alcohol Use: No Hx Substance Use: Yes substance use type: prescription drug Substance Use Type Other:: oxycodone 10 mg Last Used Substance Other:: 09/26/2018 1300 Review of Systems Review of Systems: ROS: well nourished well developed. No double vision blurry vision however swelling does limit the vision of her left eye once is open she is intact visual acuity No problems with hearing or fullness in her ears No problems with speech or swallowing No palpitations, chest pain or pressure No Wheezing or breathing issues No abdominal pain nausea vomiting diarrhea changes in appetite or weight No burning urine urine frequency or changes in color Typical persistent chronic focal hip pain is been present for some time Redness and swelling of her left periorbital area with swelling such that it is hard for her to open her eye especially some drainage from her eyes in the morning No unusual bruising or bleeding No focused back pain or numbness or loss of strength No changes in memory or confusion Physical Exam Physical Exam: The patient appeared well nourished and normally developed. Vital signs as documented. Blood pressure is markedly elevated Head exam is normocephalic, atraumatic she has marked redness and swelling around her left eye with her eye being hard to open. When pried open conjunctiva is not injected there is no purulence extraocular muscles are intact her visual acuity is intact. Likewise her TMs are red left TM is retracted with some minor erythema but does not appear actively infected her right TM is normal oropharynx is slightly erythematous without exudates Neck is without jugular venous distension, thyromegaly, or lymphademopathy Lungs are clear to auscultation and percussion. Cardiac exam reveals Rhythm is regular. First and second heart sounds normal. Abdominal exam reveals normal bowel sounds, no masses, no organomegaly Extremities are moderately edematous and both pedal pulses are present skin is slightly reddened in the lower legs Neurologic exam is A&Ox3, no focal deficits, strength is equal bilateral Psychologically seems neither anxious or depressed Skin is warm / Dry and reddened around the eye and both lower legs Results & Data Vital Signs (Past 12 Hours) Vital Signs Temp Pulse Pulse Resp BP BP Pulse Ox 09/27/18 09:28 36.6 C 88 20 183/101 H 96 09/27/18 08:08 96 09/27/18 07:44 36.8 C 100 H 16 162/[address] Face[address] 1. Chronic posttreatment changes of the paranasal sinuses, cribriform plate, left cavernous sinus, orbital fissure and skull base as above. No new enhancing soft tissue lesions identified. If there is clinical concern for progressive or recurrent disease, a follow-up brain MRI may be considered. 2. Mild to moderate left periorbital preseptal subcutaneous edema is suggestive of cellulitis or reactive edema. Additionally, there is fluid distention and peripheral enhancement of the left nasal lacrimal duct compatible with dacryocystitis with possible dacryocystocele likely from infectious, inflammatory or neoplastic occlusion. No drainable fluid collection or new post septal involvement.
[2018-09-27] MEDS ORDERED: SODIUM CHLORIDE 0.65% NA SOLN 45 ML (OCEAN) PRN ×2 (11:25→18:33)
[2018-09-27] MEDS ORDERED: cloNIDine HCl 0.1 MG TAB PO PRN (11:25)
[2018-09-27] MEDS ORDERED: HydrALAZINE HCL 20 MG/ML VIAL IV PRN (11:25)
[2018-09-27] MEDS ORDERED: PIPERACILL/TAZOBAC CONSULT ACTIVE PRN (11:25)
[2018-09-27] MEDS ORDERED: FUROSEMIDE 20 MG in SYRINGE 0 ML IV ONE (11:32)
[2018-09-27] MEDS ORDERED: PIPERACILLIN/TAZOBACTAM 4.5 GM in DEXTROSE 5% 100 ML IV ONE (12:30)
--- NOTE | 2018-09-27 12:54 | Emergency Department Note ---
Entered by Elizabeth Coello acting as a scribe for History of Present Illness General Chief complaint: Illness Stated complaint: very sick,fever Source: patient and family Mode of arrival: ambulatory Limitations: no limitations History of Present Illness Provider complaint: left eye swelling Onset (ago): hour(s) (yesterday evening) Location: eyes and left Pain Consistency: + other (worsening) Quality: + other (swelling) Associated symptoms: + denies other symptoms and + other (leg swelling); no cough and no fever/chills Treatments prior to arrival: other (Tylenol) The patient is a 63 year female who presents to the ER with complaints of a worsening left eye swelling began yesterday. The patient notes that she has a history of sinus cancer and explains that she was diagnosed about a year ago by Dr. Gonzalez and was treated with radiation and chemotherapy. Per family member, the patient was last treated in June. The patient reports and that yesterday she was blowing her nose and shortly after noticed her left eye was red. She states that this morning she then woke up and the redness had worsened and her eye was swollen shut. She denies any associated pain. She also notes that she is unable to open her left eye. She denies any associated vision issues as well as any fevers above 100.4, acute cough or sore throat, urinary symptoms, or abdominal pain. She reports that she has had an acute leg swelling but that she was evaluated by Dr. Faith and told to use compression socks. The patient sates th at she last took Tylenol at 0730. Per family, the patient has also been taking methadone for her chronic pain. 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 Home Medications Home Medications Medication Instructions Recorded Confirmed Type methadone 5 mg tablet 5 mg PO TID tab 01/09/18 09/27/18 History acetaminophen [Tylenol] 325 mg PO Q6H PRN 09/27/18 09/27/18 History furosemide [Lasix] 20 mg PO QAM 09/27/18 09/27/18 History gabapentin 300 mg PO HS 09/27/18 09/27/18 History oxycodone 10 mg PO DAILY PRN 09/27/18 09/27/18 History rivaroxaban [Xarelto] 20 mg PO QAM 09/27/18 09/27/18 History sodium chloride [Saline Nasal] 2 spray INTRANASAL QID PRN 09/27/18 09/27/18 History Allergies Allergy/AdvReac Type Severity Reaction Status Date / Time No Known Allergies Allergy Verified 09/27/18 08:09 Past Med/Surg History Medical History 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 (06/01/17) "Development of left facial pain, numbness, and epistaxis Finding of a sinonasal mass Status post biopsy June 01, 2017 Squamous cell carcinoma Stage clinical T4b N2 M0 Completing 8 cycles of chemotherapy carboplatin, paclitaxel, and cetuximab" Family History Unknown Heart disease Social History Preferred Language: Albanian Communication Ability: Effective Hemodialysis Technician Required: No Beliefs That Will Affect Care: None Current Living Situation: Spouse Feels Safe at Home: Yes Safety Concerns: Feels Safe At This Time Smoking Status: Never smoker Do You Dip or Chew Tobacco: No Second Hand Exposure: No Tobacco Cessation Education Requested by Patient: No Hx Alcohol Use: No Hx Substance Use: Yes substance use type: prescription drug Substance Use Type Other:: oxycodone 10 mg Last Used Substance Other:: 09/26/2018 1300 Review of Systems See HPI for pertinent positives & negatives. and A total of 10 systems reviewed and were otherwise negative Physical Exam Vital Signs Vital Signs - 24 hr 09/27/18 07:44 09/27/18 08:08 09/27/18 09:28 Temperature 36.8 C 36.6 C Temperature Source Oral Oral Sepsis Recent Fever Within 48 Hours No Sepsis New/Unexplained Change in Mental Status No Sepsis Action Taken by Nursing No Action Required Pulse Rate 100 H Pulse Rate [Left] 88 Respiratory Rate 16 20 Respiratory Effort / Characteristics Non-Labored Spontaneous Blood Pressure 162/114 H Blood Pressure [Left Arm] 183/101 H Blood Pressure Mean 130 Blood Pressure Mean [Left Arm] 128 Blood Pressure Position [Left Arm] Lying Pulse Oximetry 98 96 96 Oxygen Delivery Method Room Air Room Air Room Air GENERAL: Sitting up in bed, disheveled, chronically ill appearing, NAD. FACE: Erythema around the left orbit and left cheek with watery edema. EARS: TMs clear bilaterally OROPHARYNX: no exudate, no erythema, lips, buccal mucosa, and tongue normal and mucous membranes are moist NECK: supple, no nuchal rigidity, no adenopathy, non-tender LUNGS: Clear to auscultation. Normal chest wall mechanics HEART: Tachycardic. no murmurs, S1 normal and S2 normal ABDOMEN: abdomen soft, non-tender, normo-active bowel sounds, no masses, no rebound or guarding. BACK: Back is symmetrical on inspection and there is no deformity, no midline tenderness, no CVA tenderness. SKIN: no rashes and no bruising UPPER EXTREMITIES: upper extremities are grossly normal. LOWER EXTREMITIES: pitting edema bilaterally. Mild erythema over the left kelsey. NEURO EXAM: Normal sensorium, cranial nerves II-XII grossly intact, normal speech, no gross weakness of arms, no gross weakness of legs. Course ED COURSE: Vital signs were reviewed and showed hypertension and tachycardia. The patients medical record was reviewed The above diagnostic studies were performed and reviewed. ED treatments and interventions as stated above. 0753: The patient was evaluated in room B10. A complete history and physical examination was performed. 1000: I discussed the patient�s case with Dr. Marsha COLEY. 1020: I discussed the patient�s case with Dr. Sauceda � [facility] Hospitalist. He will evaluate the patient for further management. 1022: Upon reevaluation, the patient is feeling better. .I discussed my findings with the patient and she understands and agrees with the treatment plan. Based on the patients age, coexisting illnesses, exam and lab findings the decision to treat as an inpatient was made. The patient remained stable while under my care. The patient will be evaluated for further management. Administered Medications Discontinued Medications Sodium Chloride (Nss 1000ml) 1,000 mls @ 999 mls/hr IV .Q1H1M ONE Stop: 09/27/18 09:02 Last Infusion: 09/27/18 09:29 Dose: 0 mls/hr Documented by: [id number] Admin: 09/27/18 08:18 Dose: 999 mls/hr Documented by: [id number] Clindamycin Phosphate (Cleocin) 600 mg in 54 mls @ 100 mls/hr IV ONE ONE Stop: 09/27/18 10:34 Last Admin: 09/27/18 10:26 Dose: Not Given Documented by: [id number] Clindamycin Phosphate 900 mg/ (Dextrose) 56 mls @ 112 mls/hr IV ONE ONE Stop: 09/27/18 10:33 Last Infusion: 09/27/18 10:55 Dose: 0 mls/hr Documented by: [id number] Admin: 09/27/18 10:23 Dose: 112 mls/hr Documented by: [id number] Ioversol (Optiray 320 100ml) 94 ml IV ONCE PRN PRN Reason: Interaction Checking Stop: 10/01/18 09:12 Last Admin: 09/27/18 09:13 Dose: 94 ml Documented by: [id number] Medical Decision Making Differential Diagnosis Differential diagnosis: cellulitis, abscess, MRSA, infection, DVT, necrotizing fasciitis, dermatitis, drug eruption, as well as others were entertained. Home Medications Current Medication List: was personally reviewed by me Laboratory Data Attestation: I reviewed the patient's lab results. Result diagrams: 09/27/18 08:14 09/27/18 08:14 Lab Results 09/27/18 09/27/18 09/27/18 Range/Units 08:05 08:14 08:14 WBC 7.80 (4.8-10.8) K/uL RBC 4.67 (4.2-5.4) M/uL Hgb 14.8 (12.0-16.0) g/dL Hct 44.1 (37-47) % MCV 94.4 (80-100) fL MCH 31.7 (25-34) pg MCHC 33.6 (32-36) g/dL RDW Std Deviation 51.0 H (36.4-46.3) fL RDW Coeff of Torrey 14.9 H (11.5-14.5) % Plt Count 314 (130-400) K/uL MPV 9.1 (7.4-10.4) fL Immature Gran % (Auto) 0.3 % Neut % (Auto) 70.9 % Lymph % (Auto) 16.9 % [place] % (Auto) 10.6 % Eos % (Auto) 1.0 % Baso % (Auto) 0.3 % Immature Gran # (Auto) 0.02 (0.00-0.02) K/uL Neut # (Auto) 5.53 (1.4-6.5) K/uL Lymph # (Auto) 1.32 (1.2-3.4) K/uL [place] # (Auto) 0.83 H (0.11-0.59) K/uL Eos # (Auto) 0.08 (0-0.5) K/uL Baso # (Auto) 0.02 (0-0.2) K/uL PT 12.6 H (9.0-12.0) Seconds INR 1.2 H (0.9-1.1) APTT 36.7 H (21.0-31.0) Seconds PTT Ratio 1.4 Sodium (136-145) mmol/L Potassium (3.5-5.1) mmol/L Chloride (98-107) mmol/L Carbon Dioxide (21-32) mmol/L Anion Gap (3-11) BUN (7-18) mg/dl Creatinine (0.6-1.2) mg/dl Est Cr Clr Drug Dosing ml/min Est GFR ( Amer) Est GFR (Non-Af Amer) BUN/Creatinine Ratio (10-20) Glucose (70-99) mg/dl Lactate (0.4-2.0) mmol/L Calcium (8.5-10.1) mg/dl Total Bilirubin (0.2-1) mg/dl AST (15-37) U/L ALT (12-78) U/L Alkaline Phosphatase (45-117) U/L NT-Pro-B Natriuret Pep (0-900) pg/ml Total Protein (6.4-8.2) gm/dl Albumin (3.4-5.0) gm/dl Globulin (2.5-4.0) gm/dl Albumin/Globulin Ratio (0.9-2) Hepatitis C Ab Screen (Neg) Influenza Type A Ag Neg for Influ A (Neg) Influenza Type B Ag Neg for Influ B (Neg) 09/27/18 09/27/18 09/27/18 Range/Units 08:14 08:14 08:16 WBC (4.8-10.8) K/uL RBC (4.2-5.4) M/uL Hgb (12.0-16.0) g/dL Hct (37-47) % MCV (80-100) fL MCH (25-34) pg MCHC (32-36) g/dL RDW Std Deviation (36.4-46.3) fL RDW Coeff of Torrey (11.5-14.5) % Plt Count (130-400) K/uL MPV (7.4-10.4) fL Immature Gran % (Auto) % Neut % (Auto) % Lymph % (Auto) % [place] % (Auto) % Eos % (Auto) % Baso % (Auto) % Immature Gran # (Auto) (0.00-0.02) K/uL Neut # (Auto) (1.4-6.5) K/uL Lymph # (Auto) (1.2-3.4) K/uL [place] # (Auto) (0.11-0.59) K/uL Eos # (Auto) (0-0.5) K/uL Baso # (Auto) (0-0.2) K/uL PT (9.0-12.0) Seconds INR (0.9-1.1) APTT (21.0-31.0) Seconds PTT Ratio Sodium 138 (136-145) mmol/L Potassium 4.0 (3.5-5.1) mmol/L Chloride 102 (98-107) mmol/L Carbon Dioxide 30 (21-32) mmol/L Anion Gap 6.0 (3-11) BUN 16 (7-18) mg/dl Creatinine 0.91 (0.6-1.2) mg/dl Est Cr Clr Drug Dosing 73.5 ml/min Est GFR ( Amer) 77.8 Est GFR (Non-Af Amer) 67.1 BUN/Creatinine Ratio 17.8 (10-20) Glucose 90 (70-99) mg/dl Lactate 0.9 (0.4-2.0) mmol/L Calcium 10.0 (8.5-10.1) mg/dl Total Bilirubin 0.5 (0.2-1) mg/dl AST 20 (15-37) U/L ALT 37 (12-78) U/L Alkaline Phosphatase 82 (45-117) U/L NT-Pro-B Natriuret Pep 34 (0-900) pg/ml Total Protein 7.8 (6.4-8.2) gm/dl Albumin 3.4 (3.4-5.0) gm/dl Globulin 4.4 H (2.5-4.0) gm/dl Albumin/Globulin Ratio 0.8 L (0.9-2) Hepatitis C Ab Screen Neg (Neg) Influenza Type A Ag (Neg) Influenza Type B Ag (Neg) Imaging Data Radiologist's Impression: Radiology results as stated below per my review and the radiologist's interpretation: CT facial bones w con HISTORY: 63 years-old Female L eye erythema and swelling acute pain and s welling about the left eye COMPARISON: CT head of same day, brain MRI 03/14/2018, PET CT 05/02/2018 TECHNIQUE: Multiple axial CT images of the facial bones were obtained following the intravenous administration of 94 mCi 320 IV contrast. A dose lowering technique was used consistent with the principals of DESTINEY. FINDINGS: There is mild to moderate preseptal subcutaneous edema about the left orbit. The bilateral globes are unremarkable. There is mild fluid distention with peripheral enhancement about the left nasolacrimal duct, image 301 series 6 measuring up to 4 x 6 mm. The intraconal and extraconal fat planes bilaterally appear well-maintained. No drainable fluid collection. Streak artifact from dental amalgam hardware limits the dilation of the adjacent tissues. Mild calcified plaque about the left carotid bulb. No high-grade stenosis identified. Calcified plaque about the cavernous segments of the bilateral internal carotid arteries. No adenopathy. Posterior min changes but the left maxillary sinus redemonstrated. Moderate soft tissue/mucosal thickening about the left maxillary sinus, sphenoid sinuses and ethmoid air cells redemonstrated. Chronic changes about the left cavernous sinus, left orbital fissure and cribriform plate. No new enhancing soft tissue mass identified. Chronic sclerotic changes about the left sphenoid bone and cribriform plate. Mastoid air cells are clear. No acute facial bone fracture identified. IMPRESSION: 1. Chronic posttreatment changes of the paranasal sinuses, cribriform plate, left cavernous sinus, orbital fissure and skull base as above. No new enhancing soft tissue lesions identified. If there is clinical concern for progressive or recurrent disease, a follow-up brain MRI may be considered. 2. Mild to moderate left periorbital preseptal subcutaneous edema is suggestive of cellulitis or reactive edema. Additionally, there is fluid distention and peripheral enhancement of the left nasal lacrimal duct compatible with dacryocystitis with possible dacryocystocele likely from infectious, inflammatory or neoplastic occlusion. No drainable fluid collection or new post septal involvement. The above report was generated using voice recognition software. It may contain grammatical, syntax or spelling errors. Electronically signed by: Adrian Robertson M.D. 09/27/2018 9:[address] OF THE HEAD WITHOUT CONTRAST CLINICAL HISTORY: Left thigh pain. Headache. History of sinus carcinoma. COMPARISON STUDY: Head CT November 08, 2017. MRI of the brain December 08, 2017. PET/CT May 02, 2018. CT DOSE: 748.75 mGy.cm TECHNIQUE: Helical axial images of the head were obtained without IV contrast. Automated exposure control was utilized for the study. A dose lowering technique was utilized adhering to the principles of ALARA. FINDINGS: No acute intracranial hemorrhage, midline shift or mass effect is present. Ventricular system is normal. Basilar cisterns are patent. There are no extra axial collections. White matter hypodensities are unchanged and suggest small vessel disease. There are no findings to suggest acute dural sinus thrombosis or acute territorial infarct. A hypodensity within the right basal ganglia reflects a prominent perivascular space or old lacunar infarct. This is unchanged. There are no significant calvarial abnormalities. Left periorbital soft tissue swelling is noted. There is no retrobulbar abscess. Postoperative findings within the sinuses are noted. Soft tissue thickening within the operative bed is noted. This is better depicted on the facial CT which will be reported separately. Soft tissue thickening/mucosal thickening within the ethmoid, left frontal and sphenoid sinuses is noted. IMPRESSION: 1. No acute intracranial findings. 2. Left periorbital soft tissue swelling, postoperative findings within the sinuses with soft tissue thickening/mucosal thickening which is better depicted on the facial CT which will be reported separately. Please see that report for further description. Electronically signed by: Reji Boo M.D. 09/27/2018 9:26 AM XR chest 1V portable CLINICAL HISTORY: Sepsis COMPARISON STUDY: PET/CT May 02, 2018. Chest radiograph November 30, 2017. FINDINGS: Lung volumes are normal. There is no pneumothorax or pleural effusion. Linear bibasilar opacities reflect atelectasis or scarring. Cardiac size is normal. Mediastinal contours are normal. There is no evidence for pulmonary edema. IMPRESSION: No acute cardiopulmonary findings. Electronically signed by: Reji Boo M.D. 09/27/2018 8:38 AM Blood Pressure Blood Pressure Findings: Elevated blood pressure Blood Pressure Disposition: further management by hospitalist NICK Narrative Patient is a 63-year-old female who presents the ER who has sinus cancer with breakdown into the cribriform plate who received chemo and radiation and follows with ENT. Patient presents for red and swollen left eye has mild green discharge. Past medical history of keratinizing squamous cell carcinoma. Labs were obtained and showed no significant leukocytosis or anemia. INR was 1.2. BMP along with LFTs bilirubin and lipase normal influenza was unremarkable. CT of the face and head was reviewed showed a likely preseptal cellulitis. Patient was updated in regards to this. Discussed with ENT and patient was given clindamycin. Discussed with the hospitalist patient was admitted for further work-up. Impression & Plan Preseptal cellulitis Discharge Plan Visit Data *Final* Discharge Date/Time: 09/27/18 11:07 Chief Complaint: Illness Stated Complaint: very sick,fever ED Provider: Claudio Morrow Discharge Problem: Preseptal cellulitis Patient Disposition: Admitted As Inpatient Discharge Instructions Interventions: ED Discharge Assessment Last Done: 09/27/18 11:07 The scribe's documentation has been prepared under my direction and personally reviewed by me in its entirety. I confirm that the note above accurately reflects all work, treatment, procedures, and medical decision making performed by me.
--- NOTE | 2018-09-27 13:57 | Ultrasound Report ---
BILATERAL LOWER EXTREMITY VENOUS DOPPLER HISTORY: h/o cancer and PE, recent b/l lower extremity swelling COMPARISON STUDY: None. FINDINGS: There is normal compressibility, flow, and augmentation within the bilateral lower extremit y deep venous systems. IMPRESSION: No DVT within the right or left lower extremity. Electronically signed by: Jose Daniel Hartman M.D. 09/27/2018 1:56 PM
[2018-09-27] MEDS: ACETAMINOPHEN 325 MG TAB PO PRN ×2 (14:02→22:35)
[2018-09-27] MEDS: METHADONE HCL 5 MG TAB PO SCH ×2 (14:03→20:29)
[2018-09-27] MEDS: guaiFENesin 600 MG TABCR PO SCH ×2 (14:14→20:29)
[2018-09-27 15:17] LABS: Appearance Urine Clear (Clear); Bacteria Urine Automated Negative (Negative); Bilirubin Urine Negative (Negative); Blood Urine Trace (Negative); Color Urine Yellow; Glucose Urine UA Negative (Negative); Ketones Urine Negative (Negative); Leukocyte Esterase Urine 1+ (Negative); Nitrite Urine Negative (Negative); Protein Urine Negative (Negative); RBC Urine Automated 0-4 /hpf (0-4); Specific Gravity Urine 1.019 (1.000-1.030); Urobilinogen Urine Negative (Negative)
[2018-09-27] MEDS: ONDANSETRON INJ 2 MG/ML 2 ML VIAL IV PRN (18:04)
[2018-09-27] MEDS: PIPERACILLIN/TAZOBACTAM 4.5 GM in DEXTROSE 5% 100 ML IV SCH (18:10)
[2018-09-27] MEDS: OXYCODONE HCL IR 5 MG TAB (IMMEDIATE RELEASE) PO PRN (19:12)
[2018-09-27] MEDS ORDERED: PIPERACILLIN/TAZOBACTAM 4.5 GM in DEXTROSE 5% 100 ML IV SCH (20:00)
[2018-09-27] MEDS: GABAPENTIN 300 MG CAP PO SCH (20:30)
--- NOTE | 2018-09-27 23:18 | Consultation Report ---
DATE OF CONSULTATION: 09/27/2018 OTOLARYNGOLOGY HEAD AND NECK SURGERY INPATIENT CONSULTATION I have been asked by Dr. 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 Aashish Szymanski with no evidence of persistent malignancy who was admitted to [facility] this morning after presenting with left preseptal cellulitis. The patient has had problems with recurrent acute and chronic sinusitis as a result of her treatment and usually responds nicely to clindamycin. She was last seen by me in my office on 07/26/2018 where I performed endoscopic sinonasal debridement and placed her on 2 weeks of clindamycin. She was supposed to follow up in 1 month, but was a no show for her followup appointment. The patient has had a 4-day history of left eye swelling and increased sinonasal pain in the left maxillary and periorbital distribution. As she progressively worsened, she presented to the Emergency Room this morning. I had recommended some IV clindamycin. They ordered a CT scan which revealed post-treatment changes of the paranasal sinuses, cribriform plate, left cavernous sinus, orbital fissure, and skull base with no enhancing soft tissue lesions identified but with [id number] left periorbital and preseptal subcutaneous edema suggestive of preseptal cellulitis. There was also fluid distention and peripheral enhancement of the left nasolacrimal duct. The patient denies any left-sided epiphora. There is no evidence of new bony destruction, but her original malignancy had significant orbital destruction. She was supposed to have a PET scan in September but this has not been ordered yet. She states that her medical oncologist, Dr. Kan Gonzalez, refused to order it because she has not been seen since June. She follows with Dr. Szymanski at [facility] in the department of otolaryngology and he wanted both a PET/CT scan as well as an MRI prior to the followup appointment with him in September. This has not been scheduled. In the past, the patient has had left-sided epiphora and so this nasolacrimal duct finding is probably not new. What is new is the fact that she has some swelling and erythema overlying the left periorbital region. The patient has had a longstanding history of chronic sinonasal drainage and purulent rhinorrhea but this has increased over the past week. She has not had any fever. Her white blood cell count is normal. ALLERGIES: No known drug allergies. MEDICATIONS: Zosyn, Lasix, Neurontin, Xarelto, methadone, Mucinex. PAST MEDICAL HISTORY: 1. As above. 2. Deep venous thrombosis, on Xarelto. 3. Migraines. 4. Pulmonary emboli. PAST SURGICAL HISTORY: As above. FAMILY HISTORY: Noncontributory. No bleeding disorders or malignant hyperthermia. SOCIAL HISTORY: The patient is a nonsmoker. She denies any alcohol or illicit drug use. REVIEW OF SYSTEMS: The patient has the above-mentioned left periorbital swelling and also left maxillary and periorbital pain. She has purulent rhinorrhea. She denies any change in her visual acuity, blurry vision, double vision, or current epiphora. She denies any shortness of breath or chest pain. PHYSICAL EXAMINATION: GENERAL: This is a white female with cushingoid features. HEENT: She has obvious mild left periorbital edema and erythema. Extraocular movements are intact. Pupils are equal, round, and reactive to light and accommodation. Cranial nerves II-XII are grossly intact. She has extensive nasal crusting in the bilateral nasal cavities, but no active purulent rhinorrhea. Her nasal mucosal surfaces are very dry as a result of radiation. Oral cavity and oropharyngeal examination is also showing dry mucous membranes with no masses or lesions. There is no postnasal drip coating the posterior pharyngeal wall. NECK: There is no neck lymphadenopathy or masses. NEUROLOGIC: The patient is awake and alert and oriented x3. DIAGNOSTIC DATA: The patient's imaging was reviewed and she has the above-mentioned [id number] preseptal cellulitis as well as mild fluid distention and peripheral enhancement about the left nasolacrimal duct. There is no drainable fluid collection. She has chronic post-treatment changes involving the paranasal sinuses on the left hand side with involvement of the cribriform plate, cavernous sinus, orbital fissure, and skull base. There is no visible cervical lymphadenopathy. IMPRESSION AND RECOMMENDATIONS: A 63-year-old female with the above-mentioned malignancy and treatment who now has a left preseptal cellulitis. This needs to be treated aggressively with IV antibiotics. I would also recommend IV steroids of Decadron 10 mg IV q. 8 hours. I will leave this to the discretion of the hospitalist team as to whether or not they want to order this but it might expedite her recovery. I then think that she can be discharged to home on oral antibiotics and steroid therapy once her erythema and edema around her left eye improves. I will take the liberty of ordering the patient's PET/CT scan and MRI to be done on an outpatient basis after she is discharged from the hospital and my office will be contacting her family members to help get this arranged. I will continue to monitor this patient, but if you need any further assistance or have any questions, please do not hesitate to contact me.
[2018-09-28] MEDS: PIPERACILLIN/TAZOBACTAM 4.5 GM in DEXTROSE 5% 100 ML IV SCH ×3 (02:27→18:12)
[2018-09-28] MEDS: ACETAMINOPHEN 325 MG TAB PO PRN ×2 (06:20→13:52)
--- NOTE | 2018-09-28 07:05 | Progress Note ---
DATE: 09/28/2018 ONCOLOGY HEAD AND NECK SURGERY CONSULT FOLLOWUP SUBJECTIVE: The patient reports that she is "50%" improved with less pain and pressure. I have made the recommendation for Decadron 10 mg IV q. 8 hours, but this has not been started by the hospitalist team yet. The patient is stating that she would like to go home. She has been afebrile throughout her hospital course. She is mildly hypertensive whereas when she first was admitted she was more significantly hypertensive. OBJECTIVE: Other vital signs are stable. The patient has less erythema around her left periorbital region, but stable edema. Nasal examination reveals stable nasal crusting bilaterally. 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 Once again, I will strongly recommend Decadron 10 mg IV q. 8 hours and continued antibiotic therapy until her periorbital erythema and edema have resolved. I will continue to follow along on this patient, but I feel as if she needs to be hospitalized until she has more significant improvement. If you have any questions regarding this followup, please do not hesitate to contact me.
[2018-09-28] MEDS: FUROSEMIDE 20 MG TAB PO SCH (07:33)
[2018-09-28] MEDS: RIVAROXABAN 20 MG TAB PO SCH (07:33)
[2018-09-28] MEDS: guaiFENesin 600 MG TABCR PO SCH ×2 (07:33→21:02)
[2018-09-28] MEDS: METHADONE HCL 5 MG TAB PO SCH ×3 (07:36→21:02)
[2018-09-28] MEDS: OXYCODONE HCL IR 5 MG TAB (IMMEDIATE RELEASE) PO PRN ×2 (07:36→19:02)
[2018-09-28] MEDS: ONDANSETRON INJ 2 MG/ML 2 ML VIAL IV PRN (09:43)
[2018-09-28] MEDS: dexAMETHasone 8 MG in SYRINGE 0 ML IV SCH ×3 (11:36→22:21)
[2018-09-28] MEDS ORDERED: PHENYLEPHRINE 0.25% NA SPR 15 ML BTL PRN (15:03)
--- NOTE | 2018-09-28 16:03 | Palliative Care Consultation ---
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 Will likely improve once off Decadron (4) Cancer related pain: Patient with no evidence of cancer on last follow-up visit-now off her prior Decadron for bone pain, on a weaning schedule of her methadone. Patient given scheduled methadone wean when seen in clinic on 09/25. History of Present Illness Reason for Consultation: Established palliative clinic patient-cancer related pain management Requesting Physician: Dr. Tejeda Attending Physician: Jo Mcnally MD History of Present Illness Patient is a 63-year-old female who is well-known to me through palliative clinic where I manage her cancer related pain. 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 Patient recently was seen in [place] for evaluation-she underwent surgery to remove sinus debris-no malignant cells were seen. Patient was seen in clinic on 09/25 [place] [id number] Decadron was discontinued as she no longer required it for mood or for bone pain. Patient also on methadone for pain control-patient was started on methadone wean. Patient continues to have left maxillary sinus pressure and discomfort-she is on Mucinex D at home as well as saline irrigation. Patient use phenylephrine spray as needed for congestion. Patient was finally weaned off of Afrin. Patient presented to the emergency room on 09/27 with acute onset of left periorbital swelling and erythema-patient reports she had been out on her tractor mowing-in the evening she did note irritation and had rubbed her eye vigorously. Because of her prior history-patient was admitted and placed on IV antibiotics and then started on Decadron for the swelling. On exam today she has marked decrease in her sara-orbital swelling as well as erythema. Patient has not had any fevers, her white count is normal at 7.8 Plan is to continue IV antibiotics and p.o. Decadron-patient will hopefully be transition to p.o. antibiotics and discharged home-likely in the a.m. Allergies Allergy/AdvReac Type Severity Reaction Status Date / Time No Known Allergies Allergy Verified 09/27/18 08:09 Home Medications Home Medications Medication Instructions Recorded Confirmed Type methadone 5 mg tablet 5 mg PO BID tab 01/09/18 09/27/18 History acetaminophen [Tylenol] 325 mg PO Q6H PRN 09/27/18 09/27/18 History furosemide [Lasix] 20 mg PO QAM 09/27/18 09/27/18 History gabapentin 300 mg PO HS 09/27/18 09/27/18 History oxycodone 10 mg PO DAILY PRN 09/27/18 09/27/18 History rivaroxaban [Xarelto] 20 mg PO QAM 09/27/18 09/27/18 History sodium chloride [Saline Nasal] 2 spray INTRANASAL QID PRN 09/27/18 09/27/18 History Patient History Medical History 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 (06/01/17) "Development of left facial pain, numbness, and epistaxis Finding of a sinonasal mass Status post biopsy June 01, 2017 Squamous cell carcinoma Stage clinical T4b N2 M0 Completing 8 cycles of chemotherapy carboplatin, paclitaxel, and cetuximab" Family History Unknown Heart disease Social History Preferred Language: Ethiopian Communication Ability: Effective Hand Suture Winder Required: No Beliefs That Will Affect Care: None Current Living Situation: Spouse Feels Safe at Home: Yes Safety Concerns: Feels Safe At This Time Smoking Status: Never smoker Do You Dip or Chew Tobacco: No Second Hand Exposure: No Tobacco Cessation Education Requested by Patient: No Hx Alcohol Use: No Hx Substance Use: Yes substance use type: prescription drug Substance Use Type Other:: oxycodone 10 mg Last Used Substance Other:: 09/26/2018 1300 Review of Systems Constitutional: + weight gain Likely due to Decadron Eyes: Left periorbital swelling and erythema-now mild Ear, Nose, Mouth, Throat: + sinus pain/pressure Respiratory: no problem reported Cardiovascular: + edema Additional Comments: Patient followed by PCP-on Lasix, may improve with discontinuation of Decadron Gastrointestinal: no problem reported Genitourinary: no problem reported Musculoskeletal: no problem reported Neurologic: no problem reported Psychiatric: no problem reported Physical Exam Physical Exam: PE: Alert and oriented, no acute distress HEENT: Decreased L periorbital edema and erythema as compared to last evening, EOMI. Positive sinus pressure Respirations unlabored, lungs clear CV: Regular rate, positive lower extremity edema to the level of the knee Abdomen: Soft, nontender Extremities: Full range of motion, normal gait Neuro, no focal deficits Results & Data Vital Signs (Past 12 Hours) Vital Signs Temp Pulse Resp BP Pulse Ox 09/28/18 15:00 98.1 F 92 H 20 152/107 H 94 09/28/18 11:36 98.1 F 90 16 150/94 H 96 09/28/18 07:52 97.9 F 75 16 170/102 H 97 09/28/18 04:15 98.1 F 18 144/94 H 93 Time Spent Attending Total time spent 55 minutes with greater than 50% of time spent at bedside assessing patient's current condition, pain level as well as collaborating with attending physician regarding pain medications
--- NOTE | 2018-09-28 19:19 | Hospitalist Progress Note ---
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 Improving today Afebrile, MRSA swab negative Blood cultures no growth to date -Continue IV Zosyn and could convert to p.o. 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 twice daily (2) Lower leg edema: Was recently started on Lasix for lower extremity edema as an outpatient-was given 1 dose of IV Lasix in the ER and feels her lower extremity edema is much improved today -She does have a history of superficial thrombophlebitis and pulmonary embolisms-bilateral lower extremely Dopplers here are negative -Could be secondary to chronic steroid use (3) Hypertensive urgency: Patient's blood pressure was markedly elevated in the emergency department and is now improved -Continue clonidine as needed -IV hydralazine as needed -Continue furosemide 20 mg once daily (4) Cancer related pain: Patient will be maintained on methadone which she is tapering down from as per palliative care -Oxycodone while here but should not receive this after discharge as she was weaned off of that at home -Has follow-up planned with palliative care (5) Hx pulmonary embolism: Patient is maintained on Xarelto for her treatment of her previous pulmonary embolism (6) 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 Hopefully to home on Monday with oral antibiotics and short tapered course of oral dexamethasone Follow-up with ENT as an outpatient Subjective Patient feeling much better today, less pain and swelling in the left side the face. Still has a lot of drainage from the nose at times. Is anxious to get home in the near future, feels that taking a hot steamy shower really helps her drain her sinuses out. Denies headache or chest pain, denies shortness of breath, no abdominal pain, no nausea or vomiting, no diarrhea. She is tolerating p.o. well. I discussed the case with palliative care today. She has been weaned off of her oral dexamethasone she was on previously, and is in the process of weaning off her methadone. She is already completely weaned off of oxycodone. Review of Systems Review of Systems: All systems reviewed & are unremarkable except as noted in HPI & below Physical Exam Constitutional: WD/WN, vitals as above (Cushingoid appearance) Eyes: Left lid with some edema and yellow crusting, pupils equally round reactive to light, extraocular muscles intact Left cheek and periorbital region with very faint erythema and mild tenderness to palpation, no fluctuance noted ENMT: Mouth: + oropharynx abnormality (white exudate on tongue and buccal mucosa) Neck: trachea midline, no thyromegaly Respiratory: normal respiratory effort, lungs clear to auscultation Cardiovascular: Rate/Rhythm: regular rate and regular rhythm Extremities: + edema (1+ pitting edema to the knees bilaterally the lower extremities) Gastrointestinal (Abdomen): normal bowel sounds, soft, nontender, no hepatosplenomegaly Musculoskeletal: Extremities: extremities normal to inspection; no cyanosis and no clubbing Skin: no rashes, warm and dry Neurologic: moves all extremities and awake; no focal motor deficits Psychiatric: A+Ox3, euthymic affect Results & Data Vital Signs (Past 12 Hours) Vital Signs Temp Pulse Resp BP BP Pulse Ox 09/28/18 19:00 36.6 C 83 20 152/96 H 94 09/28/18 15:00 36.7 C 92 H 20 152/107 H 94 09/28/18 11:36 36.7 C 90 16 150/94 H 96 09/28/18 07:52 36.6 C 75 16 170/102 H 97
[2018-09-28] MEDS: GABAPENTIN 300 MG CAP PO SCH (21:03)
[2018-09-28] MEDS: NYSTATIN SUSP 500,000 U/5 ML UDC PO SCH (21:06)
[2018-09-29] MEDS: PIPERACILLIN/TAZOBACTAM 4.5 GM in DEXTROSE 5% 100 ML IV SCH ×2 (02:21→09:29)
[2018-09-29] MEDS: ACETAMINOPHEN 325 MG TAB PO PRN (05:24)
[2018-09-29] MEDS: dexAMETHasone 8 MG in SYRINGE 0 ML IV SCH ×2 (06:18→13:57)
[2018-09-29 06:30] LABS: Hematocrit (blood only) 44.1 % (37-47); Hemoglobin 14.7 g/dL (12.0-16.0); Mean Corpuscular Hgb Conc 33.3 g/dL (32-36); Mean Corpuscular Volume 92.5 fL (80-100); Mean Platelet Volume 9.8 fL (7.4-10.4); Platelet Count 333 K/uL (130-400); RDW Standard Deviation 47.7 fL (36.4-46.3); Red Blood Count 4.77 M/uL (4.2-5.4); White Blood Count 6.68 K/uL (4.8-10.8)
[2018-09-29 07:13] LABS: BUN Creatinine Ratio 15.5 (10-20); Calcium 9.5 mg/dl (8.5-10.1); Creatinine Clr Calc Pharmacy 72.8 ml/min; Est GFR (African American) 77.8; Est GFR (Non-African American) 67.1; Potassium 3.9 mmol/L (3.5-5.1)
--- NOTE | 2018-09-29 07:21 | Progress Note ---
DATE: 09/29/2018 SUBJECTIVE: The patient reports that she has little to no pain in the left periorbital region this morning. She feels as if her left eye is less swollen. She is reporting left-sided as well as right-sided epiphora this morning. She is asking to go home. OBJECTIVE: The patient is afebrile and her vital signs are stable. She is normotensive this morning. She has less periorbital edema, but stable erythema. There is stable nasal crusting. LABORATORY DATA: Laboratory examination reveals a normal white blood cell count of 6.68. 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 I believe that she can go home on oral antibiotics and oral steroids. I have instructed my office staff to arrange for a PET/CT scan as well as MRI of the brain with and without IV contrast upon her discharge and then she needs to follow up with me afterwards as well as Dr. Aashish Szymanski at [facility] after we had the results of the scan. I will sign off on this consultation, but if you need any further assistance, please do not hesitate to contact me.
[2018-09-29] MEDS: METHADONE HCL 5 MG TAB PO SCH (08:33)
[2018-09-29] MEDS: RIVAROXABAN 20 MG TAB PO SCH (08:34)
[2018-09-29] MEDS: NYSTATIN SUSP 500,000 U/5 ML UDC PO SCH ×2 (08:36→11:58)
[2018-09-29] MEDS: guaiFENesin 600 MG TABCR PO SCH (08:36)
[2018-09-29] MEDS: FUROSEMIDE 20 MG TAB PO SCH (08:36)
--- NOTE | 2018-09-29 15:48 | Discharge Summary ---
Date of Service September 29, 2018 Admission HPI Per Admitting Provider 63 F who presents to the ER with left periorbital swelling and discharge from her eye, she is following with Bhupendra Walker for previous treatment of her squamous cell carinoma of her sinuses. She had completed treatment here including chemo and XRT but with recurrence was referred to [facility]. 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 She does not have a significant WBC or Elevated Lactic Acid. Most recently she was started on lasix for lower extremity swelling, she does have a history of PE and takes Xarelto, but has not had recent DVT evaluation, she has no history of HF but does have significant BP elevation in the ER. She has no associated headache or chest pain with the hypertensive urgency. last bout of this issue she was treated with clindamycin but due to upset stomach this was stopped prematurely. Admission Exam Per Admitting Provider The patient appeared well nourished and normally developed. Vital signs as documented. Blood pressure is markedly elevated Head exam is normocephalic, atraumatic she has marked redness and swelling around her left eye with her eye being hard to open. When pried open conjunctiva is not injected there is no purulence extraocular muscles are intact her visual acuity is intact. Likewise her TMs are red left TM is retracted with some minor erythema but does not appear actively infected her right TM is normal oropharynx is slightly erythematous without exudates Neck is without jugular venous distension, thyromegaly, or lymphademopathy Lungs are clear to auscultation and percussion. Cardiac exam reveals Rhythm is regular. First and second heart sounds normal. Abdominal exam reveals normal bowel sounds, no masses, no organomegaly Extremities are moderately edematous and both pedal pulses are present skin is slightly reddened in the lower legs Neurologic exam is A&Ox3, no focal deficits, strength is equal bilateral Psychologically seems neither anxious or depressed Skin is warm / Dry and reddened around the eye and both lower legs Principal Diagnosis Preseptal cellulitis Discharge Exam Constitutional WD/WN, vitals as above Eyes PERRL, conjunctivae normal, anicteric sclerae ENMT Ears: no hearing impairment and no TM abnormality Nose: + sinus tenderness, + facial edema (minimal around left eye, some erythema) and + facial tenderness (around left ey); no external nose abnormality, no nasal discharge, nasal mucous membranes not dry, no epistaxis, no facial exam abnormality and no facial crepitus Mouth: no lip abnormality and no oropharynx abnormality Throat: uvula midline; no posterior oropharynx abnormality Neck trachea midline, no thyromegaly Respiratory normal respiratory effort, lungs clear to auscultation Cardiovascular RRR, no murmur, no edema Gastrointestinal (Abdomen) normal bowel sounds, soft, nontender, no hepatosplenomegaly Musculoskeletal no cyanosis or clubbing, extremities motor strength 5/5 Skin no rashes, warm and dry Neurologic patellar DTR's 2+ bilat, sensation intact and PERRL, EOMI, accommodation nl, no face palsy, no dysarthria Psychiatric A+Ox3, euthymic affect Lymphatic no cervical or axillary lymphadenopathy Discharge Data Allergies Allergy/AdvReac Type Severity Reaction Status Date / Time No Known Allergies Allergy Verified 09/27/18 08:09 Consultations 09/27/18 10:21 ED Decision to Admit Stat 09/27/18 11:25 Consult Case Management - Discharge Planning Routine Consult Otolaryngology (Head and Neck) Routine 09/27/18 18:36 Consult Palliative Care Routine Ordered Studies 09/27/18 07:59 CT facial bones w con Stat CT head/brain wo con Stat 09/27/18 11:25 US venous doppler [facility] Routine Hospital Course (1) Preseptal cellulitis: This patient is a 63-year-old female with history of stage IVB T4 N2b 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 much improved on Zosyn, swelling and erythema almost completely gone appreciate ENT consultation, recommend d/c on antibiotic and steroids will convert to Augmentin, complete one more week complete 5 days of dexamethasone to help decrease swelling -Continue nasal saline spray and home Dominick-Synephrine spray will get MRI brain and PET/CT per ENT and will follow up with Dr. Almazan as well as tertiary care (2) Lower leg edema: Was recently started on Lasix for lower extremity edema as an outpatient- was given 1 dose of IV Lasix in the ER and feels her lower extremity edema is much improved today -She does have a history of superficial thrombophlebitis and pulmonary embolisms-bilateral lower extremely Dopplers here are negative -Could be secondary to chronic steroid use (3) Hypertensive urgency: Patient's blood pressure was markedly elevated in the emergency department and then improved -Continue furosemide 20 mg once daily (4) Cancer related pain: Patient will be maintained on methadone which she is tapering down from as per palliative care -Has follow-up planned with palliative care (5) Hx pulmonary embolism: Patient is maintained on Xarelto for her treatment of her previous pulmonary embolism (6) 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: Status post radiation therapy, chemotherapy, and extensive surgical debridement She is completely cancer free at this point as per ENT reports -Follow-up with oncology and surgery as planned will get MRI brain and PET/CT as outpatient and follow up with ENT (7) Oral candidiasis: -Start nystatin swish and swallow x14-day course patient requests Diflucan (8) DVT prophylaxis: Xarelto Total Time Total Time Spent Total Time Spent (In Minutes): 35 minutes Total Time Includes: Examination of the Patient, Discharge Planning, Medication Reconciliation and Communication With Other Providers Discharge Plan Discharge Items Patient Disposition: Home - Self-Care Reason For Visit: PERIORBITAL CELLUITIS Discharge Diagnosis: Periorbital cellulitis Condition: Good Discharge Goals: Decrease discomfort and Diagnostic testing Activity: Resume your previous activity Non-emergency contact: Primary Care Provider, Surgeon and Specialist Call non-emergency contact if: you have any medication questions, your symptoms worsen and you have a fever Follow-up/Referrals: Timothy Diaz III, MD [Primary Care Provider] - Diet: Regular Addtl Provider Instructions: Medications: - AUGMENTIN: take twice a day until prescription completed to continue to treat the cellulitis - DEXAMETHASONE: steroid, take twice a day for 5 more days to decrease swelling - FLUCONAZOLE: 150mg tablet, take one today and then again in three days Cellulitis and h/o squamous cell cancer infection clearing up quickly, can go home on oral antibiotics and steroids per ENT Dr. Almazan recommends follow up MRI brain and PET/CT, he says his office will arrange for these tests after the imaging is completed he would like to see you in the office Yeast infection: use the fluconazole as prescribed Prescriptions: New amoxicillin-pot clavulanate 875-125 mg tablet 1 tab PO BID Qty: 20 RF: 0 dexamethasone 4 mg tablet 4 mg PO BID Qty: 10 RF: 0 fluconazole 150 mg tablet 150 mg PO Q3D Qty: 2 RF: 0 Continued methadone 5 mg tablet 5 mg PO BID RF: 0 acetaminophen [Tylenol] 325 mg Tablet 325 mg PO Q6H PRN (Reason: Pain) RF: 0 gabapentin 300 mg Capsule 300 mg PO HS RF: 0 furosemide [Lasix] 20 mg Tablet 20 mg PO QAM RF: 0 sodium chloride [Saline Nasal] 0.65 % Aerosol,[place] 2 spray INTRANASAL QID PRN (Reason: Allergy Symptoms) RF: 0 oxycodone 10 mg Tablet 10 mg PO DAILY PRN (Reason: Pain) RF: 0 Xarelto 20 mg Tablet 20 mg PO QAM RF: 0 Stand-Alone Forms: [facility] Discharge Orders: Discharge Order (Routine); Ordered 09/29/18 Ordered By: Arthur Huizar Admission Data Admit Date/Time: 09/27/18 10:40 Attending Provider: Arthur Huizar Admit Provider: Bhupendra Tejeda Primary Care Provider: Timothy Diaz III Other Providers: Zurdo Sauceda Michael A. ; Cris Faith Service: Medical Other Interventions: Discharge Summary Assessment (RN) Last Done: 09/29/18 13:42 DC Date/Time DO NOT enter until pt leaves facility: 09/29/18 13:50
== END 2018-09-29 13:50 | disposition home or self-care (01) | DRG 603 ==
LOC: ED 07:38 → SUATTDRO 10:40 → 4W 10:40

== ENCOUNTER 2019-06-19 12:28 | Inpatient (IN) ==
[2019-06-19] MEDS ORDERED: OXYCODONE HCL IR 5 MG TAB (IMMEDIATE RELEASE) PO STA (13:36)
[2019-06-19 14:13] LABS: Basophils # (auto) 0.03 K/uL (0-0.2); Basophils % (auto) 0.3 %; Eosinophils # (auto) 0.21 K/uL (0-0.5); Hemoglobin 9.7 g/dL (12.0-16.0); Immature Granulocytes # (auto) 0.13 K/uL (0.00-0.02); Immature Granulocytes % (auto) 1.2 %; Lymphocytes # (auto) 1.92 K/uL (1.2-3.4); Lymphocytes % (auto) 17.9 %; Mean Corpuscular Hemoglobin 28.2 pg (25-34); Mean Corpuscular Hgb Conc 31.3 g/dL (32-36); Mean Corpuscular Volume 90.1 fL (80-100); Mean Platelet Volume 9.2 fL (7.4-10.4); Monocytes # (auto) 1.84 K/uL (0.11-0.59); Monocytes % (auto) 17.1 %; Neutrophils % (auto) 61.5 %; Platelet Count 510 K/uL (130-400); RDW Coefficient of Variation 15.6 % (11.5-14.5); Red Blood Count 3.44 M/uL (4.2-5.4); White Blood Count 10.73 K/uL (4.8-10.8)
[2019-06-19 14:23] LABS: INR 1.6 (0.9-1.1); Prothrombin Time 16.1 Seconds (9.0-12.0)
--- NOTE | 2019-06-19 14:27 | Emergency Department Note ---
ED Visit Note Patient seen and examined in conjunction with Dr. Morrow. Please see his note for medical decision making. . Resident Activity Tracking Resident Involvement: Resident Care Provided Care Provided: Adult ED
[2019-06-19 14:29] LABS: Alanine Aminotransferase 7 U/L (12-78); Albumin Level 2.8 gm/dl (3.4-5.0); Aspartate Aminotransferase 8 U/L (15-37); BUN Creatinine Ratio 14.7 (10-20); Blood Urea Nitrogen 10 mg/dl (7-18); Carbon Dioxide 28 mmol/L (21-32); Chloride 103 mmol/L (98-107); Creatinine Clr Calc Pharmacy 97.4 ml/min; Est GFR (African American) 109.5; Est GFR (Non-African American) 94.5; Glucose 99 mg/dl (70-99); Sodium 137 mmol/L (136-145)
[2019-06-19 14:34] LABS: Albumin Globulin Ratio 0.6 (0.9-2); Alkaline Phosphatase 105 U/L (45-117); Bilirubin,Total 0.3 mg/dl (0.2-1); Globulin 4.6 gm/dl (2.5-4.0); Total Protein 7.4 gm/dl (6.4-8.2); Troponin I < 0.015 ng/ml (0-0.045)
--- NOTE | 2019-06-19 14:49 | XRay Report ---
XR ribs LT min 3V w CXR1V CLINICAL HISTORY: left sided rib pain, SOB COMPARISON: Chest CT May 10, 2019. FINDINGS: Incidental note is made of left axillary surgical clips. There is no pneumothorax or pleur al effusion. There is no evidence for pneumonia or pulmonary edema. Linear left lower lung opacity fa vors atelectasis or scarring. Cardiac size is normal. No acute left rib fractures are identified. IMPRESSION: 1. No pneumothorax. No acute left rib fractures identified. 2. Linear left basilar opacity suggestive of atelectasis or scarring. ACT 112: Negative or not required by law. Electronically signed by: Reji Boo M.D. 06/19/2019 2:47 PM
--- NOTE | 2019-06-19 15:06 | Electrocardiogram Report ---
Test Reason : Blood Pressure : / mmHG Vent. Rate : 090 BPM Atrial Rate : 090 BPM P-R Int : 138 ms QRS Dur : 084 ms QT Int : 374 ms P-R-T Axes : 046 027 034 degrees QTc Int : 457 ms Normal sinus rhythm Normal ECG When compared with ECG of 22-OCT-2018 19:55, Minimal criteria for Anterior infarct are no longer Present No significant change was found Confirmed by Raman Coats ([id number]) on 06/19/2019 3:06:20 PM Referred By: REFERRED SELF Confirmed By:Александр Coats
[2019-06-19] MEDS ORDERED: MoRPHine SULFATE 4 MG/ML 1 ML CARP\\VIAL IV STA ×2 (16:05→18:36)
--- NOTE | 2019-06-19 16:56 | History & Physical Report ---
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 This is her second surgery as initial surgical site became infected as per the . has follow-up information regarding visiting the surgeon Pamela. He does not have the information with him and was asked to bring with him when he can. Would consider requesting records from [facility] as well. For now we will not disturb the surgical site. (2) Physical deconditioning: Patient appears to have significant physical deconditioning after a prolonged series hospital stays in [place]. Will get PT/OT to evaluate. Slow IV hydration. Patient may be started on a diet and will encourage feeding. Consider Megace versus Marinol for appetite does not resume in the next several days. (3) Hypertension: I reviewed the chart, patient has ongoing hypertension. She is furosemide 20 mg daily but no other medications for this. We will start amlodipine 5 mg daily, continue to monitor blood pressure. 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 Patient is a limited historian and seems a little confused. Patient's arrived later and was able to give some details. 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 She has been discharged to a rehab facility in our area. Apparently she had an infection present back to [facility] for a debridement of this. reports that the patient was extremely weak postoperatively and had diminished p.o. intake. However, the patient has been discharged yesterday from their facility and their team felt that she would do well at home. Has been note some frustration with this considering her weakness. In fact, the patient fell while he was transitioning her to the car. She had another fall earlier this morning. He is concerned as he does not feel he can care for her continued on her complicated medical history, poor p.o. intake, and worsening falls. He brought her to the emergency room for further evaluation of her deconditioning of consideration possible rehab. Patient herself does not appear to be in distress. I did ask her about some symptoms she seems to deny things like fever, chills, nausea, vomiting, diarrhea, constipation, and urinary complaints. She does note some diminished oral intake of food and liquids but does not seem to have issues with abdominal pain. She is unclear when she had her surgery and felt that it may have happened in the past month. Allergies Allergy/AdvReac Type Severity Reaction Status Date / Time No Known Allergies Allergy Verified 06/19/19 14:28 Home Medications Home Medications Medication Instructions Recorded Confirmed Type Xarelto 20 mg PO QAM 09/27/18 06/19/19 History furosemide 20 mg tablet 20 mg PO DAILY #30 tab 11/23/18 06/19/19 Rx gabapentin 600 mg PO HS 03/12/19 06/19/19 History morphine 15 mg PO Q4H PRN 03/12/19 06/19/19 History ondansetron HCl [Zofran] 8 mg PO TID PRN 03/12/19 06/19/19 History gabapentin 300 mg PO DAILY 06/19/19 06/19/19 History sodium chloride [Saline Mist] 1 spray INTRANASAL DAILY 06/19/19 06/19/19 History Past Med/Surg History Medical History Bronchitis (Inactive) Dehydration (Inactive) DVT (deep venous thrombosis) DVT prophylaxis 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 (06/01/17) "Development of left facial pain, numbness, and epistaxis Finding of a sinonasal mass Status post biopsy June 01, 2017 Squamous cell carcinoma Stage clinical T4b N2 M0 Completing 8 cycles of chemotherapy carboplatin, paclitaxel, and cetuximab" Surgical History History of sinus surgery Family History Unknown Heart disease Brother Diabetes Father Myocardial infarction Sinusitis Grandfather Hypertension Stroke Mother Stroke Denies family history of Clotting disorder Social History Preferred Language: Georgian Communication Ability: Effective Building Cleaner Required: No Beliefs That Will Affect Care: None marital status: Current Living Situation: Spouse 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 Other Information That Helps Us Care for You: No Feels Safe at Home: Yes Safety Concerns: Feels Safe At This Time Smoking Status: Never smoker Do You Dip or Chew Tobacco: No ; Second Hand Exposure: No ; Tobacco Cessation Education Requested by Patient: No Hx Alcohol Use: No Hx Substance Use: No Review of Systems Constitutional: + fatigue, + weakness and + anorexia; no fever, no chills, no weight loss and no weight gain Eyes: as per Subjective / HPI Respiratory: no cough, no chest congestion, no dyspnea and no dyspnea on exertion Cardiovascular: no chest pain, no orthopnea, no palpitations, no lighthead edness and no edema Gastrointestinal: no abdominal pain, no nausea, no vomiting, no constipation and no diarrhea/loose stools Genitourinary: no dysuria, no difficulty urinating, no urinary frequency, no urinary hesitancy, no urinary urgency and no flank pain Musculoskeletal: no back pain, no neck pain, no joint pain, no stiffness and no myalgia Integumentary: no rash Neurologic: + unsteadiness, + falls, + generalized weakness and + confusion; no gait abnormality Physical Exam Constitutional: cooperative; no acute distress Mildly confused. Oriented to person and place. ENMT: Left eye with large surgical dressing and sutures. Some dried blood in nose and lateral latter day area from surgical debridement. I did not disturb. Neck: trachea midline, no thyromegaly Respiratory: normal respiratory effort Auscultation: lungs clear to au scultation bilaterally; no crackles, no rales, no rhonchi and no wheezes Cardiovascular: Rate/Rhythm: regular rate and regular rhythm Heart Sounds: normal S1 and normal S2 Gastrointestinal (Abdomen): Inspection/Auscultation: abdomen normal to inspection Percussion/Palpation: abdomen soft; abdomen nontender, no guarding, abdomen not rigid and no hepatosplenomegaly Skin: Surgical wound left face covering the left eye. Dressing is sutured in place. Results & Data Vital Signs (Past 12 Hours) Vital Signs Temp Pulse Pulse Resp BP BP Pulse Ox 06/19/19 16:38 120 H 18 174/106 H 97 06/19/19 14:29 96 H 20 140/86 96 06/19/19 13:13 97 06/19/19 12:44 36.3 C L 122 H 18 184/113 H 98 Laboratory Results WC is a 10.73, hemoglobin 11.7, hematocrit of 31, platelets of 510. INR is 1.6. BMP is normal. AST is 8 ALT is 7. Total bilirubin 0.3. Troponin is nondetectable. Diagnostic Findings XR ribs LT min 3V w CXR1V CLINICAL HISTORY: left sided rib pain, SOB COMPARISON: Chest CT May 10, 2019. FINDINGS: Incidental note is made of left axillary surgical clips. There is no pneumothorax or pleural effusion. There is no evidence for pneumonia or pulmonary edema. Linear left lower lung opacity favors atelectasis or scarring. Cardiac size is normal. No acute left rib fractures are identified. IMPRESSION: 1. No pneumothorax. No acute left rib fractures identified. 2. Linear left basilar opacity suggestive of atelectasis or scarring. 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
--- NOTE | 2019-06-19 18:56 | Emergency Department Note ---
Entered by Yani Abernathy acting as a scribe for Claudio Morrow DO History of Present Illness General Chief complaint: Fall Stated complaint: TIGHTNESS IN CHEST, FELL, RIBS Time Seen by Provider: 06/19/19 13:13 Source: patient History of Present Illness Onset (ago): hour(s) (this morning) Location: left (ribs) Pain Consistency: + other (episode) Maximum Pain Intensity: 8 Quality: + other (fall (minor trauma)) Associated symptoms: + denies other symptoms (loss of consciousness, head trauma) and + other (soreness in rib area, chest tightness with exertion, shortness of breath, cough, nasal congestion, weakness, loss of appetite) The patient is a 63 year old female that is presenting to the Emergency Room with complaints of an episode of a fall that occurred this morning. The patient reports that she fell forward slightly inside a van and hit her ribs. She states she continues to have some mild soreness in the left rib area. She notes that she fell last night as well and hit the outside of her left leg. She denies any loss of consciousness or head trauma during the falls. 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 She notes that she had skin removed from her left leg as part of the surgery, so she was concerned that she had injured the area during her fall last night. She reports that her incision sites appear unchanged since her surgery. She states that she was discharged after the surgery but has continued to worsen since that time. She reports that she has had intermittent middle chest tightness since being discharged that worsens with exertion and improves with rest. She notes that the chest pain has been generally worsening since its onset. She states that she feels weak and is unable to do her normal activities secondary to the weakness and chest pain. She endorses a loss in appetite. She notes that she has had some shortness of breath but denies any pain in her jaw. The patient also reports that she has developed some sinus congestion since her procedure. She endorses a mild cough. She notes that she has a history of blood clots and takes Xarelto. She states that she had to stop taking the blood thinner prior to her surgery but she denies missing any doses since that time. She denies any history of heart disease. She reports that she is followed by Dr. Faith, [facility]. Home Medications Home Medications Medication Instructions Recorded Confirmed Type Xarelto 20 mg PO QAM 09/27/18 06/19/19 History furosemide 20 mg tablet 20 mg PO DAILY #30 tab 11/23/18 06/19/19 Rx gabapentin 600 mg PO HS 03/12/19 06/19/19 History morphine 15 mg PO Q4H PRN 03/12/19 06/19/19 History ondansetron HCl [Zofran] 8 mg PO TID PRN 03/12/19 06/19/19 History gabapentin 300 mg PO DAILY 06/19/19 06/19/19 History sodium chloride [Saline Mist] 1 spray INTRANASAL DAILY 06/19/19 06/19/19 History Allergies Allergy/AdvReac Type Severity Reaction Status Date / Time No Known Allergies Allergy Verified 06/19/19 14:28 Past Med/Surg History Medical History Bronchitis (Inactive) Dehydration (Inactive) DVT (deep venous thrombosis) DVT prophylaxis 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 (06/01/17) "Development of left facial pain, numbness, and epistaxis Finding of a sinonasal mass Status post biopsy June 01, 2017 Squamous cell carcinoma Stage clinical T4b N2 M0 Completing 8 cycles of chemotherapy carboplatin, paclitaxel, and cetuximab" Surgical History History of sinus surgery Family History Unknown Heart disease Brother Diabetes Father Myocardial infarction Sinusitis Grandfather Hypertension Stroke Mother Stroke Denies family history of Clotting disorder Social History Preferred Language: Italian Communication Ability: Effective Dental Scheduler Required: No Beliefs That Will Affect Care: None marital status: Current Living Situation: Spouse 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 and A total of 10 systems reviewed and were otherwise negative Physical Exam Vital Signs Vital Signs - 24 hr 06/19/19 12:44 06/19/19 13:11 06/19/19 13:13 Temperature 36.3 C L Temperature Source Oral Pulse Rate 122 H 98 H Pulse Rate [Apical] Pulse Rate from SpO2 Sensor 98 H Pulse Rhythm [Apical] Pulse Strength [Apical] Respiratory Rate 18 23 Respiratory Effort / Characteristics Respiratory Depth Respiratory Pattern Blood Pressure 184/113 H 151/103 H Blood Pressure [Right Arm] Blood Pressure Mean 136 129 Blood Pressure Mean [Right Arm] Blood Pressure Position [Right Arm] Pulse Oximetry 98 97 97 Oxygen Delivery Method Room Air Room Air Sepsis Recent Fever Within 48 Hours No Sepsis New/Unexplained Change in Mental Status No Sepsis Action Taken by Nursing No Action Required 06/19/19 13:22 06/19/19 14:00 06/19/19 14:23 Temperature Temperature Source Pulse Rate 92 H 85 98 H Pulse Rate [Apical] Pulse Rate from SpO2 Sensor 92 H Pulse Rhythm [Apical] Pulse Strength [Apical] Respiratory Rate 13 16 14 Respiratory Effort / Characteristics Respiratory Depth Respiratory Pattern Blood Pressure 145/76 H Blood Pressure [Right Arm] Blood Pressure Mean 99 Blood Pressure Mean [Right Arm] Blood Pressure Position [Right Arm] Pulse Oximetry 96 Oxygen Delivery Method Sepsis Recent Fever Within 48 Hours Sepsis New/Unexplained Change in Mental Status Sepsis Action Taken by Nursing 06/19/19 14:29 06/19/19 16:03 06/19/19 16:04 Temperature Temperature Source Pulse Rate 107 H 94 H Pulse Rate [Apical] 96 H Pulse Rate from SpO2 Sensor Pulse Rhythm [Apical] Regular Pulse Strength [Apical] Normal Respiratory Rate 20 14 18 Respiratory Effort / Characteristics Non-Labored Respiratory Depth Normal Respiratory Pattern Regular Blood Pressure 201/168 H Blood Pressure [Right Arm] 140/86 Blood Pressure Mean 192 Blood Pressure Mean [Right Arm] 104 Blood Pressure Position [Right Arm] Sitting Pulse Oximetry 96 Oxygen Delivery Method Room Air Sepsis Recent Fever Within 48 Hours Sepsis New/Unexplained Change in Mental Status Sepsis Action Taken by Nursing 06/19/19 16:05 06/19/19 16:38 06/19/19 16:40 Temperature Temperature Source Pulse Rate 94 H 102 H Pulse Rate [Apical] 100 H Pulse Rate from SpO2 Sensor Pulse Rhythm [Apical] Pulse Strength [Apical] Respiratory Rate 10 L 18 19 Respiratory Effort / Characteristics Non-Labored Respiratory Depth Normal Respiratory Pattern Blood Pressure 140/86 174/106 H Blood Pressure [Right Arm] 174/106 H Blood Pressure Mean 109 118 Blood Pressure Mean [Right Arm] 128 Blood Pressure Position [Right Arm] Pulse Oximetry 97 Oxygen Delivery Method Room Air Sepsis Recent Fever Within 48 Hours Sepsis New/Unexplained Change in Mental Status Sepsis Action Taken by Nursing 06/19/19 17:00 06/19/19 18:00 Temperature Temperature Source Pulse Rate 95 H 118 H Pulse Rate [Apical] 114 H Pulse Rate from SpO2 Sensor Pulse Rhythm [Apical] Regular Pulse Strength [Apical] Normal Respiratory Rate 14 13 Respiratory Effort / Characteristics Non-Labored Spontaneous Respiratory Depth Normal Respiratory Pattern Blood Pressure 158/111 H Blood Pressure [Right Arm] 168/98 H Blood Pressure Mean 142 Blood Pressure Mean [Right Arm] 121 Blood Pressure Position [Right Arm] Pulse Oximetry 97 Oxygen Delivery Method Room Air Sepsis Recent Fever Within 48 Hours Sepsis New/Unexplained Change in Mental Status Sepsis Action Taken by Nursing GENERAL: Sitting up in bed, disheveled, chronically-ill appearing, alert, no distress, non-toxic EYE EXAM: normal conjunctiva, PERRL and EOM's grossly intact, skin flap over left eye with suture in place. FACE: Swelling over left face with erythema/patch over left eye OROPHARYNX: no exudate, no erythema, lips, buccal mucosa, and tongue normal and mucous membranes are moist. NOSE: Nose packing in left nares. NECK: supple, no nuchal rigidity, no adenopathy, non-tender. Clips sutured over left clavicle with string tracking to left neck incision which is clean, dry, and intact. LUNGS: Clear to auscultation. Normal chest wall mechanics HEART: no murmurs, S1 normal and S2 normal CHEST: Old incision over left lateral ribs. Tenderness of left lower ribs with palpation over the axillary line. Old incision just above the sternum. ABDOMEN: abdomen soft, non-tender, normo-active bowel sounds, no masses, no rebound or guarding. BACK: Back is symmetrical on inspection and there is no deformity, no midline tenderness, no CVA tenderness. SKIN: no rashes and no bruising UPPER EXTREMITIES: upper extremities are grossly normal. LOWER EXTREMITIES: No pitting edema. 23 rosana in left mid thigh. NEURO EXAM: Normal sensorium, cranial nerves II-XII grossly intact, normal speech, no gross weakness of arms, no gross weakness of legs. Course Course ED COURSE: Vital signs were reviewed and showed tachycardic and hypertensive. The patients medical record was reviewed The above diagnostic studies were performed and reviewed. ED treatments and interventions as stated above. 1338: The patient was evaluated in room C09. A complete history and physical examination was performed. 1403: The resident discussed the patients case with Dr. Faith, [facility], who states that she had talked to the patients [id number] who noted that the patients family was interested in placing the patient at [place] for rehab. She recommended that the patient be admitted so case management can work on placement. 1406: I updated the patient on Dr. Burnette advice, and the patient is agreeable to staying in the hospital. 1500: Upon reevaluation, the patient is resting comfortably.I discussed my findings with the patient and her and they understand and agree with the treatment plan. 1524: I discussed the patients case with Dr. Ornelas, [facility], who will evaluate the patient for further management and care. Based on the patients age, coexisting illnesses, exam and lab findings the decision to treat as an inpatient was made. The patient remained stable while under my care. The patient will be evaluated for further management. Administered Medications Discontinued Medications Morphine Sulfate (Morphine Sulfate) 4 mg IV NOW STA Stop: 06/19/19 16:06 Last Admin: 06/19/19 16:16 Dose: 4 mg Documented by: [id number] Morphine Sulfate (Morphine Sulfate) 4 mg IV NOW STA Stop: 06/19/19 18:37 Last Admin: 06/19/19 18:43 Dose: 4 mg Documented by: [id number] Oxycodone HCl (Roxicodone Immediate Rel) 10 mg PO NOW STA Stop: 06/19/19 13:37 Last Admin: 06/19/19 14:14 Dose: 10 mg Documented by: [id number] Medical Decision Making Differential Diagnosis Differential diagnoses includes but is not limited to acute coronary syndrome, myocardial infarction, pericarditis, pulmonary embolus, aortic dissection, pneumonia, pneumothorax, musculoskeletal, shingles, esophageal. Medical Records Attestation: I reviewed the patient's medical records. Home Medications Current Medication List: was personally reviewed by me Laboratory Data Attestation: I reviewed the patient's lab results. Result diagrams: 06/19/19 14:03 06/19/19 14:03 Lab Results 06/19/19 06/19/19 06/19/19 Range/Units 14:03 14:03 14:03 WBC 10.73 (4.8-10.8) K/uL RBC 3.44 L (4.2-5.4) M/uL Hgb 9.7 L (12.0-16.0) g/dL Hct 31.0 L (37-47) % MCV 90.1 (80-100) fL MCH 28.2 (25-34) pg MCHC 31.3 L (32-36) g/dL RDW Std Deviation 51.0 H (36.4-46.3) fL RDW Coeff of Torrey 15.6 H (11.5-14.5) % Plt Count 510 H (130-400) K/uL MPV 9.2 (7.4-10.4) fL Immature Gran % (Auto) 1.2 % Neut % (Auto) 61.5 % Lymph % (Auto) 17.9 % Colbert % (Auto) 17.1 % Eos % (Auto) 2.0 % Baso % (Auto) 0.3 % Immature Gran # (Auto) 0.13 H (0.00-0.02) K/uL Neut # (Auto) 6.60 H (1.4-6.5) K/uL Lymph # (Auto) 1.92 (1.2-3.4) K/uL Colbert # (Auto) 1.84 H (0.11-0.59) K/uL Eos # (Auto) 0.21 (0-0.5) K/uL Baso # (Auto) 0.03 (0-0.2) K/uL PT 16.1 H (9.0-12.0) Seconds INR 1.6 H (0.9-1.1) Sodium 137 (136-145) mmol/L Potassium 4.0 (3.5-5.1) mmol/L Chloride 103 (98-107) mmol/L Carbon Dioxide 28 (21-32) mmol/L Anion Gap 5.0 (3-11) BUN 10 (7-18) mg/dl Creatinine 0.65 (0.6-1.2) mg/dl Est Cr Clr Drug Dosing 97.4 ml/min Est GFR ( Amer) 109.5 Est GFR (Non-Af Amer) 94.5 BUN/Creatinine Ratio 14.7 (10-20) Glucose 99 (70-99) mg/dl Calcium 10.0 (8.5-10.1) mg/dl Total Bilirubin 0.3 (0.2-1) mg/dl AST 8 L (15-37) U/L ALT 7 L (12-78) U/L Alkaline Phosphatase 105 (45-117) U/L Troponin I < 0.015 (0-0.045) ng/ml Total Protein 7.4 (6.4-8.2) gm/dl Albumin 2.8 L (3.4-5.0) gm/dl Globulin 4.6 H (2.5-4.0) gm/dl Albumin/Globulin Ratio 0.6 L (0.9-2) Imaging Data Radiologist's Impression: Radiology results as stated below per my review and the radiologist's interpretation: XR ribs LT min 3V w CXR1V CLINICAL HISTORY: left sided rib pain, SOB COMPARISON: Chest CT May 10, 2019. FINDINGS: Incidental note is made of left axillary surgical clips. There is no pneumothorax or pleural effusion. There is no evidence for pneumonia or pulmonary edema. Linear left lower lung opacity favors atelectasis or scarring. Cardiac size is normal. No acute left rib fractures are identified. IMPRESSION: 1. No pneumothorax. No acute left rib fractures identified. 2. Linear left basilar opacity suggestive of atelectasis or scarring. ACT 112: Negative or not required by law. Electronically signed by: Reji Boo M.D. 06/19/2019 2:47 PM ECG Data Attestation: I personally reviewed and interpreted this ECG as follows: Indication: + chest pain Rate (beats per minute): 90 Rhythm: + sinus rhythm ECG Intervals/blocks: + Normal QT-c ECG Whitehouse: + Normal ECG Findings: no PVCs Blood Pressure Blood Pressure Findings: Elevated blood pressure Blood Pressure Disposition: further management by hospitalist NICK Lala Patient is a 63-year-old female with a past medical history of malignant neoplasm of the sinuses who presents the ER for weakness and recurrent falls. Patient has minimal left-sided rib pain status post fall. IV was established blood work was obtained and showed no significant leukocytosis and a mild anemia. INR was 1.6. BMP along with LFTs bilirubin was unremarkable. Troponin was negative. Chest x-ray and x-rays of the ribs show no obvious fractures. Patient does have some exertional chest pain shortness of breath. EKG showed no acute ischemia. She was updated bedside. As family was uncomfortable taking her home and would like her placed discussed with care management and cannot meet placement requirements at this time with PT OT movement for ops. Patient and family were updated bedside. Impression & Plan Post-operative pain, Ambulatory dysfunction, Weakness, Squamous cell carcinoma Discharge Plan Visit Data Chief Complaint: Fall Stated Complaint: TIGHTNESS IN CHEST, FELL, RIBS ED Provider: Claudio Morrow ED Midlevel Provider: Forrest Reece Discharge Problem: Post-operative pain, Ambulatory dysfunction, Weakness, Squamous cell carcinoma Patient Disposition: Being Evaluated by Hospitalist Forms Stand Alone Forms: My [facility] Prescriptions Prescriptions: No Action furosemide 20 mg tablet 20 mg PO DAILY Qty: 30 RF: 5 Xarelto 20 mg Tablet 20 mg PO QAM RF: 0 gabapentin 300 mg capsule 300 mg PO DAILY RF: 0 sodium chloride [Saline Mist] 0.65 % aerosol,spray 1 spray INTRANASAL DAILY RF: 0 gabapentin 600 mg Tablet 600 mg PO HS RF: 0 ondansetron HCl [Zofran] 8 mg Tablet 8 mg PO TID PRN (Reason: Nausea) RF: 0 morphine 15 mg Tablet 15 mg PO Q4H PRN (Reason: Pain) RF: 0 Referrals Referrals: Timothy Diaz III, MD [Primary Care Provider] - The scribe's documentation has been prepared under my direction and personally reviewed by me in its entirety. I confirm that the note above accurately re flects all work, treatment, procedures, and medical decision making performed by me.
[2019-06-19] MEDS ORDERED: ONDANSETRON INJ 2 MG/ML 2 ML VIAL IV PRN (19:47)
[2019-06-19] MEDS ORDERED: ONDANSETRON 8MG OD TAB PO PRN (19:58)
[2019-06-19] MEDS: MoRPHine SULFATE IR 15 MG TAB (IMMEDIATE RELEASE) PO PRN (20:19)
[2019-06-19] MEDS: SODIUM CHLORIDE 0.9% 1000ML 1,000 ML IV SCH (20:20)
[2019-06-19] MEDS: AMLODIPINE BESYLATE 5 MG TAB PO SCH (21:11)
[2019-06-19] MEDS: GABAPENTIN 600 MG TAB PO SCH (21:43)
[2019-06-19] MEDS: ACETAMINOPHEN 325 MG TAB PO PRN (23:05)
[2019-06-20] MEDS: MoRPHine SULFATE IR 15 MG TAB (IMMEDIATE RELEASE) PO PRN ×5 (00:42→22:33)
[2019-06-20] MEDS: SODIUM CHLORIDE 0.9% 1000ML 1,000 ML IV SCH ×2 (06:31→15:40)
[2019-06-20 07:21] LABS: Basophils # (auto) 0.02 K/uL (0-0.2); Basophils % (auto) 0.2 %; Eosinophils # (auto) 0.21 K/uL (0-0.5); Eosinophils % (auto) 2.6 %; Hemoglobin 8.7 g/dL (12.0-16.0); Immature Granulocytes # (auto) 0.11 K/uL (0.00-0.02); Immature Granulocytes % (auto) 1.3 %; Lymphocytes # (auto) 1.28 K/uL (1.2-3.4); Lymphocytes % (auto) 15.6 %; Mean Corpuscular Hemoglobin 28.1 pg (25-34); Mean Corpuscular Hgb Conc 31.1 g/dL (32-36); Mean Corpuscular Volume 90.3 fL (80-100); Mean Platelet Volume 9.5 fL (7.4-10.4); Monocytes # (auto) 1.36 K/uL (0.11-0.59); Monocytes % (auto) 16.6 %; Neutrophils # (auto) 5.21 K/uL (1.4-6.5); Neutrophils % (auto) 63.7 %; Platelet Count 509 K/uL (130-400); RDW Standard Deviation 52.4 fL (36.4-46.3); White Blood Count 8.19 K/uL (4.8-10.8)
[2019-06-20] MEDS: ACETAMINOPHEN 325 MG TAB PO PRN ×3 (07:48→15:42)
[2019-06-20] MEDS: AMLODIPINE BESYLATE 5 MG TAB PO SCH (07:56)
[2019-06-20] MEDS: RIVAROXABAN 20 MG TAB PO SCH (07:56)
[2019-06-20 07:58] LABS: BUN Creatinine Ratio 19.9 (10-20); Calcium 9.4 mg/dl (8.5-10.1); Creatinine Clr Calc Pharmacy 128.7 ml/min; Est GFR (African American) 120.2; Est GFR (Non-African American) 103.7; Magnesium 1.8 mg/dl (1.8-2.4); Potassium 3.6 mmol/L (3.5-5.1)
[2019-06-20] MEDS ORDERED: SODIUM CHLORIDE 0.65% NA SOLN 45 ML (OCEAN) SCH (09:00)
[2019-06-20] MEDS ORDERED: FUROSEMIDE 20 MG TAB PO SCH (09:00)
[2019-06-20] MEDS ORDERED: MoRPHine SULFATE 2 MG/ML CARP IV STA (11:07)
[2019-06-20] MEDS: GABAPENTIN 300 MG CAP PO SCH (11:48)
[2019-06-20 13:42] LABS: Appearance Urine Clear (Clear); Bacteria Urine Automated Negative (Negative); Bilirubin Urine Negative (Negative); Blood Urine Trace (Negative); Color Urine Yellow; Glucose Urine UA Negative (Negative); Ketones Urine Negative (Negative); Leukocyte Esterase Urine Negative (Negative); Nitrite Urine Negative (Negative); Protein Urine Negative (Negative); RBC Urine Automated 0-4 /hpf (0-4); Specific Gravity Urine 1.013 (1.000-1.030); Urobilinogen Urine Negative (Negative); pH Urine 5.5 (4.5-7.5)
[2019-06-20] MEDS ORDERED: SODIUM CHLORIDE 0.65% NA SOLN 45 ML (OCEAN) PRN (16:20)
--- NOTE | 2019-06-20 16:27 | Palliative Care Consultation ---
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 Just prior to discharge from palliative clinic patient had a recurrence. Patient initially had not wanted aggressive surgery that would include removal of her left eye-patient later decided to go ahead with aggressive surgery as she felt she needed to be "around for her family". Patient underwent left-sided anterior cranial base osteotomy, unroofing of the left frontal sinus with removal of mucosa, left-sided or double and nasal bone osteotomies and resection of the sinonasal/lacrimal squamous cell carcinoma involving the anterior cranial base with intra-dural extension on 05/21/2019 at [facility]. Patient initially had a left latissimus dorsi flap-this failed, she had another graft from her left thigh. Patient has extensive surgical wounds scalp and face, with extensive bruising. Patient was discharged to rehab at [facility] in [place], she was then discharged home but continued to have weakness and ambulatory dysfunction. Patient fell at home, was evaluated for any fractures-negative so far. Patient continued to have significant pain similar to her initial cancer pain involving the left side of her face and ear. Patient has required 5 doses of 15 mg morphine sulfate IR in the past 20 hours. Patient states that Tylenol 1000 mg every 6 hours significantly helps her pain. She also takes Neurontin 300 mg in the morning and 600 mg at night for neuropathic pain related to her sinus cancer. Patient had been well controlled on methadone-would restart her methadone at 5 mg twice daily based on her current opioid requirements in addition to her scheduled Tylenol. 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 Her past medical history is otherwise significant only for hypertension. -Postop/cancer related pain-would restart her methadone at 5 mg twice daily, continue PRN morphine or PRN oxycodone. Would schedule her Tylenol 1000 mg every 6 hours -Squamous cell carcinoma of the left sinus-continue postop surgical wound care and pain control -Weakness, critical illness myopathy-patient would benefit from inpatient rehab therapy in order to return home safely Collaborated with attending team Will continue to follow and assist with medical decision making as well as pain management. Patient will continue to follow-up in palliative care clinic after discharge. (2) Post-operative pain: (3) Cancer related pain: (4) Squamous cell carcinoma: (5) Physical deconditioning: History of Present Illness Reason for Consultation: Previously established palliative clinic patient, assist with pain management Requesting Physician: Wendi Avila PA-C Attending Physician: Zurdo Sauceda History of Present Illness Chart reviewed, patient seen and examined on 2 separate occasions today. Patient's at bedside on initial visit, also collaborated with patient's [id number] by phone. 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 Just prior to discharge from palliative clinic patient had a recurrence. Patient initially had not wanted aggressive surgery that would include removal of her left eye-patient later decided to go ahead with aggressive surgery as she felt she needed to be "around for her family". Patient underwent left-sided anterior cranial base osteotomy, unroofing of the left frontal sinus with removal of mucosa, left-sided or double and nasal bone osteotomies and resection of the sinonasal/lacrimal squamous cell carcinoma involving the anterior cranial base with intra-dural extension on 05/21/2019 at [facility]. Patient initially had a left latissimus dorsi flap-this failed, she had another graft from her left thigh. Patient has extensive surgical wounds scalp and face, with extensive bruising. Patient was discharged to rehab at [facility] in [place], she was then discharged home but continued to have weakness and ambulatory dysfunction. Patient fell at home, was evaluated for any fractures-negative so far. Patient continued to have significant pain similar to her initial cancer pain involving the left side of her face and ear. Patient has required 5 doses of 15 mg morphine sulfate IR in the past 20 hours. Patient states that Tylenol 1000 mg every 6 hours significantly helps her pain. She also takes Neurontin 300 mg in the morning and 600 mg at night for neuropathic pain related to her sinus cancer. Patient had been well controlled on methadone-would restart her methadone at 5 mg twice daily based on her current opioid requirements in addition to her scheduled Tylenol. 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 Her past medical history is otherwise significant only for hypertension. Allergies Allergy/AdvReac Type Severity Reaction Status Date / Time No Known Allergies Allergy Verified 06/19/19 14:28 Home Medications Home Medications Medication Instructions Recorded Confirmed Type Xarelto 20 mg PO QAM 09/27/18 06/19/19 History furosemide 20 mg tablet 20 mg PO DAILY #30 tab 11/23/18 06/19/19 Rx gabapentin 600 mg PO HS 03/12/19 06/19/19 History morphine 15 mg PO Q4H PRN 03/12/19 06/19/19 History ondansetron HCl [Zofran] 8 mg PO TID PRN 03/12/19 06/19/19 History gabapentin 300 mg PO DAILY 06/19/19 06/19/19 History sodium chloride [Saline Mist] 1 spray INTRANASAL DAILY 06/19/19 06/19/19 History Patient History Medical History Bronchitis (Inactive) Dehydration (Inactive) DVT (deep venous thrombosis) DVT prophylaxis 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 (06/01/17) "Development of left facial pain, numbness, and epistaxis Finding of a sinonasal mass Status post biopsy June 01, 2017 Squamous cell carcinoma Stage clinical T4b N2 M0 Completing 8 cycles of chemotherapy carboplatin, paclitaxel, and cetuximab" Surgical History History of sinus surgery Family History Unknown Heart disease Brother Diabetes Father Myocardial infarction Sinusitis Grandfather Hypertension Stroke Mother Stroke Denies family history of Clotting disorder Social History Preferred Language: South African Communication Ability: Effective Stamp Maker Required: No Beliefs That Will Affect Care: None marital status: Current Living Situation: Spouse 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 HEENT: EOMI right eye, left eye absent. Patient with extensive swelling and bruising status post surgical resection of her sinus carcinoma Respirations: Clear breath sounds bilaterally CV: Regular rate Abdomen: Soft, nontender Extremities: Lower extremity weakness, unsteady gait Skin: Left flank surgical site well-healed, rosana in place left thigh Neuro: Alert and oriented, positive significant cognitive deficits primarily short-term memory. Results & Data Vital Signs (Past 12 Hours) Vital Signs Temp Pulse Resp BP Pulse Ox 06/20/19 15:10 97.9 F 85 18 143/87 H 95 06/20/19 11:16 97.3 F L 106 H 20 148/96 H 96 06/20/19 06:34 98.1 F 107 H 17 139/95 95 PG Care Time/CCT Total # of Minutes Spent Total Time Spent with Patient: Total time spent 70 minutes with greater than 50% of the time spent at bedside addressing patient's pain control as well as goals of care with patient and Coding Level of Care Code 21726 Inpt Consult Level 3 Diagnoses Palliative care encounter Z51.5 Post-operative pain G89.18 Cancer related pain G89.3 Squamous cell carcinoma Physical deconditioning R53.81 Time Spent (min) 70
--- NOTE | 2019-06-20 18:59 | Hospitalist Progress Note ---
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 Acevedo's office as I missed their initial call in AM - will continue to try and touch base with them - Pain control will be important - discussed with Dr. Castillo who follows as outpatient - Restarting methadone 5 mg BID; Continue Morphine PRN; Gabapentin 300 mg AM and 600 mg HS (2) Physical deconditioning: - Continue PT/OT - Possibly multifactorial between multiple procedures/hospital stays, poor oral intake due to pain/taste issues, poor sleep, etc. - Appreciate RD input; TEAMCENTER CONSULTANT input for acute adjustments (3) Hypertension: - Hold Lasix; Can continue Norvasc 5 mg daily - Some BP could be pain related (4) Hx pulmonary embolism: - Continue Xarelto Disposition: Continue PT/OT; Hoping for rehab at [facility] Admission and Anticipated Discharge Date Admission Date: June 19, 2019 Supervising Physician Co-Signing Physician Notes Attending Attestation: Chart reviewed, care plan d/w DUGLAS Avila. I agree with the pearl components of her documentation. 63yo female with squamous cell carcinoma of the sinuses with extension to the left orbit - s/p extensive surgery at [facility] in [place] over 2 recent hospital stays (just discharged from [facility] on 06/18/19). Presented with weakness, falls, and having difficult time caring for her at home. Left facial pain has been largest complaint since admission - follows with Dr Faith, palliative care, for this. Vitals/labs remain acceptable. Adjust pain meds. Dispo planning - anticipate she will need rehab given her deconditioning. Zurdo Sauceda MD Subjective Reports feeling a bit better in the afternoon but drowsy. Pain has been rather bothersome. She has difficulty eating due to this as well as her taste and smell are affected. DIscussed with at bedside. Left a message with Dr. Acevedo's office as I missed their call this AM. She verbalizes no other complaints currently Review of Systems Constitutional: + fatigue and + weakness; no fever and no chills Eyes: no worsening vision Ear, Nose, Mouth, Throat: + nasal congestion and + facial pain Respiratory: no cough and no dyspnea Cardiovascular: no chest pain Gastrointestinal: no abdominal pain, no nausea, no vomiting, no constipation and no diarrhea/loose stools Genitourinary: no dysuria Integumentary: no rash Neurologic: no tingling and no numbness Physical Exam Constitutional: no acute distress Eyes: + anicteric sclerae ENMT: Ears: no hearing impairment Dressing applied to L eye socket; significant bruising and edema of L side of face; indentation of skull of L side related to surgical removal Neck: trachea midline Respiratory: normal respiratory effort, lungs clear to auscultation Cardiovascular: RRR, no murmur, no edema Gastrointestinal (Abdomen): Inspection/Auscultation: normal bowel sounds Percussion/Palpation: abdomen soft; abdomen nontender Neurologic: moves all extremities Psychiatric: A+Ox3, euthymic affect (but drowsy) Results & Data ([facility]) Vital Signs (Past 12 Hours) Vital Signs Temp Pulse Resp BP Pulse Ox 06/20/19 15:10 36.6 C 85 18 143/87 H 95 06/20/19 11:16 36.3 C L 106 H 20 148/96 H 96 PG Care Time/CCT Total # of Minutes Spent Total Time Spent with Patient: Total time spent is greater than 50% in coordination of care (as documented) at patient's floor/unit and/or counseling patient: Coding Level of Care Code 98962 Subseq Obs Care Lvl 2 Diagnoses 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
[2019-06-20] MEDS: ACETAMINOPHEN 500 MG TAB PO SCH (19:36)
[2019-06-20] MEDS: GABAPENTIN 600 MG TAB PO SCH (19:37)
[2019-06-20] MEDS: METHADONE HCL 5 MG TAB PO SCH (20:49)
[2019-06-20] MEDS ORDERED: METHADONE HCL 5 MG TAB PO SCH (21:00)
[2019-06-21] MEDS: MoRPHine SULFATE IR 15 MG TAB (IMMEDIATE RELEASE) PO PRN ×3 (02:20→16:50)
[2019-06-21] MEDS: MoRPHine SULFATE 4 MG/ML 1 ML CARP\\VIAL IV PRN ×3 (04:48→14:37)
[2019-06-21 05:53] LABS: Hematocrit (blood only) 28.7 % (37-47); Mean Corpuscular Hemoglobin 28.3 pg (25-34); Mean Corpuscular Hgb Conc 31.4 g/dL (32-36); Mean Corpuscular Volume 90.3 fL (80-100); Mean Platelet Volume 9.4 fL (7.4-10.4); Platelet Count 534 K/uL (130-400); RDW Coefficient of Variation 15.9 % (11.5-14.5); RDW Standard Deviation 52.5 fL (36.4-46.3); Red Blood Count 3.18 M/uL (4.2-5.4); White Blood Count 8.92 K/uL (4.8-10.8)
[2019-06-21 06:32] LABS: Calcium 9.3 mg/dl (8.5-10.1); Creatinine Clr Calc Pharmacy 128.7 ml/min; Est GFR (African American) 120.2; Est GFR (Non-African American) 103.7; Potassium 3.5 mmol/L (3.5-5.1)
[2019-06-21] MEDS: RIVAROXABAN 20 MG TAB PO SCH (08:37)
[2019-06-21] MEDS: METHADONE HCL 5 MG TAB PO SCH ×2 (08:37→20:56)
[2019-06-21] MEDS: AMLODIPINE BESYLATE 5 MG TAB PO SCH (08:38)
[2019-06-21] MEDS: GABAPENTIN 300 MG CAP PO SCH (08:38)
[2019-06-21] MEDS: ACETAMINOPHEN 500 MG TAB PO SCH ×3 (08:39→20:55)
--- NOTE | 2019-06-21 14:36 | Palliative Care Progress Note ---
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 Just prior to discharge from palliative clinic patient had a recurrence. Patient initially had not wanted aggressive surgery that would include removal of her left eye-patient later decided to go ahead with aggressive surgery as she felt she needed to be "around for her family". Patient underwent left-sided anterior cranial base osteotomy, unroofing of the left frontal sinus with removal of mucosa, left-sided or double and nasal bone osteotomies and resection of the sinonasal/lacrimal squamous cell carcinoma involving the anterior cranial base with intra-dural extension on 05/21/2019 at [facility]. Patient initially had a left latissimus dorsi flap-this failed, she had another graft from her left thigh. Patient has extensive surgical wounds scalp and face, with extensive bruising. Plan is for patient to return to rehab at [facility] Patient continued to have significant pain similar to her initial cancer pain involving the left side of her face and ear. Patient has required 4 doses of 15 mg morphine sulfate IR in the past 20 hours and 2 doses of IV morphine-her last dose of pain medication was 4 hours ago Patient states that Tylenol 1000 mg every 6 hours significantly helps her pain. She also takes Neurontin 300 mg in the morning and 600 mg at night for neuropathic pain related to her sinus cancer. 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 Her past medical history is otherwise significant only for hypertension. -Postop/cancer related pain-would restart her methadone at 5 mg twice daily, continue PRN morphine or PRN oxycodone. Would schedule her Tylenol 1000 mg every 6 hours -Squamous cell carcinoma of the left sinus-continue postop surgical wound care and pain control -Weakness, critical illness myopathy-patient would benefit from inpatient rehab therapy in order to return home safely Collaborated with attending team Will continue to follow and assist with medical decision making as well as pain management. Patient will continue to follow-up in palliative care clinic after discharge. (2) Post-operative pain: (3) Cancer related pain: (4) Squamous cell carcinoma: (5) Physical deconditioning: Subjective Patient seen and examined, no family at bedside. Collaborated with Wendi Avila PA-C Patient reports her pain control is adequate, she required for PRN oral morphine and 2 PRN IV morphine in the past 24 hours, her last dose of IV morphine was at 1030 this a.m. Patient was started on methadone-it will take 5 to 7 days to reach steady state. Patient has been on methadone in the past and is familiar with taking it. Review of Systems Review of Systems: Patient denies fever, chills, chest pain, shortness of breath, or abdominal pain. Positive for nasal and ear congestion Physical Exam Physical Exam: PE: No acute distress HEENT: Right eye EOMI, left eye absent. Left eye surgical site with scabbing Respiratory: Unlabored CV: Regular rate, no increased edema Abdomen: Soft, nontender Extremities: Lower extremity weakness Neuro: Alert and oriented, positive cognitive deficits related to short-term memory, unsteady gait Results & Data Vital Signs (Past 12 Hours) Vital Signs Temp Pulse Resp BP Pulse Ox 06/21/19 11:42 98.2 F 97 H 18 136/84 94 06/21/19 07:32 97.5 F L 84 18 150/90 H 92 06/21/19 03:01 97.3 F L 86 16 151/79 H 94 PG Care Time/CCT Total # of Minutes Spent Total Time Spent with Patient: Total time spent 35 minutes with greater than 50% of the time at bedside assessing patient's current pain control and discussing goals of care Coding Level of Care Code 10561 Subseq Hosp Care Lvl 3 Diagnoses Palliative care encounter Z51.5 Post-operative pain G89.18 Cancer related pain G89.3 Squamous cell carcinoma Physical deconditioning R53.81 Time Spent (min) 35
--- NOTE | 2019-06-21 16:58 | XRay Report ---
XR chest 1V portable HISTORY: 63 years-old Female Possible Aspiration acute short of breath with possible aspiration COMPARISON: Chest and rib radiographs 06/19/2019 TECHNIQUE: Portable AP view of the chest FINDINGS: Cardiac mediastinal and hilar silhouettes are within normal limits. Mild linear subsegmental bibasila r atelectasis/scarring. No pneumothorax, pleural effusion, overt pulmonary edema or airspace consolid ation to suggest pneumonia. Degenerative changes of the shoulders and spine. Surgical clips of the le ft axillary and face. A catheter projects over the left supraclavicular distribution. IMPRESSION: Linear bibasilar densities suggest atelectasis versus scarring. ACT 112: Negative or not required by law. The above report was generated using voice recognition software. It may contain grammatical, syntax o r spelling errors. Electronically signed by: Adrian Robertson M.D. 06/21/2019 4:57 PM
--- NOTE | 2019-06-21 19:10 | Hospitalist Progress Note ---
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 Acevedo's office as I missed their initial call on 06/20 - still no call back and unlikely office is open on weekend - Pain control will be important - discussed with Dr. Castillo again - Restarting methadone 5 mg BID; Continue Morphine PRN; Gabapentin 300 mg AM and 600 mg HS -- Will take a couple more days to get in a steady state with Methadone however she looks better today (2) Physical deconditioning: - Continue PT/OT - Possibly multifactorial between multiple procedures/hospital stays, poor oral intake due to pain/taste issues, poor sleep, etc. - Appreciate RD input; MAMMOGRAPHER input for acute adjustments - and discussed with them today -- Discussed oral hygiene and can consider swallow study in the future if she wants but was hesitant to do that at this time -- Some may be acute given swelling and pain but does cough with some eating - so far CXR without findings to suggest pneumonia (3) Hypertension: - Hold Lasix; Can continue Norvasc 5 mg daily - Some BP elevations could be pain related (4) Hx pulmonary embolism: - Continue Xarelto Disposition: Continue PT/OT; Hoping for rehab at [facility] tomorrow; follow labs for signs of sinus infection needing Abx treatment but doesnt seem warranted just yet; does have F/U with [place] in one week Admission and Anticipated Discharge Date Admission Date: June 21, 2019 Supervising Physician Co-Signing Physician Notes Attending Attestation: Chart reviewed, care plan d/w DUGLAS Avila. I agree with the pearl components of her documentation. 63yo female with squamous cell carcinoma of the sinuses with extension to the left orbit - s/p extensive surgery at [facility] in [place] over 2 recent hospital stays (just discharged from [facility] on 06/18/19 - this was her 2nd admission). Presented with weakness, falls, and having difficult time caring for her at home. Dr Faith, palliative care, recommended methadone 5mg BID for facial pain which has been her largest issue. Vitals/labs remain acceptable although mildly tachycardic. Dispo - [facility] for SNF rehab. Recommend changing observation status to full admission. Zurdo Sauceda MD Subjective Reports feeling a bit better today. More awake and conversant. Complaining of ear pressure. R ear looks ok but due to pain could not move the ear to get full view of the tympanic membrane. She continues to have some sinus congestion which she is able to blow out. Nasal saline helps reduce the pressure feeling. Remains afebrile and no leukocytosis. Review of Systems Constitutional: + fatigue (improving) and + weakness (slightly improved - a little more energy today); no fever and no chills Ear, Nose, Mouth, Throat: + nasal congestion and + facial pain Respiratory: no cough and no dyspnea Gastrointestinal: no abdominal pain, no nausea, no vomiting, no constipation and no diarrhea/loose stools Genitourinary: no dysuria Physical Exam Constitutional: no acute distress Eyes: + anicteric sclerae ENMT: Ears: no hearing impairment and no TM abnormality (on R side; unable to assess L TM dried blood near opening of canal) Neck: trachea midline Respiratory: normal respiratory effort, lungs clear to auscultation Cardiovascular: RRR, no murmur, no edema Gastrointestinal (Abdomen): Inspection/Auscultation: normal bowel sounds Percussion/Palpation: abdomen soft; abdomen nontender Neurologic: moves all extremities Psychiatric: A+Ox3, euthymic affect (but drowsy) Results & Data ([facility]) Vital Signs (Past 12 Hours) Vital Signs Temp Pulse Resp BP BP Pulse Ox 06/21/19 15:10 36.6 C 109 H 18 138/85 94 06/21/19 11:42 36.8 C 97 H 18 136/84 94 06/21/19 07:32 36.4 C L 84 18 150/90 H 92 PG Care Time/CCT Total # of Minutes Spent Total Time Spent with Patient: Total time spent is greater than 50% in coordination of care (as documented) at patient's floor/unit and/or counseling patient: Coding Level of Care Code 91238 Subseq Hosp Care Lvl 2 Diagnoses 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
[2019-06-21] MEDS: GABAPENTIN 600 MG TAB PO SCH (21:19)
[2019-06-22] MEDS: RIVAROXABAN 20 MG TAB PO SCH (07:47)
[2019-06-22] MEDS: METHADONE HCL 5 MG TAB PO SCH (07:47)
[2019-06-22] MEDS: AMLODIPINE BESYLATE 5 MG TAB PO SCH (07:48)
[2019-06-22] MEDS: GABAPENTIN 300 MG CAP PO SCH (07:48)
[2019-06-22] MEDS: ACETAMINOPHEN 500 MG TAB PO SCH ×3 (07:48→19:27)
[2019-06-22] MEDS ORDERED: VANCOMYCIN CONSULT ACTIVE PRN (09:47)
[2019-06-22] MEDS ORDERED: VANCOMYCIN HCL 1,000 MG in SODIUM CHLORIDE 0.9% 250 ML IV SCH (10:00)
[2019-06-22] MEDS ORDERED: cefTRIAXone SODIUM 2,000 MG in DEXTROSE 5% 50 ML IV ONE (10:15)
[2019-06-22] MEDS ORDERED: VANCOMYCIN HCL 2,000 MG in SODIUM CHLORIDE 0.9% 500 ML IV SCH (10:30)
[2019-06-22] MEDS: MoRPHine SULFATE 2 MG/ML CARP IV PRN ×3 (10:53→19:26)
--- NOTE | 2019-06-22 13:15 | Pharmacy Report ---
Pharmacy Abx Initial Consult - Date of Service June 22, 2019 - Pharmacy Dosing Scope Date of Consult: 06/22/19 Consultation requested by: Wendi Avila PA-C Pharmacy is consulted to initiate vancomycin IV dosing therapy, order appropriate labs and adjust drug dose/frequency. - Subjective The patient is a 63 year old F admitted on 06/21/19 18:46. - Objective Height: 5 ft 4 in Weight: 90.7 kg Vital Signs (Past 12hrs): Vital Signs Temp Pulse Resp BP BP Pulse Ox 06/22/19 11:34 37.0 C 123 H 20 140/80 94 06/22/19 07:46 103 H 20 90 06/22/19 07:23 37.4 C 110 H 20 126/67 06/22/19 04:00 36.9 C 98 H 18 167/81 H 92 - Risk Factors for Resistance * Resident in a retirement or extended-care facility * Hospitalization for 48 hours or more within the past 90 days * Immunocompromised- past medical history of squamous cell carcinoma of her sinus * Antimicrobial use within the last 90 days - Assessment & Plan Assessment * 63 year old F who prensents to [facility] with generlized weakness * PMH of squamous cell carcinoma of her sinus * S/p debridement of postsurgical infection at [facility] * MRSA nasal swab positive Plan Vancomycin IV * Estimated PK Parameters: Vd 0.6 L/kg, Jeremiah 0.083 hr-1, t1/2 8 hr * Loading dose: 2000 mg (22 mg/kg) * Maintenance dose: 1000 mg IV (11 mg/kg) every 8 hours * Goal trough level: 15-20 mcg/mL * Trough level ordered for 06/23/19 at 1130 Pharmacy will continue to follow and will adjust dose/frequency as necessary. Thank you.
[2019-06-22] MEDS ORDERED: PIPERACILL/TAZOBAC CONSULT ACTIVE PRN (14:01)
[2019-06-22] MEDS ORDERED: PIPERACILLIN/TAZOBACTAM 3.375 GM in DEXTROSE 5% 100 ML IV SCH ×2 (14:15→20:00)
[2019-06-22] MEDS ORDERED: PIPERACILLIN/TAZOBACTAM 3.375 GM in DEXTROSE 5% 100 ML IV ONE (14:30)
[2019-06-22] MEDS ORDERED: SODIUM CHLORIDE 0.9% 1000ML 1,000 ML IV SCH (14:30)
--- NOTE | 2019-06-22 15:52 | CT Scan Report ---
CT head/brain wo con CLINICAL HISTORY: 63 years-old Female with Review sinuses please; abscess/mastoiditis. Patient prese nts acute pain and known sinonasal mass and recent surgery. TECHNIQUE: Multiple axial CT images of the head were obtained without contrast. A dose lowering tech nique was utilized adhering to the principles of ALARA. COMPARISON: CT paranasal sinus study of same day, brain MRI 05/16/2019. FINDINGS: Motion degraded exam. No acute intracranial hemorrhage, midline shift, intracranial mass, hydrocephal us, territorial ischemia or abnormal extra-axial collection. Age-related involutional changes with ex vacuo ventriculomegaly. Periventricular patchy white matter hypodensities suggest chronic chronic mi crovascular ischemic disease. The calvarium is intact. Intensive postoperative changes of the left base and nasal cavity. Please r efer to CT sinus study of same day. A drainage catheter is noted within the left nasal cavity. IMPRESSION: 1. Motion degraded exam without acute intracranial abnormality identified. 2. Postoperative changes of the left face and paranasal sinuses. Please refer to CT sinus study of for further details. ACT 112: Negative or not required by law. The above report was generated using voice recognition software. It may contain grammatical, syntax o r spelling errors. Electronically signed by: Adrian Robertson M.D. 06/22/2019 3:51 PM
--- NOTE | 2019-06-22 16:14 | CT Scan Report ---
CT sinus wo con HISTORY: 63 years-old Female Abscess - limits due to extensive facial surgery acute left-sided facia l pain status post recent facial surgery. History of sinonasal neoplasm COMPARISON: Head CT of same day, MRI brain 05/16/2019, CT of the orbits 03/12/2019 TECHNIQUE: Multiple axial CT of the paranasal sinuses were obtained without the use of IV contrast. A dose lowering technique was used consistent with the principals of DESTINEY. FINDINGS: Motion degraded exam. Extensive postoperative changes of the face and paranasal sinuses with chronic changes of the left cavernous sinus and left sphenoid greater wing. Interval postoperative changes of the inferior left frontal sinuses with resection of the left globe and left orbital structures. Thes e structures have been replaced by fatty tissue suggestive of a flap with interposed edema and surgic al drainage catheter. The distal tip of the catheter is noted within the right parapharyngeal tissues . Additionally, there is postoperative changes of left ethmoidectomy with resection of the left super ior and middle nasal turbinates. Resection of the left maxillary sinus with partial resection of the left sphenoid sinus. Bony defect of the anteromedial left middle cranial fossa is unchanged. Air and fluid level of the left orbital fissure is noted which appears to communicate with the residual sphen oid sinuses. Large air-fluid levels of the sphenoid sinuses are present. This is superior to the surg ical drainage catheter. Additionally, there is postoperative changes of partial resection of the crib riform plate with a tiny fluid collection within this distribution measuring 1.2 x 0.6 x 1.9 cm on im age 35 of the coronal series image 61 of the sagittal series. There is a flap present within the left cheek distribution with air and fluid collection inferior and lateral to the left side grammatical a rch and lateral to the left mandible measuring up to 4.8 x 1.7 x 5.4 cm in AP, transverse and cranial caudal dimensions. Surgical clips are noted within the region of the left parotid with small air and fluid-filled collection. Edema tracks into the left lower neck, outside the [id number]. Evaluatio n for residual tumor is limited without the use of IV contrast. Patent airway. No adenopathy identified. Mastoid air cells and middle ear cavities are clear. IMPRESSION: 1. Extensive postoperative changes of the left face and paranasal sinuses as above with surgical drai nage catheter present, distal tip terminating in the right parapharyngeal distribution. Transplanted fat with edema, air and fluid is noted with ill-defined air and fluid-filled collection within the le ft orbital fissure distribution communicating with the sphenoid sinuses. The largest fluid collection is present within the left face, superficial to the zygomatic arch and mandible measuring up to 5.4 cm in greatest dimension. Postoperative seroma versus abscess formations are the differential conside rations. 2. Multiple postoperative defects of the calvarium as above. No intracranial fluid extension identifi ed. 3. Evaluation for residual tumor is limited secondary to postoperative state and lack of IV contrast. ACT 112: Negative or not required by law. The above report was generated using voice recognition software. It may contain grammatical, syntax o r spelling errors. Electronically signed by: Adrian Robertson M.D. 06/22/2019 4:12 PM
[2019-06-22] MEDS ORDERED: KETOROLAC TROMETHAMINE 15 MG/ML VIAL ONE (19:40)
--- NOTE | 2019-06-22 19:56 | Discharge Summary ---
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 Patient is a limited historian and seems a little confused. Patient's arrived later and was able to give some details. 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 She has been discharged to a rehab facility in our area. Apparently she had an infection present back to [facility] for a debridement of this. reports that the patient was extremely weak postoperatively and had diminished p.o. intake. However, the patient has been discharged yesterday from their facility and their team felt that she would do well at home. Has been note some frustration with this considering her weakness. In fact, the patient fell while he was transitioning her to the car. She had another fall earlier this morning. He is concerned as he does not feel he can care for her continued on her complicated medical history, poor p.o. intake, and worsening falls. He brought her to the emergency room for further evaluation of her deconditioning of consideration possible rehab. Patient herself does not appear to be in distress. I did ask her about some symptoms she seems to deny things like fever, chills, nausea, vomiting, diarrhea, constipation, and urinary complaints. She does note some diminished oral intake of food and liquids but does not seem to have issues with abdominal pain. She is unclear when she had her surgery and felt that it may have happened in the past month. Principal Diagnosis Suspect MRSA Infection/Abscess/Concern for wound Necrosis of Flap of Sinuses/Face Discharge Exam Constitutional + ill appearing; no acute distress Eyes + anicteric sclerae (abscence of L eye/bandage covered) [facility] Patient with extensive surgical changes to L face; incisions approximated with dry blood but no drainage; bandage over L eye socket with sutures around however some sutures torn and pulled away from face; nasal drain present in L nare; nose tip is bright red and extremely tender to touch; tenderness of the L mastoid region; no meningeal signs Neck trachea midline swelling present with ecchymosis of L side of face/neck Respiratory normal respiratory effort, lungs clear to auscultation Cardiovascular Rate/Rhythm: regular rate and + tachycardic Gastrointestinal (Abdomen) Inspection/Auscultation: normal bowel sounds Percussion/Palpation: abdomen soft; abdomen nontender Musculoskeletal Head/Neck/Chest: + head abnormal to inspection and + scalp tenderness; + abnormal head shape and + evidence of head trauma Neurologic moves all extremities Psychiatric Orientation: alert (but drowsy/lethargic; tends to keep eyes closed) and oriented x 3 (intermittently confused) Discharge Data Allergies Allergy/AdvReac Type Severity Reaction Status Date / Time No Known Allergies Allergy Verified 06/19/19 14:28 Consultations 06/19/19 15:08 ED Decision to Admit Stat 06/19/19 19:47 Consult Case Management - Discharge Planning Routine 06/20/19 13:52 Consult Palliative Care Routine 06/22/19 14:53 Burn CD for patient Stat Ordered Studies 06/22/19 14:10 CT head/brain wo con Stat 06/22/19 15:05 CT sinus wo con Stat Hospital Course (1) 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 Castillo - Restarted methadone 5 mg BID; Continue Morphine PRN; Gabapentin 300 mg AM and 600 mg HS -- Will take a couple more days to get in a steady state with Methadone - however suspect some of her lethargy/confusion is related to pain medication - On 06/21 she looked well. Was sitting up in bed and interactive/talking/eating some and was planning on D/C to rehab the next day - On patient was more confused and lethargic. However would answer orientation questions correctly. She was having worsening pain today and nose tip became bright red and tender; presence of worsening pain in mastoid region. In her confusion it appears she picked at the dressing over the L orbit which was sutured in place and this is partially exposed -- Did initially start Rocephin and Vanc - she was swabbed and came back MRSA + - did chose to broaden to Zosyn with Vanc -- Called [facility] and discussed with animal nutritionist ENT - patient was accepted in transfer -- Patient did develop a fever of 38.5 F prior to transfer -- BCx were obtained prior to transfer - these are pending - CT sinus findings - which are difficult to assess given inabilit to compare to [place] imaging as well as post-operative changes in general -- Extensive postoperative changes of the left face and paranasal sinuses as above with surgical drainage catheter present, distal tip terminating in the right parapharyngeal distribution. Transplanted fat with edema, air and fluid is noted with ill-defined air and fluid-filled collection within the left orbital fissure distribution communicating with the sphenoid sinuses. The largest fluid collection is present within the left face, superficial to the zygomatic arch and mandible measuring up to 5.4 cm in greatest dimension. Postoperative seroma versus abscess formations are the differential considerations. Given patients confusion/lethargy, significant pain, need for IV Abx due to the suspicion of a possible abscess/MRSA infection, tachycardia, and fever. She would not be safe to transport by private vehicle. Due to her extensive surgical changes and techniques/needs that far exceed our abilities in this hospital, it is recommended she transfer to the facility who performed this procedure and is familiar with her complicated case. (2) Physical deconditioning: - Continue PT/OT - Possibly multifactorial between multiple procedures/hospital stays, poor oral intake due to pain/taste issues, poor sleep, etc. - now possibly infection related? - Appreciate RD input; SHAFT TENDER input for acute adjustments - and discussed with them today -- Discussed oral hygiene and can consider swallow study in the future if she wants but was hesitant to do that at this time -- Discussed with [id number] - she has had a swallow study before which did reveal some dysmotility but she did not think it said she was aspirating -- Some may be acute given swelling and pain but does cough with some eating - so far CXR without findings to suggest pneumonia (3) Hypertension: - Hold Lasix; Can continue Norvasc 5 mg daily (was started in-hospital) - Some BP elevations could be pain related (4) Hx pulmonary embolism: - Continue Xarelto Disposition: Needs acute transfer to [facility] given concern for abscess/MRSA infection; Could need extended hospital stay there depending on degree of infection or procedural needs; will likely benefit from rehab stay after discharge from there Total Time Total Time Spent Total Time Spent (In Minutes): Greater than 30 minutes Discharge Plan Discharge Items Patient Disposition: Transfer Acute Care Hospital Reason For Visit: ACUTE DECONDITIONING Discharge Diagnosis: Concern for Post-Op Infection - Abscess? Activity: Resume your previous activity Non-emergency contact: Primary Care Provider Call non-emergency contact if: you have any medication questions, your symptoms worsen and you have a fever Follow-up/Referrals: Timothy Diaz III, MD [Primary Care Provider] - Diet: Regular Diet Texture: Pureed (blended smooth) Addtl Attending Provider Instructions: Malignant Neoplasm of Overlapping Sites of Accssory Sinuses: - Recurrent Squamous Cell Carcinoma of Sinuses - On 05/21 - extensive facial/sinus surgery and ultimately had flap necrosis. Ultimately had to go back for further repair due to this. - She presented to [facility] due to deconditioning, poor oral intake, dehydration, pain with goals to go to rehab - She was doing well on 06/21. Was sitting up, talking and pain was doing better. Still drowsy, likely due to pain medication. - On patient was initially confused but as the afternoon went on she was oriented to person, place, time, situation but largely leaves her eyes closed -- The tip of her nose is bright red today and extremely painful. She is MRSA positive of nasal swap -- She had tenderness in the mastoid region and has ongoing sinus congestion. Nasal saline helps a lot on previous days - She was started on Methadone 5 mg BID and Morphine IR 15 mg PRN - probably contributing to some lethargy but pain has been a difficult thing to control -- She follows with Dr. Janine Castillo - Palliative Care/Pain Management - she will be following as an outpatient and can assist with future pain management -- Methadone was started about 2 days ago - Given concern for infection and MRSA + - started Vancomycin and Zosyn therapy today HTN: - Stable - holding Lasix - She was started on Norvasc here but suspect some elevated pressures are pain related - She has been tachycardic intermittently H/O Pulmonary Embolism - September 2017 - Continue Xarelto Physical deconditioning: - Continue PT/OT - Possibly multifactorial between multiple procedures/hospital stays, poor oral intake due to pain/taste issues, poor sleep, etc. - Patient was accepted at [facility] - recommend SNF on discharge from [place] to assist with deficits Pending Studies at Discharge: No Stand-Alone Forms: My [facility] Skilled Items Patient informed of condition?: Yes DNR: No Discharge Level of Care: Other Communicable Disease: Yes (MRSA) Discharge Prognosis: Stable Lines: Peripheral IV Urinary Catheter: No Medications and DC Order Prescriptions: Continued furosemide 20 mg tablet 20 mg PO DAILY Qty: 30 RF: 5 Xarelto 20 mg Tablet 20 mg PO QAM RF: 0 gabapentin 300 mg capsule 300 mg PO DAILY RF: 0 sodium chloride [Saline Mist] 0.65 % aerosol,spray 1 spray INTRANASAL DAILY RF: 0 gabapentin 600 mg Tablet 600 mg PO HS RF: 0 ondansetron HCl [Zofran] 8 mg Tablet 8 mg PO TID PRN (Reason: Nausea) RF: 0 morphine 15 mg Tablet 15 mg PO Q4H PRN (Reason: Pain) RF: 0 Discharge Orders: Discharge Order (Routine); Ordered 06/22/19 Ordered By: Wendi Avila Admission Data Admit Date/Time: 06/21/19 18:46 Attending Provider: Zurdo Sauceda Admit Provider: Zurdo Sauceda Primary Care Provider: Timothy Diaz III Other Providers: Cabrera Ornelas ; Deanne Mon ; Cris Faith Other Interventions: Discharge Summary Assessment (RN) Last Done: 06/22/19 16:30 DC Date/Time DO NOT enter until pt leaves facility: 06/22/19 20:30 Supervising Physician Co-Signing Physician Notes Attending Attestation and discharge note - Pt seen/examined, chart reviewed, discharge care plan d/w DUGLAS Avila. I agree with the pearl components of her discharge documentation. 63yo female with squamous cell carcinoma of the sinuses with extension to the left orbit - s/p extensive surgery at [facility] in [place] over 2 recent hospital stays (just discharged from [facility] on 06/18/19 - this was her 2nd admission). Presented with weakness, falls, and having difficult time caring for her at home. Dr Faith, palliative care, recommended methadone 5mg BID for facial pain. On day of transfer to [facility] patient became more lethargic and facial pain worsened. On exam she had erythema of then nose and her left ear along with left mastoid were quite tender. She complained of generalized pain over much of the left face. CT head and CT sinuses were obtained. There was indeed a fluid collection in the left face - uncertain if this was post-op seroma or developing abscess. At minimum she had cellulitis of the nose. Broad-spectrum IV abx were started. Blood cx's were dispatched. She had fever prior to transfer. [facility] was contacted, and the ENT service graciously accepted Ms Jacobson in transfer for treatment of, at minimum a facial cellulitis; cannot rule out deeper infection/abscess. Discharge exam: gen - lethargic, eyes closed, but surprisingly was oriented x 3 eyes - right eye wnl; left eye absent; orbit partially covered with a sutured in dressing head - left mastoid very tender to palpation; surgical incision on vertex of skull - clean left ear - very tender to touch or manipulation face - large surgical incision along the jaw line; drain in place left nostril; nose with warm erythema, very tender to touch; left cheek swollen heart - tachy s1 s2 lungs - CTA b/l abd - soft NT ext - no edema Zurdo Sauceda MD Coding Level of Care Code D/C Day Management >30 mins Diagnoses 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
[2019-06-23] MEDS ORDERED: VANCOMYCIN HCL 1,500 MG in SODIUM CHLORIDE 0.9% 500 ML IV SCH
[2019-06-23] MEDS ORDERED: cefTRIAXone SODIUM 2,000 MG in DEXTROSE 5% 50 ML IV SCH (10:00)
[2019-06-23] MEDS ORDERED: VANCOMYCIN TROUGH ONE (11:30)
[2019-06-24] MEDS ORDERED: VANCOMYCIN TROUGH ONE (11:30)
== END 2019-06-22 20:30 | disposition short-term general hospital (02) | DRG 147 ==
LOC: 4W 12:28 → ED 12:28 → SUATTDRO 17:20 → 4W 19:22

== ENCOUNTER 2023-01-31 10:58 | Inpatient (IN) ==
--- NOTE | 2023-01-31 11:10 | Emergency Department Note ---
Impression & Plan Sepsis, Acute UTI (urinary tract infection), Acute confusion, Leukocytosis, Elevated procalcitonin, Non-ST elevation MS (NSTEMI), Elevated CK, Acute hypokalemia ED Provider Note HISTORY OF PRESENT ILLNESS: Patient is a 67-year-old female presenting with altered mental status after being found down. Patient reportedly was found down in the living room by her covered in blood. Unknown how long she was down for. reports he last saw her last night. On arrival to the ER, the patient is alert to person and place but is unable to provide much else in terms of history. She denies any recent bloody bowel movements or melena. Denies any chest pain or shortness of breath. Denies any abdominal pain. ROS: as above PHYSICAL EXAM: Constitutional: Patient appears in no acute distress. HENT: Head: Deformity to the face. 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 Eyes: Enucleation of left eye. Mouth/Throat: Mucous membranes moist. Neck: Trachea midline. Neck supple. Cardiovascular: Tachycardic with regular rhythm. No murmurs, rubs or gallops. Intact distal pulses. Pulmonary/Chest: No respiratory distress. Breath sounds clear and equal bi laterally. No wheezes or rales. No chest wall tenderness to palpation. Abdominal: Abdomen soft, no tenderness, rebound or guarding. Rectal: Chaperoned by nursing staff. No palpable masses or hemorrhoids. Bright red blood on glove. Musculoskeletal: No edema, tenderness or deformity noted. Skin: Warm and dry. No rash, erythema, pallor or cyanosis Neurological: Alert. CN II-XII grossly intact, moving all extremities equally and fully. MDM: - Vitals signs showed tachycardia - History obtained via EMS, given patient's confusion. Patient presents with confusion after being found down. Patient reportedly was found down by her this morning covered in blood. Unknown how long she was down for, as he last saw her last night. Patient is alert to person and place on arrival to the ER but is unable to provide much in terms of history. She denies any complaints on arrival. - Chronic conditions affecting care: DVT/PE; squamous cell carcinoma of paranasal sinuses; HTN; hypothyroidism - Differential diagnoses include, but are not limited to: Pneumonia; rhabdomyolysis; sepsis; UTI; ACS; diverticular bleed - Order placed for continuous cardiac monitoring. At this time, monitor showed rate of 91 bpm with normal sinus rhythm, per my interpretation. - External medical records reviewed. EMS run sheet reviewed. Patient was v itally stable in route. No medications were given prehospital. - EKG reviewed by myself showed normal sinus rhythm. Rate tachycardic at 102 bpm. QTc 471. No acute ischemic changes. - Laboratory workup interpreted by myself showed leukocytosis (WBC 17.65) with left shift; elevated procalcitonin (10.27); hypokalemia (K 3.4); normal creatinine; elevated creatinine kinase (CK 1455); elevated troponin (28.6) - UA showed evidence of infection. Given 2g IV rocephin - Biofire negative - CXR negative for pneumonia, per my interpretation. - Blood cultures obtained prior to antibiotic administration. - CT head wo contrast negative for acute intracranial pathology. Noted to have masslike density within the operative bed that is increased in size since her last PET/CT scan. - Discussed results with the patient's , patient and her sister at bedside. They report that the patient is currently on palliative care for her worsening cancer and has an appointment tomorrow. - Patient given 2L NS in ER for fluid resuscitation. Based on patient's ideal body weight her sepsis fluid volume resuscitation should be 1636 mL. - CTA abdomen/pelvis with IV contrast ordered to assess for rectal bleeding. - Discussion was had with social security specialist about patient's case and need for admission - Hospitalist consulted for admission - Patient admitted to [facility] service for further evaluation and management. I provided 37 minutes of critical care time to this patient's care outside of billable procedures. 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 (completed 2018)/radiation followed by orbital exenteration, flap reconstruction Migraine headache Peripheral neuropathy Pulmonary emboli (09/2017) B/L acute PE's with RLE greater saphenous vein thrombus on indefinite AC d/t malignancy (2017) during chemotherapy Surgical History 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, left orbital exenteration, and right scapular tip flap History of sinus surgery (multiple) sinus/eye surgeries r/t the cancer (~) Family History Unknown Heart disease Brother Diabetes Father Myocardial infarction Sinusitis Grandfather Hypertension Stroke Mother Stroke Other Cellulitis Denies family history of Clotting disorder Social History Smoking Status: Never smoker Second Hand Exposure: Yes (in past 20 yrs ago); Do You Dip or Chew Tobacco: No; Hx Alcohol Use: No Hx Substance Use: No Preferred Language: Armenian Communication Ability: Effective Aircraft Pilot Required: No Beliefs That Will Affect Care: None marital status: Current Living Situation: Spouse 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 Feels Safe at Home: Yes Diet: regular caffeine: Yes Assistive Devices: Glasses Allergies Allergies Allergy/AdvReac Type Severity Reaction Status Date / Time No Known Drug Allergies Allergy Unknown Verified 12/05/22 09:08 Home Meds Home Medications Medication Instructions Recorded Confirmed sodium chloride 0.65 % nasal spray 2 sprays intranasal Q4H 07/23/19 12/05/22 aerosol (Saline Mist) multivitamin 1 tab PO QAM 03/26/20 12/05/22 Previous Rx's Medication Instructions Recorded acetaminophen 325 mg capsule 650 mg PO Q4H PRN pain #90 caps 07/23/19 oxycodone 5 mg tablet 5 mg PO BID PRN pain #60 tabs 09/30/20 pilocarpine HCl 5 mg tablet 5 mg PO TID dry mouth #90 tabs 03/15/21 (Salagen (pilocarpine)) tobramycin 0.3 %-dexamethasone 0.1 See Rx Instructions .Route 05/04/21 % eye drops,suspension (TobraDex) .COMPLEX #10 mL sulfacetamide-prednisolone 10 See Rx Instructions .Route 10/04/21 %-0.23 % (0.25 %) eye drops .COMPLEX 14 days #5 mL pregabalin 100 mg capsule (Lyrica) 100 mg PO BID #60 caps 11/15/21 levothyroxine 75 mcg tablet 75 mcg PO DAILY #90 tabs 03/07/22 albuterol sulfate 90 mcg/actuation 2 puff inhalation Q6H PRN 08/26/22 aerosol inhaler shortness of breath or wheezing #8.5 grams levofloxacin 500 mg tablet 500 mg PO DAILY 7 days #7 tabs 09/06/22 rivaroxaban 20 mg tablet (Xarelto) 20 mg PO DAILY #90 tabs 12/20/22 Results & Data (ED) Vital Signs Vital Signs - 24 hr 01/31/23 11:08 01/31/23 11:17 01/31/23 11:23 Temperature 36.7 C Temperature Source Temporal Artery Scan Pulse Rate 104 H 100 H 102 H Pulse Rate from SpO2 Sensor Pulse Rhythm Regular Pulse Strength Normal Respiratory Rate 20 Respiratory Effort / Characteristics Non-Labored Spontaneous Respiratory Depth Normal Respiratory Pattern Regular Blood Pressure 144/104 H Blood Pressure Mean 117 Blood Pressure Position Sitting Pulse Oximetry 94 95 Oxygen Delivery Method Room Air Room Air Sepsis Recent Fever Within 48 Hours No Sepsis New/Unexplained Change in Mental Status Yes Sepsis Action Taken by Nursing No Action Required 01/31/23 11:06 01/31/23 11:30 01/31/23 12:09 Temperature Temperature Source Pulse Rate 113 H 101 H 94 H Pulse Rate from SpO2 Sensor 109 H 104 H 94 H Pulse Rhythm Pulse Strength Respiratory Rate Respiratory Effort / Characteristics Respiratory Depth Respiratory Pattern Blood Pressure 144/104 H 148/102 H 159/95 H Blood Pressure Mean 117 117 116 Blood Pressure Position Pulse Oximetry 97 94 96 Oxygen Delivery Method Sepsis Recent Fever Within 48 Hours Sepsis New/Unexplained Change in Mental Status Sepsis Action Taken by Nursing 01/31/23 13:07 01/31/23 12:30 01/31/23 13:01 Temperature Temperature Source Pulse Rate 94 H 95 H Pulse Rate from SpO2 Sensor 93 H 95 H Pulse Rhythm Pulse Strength Respiratory Rate Respiratory Effort / Characteristics Respiratory Depth Respiratory Pattern Blood Pressure 153/96 H 143/88 H Blood Pressure Mean 115 106 Blood Pressure Position Pulse Oximetry 95 96 96 Oxygen Delivery Method Room Air Sepsis Recent Fever Within 48 Hours Sepsis New/Unexplained Change in Mental Status Sepsis Action Taken by Nursing Laboratory Data 01/31/23 11:57 01/31/23 11:57 Lab Results 01/31/23 01/31/23 01/31/23 Range/Units 11:22 11:30 11:57 WBC 17.65 H (4.8-10.8) K/ul RBC 4.38 (4.20-5.40) M/uL Hgb 12.2 (12.0-16.0) g/dl Hct 36.7 L (37.0-47.0) % MCV 83.8 (80.0-100.0) fL MCH 27.9 (25.0-34.0) pg MCHC 33.2 (32.0-36.0) g/dL RDW Std Deviation 45.4 (36.4-46.3) fL RDW Coeff of [place] 14.9 H (11.5-14.5) % Plt Count 295 (130-400) K/uL MPV 10.5 (9.4-12.4) fL Immature Gran % (Auto) 0.6 % Neut % (Auto) 89.5 % Lymph % (Auto) 3.3 % [place] % (Auto) 6.4 % Eos % (Auto) 0.0 % Baso % (Auto) 0.2 % Neut # (Auto) 15.79 H (1.40-6.50) K/uL Lymph # (Auto) 0.59 L (1.20-3.40) K/uL [place] # (Auto) 1.13 H (0.11-0.59) K/uL Eos # (Auto) 0.00 (0.00-0.50) K/uL Baso # (Auto) 0.04 (0.00-0.20) K/uL Immature Gran # (Auto) 0.10 (0.01-0.20) K/uL PT (9.0-12.0) Seconds INR (0.9-1.1) Sodium (136-145) mmol/L Potassium (3.5-5.1) mmol/L Chloride (98-107) mmol/L Carbon Dioxide (21-32) mmol/L Anion Gap (3-11) BUN (6-23) mg/dl Creatinine (0.6-1.2) mg/dl Est Cr Clr Drug Dosing ml/min Est GFR ( Amer) ml/min Est GFR (Non-Af Amer) ml/min BUN/Creatinine Ratio (10-20) Glucose (70-99(Fasting)) mg/dl Lactate (0.4-2.0) mmol/L Calcium (8.6-10.3) mg/dl Magnesium (1.7-2.4) mg/dl Total Bilirubin (0.2-1.0) mg/dl AST (13-39) U/L ALT (7-52) U/L Alkaline Phosphatase (34-104) U/L Total Creatine Kinase (26-192) U/L Troponin I High Sens (0-14) pg/ml Total Protein (6.0-8.3) gm/dl Albumin (3.4-5.0) gm/dl Globulin (2.5-4.0) gm/dl Albumin/Globulin Ratio (0.9-2) Procalcitonin (0-0.5) ng/ml TSH (0.300-4.500) uIu/ml Urine Color Urine Appearance (Clear) Urine pH (4.5-7.5) Ur Specific [place] (1.000-1.030) Urine Protein (Negative) Urine Glucose (UA) (Negative) Urine Ketones (Negative) Urine Blood (Negative) Urine Nitrite (Negative) Urine Bilirubin (Negative) Urine Urobilinogen (Negative) Ur Leukocyte Esterase (Negative) Urine WBC (Auto) (0-5) /hpf Urine RBC (Auto) (0-4) /hpf U Hyaline Cast (Auto) (0-5) /lpf U Epithel Cells (Auto) (0-5) /lpf Urine Bacteria (Auto) (Negative) POC Stool Occult Blood Positive A (Negative) Adenovirus (PCR) Not Detected (NotDetected) B. pertussis DNA (PCR) Not Detected (NotDetected) B.parapertussis DNA PCR Not Detected (NotDetected) C. pneumoniae DNA (PCR) Not Detected (NotDetected) Coronavirus OC43 (PCR) Not Detected (NotDetected) Coronavirus HKU1 (PCR) Not Detected (NotDetected) Coronavirus 229E (PCR) Not Detected (NotDetected) SARS-CoV-2 (PCR) Not Detected (NotDetected) Coronavirus NL63 (PCR) Not Detected (NotDetected) Human Metapneumovir PCR Not Detected (NotDetected) Influenza Type A (PCR) Not Detected (NotDetected) Influenza Type B (PCR) Not Detected (NotDetected) M. pneumoniae (PCR) Not Detected (NotDetected) Parainfluenza 1 (PCR) Not Detected (NotDetected) Parainfluenza 2 (PCR) Not Detected (NotDetected) Parainfluenza 3 (PCR) Not Detected (NotDetected) Parainfluenza 4 (PCR) Not Detected (NotDetected) RSV (PCR) Not Detected (NotDetected) Entero/Rhino (PCR) Not Detected (NotDetected) Blood Type Antibody Screen 01/31/23 01/31/23 01/31/23 Range/Units 11:57 11:57 11:57 WBC (4.8-10.8) K/ul RBC (4.20-5.40) M/uL Hgb (12.0-16.0) g/dl Hct (37.0-47.0) % MCV (80.0-100.0) fL MCH (25.0-34.0) pg MCHC (32.0-36.0) g/dL RDW Std Deviation (36.4-46.3) fL RDW Coeff of [place] (11.5-14.5) % Plt Count (130-400) K/uL MPV (9.4-12.4) fL Immature Gran % (Auto) % Neut % (Auto) % Lymph % (Auto) % [place] % (Auto) % Eos % (Auto) % Baso % (Auto) % Neut # (Auto) (1.40-6.50) K/uL Lymph # (Auto) (1.20-3.40) K/uL [place] # (Auto) (0.11-0.59) K/uL Eos # (Auto) (0.00-0.50) K/uL Baso # (Auto) (0.00-0.20) K/uL Immature Gran # (Auto) (0.01-0.20) K/uL PT (9.0-12.0) Seconds INR (0.9-1.1) Sodium 136 (136-145) mmol/L Potassium 3.4 L (3.5-5.1) mmol/L Chloride 106 (98-107) mmol/L Carbon Dioxide 22 (21-32) mmol/L Anion Gap 8 (3-11) BUN 20 (6-23) mg/dl Creatinine 0.68 (0.6-1.2) mg/dl Est Cr Clr Drug Dosing 85.9 ml/min Est GFR ( Amer) 104.9 ml/min Est GFR (Non-Af Amer) 90.5 ml/min BUN/Creatinine Ratio 29.4 H (10-20) Glucose 133 H (70-99(Fasting)) mg/dl Lactate 0.9 (0.4-2.0) mmol/L Calcium 8.8 (8.6-10.3) mg/dl Magnesium 1.7 (1.7-2.4) mg/dl Total Bilirubin 0.5 (0.2-1.0) mg/dl AST 38 (13-39) U/L ALT 19 (7-52) U/L Alkaline Phosphatase 84 (34-104) U/L Total Creatine Kinase 1455 H (26-192) U/L Troponin I High Sens (0-14) pg/ml Total Protein 7.2 (6.0-8.3) gm/dl Albumin 3.8 (3.4-5.0) gm/dl Globulin 3.4 (2.5-4.0) gm/dl Albumin/Globulin Ratio 1.1 (0.9-2) Procalcitonin (0-0.5) ng/ml TSH 0.863 (0.300-4.500) uIu/ml Urine Color Urine Appearance (Clear) Urine pH (4.5-7.5) Ur Specific [place] (1.000-1.030) Urine Protein (Negative) Urine Glucose (UA) (Negative) Urine Ketones (Negative) Urine Blood (Negative) Urine Nitrite (Negative) Urine Bilirubin (Negative) Urine Urobilinogen (Negative) Ur Leukocyte Esterase (Negative) Urine WBC (Auto) (0-5) /hpf Urine RBC (Auto) (0-4) /hpf U Hyaline Cast (Auto) (0-5) /lpf U Epithel Cells (Auto) (0-5) /lpf Urine Bacteria (Auto) (Negative) POC Stool Occult Blood (Negative) Adenovirus (PCR) (NotDetected) B. pertussis DNA (PCR) (NotDetected) B.parapertussis DNA PCR (NotDetected) C. pneumoniae DNA (PCR) (NotDetected) Coronavirus OC43 (PCR) (NotDetected) Coronavirus HKU1 (PCR) (NotDetected) Coronavirus 229E (PCR) (NotDetected) SARS-CoV-2 (PCR) (NotDetected) Coronavirus NL63 (PCR) (NotDetected) Human Metapneumovir PCR (NotDetected) Influenza Type A (PCR) (NotDetected) Influenza Type B (PCR) (NotDetected) M. pneumoniae (PCR) (NotDetected) Parainfluenza 1 (PCR) (NotDetected) Parainfluenza 2 (PCR) (NotDetected) Parainfluenza 3 (PCR) (NotDetected) Parainfluenza 4 (PCR) (NotDetected) RSV (PCR) (NotDetected) Entero/Rhino (PCR) (NotDetected) Blood Type A Positive Antibody Screen NEGATIVE 01/31/23 01/31/23 01/31/23 Range/Units 11:57 11:57 12:02 WBC (4.8-10.8) K/ul RBC (4.20-5.40) M/uL Hgb (12.0-16.0) g/dl Hct (37.0-47.0) % MCV (80.0-100.0) fL MCH (25.0-34.0) pg MCHC (32.0-36.0) g/dL RDW Std Deviation (36.4-46.3) fL RDW Coeff of [place] (11.5-14.5) % Plt Count (130-400) K/uL MPV (9.4-12.4) fL Immature Gran % (Auto) % Neut % (Auto) % Lymph % (Auto) % [place] % (Auto) % Eos % (Auto) % Baso % (Auto) % Neut # (Auto) (1.40-6.50) K/uL Lymph # (Auto) (1.20-3.40) K/uL [place] # (Auto) (0.11-0.59) K/uL Eos # (Auto) (0.00-0.50) K/uL Baso # (Auto) (0.00-0.20) K/uL Immature Gran # (Auto) (0.01-0.20) K/uL PT 12.0 (9.0-12.0) Seconds INR 1.1 (0.9-1.1) Sodium (136-145) mmol/L Potassium (3.5-5.1) mmol/L Chloride (98-107) mmol/L Carbon Dioxide (21-32) mmol/L Anion Gap (3-11) BUN (6-23) mg/dl Creatinine (0.6-1.2) mg/dl Est Cr Clr Drug Dosing ml/min Est GFR ( Amer) ml/min Est GFR (Non-Af Amer) ml/min BUN/Creatinine Ratio (10-20) Glucose (70-99(Fasting)) mg/dl Lactate (0.4-2.0) mmol/L Calcium (8.6-10.3) mg/dl Magnesium (1.7-2.4) mg/dl Total Bilirubin (0.2-1.0) mg/dl AST (13-39) U/L ALT (7-52) U/L Alkaline Phosphatase (34-104) U/L Total Creatine Kinase (26-192) U/L Troponin I High Sens 28.6 H (0-14) pg/ml Total Protein (6.0-8.3) gm/dl Albumin (3.4-5.0) gm/dl Globulin (2.5-4.0) gm/dl Albumin/Globulin Ratio (0.9-2) Procalcitonin 10.27 H (0-0.5) ng/ml TSH (0.300-4.500) uIu/ml Urine Color Urine Appearance (Clear) Urine pH (4.5-7.5) Ur Specific [place] (1.000-1.030) Urine Protein (Negative) Urine Glucose (UA) (Negative) Urine Ketones (Negative) Urine Blood (Negative) Urine Nitrite (Negative) Urine Bilirubin (Negative) Urine Urobilinogen (Negative) Ur Leukocyte Esterase (Negative) Urine WBC (Auto) (0-5) /hpf Urine RBC (Auto) (0-4) /hpf U Hyaline Cast (Auto) (0-5) /lpf U Epithel Cells (Auto) (0-5) /lpf Urine Bacteria (Auto) (Negative) POC Stool Occult Blood (Negative) Adenovirus (PCR) (NotDetected) B. pertussis DNA (PCR) (NotDetected) B.parapertussis DNA PCR (NotDetected) C. pneumoniae DNA (PCR) (NotDetected) Coronavirus OC43 (PCR) (NotDetected) Coronavirus HKU1 (PCR) (NotDetected) Coronavirus 229E (PCR) (NotDetected) SARS-CoV-2 (PCR) (NotDetected) Coronavirus NL63 (PCR) (NotDetected) Human Metapneumovir PCR (NotDetected) Influenza Type A (PCR) (NotDetected) Influenza Type B (PCR) (NotDetected) M. pneumoniae (PCR) (NotDetected) Parainfluenza 1 (PCR) (NotDetected) Parainfluenza 2 (PCR) (NotDetected) Parainfluenza 3 (PCR) (NotDetected) Parainfluenza 4 (PCR) (NotDetected) RSV (PCR) (NotDetected) Entero/Rhino (PCR) (NotDetected) Blood Type Antibody Screen 01/31/23 Range/Units Unknown WBC (4.8-10.8) K/ul RBC (4.20-5.40) M/uL Hgb (12.0-16.0) g/dl Hct (37.0-47.0) % MCV (80.0-100.0) fL MCH (25.0-34.0) pg MCHC (32.0-36.0) g/dL RDW Std Deviation (36.4-46.3) fL RDW Coeff of [place] (11.5-14.5) % Plt Count (130-400) K/uL MPV (9.4-12.4) fL Immature Gran % (Auto) % Neut % (Auto) % Lymph % (Auto) % [place] % (Auto) % Eos % (Auto) % Baso % (Auto) % Neut # (Auto) (1.40-6.50) K/uL Lymph # (Auto) (1.20-3.40) K/uL [place] # (Auto) (0.11-0.59) K/uL Eos # (Auto) (0.00-0.50) K/uL Baso # (Auto) (0.00-0.20) K/uL Immature Gran # (Auto) (0.01-0.20) K/uL PT (9.0-12.0) Seconds INR (0.9-1.1) Sodium (136-145) mmol/L Potassium (3.5-5.1) mmol/L Chloride (98-107) mmol/L Carbon Dioxide (21-32) mmol/L Anion Gap (3-11) BUN (6-23) mg/dl Creatinine (0.6-1.2) mg/dl Est Cr Clr Drug Dosing ml/min Est GFR ( Amer) ml/min Est GFR (Non-Af Amer) ml/min BUN/Creatinine Ratio (10-20) Glucose (70-99(Fasting)) mg/dl Lactate (0.4-2.0) mmol/L Calcium (8.6-10.3) mg/dl Magnesium (1.7-2.4) mg/dl Total Bilirubin (0.2-1.0) mg/dl AST (13-39) U/L ALT (7-52) U/L Alkaline Phosphatase (34-104) U/L Total Creatine Kinase (26-192) U/L Troponin I High Sens (0-14) pg/ml Total Protein (6.0-8.3) gm/dl Albumin (3.4-5.0) gm/dl Globulin (2.5-4.0) gm/dl Albumin/Globulin Ratio (0.9-2) Procalcitonin (0-0.5) ng/ml TSH (0.300-4.500) uIu/ml Urine Color Dark Yellow Urine Appearance Cloudy A (Clear) Urine pH 7.0 (4.5-7.5) Ur Specific [place] 1.019 (1.000-1.030) Urine Protein Negative (Negative) Urine Glucose (UA) Negative (Negative) Urine Ketones Negative (Negative) Urine Blood 2+ H (Negative) Urine Nitrite Positive A (Negative) Urine Bilirubin Negative (Negative) Urine Urobilinogen Negative (Negative) Ur Leukocyte Esterase 1+ H (Negative) Urine WBC (Auto) >30 H (0-5) /hpf Urine RBC (Auto) 5-10 H (0-4) /hpf U Hyaline Cast (Auto) 1-5 (0-5) /lpf U Epithel Cells (Auto) 0-5 (0-5) /lpf Urine Bacteria (Auto) 2+ H (Negative) POC Stool Occult Blood (Negative) Adenovirus (PCR) (NotDetected) B. pertussis DNA (PCR) (NotDetected) B.parapertussis DNA PCR (NotDetected) C. pneumoniae DNA (PCR) (NotDetected) Coronavirus OC43 (PCR) (NotDetected) Coronavirus HKU1 (PCR) (NotDetected) Coronavirus 229E (PCR) (NotDetected) SARS-CoV-2 (PCR) (NotDetected) Coronavirus NL63 (PCR) (NotDetected) Human Metapneumovir PCR (NotDetected) Influenza Type A (PCR) (NotDetected) Influenza Type B (PCR) (NotDetected) M. pneumoniae (PCR) (NotDetected) Parainfluenza 1 (PCR) (NotDetected) Parainfluenza 2 (PCR) (NotDetected) Parainfluenza 3 (PCR) (NotDetected) Parainfluenza 4 (PCR) (NotDetected) RSV (PCR) (NotDetected) Entero/Rhino (PCR) (NotDetected) Blood Type Antibody Screen Administered Medications Sodium Chloride (Nss) 1,000 mls @ 999 mls/hr IV .Q1H1M ONE Stop: 01/31/23 14:06 Last Admin: 01/31/23 13:21 Dose: 999 mls/hr Documented By: SEAN Discontinued Medications Sodium Chloride (Nss) 1,000 mls @ 999 mls/hr IV .Q1H1M GIACOMO Stop: 01/31/23 12:15 Last Admin: 01/31/23 11:26 Dose: 999 mls/hr Documented By: SEAN Ceftriaxone Sodium (Rocephin) 2,000 mg in 70 mls @ 140 mls/hr IV NOW STA Stop: 01/31/23 13:35 Last Admin: 01/31/23 13:20 Dose: 140 mls/hr Documented By: MNE Imaging Data Radiologist's Impression: Chest X-Ray 01/31/23 11:06 XR chest 1V portable CLINICAL HISTORY: weakness COMPARISON STUDY: Chest CT May 10, 2019. Chest radiograph June 13, 2019 . PET/CT March 10, 2022. FINDINGS: Patient is rotated. There is no pneumothorax or pleural effusion. Cardiomediastinal silhouette is stable. Linear left lower lung densities favor atelectasis or scarring. There is no consolidation to suggest pneumonia. No evidence for pulmonary edema. IMPRESSION: No acute cardiopulmonary findings. No significant change in appearance of the chest. ACT 112: Negative or not required by law. Electronically signed by: Reji Boo M.D. 01/31/2023 12:[address] 01/31/23 11:07 CT OF THE HEAD WITHOUT CONTRAST CLINICAL HISTORY: Weakness. Head and neck squamous cell carcinoma. COMPARISON STUDY: Head CT June 22, 2019. MRI of the brain September 09, 2021. Sinus CT September 08, 2021. MRI of the neck March 08, 2022. PET/CT March 10, 2022. TECHNIQUE: Helical axial images of the head were obtained without IV contrast. Automated exposure control was utilized for the study. A dose lowering technique was utilized adhering to the principles of ALARA. FINDINGS: No acute intracranial hemorrhage is present. Note is made of postopera tive findings within the paranasal sinuses and the left orbit, partially imaged on this examination. A mass-like density within the operative bed measures at least 5.5 x 4.1 cm. This has significantly increased since PET/CT of March 10, 2022. Intracranial extension is noted. Intracranial extension was shown on prior MRI of September 09, 2021. This has also likely increased. There is mild white matter hypodensity within the left frontal lobe. This may reflect vasogenic edema. Possible soft tissue within the sphenoid sinuses is noted. Ventricular system is stable. Basal cisterns are patent. There are no findings to suggest acute dural sinus thrombosis or acute territorial infarct. Additional white matter hypodensities favor small vessel disease. There are no acute calvarial fracture. Left mastoid air cells are opacified. This is unchanged. Sclerosis of the skeletal structures adjacent to the operative bed is again noted. IMPRESSION: 1. No acute intracranial hemorrhage. 2. Postoperative changes within the face, orbits and paranasal sinuses, partially imaged on this exam. Mass-like density within the operative bed which measures at least 5.5 x 4.1 cm which has significantly increased since previous PET/CT. This suggests significant progression of disease recurrence. Intracranial extension again noted, likely slightly increased. ACT 112: Negative or not required by law. Electronically signed by: Reji Boo M.D. 01/31/2023 12:21 PM Discharge Plan Visit Data Chief Complaint: Altered Mental Status ED Provider: Dena Jimenez Discharge Problem: Sepsis, Acute UTI (urinary tract infection), Acute confusion, Leukocytosis, Elevated procalcitonin, Non-ST elevation MS (NSTEMI), Elevated CK, Acute hypokalemia Forms Stand Alone Forms: [facility] [email or web address] Prescriptions Prescriptions: No Action sodium chloride [Saline Mist] 0.65 % aerosol,spray 2 sprays INTRANASAL Q4H acetaminophen 325 mg capsule 650 mg PO Q4H PRN (Reason: pain) Qty: 90 0RF oxycodone 5 mg tablet 5 mg PO BID PRN (Reason: pain) Qty: 60 0RF sulfacetamide-prednisolone 10 %-0.23 % (0.25 %) drops See Rx Instructions .ROUTE .COMPLEX 14 Days Qty: 5 2RF Rx Instructions: 5 drops to left ear BID x 14-days pregabalin [Lyrica] 100 mg capsule 100 mg PO BID Qty: 60 3RF levothyroxine 75 mcg tablet 75 mcg PO DAILY Qty: 90 3RF levofloxacin 500 mg tablet 500 mg PO DAILY 7 Days Qty: 7 0RF Xarelto 20 mg tablet 20 mg PO DAILY Qty: 90 3RF Rx Instructions: must administer with evening meal tobramycin-dexamethasone [TobraDex] 0.3-0.1 % drops,suspension See Rx Instructions .Route .COMPLEX Qty: 10 0RF Rx Instructions: Apply 5 drops to the affected ear twice daily for 14 days albuterol sulfate 90 mcg/actuation HFA aerosol inhaler 2 puff inhalation Q6H PRN (Reason: shortness of breath or wheezing) Qty: 8.5 0RF pilocarpine HCl [Salagen (pilocarpine)] 5 mg tablet 5 mg PO TID Qty: 90 5RF multivitamin Tablet 1 tab PO QAM Referrals Referrals: Pj Ramirez DO [Primary Care Provider] -
[2023-01-31] MEDS ORDERED: SODIUM CHLORIDE 0.9% 1,000 ML IV SCH (11:15)
--- NOTE | 2023-01-31 12:22 | CT Scan Report ---
CT OF THE HEAD WITHOUT CONTRAST CLINICAL HISTORY: Weakness. Head and neck squamous cell carcinoma. COMPARISON STUDY: Head CT June 22, 2019. MRI of the brain September 09, 2021. Sinus CT September 08, 2021. MR I of the neck March 08, 2022. PET/CT March 10, 2022. TECHNIQUE: Helical axial images of the head were obtained without IV contrast. Automated exposure con trol was utilized for the study. A dose lowering technique was utilized adhering to the principles o f ALARA. FINDINGS: No acute intracranial hemorrhage is present. Note is made of postoperative findings within the paranasal sinuses and the left orbit, partially imaged on this examination. A mass-like density w ithin the operative bed measures at least 5.5 x 4.1 cm. This has significantly increased since PET/CT of March 10, 2022. Intracranial extension is noted. Intracranial extension was shown on prior MRI of September 09, 2021. This has also likely increased. There is mild white matter hypodensity within the l eft frontal lobe. This may reflect vasogenic edema. Possible soft tissue within the sphenoid sinuses is noted. Ventricular system is stable. Basal cisterns are patent. There are no findings to suggest a cute dural sinus thrombosis or acute territorial infarct. Additional white matter hypodensities favor small vessel disease. There are no acute calvarial fracture. Left mastoid air cells are opacified. T his is unchanged. Sclerosis of the skeletal structures adjacent to the operative bed is again noted. IMPRESSION: 1. No acute intracranial hemorrhage. 2. Postoperative changes within the face, orbits and paranasal sinuses, partially imaged on this exam . Mass-like density within the operative bed which measures at least 5.5 x 4.1 cm which has significa ntly increased since previous PET/CT. This suggests significant progression of disease recurrence. In tracranial extension again noted, likely slightly increased. ACT 112: Negative or not required by law. Electronically signed by: Reji Boo M.D. 01/31/2023 12:21 PM
[2023-01-31 12:30] LABS: Basophils # (auto) 0.04 K/uL (0.00-0.20); Basophils % (auto) 0.2 %; Hematocrit (blood only) 36.7 % (37.0-47.0); Hemoglobin 12.2 g/dl (12.0-16.0); Immature Granulocytes % (auto) 0.6 %; Lymphocytes # (auto) 0.59 K/uL (1.20-3.40); Lymphocytes % (auto) 3.3 %; Mean Corpuscular Hemoglobin 27.9 pg (25.0-34.0); Mean Corpuscular Hgb Conc 33.2 g/dL (32.0-36.0); Mean Corpuscular Volume 83.8 fL (80.0-100.0); Mean Platelet Volume 10.5 fL (9.4-12.4); Monocytes # (auto) 1.13 K/uL (0.11-0.59); Monocytes % (auto) 6.4 %; Neutrophils # (auto) 15.79 K/uL (1.40-6.50); Neutrophils % (auto) 89.5 %; Platelet Count 295 K/uL (130-400); RDW Coefficient of Variation 14.9 % (11.5-14.5); RDW Standard Deviation 45.4 fL (36.4-46.3); Red Blood Count 4.38 M/uL (4.20-5.40); White Blood Count 17.65 K/ul (4.8-10.8)
[2023-01-31 12:39] LABS: Appearance Urine Cloudy (Clear); Bacteria Urine Automated 2+ (Negative); Bilirubin Urine Negative (Negative); Blood Urine 2+ (Negative); Color Urine Dark Yellow; Epithelial Cell Urine Auto 0-5 /lpf (0-5); Glucose Urine UA Negative (Negative); Ketones Urine Negative (Negative); Leukocyte Esterase Urine 1+ (Negative); Nitrite Urine Positive (Negative); Protein Urine Negative (Negative); Specific Gravity Urine 1.019 (1.000-1.030); Urobilinogen Urine Negative (Negative); WBC Urine Automated >30 /hpf (0-5)
[2023-01-31 12:39] LABS: Adenovirus PCR Not Detected (NotDetected); Bordetella parapertussis PCR Not Detected (NotDetected); Bordetella pertussis PCR Not Detected (NotDetected); Chlamydia pneumoniae PCR Not Detected (NotDetected); Coronavirus 229E PCR Not Detected (NotDetected); Coronavirus CoV-2 (COVID19)PCR Not Detected (NotDetected); Coronavirus HKU1 PCR Not Detected (NotDetected); Coronavirus NL63 PCR Not Detected (NotDetected); Coronavirus OC43PCR Not Detected (NotDetected); Human Metapneumovirus PCR Not Detected (NotDetected); Influenza A PCR Not Detected (NotDetected); Influenza B PCR Not Detected (NotDetected); Mycoplasma pneumoniae PCR Not Detected (NotDetected); Parainfluenza Virus 1 PCR Not Detected (NotDetected); Parainfluenza Virus 2 PCR Not Detected (NotDetected); Parainfluenza Virus 3 PCR Not Detected (NotDetected); Parainfluenza Virus 4 PCR Not Detected (NotDetected); Respiratory Syncytial VirusPCR Not Detected (NotDetected); Rhinovirus/Enterovirus PCR Not Detected (NotDetected)
[2023-01-31 12:54] LABS: Albumin Globulin Ratio 1.1 (0.9-2); Albumin Level 3.8 gm/dl (3.4-5.0); BUN Creatinine Ratio 29.4 (10-20); Bilirubin,Total 0.5 mg/dl (0.2-1.0); Calcium 8.8 mg/dl (8.6-10.3); Creatinine Clr Calc Pharmacy 85.9 ml/min; Est GFR (African American) 104.9 ml/min; Est GFR (Non-African American) 90.5 ml/min; Globulin 3.4 gm/dl (2.5-4.0); Magnesium 1.7 mg/dl (1.7-2.4); Potassium 3.4 mmol/L (3.5-5.1); Total Protein 7.2 gm/dl (6.0-8.3)
--- NOTE | 2023-01-31 12:59 | XRay Report ---
XR chest 1V portable CLINICAL HISTORY: weakness COMPARISON STUDY: Chest CT May 10, 2019. Chest radiograph June 13, 2019. PET/CT March 10, 2022. FINDINGS: Patient is rotated. There is no pneumothorax or pleural effusion. Cardiomediastinal silhoue tte is stable. Linear left lower lung densities favor atelectasis or scarring. There is no consolidat ion to suggest pneumonia. No evidence for pulmonary edema. IMPRESSION: No acute cardiopulmonary findings. No significant change in appearance of the chest. ACT 112: Negative or not required by law. Electronically signed by: Reji Boo M.D. 01/31/2023 12:57 PM
[2023-01-31 13:01] LABS: INR 1.1 (0.9-1.1)
[2023-01-31] MEDS ORDERED: SODIUM CHLORIDE 0.9% 1,000 ML IV ONE (13:06)
[2023-01-31] MEDS ORDERED: cefTRIAXone SODIUM 2,000 MG/70 ML BAG IV STA (13:06)
[2023-01-31 13:09] LABS: Thyroid Stimulating Hormone 0.863 uIu/ml (0.300-4.500)
--- NOTE | 2023-01-31 14:07 | History & Physical Report ---
Date of Service January 31, 2023 Assessment & Plan (1) Goals of care, counseling/discussion: Plan: Patient currently wishes to be full resuscitation although this does not fit with her goals of care suggested by her recent palliative care note - will consult palliative for ongoing discussions (2) Sepsis: Plan: SIRS criteria with elevated WBC, HR and HR. Lactate 0.9 - no need to repeat Suspected source either open wound on face vs. UTI. Vancomycin added to cover prior MRSA. Broaden coverage for UTI switch ceftriaxone to cefepime. Follow up urine and blood cultures. (3) Fall: Plan: Unclear cause - monitor on telemetry Notably patient has pain in most of her body - I have held off further imaging as treatment for sepsis more important but may need further imaging if still having pain. (4) Hematochezia: Plan: Serial hemoglobin - EMS note reports unclear if dirt or blood but FOB positive in the ER Transfuse for Hgb < 9. 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 On immunotherapy then the AdPnP trial. She received two cycles of injection. At her third injection appointment, she preseted with increased confusion and enuresis. She was sent othe ER that day. She has decided not to pursue treatment since then. (7) Open wound of face: Plan: Consult wound care since they are following Suggest covering with eye patch as highlighted in palliative note - no clear pus coming from this (8) Primary squamous cell carcinoma of ethmoidal sinus: (9) Acute confusion: Plan: Suspect secondary to infection. Improving over her course in the ER and asking for her Oxycodone back given clear reason for her head pain with her cancer which appears reasonable. (10) Elevated CK: Plan: Suggestive of rhabdomyolysis after been found on the ground for up to 15 hours. Continue NSS/KCl and repeat iwth AM labs Plan VTE Prophylaxis - holding chemical due to hematochezia Diet - regular, pureed Disposition - admit to med/tele Admission and Anticipated Discharge Date Admission Date: January 31, 2023 History of Present Illness Chief Complaint: Found on ground covered in blood Primary Care Provider: Pj Ramirez DO Michelle Jacobson is a 67 year old female with open wound in her left eye from primary squamous cell carcinoma (currently not pursuing further treatment) who presents to the ER via ALS from home. She was found face down on the ground at home, lethargic, altered mental state, naked, covered in blood. Currently on Eliquis. Reportedly feeling her normal self yesterday. She is unclear on what happened today. Unclear if she took her medications this morning. Per EMS note she has been having hematochezia for a few days. Unable to get any further history from the patient. Daughter at bedside only knows her father found her down today - no knowledge of any acute deterioration over last few days. Allergies Allergy/AdvReac Type Severity Reaction Status Date / Time No Known Drug Allergies Allergy Unknown Verified 12/05/22 09:08 Home Medications Medication Instructions Recorded Confirmed Type acetaminophen 325 mg capsule 650 mg PO Q4H PRN pain #90 caps 07/23/19 01/31/23 Rx multivitamin 1 tab PO QAM 03/26/20 01/31/23 History albuterol sulfate 90 mcg/actuation 2 puff inhalation Q6H PRN 08/26/22 01/31/23 Rx aerosol inhaler shortness of breath or wheezing #8.5 grams levothyroxine 75 mcg tablet 75 mcg PO DAILYBB 01/31/23 01/31/23 History oxycodone 10 mg tablet 10 mg PO Q4 PRN Severe Pain. 01/31/23 01/31/23 History pregabalin 100 mg capsule (Lyrica) 100 mg PO AMHS 01/31/23 01/31/23 History rivaroxaban 20 mg tablet (Xarelto) 20 mg PO QPM 01/31/23 01/31/23 History Past Med/Surg History Medical History Chronic ear infection DVT (deep venous thrombosis) B/L acute PE's with RLE greater saphenous vein thrombus on indefinite AC d/t malignancy (2017) during chemotherapy History of anemia Hx pulmonary embolism Hypertension Hypothyroidism Lesion or mass of paranasal sinuses SCC s/p left ethmoid status post chemo (completed 2018)/radiation followed by orbital exenteration, flap reconstruction Migraine headache Peripheral neuropathy Pulmonary emboli (09/2017) B/L acute PE's with RLE greater saphenous vein thrombus on indefinite AC d/t malignancy (2017) during chemotherapy Surgical History 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, left orbital exenteration, and right scapular tip flap History of sinus surgery (multiple) sinus/eye surgeries r/t the cancer (~) Family History Unknown Heart disease Brother Diabetes Father Myocardial infarction Sinusitis Grandfather Hypertension Stroke Mother Stroke Other Cellulitis Denies family history of Clotting disorder Social History Smoking Status: Never smoker Second Hand Exposure: Yes (in past 20 yrs ago); Do You Dip or Chew Tobacco: No; Hx Alcohol Use: No Hx Substance Use: No Preferred Language: Argentine Communication Ability: Effective Shop Blacksmith Required: No Beliefs That Will Affect Care: Jain Jain Beliefs: pt states beliefs inpact healthcare decisions but does not specify marital status: Current Living Situation: Spouse 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 Feels Safe at Home: Yes Safety Concerns: Feels Safe At This Time Diet: regular caffeine: Yes Assistive Devices: Glasses Review of Systems Review of Systems: All systems reviewed & are unremarkable except as noted in HPI & below Physical Exam Constitutional: well developed; no acute distress Eyes: Does not open right eye, hole in head involving left eye socket ENMT: external ear and nose normal, oropharynx normal Respiratory: normal respiratory effort, lungs clear to auscultation Cardiovascular: RRR, no murmur, no edema Gastrointestinal (Abdomen): normal bowel sounds, soft, nontender, no hepatosplenomegaly Skin: No areas of cellulitis noted Neurologic: moves all extremities and awake; not confused Psychiatric: Orientation: alert and oriented to person; + not oriented to place and + not oriented to time Genitourinary: + CVA tenderness (bilateral) Results & Data Results & Data Vital Signs (Past 12 Hours) Vital Signs Temp Pulse Resp BP Pulse Ox O2 Del Method 01/31/23 13:01 95 H 143/88 H 96 01/31/23 12:30 94 H 153/96 H 96 01/31/23 13:07 95 Room Air 01/31/23 12:09 94 H 159/95 H 96 01/31/23 11:30 101 H 148/102 H 94 01/31/23 11:06 113 H 144/104 H 97 01/31/23 11:23 102 H 95 Room Air 01/31/23 11:17 36.7 C 100 H 20 144/104 H 94 Room Air 01/31/23 11:08 104 H Laboratory Results Abnormal lab results 01/31/23 01/31/23 01/31/23 Range/Units 11:22 11:57 11:57 WBC 17.65 H (4.8-10.8) K/ul Hct 36.7 L (37.0-47.0) % RDW Coeff of [place] 14.9 H (11.5-14.5) % Neut # (Auto) 15.79 H (1.40-6.50) K/uL Lymph # (Auto) 0.59 L (1.20-3.40) K/uL [place] # (Auto) 1.13 H (0.11-0.59) K/uL Potassium 3.4 L (3.5-5.1) mmol/L BUN/Creatinine Ratio 29.4 H (10-20) Glucose 133 H (70-99(Fasting)) mg/dl Total Creatine Kinase 1455 H (26-192) U/L Troponin I High Sens (0-14) pg/ml Procalcitonin (0-0.5) ng/ml Urine Appearance (Clear) Urine Blood (Negative) Urine Nitrite (Negative) Ur Leukocyte Esterase (Negative) Urine WBC (Auto) (0-5) /hpf Urine RBC (Auto) (0-4) /hpf Urine Bacteria (Auto) (Negative) POC Stool Occult Blood Positive A (Negative) 01/31/23 01/31/23 01/31/23 Range/Units 11:57 12:02 Unknown WBC (4.8-10.8) K/ul Hct (37.0-47.0) % RDW Coeff of [place] (11.5-14.5) % Neut # (Auto) (1.40-6.50) K/uL Lymph # (Auto) (1.20-3.40) K/uL [place] # (Auto) (0.11-0.59) K/uL Potassium (3.5-5.1) mmol/L BUN/Creatinine Ratio (10-20) Glucose (70-99(Fasting)) mg/dl Total Creatine Kinase (26-192) U/L Troponin I High Sens 28.6 H (0-14) pg/ml Procalcitonin 10.27 H (0-0.5) ng/ml Urine Appearance Cloudy A (Clear) Urine Blood 2+ H (Negative) Urine Nitrite Positive A (Negative) Ur Leukocyte Esterase 1+ H (Negative) Urine WBC (Auto) >30 H (0-5) /hpf Urine RBC (Auto) 5-10 H (0-4) /hpf Urine Bacteria (Auto) 2+ H (Negative) POC Stool Occult Blood (Negative) Diagnostic Findings CT OF THE HEAD WITHOUT CONTRAST CLINICAL HISTORY: Weakness. Head and neck squamous cell carcinoma. COMPARISON STUDY: Head CT June 22, 2019. MRI of the brain September 09, 2021. Sinus CT September 08, 2021. MRI of the neck March 08, 2022. PET/CT March 10, 2022. TECHNIQUE: Helical axial images of the head were obtained without IV contrast. Automated exposure control was utilized for the study. A dose lowering technique was utilized adhering to the principles of ALARA. FINDINGS: No acute intracranial hemorrhage is present. Note is made of postoperative findings within the paranasal sinuses and the left orbit, partially imaged on this examination. A mass-like density within the operative bed measures at least 5.5 x 4.1 cm. This has significantly increased since PET/CT of March 10, 2022. Intracranial extension is noted. Intracranial extension was shown on prior MRI of September 09, 2021. This has also likely increa sed. There is mild white matter hypodensity within the left frontal lobe. This may reflect vasogenic edema. Possible soft tissue within the sphenoid sinuses is noted. Ventricular system is stable. Basal cisterns are patent. There are no findings to suggest acute dural sinus thrombosis or acute territorial infarct. Additional white matter hypodensities favor small vessel disease. There are no acute calvarial fracture. Left mastoid air cells are opacified. This is unchanged. Sclerosis of the skeletal structures adjacent to the operative bed is again noted. IMPRESSION: 1. No acute intracranial hemorrhage. 2. Postoperative changes within the face, orbits and paranasal sinuses, partially imaged on this exam. Mass-like density within the operative bed which measures at least 5.5 x 4.1 cm which has significantly increased since previous PET/CT. This suggests significant progression of disease recurrence. Intracranial extension again noted, likely slightly increased. XR chest 1V portable CLINICAL HISTORY: weakness COMPARISON STUDY: Chest CT May 10, 2019. Chest radiograph June 13, 2019. PET/CT March 10, 2022. FINDINGS: Patient is rotated. There is no pneumothorax or pleural effusion. Cardiomediastinal silhouette is stable. Linear left lower lung densities favor atelectasis or scarring. There is no consolidation to suggest pneumonia. No evidence for pulmonary edema. IMPRESSION: No acute cardiopulmonary findings. No significant change in appearance of the chest. CT angio abdomen pelvis w con CLINICAL HISTORY: 67 years-old Female with rectal bleed acute rectal bleeding COMPARISON STUDY: PET/CT 03/10/2022 TECHNIQUE: Following the IV administration of 118 cc of Optiray, CT angiogram of the abdomen and pelvis was performed from the lung bases the proximal femora. Images are reviewed in the axial, sagittal, and coronal planes. 3-D MIPS images are created and assessed. All measurements were obtained according to NASCET criteria. IV contrast was administered without complication. A dose lowering technique was utilized adhering to the principles of ALARA. FINDINGS: CTA: Mild cardiomegaly. Mild atherosclerosis of the thoracic aorta without aneurysm or dissection. Patent iliac and imaged femoral arteries. The arteries of the celiac trunk, superior and inferior mesenteric arteries widely patent. The bilateral renal arteries are also patent. CT ABDOMEN/PELVIS: Mild bibasilar atelectasis. No free air. Unremarkable spleen, pancreas and adrenal glands. The gallbladder and liver appear unremarkable. Mild nonspecific bilateral perinephric stranding. There is symmetric enhancement of the kidneys without hydroureteronephrosis. Decompressed bladder with wall thickening and Greer catheter in place. Air within the bladder lumen. Unremarkable appearance of uterus. No lymphadenopathy. Small hiatal hernia. No bowel obstruction or bowel wall thickening identified. There is moderate colonic fecal retention. No ascites or mesenteric inflammation. Normal appendix. Unremarkable soft tissues. No acute fracture. Degenerative changes of the shoulders and spine. IMPRESSION: 1. Unremarkable CTA. 2. No bowel obstruction or bowel wall thickening. 3. No pneumoperitoneum. 4. Moderate colonic fecal retention. 5. Small hiatal hernia. 6. Additional findings as above. Medications Administered ER Medications Given: Normal saline 1000ml x2 Ceftriaxone 2000mg IV Vancomycin 1750mg IV ECG Rate (beats per minute): 102 Rhythm: sinus tachycardia Findings: no acute ischemic change Comparison ECG Date: from (July 22, 2020) Change: no significant change Code Status & VTE Plan Code Status Full - discussed with patient and daughter at baseline although this doesn't appear to fit with conversations with her palliative care note although it does not explicitly say DNR VTE Prophylaxis Plan VTE Prophylaxis will be ordered: No PG Care Time/CCT Total # of Minutes Spent Total Time Spent with Patient: Total time spent is greater than 50% in coordination of care (as documented) at patient's floor/unit and/or counseling patient: Coding Level of Care Code 03716 INT INP/OBS CARE 3/75MIN Diagnoses Goals of care, counseling/discussion Z71.89 Sepsis A41.9 Fall W19.XXXA Hematochezia K92.1 Acute UTI (urinary tract infection) N39.0 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
[2023-01-31] MEDS ORDERED: VANCOMYCIN CONSULT ACTIVE PRN (14:25)
[2023-01-31] MEDS ORDERED: VANCOMYCIN HCL 1,750 MG in SODIUM CHLORIDE 0.9% 500 ML IV ONE (14:45)
[2023-01-31] MEDS ORDERED: OPTIRAY 320 500ml IV ONE (15:39)
--- NOTE | 2023-01-31 16:00 | Electrocardiogram Report ---
Test Reason : Blood Pressure : / mmHG Vent. Rate : 102 BPM Atrial Rate : 102 BPM P-R Int : 192 ms QRS Dur : 086 ms QT Int : 362 ms P-R-T Axes : 065 059 035 degrees QTc Int : 471 ms Sinus tachycardia Possible Left atrial enlargement Borderline ECG When compared with ECG of 22-JUL-2020 10:53, Vent. rate has increased BY 42 BPM Confirmed by Drew Hartley ([id number]) on 01/31/2023 4:00:06 PM Referred By: Confirmed By:Drew Hartley
--- NOTE | 2023-01-31 16:10 | CT Scan Report ---
CT angio abdomen pelvis w con CLINICAL HISTORY: 67 years-old Female with rectal bleed acute rectal bleeding COMPARISON STUDY: PET/CT 03/10/2022 TECHNIQUE: Following the IV administration of 118 cc of Optiray, CT angiogram of the abdomen and pelv is was performed from the lung bases the proximal femora. Images are reviewed in the axial, sagittal, and coronal planes. 3-D MIPS images are created and assessed. All measurements were obtained accordi ng to NASCET criteria. IV contrast was administered without complication. A dose lowering technique was utilized adhering to the principles of ALARA. FINDINGS: CTA: Mild cardiomegaly. Mild atherosclerosis of the thoracic aorta without aneurysm or dissection. Patent iliac and imaged femoral arteries. The arteries of the celiac trunk, superior and inferior mesenteric arteries widely patent. The bilateral renal arteries are also patent. CT ABDOMEN/PELVIS: Mild bibasilar atelectasis. No free air. Unremarkable spleen, pancreas and adrenal glands. The gallbl adder and liver appear unremarkable. Mild nonspecific bilateral perinephric stranding. There is symme tric enhancement of the kidneys without hydroureteronephrosis. Decompressed bladder with wall thicken ing and Greer catheter in place. Air within the bladder lumen. Unremarkable appearance of uterus. No lymphadenopathy. Small hiatal hernia. No bowel obstruction or bowel wall thickening identified. There is moderate colonic fecal retention. No ascites or mesenteric inflammation. Normal appendix. Unremar kable soft tissues. No acute fracture. Degenerative changes of the shoulders and spine. IMPRESSION: 1. Unremarkable CTA. 2. No bowel obstruction or bowel wall thickening. 3. No pneumoperitoneum. 4. Moderate colonic fecal retention. 5. Small hiatal hernia. 6. Additional findings as above. ACT 112: Negative or not required by law. The above report was generated using voice recognition software. It may contain grammatical, syntax o r spelling errors. Electronically signed by: Jus Robertson M.D. 01/31/2023 4:08 PM
--- NOTE | 2023-01-31 20:35 | Pharmacy Report ---
Pharmacy PK ABX Note - Date of Service January 31, 2023 - Assessment and Plan Assessment 67 year old F receiving vancomycin/cefepime for treatment of cellulitis. Pertinent microbiologic data includes: BLOOD culture currently pending. Day # 1 of antimicrobial therapy. Plan Vancomycin * Loading dose: 1750 mg IV x 1 * Maintenance dose: 1250 mg IV every 12 hours * Regimen is predicted to achieve target AUC/JOON of 400-600 mg/L.hr * Trough to be ordered if continued > 48 hours Pharmacy will continue to follow and will adjust dose/frequency as necessary. Thank you. Pharmacy has transitioned to AUC monitoring for vancomycin. AUC/JOON is the preferred PK/PD target and is associated with decreased risk of nephrotoxicity compared to traditional trough targets.
[2023-01-31] MEDS: CEFEPIME 2,000 MG in SYRINGE 0 ML IV SCH (20:50)
[2023-01-31] MEDS: NSS + 20MEQ KCL 20 MEQ/1,000 ML BAG IV SCH (20:50)
[2023-01-31] MEDS: PREGABALIN 100 MG CAP PO SCH (21:24)
[2023-01-31] MEDS: DOCUSATE SODIUM/SENNA 50/8.6MG TAB PO SCH (21:24)
[2023-01-31 23:27] LABS: Hematocrit (blood only) 35.8 % (37.0-47.0); Hemoglobin 11.7 g/dl (12.0-16.0)
[2023-02-01] MEDS: VANCOMYCIN HCL 1,250 MG in SODIUM CHLORIDE 0.9% 250 ML IV SCH ×2 (02:21→15:46)
[2023-02-01] MEDS: CEFEPIME 2,000 MG in SYRINGE 0 ML IV SCH ×2 (03:58→14:33)
[2023-02-01 07:32] LABS: Basophils # (auto) 0.04 K/uL (0.00-0.20); Basophils % (auto) 0.4 %; Eosinophils # (auto) 0.11 K/uL (0.00-0.50); Hematocrit (blood only) 35.5 % (37.0-47.0); Hemoglobin 11.5 g/dl (12.0-16.0); Immature Granulocytes # (auto) 0.04 K/uL (0.01-0.20); Immature Granulocytes % (auto) 0.4 %; Lymphocytes # (auto) 0.67 K/uL (1.20-3.40); Lymphocytes % (auto) 6.3 %; Mean Corpuscular Hemoglobin 27.8 pg (25.0-34.0); Mean Corpuscular Hgb Conc 32.4 g/dL (32.0-36.0); Mean Platelet Volume 10.1 fL (9.4-12.4); Monocytes % (auto) 9.3 %; Neutrophils # (auto) 8.86 K/uL (1.40-6.50); Neutrophils % (auto) 82.6 %; Platelet Count 262 K/uL (130-400); RDW Coefficient of Variation 14.9 % (11.5-14.5); Red Blood Count 4.13 M/uL (4.20-5.40); White Blood Count 10.72 K/ul (4.8-10.8)
[2023-02-01 07:46] LABS: Albumin Level 3.4 gm/dl (3.4-5.0); Bilirubin,Total 0.5 mg/dl (0.2-1.0); Calcium 8.4 mg/dl (8.6-10.3); Magnesium 1.8 mg/dl (1.7-2.4); Potassium 3.9 mmol/L (3.5-5.1)
[2023-02-01 07:53] LABS: BUN Creatinine Ratio 17.5 (10-20); Creatinine Clr Calc Pharmacy 92.7 ml/min; Est GFR (African American) 107.6 ml/min; Est GFR (Non-African American) 92.8 ml/min; Globulin 3.3 gm/dl (2.5-4.0); Phosphorus 1.9 mg/dl (2.5-4.9); Total Protein 6.7 gm/dl (6.0-8.3)
[2023-02-01] MEDS: NSS + 20MEQ KCL 20 MEQ/1,000 ML BAG IV SCH ×2 (08:18→22:16)
[2023-02-01] MEDS: LEVOTHYROXINE SODIUM 75 MCG TABLET PO SCH (08:21)
[2023-02-01] MEDS: MULTIVITAMIN TAB PO SCH (08:21)
[2023-02-01] MEDS: POLYETHYLENE (MIRALAX) 17 GM PACK PO SCH (08:22)
[2023-02-01] MEDS: PREGABALIN 100 MG CAP PO SCH ×2 (08:43→22:16)
--- NOTE | 2023-02-01 13:25 | Hospitalist Progress Note ---
Date of Service February 01, 2023 Assessment & Plan (1) Sepsis: Plan: SIRS criteria with elevated WBC, HR with acute encephalopathy, elevated procal, normal lactate Suspected source facial infection in sinuses with enlarging tumor with extension into brain could be meningitis or encephalitis but is much improved today with mentation Also with UTI. Pt agreeable to facial CT but does not want any surgery to face even if indicated -continue Vancomycin to cover for h/o prior MRSA -change Cefepime to ceftriaxone as Cefepime not first choice for [employer] infection given extension of her tumor into brain and possibility of facial and deep space infection -UTI covered with ceftriaxone and Vanco -Follow up urine and blood cultures. 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 On immunotherapy then the AdPnP trial. She received two cycles of injection. At her third injection appointment, she preseted with increased confusion and enuresis. This was in 2021 and she has decided not to pursue treatment since then. Tumor is significantly enlarged since last year Sees Palliative outpt for pain medication Wants to remain Full COde for now as she wants to "see her son again" as per Palliative consulted for goals of care discussion but seems like pt not yet accepting of hospice (5) Open wound of face: Plan: Consult wound care since they are following secondary to sinus CA (6) Vaginal bleeding: Plan: new for her, post-menopausal check pelvic US is on (7) Facial infection: Plan: as above (8) Cancer related pain: Plan: continue home oxycodone start magic mouthwash for open sores in mouth with mouth pain continue Lyrica (9) Mouth ulcer: Plan: as above (10) Rhabdomyolysis: Plan: CK elevated after been found on the ground for up to 15 hours. CK up today to 1999 slightly along with AST , renal function normal continue IVFs follow CK in AM no pain anywhere (11) Hypothyroidism: Plan: continue LT4 (12) Goals of care, counseling/discussion: Plan: Patient currently wishes to be full resuscitation although this does not fit with her goals of care suggested by her recent palliative care note - will consult palliative for ongoing discussions Plan VTE Prophylaxis - holding chemical due to bleeding Diet - regular, pureed Disposition - continued stay med/tele Admission and Anticipated Discharge Date Admission Date: January 31, 2023 Subjective Pt improved today. reports left side of nose and cheek was more swollen and red yesterday and now down. She is mentating appropriately today but was altered yesterday when he found her on the ground-confused, saying strange things, and having vaginal bleeding for the last few days.No blood in stool. No vomiting. Also has blood draining from her defect in her face. Has had a headache which is now gone and has not had a headache in a long time. Has chronic neck pain but nothing worse than her usual. Overall does not want any surgery or treatments to do with her cancer, but is ok with imaging and IV abx, pain control. No CP or SOB, has had a mild cough. No abd pains or urinary symptoms she knows of. does report she was c/o abdominal discomfort earlier in the week. Physical Exam Constitutional: WD/WN, vitals as above Eyes: + eyelid abnormality (OS enucleated) ENMT: large open defect in left frontal and orbital region with dried bloody drainage, mucoid dried substance visualized back inside defect. Nose is deformed and loss of bone of nose. Left face with mild erythema and induration, fluctuance Mouth with ulceration hard palate and decayed and missing teeth, very dry MM Respiratory: normal respiratory effort, lungs clear to auscultation Cardiovascular: RRR, no murmur, no edema Gastrointestinal (Abdomen): normal bowel sounds, soft, nontender, no hepatosplenomegaly Musculoskeletal: no cyanosis or clubbing, extremities motor strength 5/5 Skin: no rashes, warm and dry Neurologic: awake; no focal motor deficits and not confused Psychiatric: A+Ox3, euthymic affect Genitourinary: Greer in place with clear yellow urine dried blood on vulva, no blood in perianal region no obvious external masses on vulva Results & Data Results & Data Vital Signs (Past 12 Hours) Vital Signs Pulse Resp BP Pulse Ox O2 Del Method 02/01/23 09:00 84 18 156/84 H 96 Room Air 02/01/23 10:33 78 12 147/84 H 95 Room Air 02/01/23 06:00 71 16 151/85 H 93 Room Air 02/01/23 03:00 76 16 129/79 96 Room Air 02/01/23 04:20 76 16 143/72 H 95 Room Air Laboratory Results CBC, CMP, CK, mag, phos reviewed PG Care Time/CCT Total # of Minutes Spent Total Time Spent with Patient: Total time spent is greater than 50% in coordination of care (as documented) at patient's floor/unit and/or counseling patient: Coding Level of Care Code 73778 SUB INP/OBS CARE 3/50MIN Diagnoses Sepsis A41.9 Fall W19.XXXA Acute UTI (urinary tract infection) N39.0 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
[2023-02-01] MEDS ORDERED: cefTRIAXone SODIUM 2,000 MG in DEXTROSE 5 % MINI-B 50 ML IV SCH (13:30)
[2023-02-01] MEDS: FIRST - Mouthwash BLM 119 ML PO SCH ×2 (14:44→22:16)
[2023-02-01] MEDS ORDERED: OPTIRAY 320 100ml IV ONE (15:19)
--- NOTE | 2023-02-01 15:57 | CT Scan Report ---
CT facial bones w con CT DOSE: CLINICAL HISTORY: sinus cancer,suspect deep facial infection TECHNIQUE: Multiaxial CT images of the facial bones were performed following the intravenous administ ration of contrast. Sagittal and coronal reformations were performed at the workstation by the radiol ogist. A dose lowering technique was utilized adhering to the principles of ALARA. COMPARISON STUDY: Head CT 01/31/2023. PET/CT 03/10/2022. FINDINGS: Compared to the prior PET/CT there has been interval development of a large mass centered w ithin the left facial resection cavity. This mass measures approximately 6.1 x 5.6 cm. This results i n partial destruction of the adjacent bony structures including intracranial extension through the le ft cribriform plate/orbital roof and into the left frontal lobe/dura. This is better assessed on 01/[address] There is progressive bony destruction involving the left hard palate/alveolar plate s econdary to this mass. There are few surgical clips along the lateral edge of this lesion. Surgical c lips within the upper left neck from prior dissection. Mild thickening of the mucosal surfaces of the oropharynx and hypopharynx which could be due to prior radiation change. Focal area of fluid and gas noted within the medial aspect of this lesion which measures approximately 3.8 x 1.8 cm. This favors central necrosis. Secondary infection would be difficult to exclude by imaging. This mass also invad es into the left nasal soft tissues. The left globe is surgically absent. The left mastoid air cells and left middle ear cavity are completely opacified. Moderate mucosal thickening within the residual sphenoid sinus and ethmoid air cells. There is near complete opacification the right maxillary sinus. IMPRESSION: 1. Compared to the prior PET/CT there has been interval development of a large mass centered within t he left facial resection cavity which measures 6.1 x 5.6 cm. This is consistent with recurrent malign milvia. This results in partial destruction of the adjacent bony structures including intracranial exte nsion as described above. 2. Focal area of fluid and gas noted within the medial aspect of this lesion which measures approxima tely 3.8 x 1.8 cm. This favors central necrosis. Secondary infection would be difficult to exclude by imaging. 3. Sinus disease as described above. There is also complete opacification the left middle ear cavity and mastoid air cells. ACT 112: Negative or not required by law. Electronically signed by: Jose Daniel Hartman M.D. 02/01/2023 3:55 PM
[2023-02-01] MEDS ORDERED: hydrALAZINE HCL 20 MG/ML VIAL IV ONE (17:24)
--- NOTE | 2023-02-01 18:42 | Ultrasound Report ---
US pelvic complete, US transvaginal HISTORY: 67 years-old Female vaginal bleeding,post-menopausal acute postmenopausal vaginal bleeding COMPARISON: CTA 01/31/2023 TECHNIQUE: Multiple real-time sonographic images of the deep were obtained transabdominally and dhaliwal svaginally assessingpelvic grayscale appearance, color and spectral flow structures FINDINGS: TRANSABDOMINAL: Uterus measures 4.7 x 2.0 cm. Endometrium is 2 mm in thickness. Scattered bowel gas limits the study. TRANSVAGINAL: Retroflexed uterus measures 5.7 x 2.6 x 3.1 cm. Endometrium measures 4 mm in thickness. There is a he terogeneous ovoid hypoechoic structure with minimal central color flow involving the anterior uterus measuring 2.1 x 2.0 x 1.6 cm which may be subserosal. This is not well seen on the comparison CT. Nonvisualization of the ovaries. No significant free pelvic fluid. IMPRESSION: 1. Probable uterine fibroid measures 2.1 cm. 2. No pathologic thickening of the postmenopausal endometrium. 3. Nonvisualization of the ovaries. ACT 112: Negative or not required by law. The above report was generated using voice recognition software. It may contain grammatical, syntax o r spelling errors. Electronically signed by: Jus Robertson M.D. 02/01/2023 6:40 PM
[2023-02-01] MEDS: DOCUSATE SODIUM/SENNA 50/8.6MG TAB PO SCH (22:14)
[2023-02-02] MEDS ORDERED: LINEZOLID 600 MG TAB PO ONE (01:07)
[2023-02-02] MEDS ORDERED: POTASSIUM CHLORIDE CRTAB 20 MEQ TABCR PO ONE (01:08)
--- NOTE | 2023-02-02 01:11 | Communication Note ---
Date of Service: February 02, 2023 Received notice patient is refusing phototypesetting equipment monitor and removed it herself, refusing IV fluids. Received notice lost IV access on patient, IV team called unable to replace peripheral IV at this time. Patient due for 2am dose of vancomycin for concern sepsis 2/2 skin infection given prior history of MRSA, none noted this admission. Will hold this dose vancomycin and give 1 dose linezolid PO 600mg. Will also given 1 dose KCl 20mg PO. IV team to replace access in the morning.
[2023-02-02] MEDS: oxyCODONE HCL IR 5 MG TAB (IMMEDIATE RELEASE) PO PRN ×4 (06:22→23:34)
[2023-02-02] MEDS: LEVOTHYROXINE SODIUM 75 MCG TABLET PO SCH (06:24)
[2023-02-02 06:27] LABS: Basophils # (auto) 0.04 K/uL (0.00-0.20); Basophils % (auto) 0.3 %; Eosinophils # (auto) 0.18 K/uL (0.00-0.50); Eosinophils % (auto) 1.6 %; Hematocrit (blood only) 35.5 % (37.0-47.0); Hemoglobin 12.1 g/dl (12.0-16.0); Immature Granulocytes # (auto) 0.04 K/uL (0.01-0.20); Immature Granulocytes % (auto) 0.3 %; Lymphocytes # (auto) 0.85 K/uL (1.20-3.40); Lymphocytes % (auto) 7.4 %; Mean Corpuscular Hemoglobin 28.1 pg (25.0-34.0); Mean Corpuscular Hgb Conc 34.1 g/dL (32.0-36.0); Mean Corpuscular Volume 82.6 fL (80.0-100.0); Mean Platelet Volume 10.3 fL (9.4-12.4); Monocytes # (auto) 1.24 K/uL (0.11-0.59); Monocytes % (auto) 10.8 %; Neutrophils # (auto) 9.18 K/uL (1.40-6.50); Neutrophils % (auto) 79.6 %; Platelet Count 281 K/uL (130-400); RDW Coefficient of Variation 14.7 % (11.5-14.5); RDW Standard Deviation 44.2 fL (36.4-46.3); White Blood Count 11.53 K/ul (4.8-10.8)
[2023-02-02 06:56] LABS: Albumin Globulin Ratio 1.1 (0.9-2); Albumin Level 3.7 gm/dl (3.4-5.0); BUN Creatinine Ratio 13.8 (10-20); Bilirubin,Total 0.4 mg/dl (0.2-1.0); Calcium 9.4 mg/dl (8.6-10.3); Est GFR (African American) 106.5 ml/min; Est GFR (Non-African American) 91.9 ml/min; Globulin 3.5 gm/dl (2.5-4.0); Potassium 3.8 mmol/L (3.5-5.1); Total Protein 7.2 gm/dl (6.0-8.3)
[2023-02-02] MEDS: NSS + 20MEQ KCL 20 MEQ/1,000 ML BAG IV SCH ×3 (10:33→23:19)
[2023-02-02] MEDS: FIRST - Mouthwash BLM 119 ML PO SCH ×3 (10:34→23:13)
[2023-02-02] MEDS: POLYETHYLENE (MIRALAX) 17 GM PACK PO SCH (10:35)
[2023-02-02] MEDS: MULTIVITAMIN TAB PO SCH (10:35)
[2023-02-02] MEDS: PREGABALIN 100 MG CAP PO SCH ×2 (10:37→21:39)
[2023-02-02] MEDS: VANCOMYCIN HCL 1,250 MG in SODIUM CHLORIDE 0.9% 250 ML IV SCH ×2 (11:26→21:41)
[2023-02-02] MEDS: cefTRIAXone SODIUM 2,000 MG in DEXTROSE 5 % MINI-B 50 ML IV SCH (11:26)
--- NOTE | 2023-02-02 11:44 | Palliative Care Consultation ---
Date of Consultation February 02, 2023 Assessment & Plan (1) Cancer related pain: Patient has established very good rapport with her nurse today. After some conversation with him, she was agreeable to replacement of her IV line so that antibiotic therapy could be continued to facilitate her identified goal of improving of the infection. He also was able to administer a dose of her as needed oxycodone along with her Lyrica and she reports this gave her significantly better relief than when she took them at separate times. She notes that the oxycodone does not last very long and after some conversation, was open to increasing the dose of her oxycodone from 10 mg every 4 hours as needed to 15 mg which I will change to an interval of every 3 hours as needed in case she has some need for acute pain relief overnight. We reviewed and discussed that this medication is ordered on an as-needed basis and therefore would not be given routinely unless she asked for it. This allows a fair amount of control to remain with her so that she can dictate when she takes the medicine and how often. She was happy with this approach and was agreeable to the dose modification as outlined above. We also discussed the option of potentially changing her pain medicine over to methadone should this regimen not prove to give enough relief. In the past, she has tried morphine without relief and she has been reluctant to use any long-acting medications. (2) Weakness generalized: (3) Severe pain: (4) Palliative care by specialist: Met with pt/family. Provided overview of Palliative Medicine, a subspecialty that provides specialized medical care for people living with a serious illness by offering a focus on quality of life. Palliative Medicine is often conflated with hospice: I advised patient/family that Palliative and hospice can be partners but we are not the same. It is important to understand the difference so that we may be informed, and not afraid. Palliative Medicine works to improve QOL through reduction of symptom burden/more control over their illness, for both the patient and family. Palliative medicine clinicians are board certified, specially-trained and another member of the patient's medical care team. We often provide an extra layer of support because our care is based on the needs of the patient, not the prognosis; as such, it's appropriate at any age/advancing stage of a serious illness and can be provided along with curative treatment. Palliative Medicine clinicians are also trained in advanced communication methodologies, to facilitate complex discussions about advanced illness planning, which are needed to help assure that the treatment choices match the patient's goals, aka delivering Goal Concordant care. Finally, we discussed that hospice is a visiting nurse service that focuses on care delivered at the very end of life for patients with terminal illness, with life expectancy less than 6 month. (5) Advanced care planning/counseling discussion: Several lengthy advance care planning discussions totaling 70 minutes were held today at the bedside with patient and her sister for 50 minutes as well as an additional 20 minutes by phone with her [id number] who resides in [place]. In my discussion with patient and her sister, we spoke about the overall progression of her illness, the complications she has been experiencing on the struggle she has been having with recurrent infection as well as pain. Patient states "we know that its not going to be long now and we know it is going to be short amount of time and we will make sure it is a short amount of time." When I asked her to further elaborate on this for me she replied that she is referring to her , herself and Luther as the 3 parties to know that her time is short and that she wants to make the most of it with more comfort and she does not want to spend that time coming back and forth to medical visits. She is very upfront about how the treatments and interventions for her cancer and then the subsequent wound related issues have really only prolong her suffering. She shares several experiences were in the process of being evaluated or even treatment for this wound, it was only her suffering that was amplified with little to no resolution of the problem itself. This increased her despondency and a growing sense of discontent and decreasing quality of life. Over the last few months her strength has been steadily declining along with her activity level. She is a performance status 2-3. She spends the majority of her days in a resting position at home. Her is a sticker hand who works throughout the day she has family that will occasionally come check on her but otherwise she is home by herself. She has a son who resides in [place] with his . We reviewed CODE STATUS. She has hysterically not desired CPR or aggressive interventions. We talked about how her goal at this junction is to focus on her comfort and improve pain management and be able to return home without having to come back and forth to medical appointments. I reviewed with her that CPR at this junction is not likely to provide a meaningful benefit given the overall advanced nature of her cancer and the complications she has been having with the wound infections and declining performance status. She reiterates to me as she has 2 other providers that she wants to stay a full code for now because it is her hope that if things are getting worse, she can "hang on long enough to see my son 1 more time." She was not open to further discussion about CODE STATUS but did want to discuss options for going home from this admission with more support. I discussed the option of adding visiting nurse service to her care at home through the federal Medicare benefit of hospice.We discussed the goals of hospice as a patient service and the goals of care; we discussed EOL trajectories and transitions ender the emotional impact of realizing mortality as a concrete reality from prior abstract considerations. Pt was reassured that no matter where they are along this trajectory, they are not alone - their medical team will remain by their side through their journey. Discussed the pros/cons of accepting help when especially weakened and distressed by pain-which would also help provide relief/decrease caregiver burden/strain.I provided education about the hospice benefit: an interdisciplinary program offered by nurses, nurses aides, social workers, chaplains and a medical resident for patients with a terminal condition and a life expectancy of less than 6 months. This is covered by Medicare at 100%/no out of pocket expense to patient and all meds/supplies needed by patient for the reason they are on hospice are paid for/covered by hospice. The goal is assure quality of life of the patient in their home setting (home, longterm, inpatient hospice setting) by providing symptoms management, psychosocial and spiritual support. However, they cannot offer 24 hours care and if the family is unable to provide that care, they will have to consider personal care with out of pocket cost vs. longterm placement. We discussed the goals of hospice as a patient service and the goals of care; we discussed EOL trajectories and transitions ender the emotional impact of realizing mortality as a concrete reality from prior abstract considerations. Pt was reassured that no matter where they are along this trajectory, they are not alone - their medical team will remain by their side through their journey. Discussed the pros/cons of accepting help when especially weakened and distressed by pain-which would also help provide relief/decrease caregiver burden/strain. Both patient and her sister were very interested in and amenable to the addition of hospice at discharge. They did not have a preference for hospice agency. They feel that right now it would be helpful to have a home health aide who can assist patient with some personal care throughout the week and a nurse who could be responsible for medication management/oversight and help optimize her cancer related pain and symptom management. She believes that this would also help provide some peace of mind and caregiver support for her . In my telephone conversation with her [id number], Von, I reviewed all of the above. Von indicated that patient has historically desired no CODE STATUS. She has been fairly vocal and clear with her family that she was done with pursuing cancer directed interventions and therapies. I encouraged him to speak further as a family over the next few days/through the weekend. Encouraged them to speak a little bit more with patient about her worries that she will not be able to see her son before she may and that perhaps they can coordinate a sooner visit than next month which is planned or possibly do some video calls and visits with patient on a more regular basis to help decrease that sense of isolation and worry about being away from him. Von expressed significant appr eciation for the advice as well as the discussion and update as reflected above. I encouraged them to see how the weekend goes since she allowed us to replace the IV site earlier today and IV antibiotics have been resumed. We will have to give this a few days to determine if it offers the benefit we hope it will and that her mentation more significantly and consistently improves. Family is in a greement with this plan and there is a tentative follow-up for Monday, depending on the course of the weekend. I have provided patient, her sister and [id number] my contact information. 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 We will continue the Lyrica with no change in dosing at this time. * An extensive advance care planning conversation was held with patient, her sister and then with her [id number] as reflected and documented above. She does not wish to change or further explore conversation about CODE STATUS at this time. It is her hope that she can be discharged home and she is amenable to her discharge with home hospice. * I reviewed some options with her family of how to help reduce her sense of separation and isolation from her son at this vulnerable time. They expressed appreciation for all of the recommendations and ideas we discussed together today. * I have updated the primary team and care management. I have also updated nursing. * Please note: the above document was generated using voice recognition software. It may contain unintentional grammatical, syntax or spelling errors. Any formal questions or concerns about the content, text or information contained within the body of this dictation should be directly addressed to the provider for clarification. Thank you for allowing us to participate in the ongoing care of this patient. Please don't hesitate to call or page with any additional concerns. Dr. 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 She is followed for cancer related pain and symptom management by Dr. Carcamo at [facility]. She is admitted with SIRS criteria with elevated WBC, HR with acute encephalopathy. PCT elevated, lactate WAL the suspected source ?facial infection in sinuses with enlarging tumor with extension into brain +/- UTI. There has been some palpable maintaining IV lines. She ripped out her IVs and removed her telemetry. She is refusing to resume telemetry. She finally agreed earlier today to allow her nurse to replace the IV line after discussion that with her goal of wanting the infection treated, the IV is necessary to allow the medication to be given. She is seen at bedside with her sister present. She has a history of prior MRSA and therefore she continues on vancomycin therapy. She is also on ceftriaxone given the extension of her tumor into the brain and the likelihood of a facial and deep space infection. Michelle is awake and alert at the time of my visit. It is noted by additional staff members that her mentation does wax and wane throughout the day. For the majority of our visit together, she was able to follow the conversation and provide a reasonable history. She is very clear and very emphatic she does not desire any further cancer directed care. She is also equally clear that her wishes are to return home where she can maximize her time with her family and her beloved pets (1 large dog and for rescue cats.) Michelle reports her pain is deep in her face and her head on the left. It is at the site of her tumor and extension deep into her orbital socket and through her head. She reports this pain is persistent and truly does not have a cyclical nature of abatement and intensification. It is throbbing, stabbing and electrical in nature. At times, there is a sharp stabbing pain that will shoot through the socket into the base of the tumor and wound. There has been discharge that occasionally intensifies and worsens for which she is required antibiotics in the past. She had some bleeding from this but that has improved since admission. Allergies Allergy/AdvReac Type Severity Reaction Status Date / Time No Known Drug Allergies Allergy Unknown Verified 12/05/22 09:08 Home Medications Medication Instructions Recorded Confirmed Type acetaminophen 325 mg capsule 650 mg PO Q4H PRN pain #90 caps 07/23/19 01/31/23 Rx multivitamin 1 tab PO QAM 03/26/20 01/31/23 History albuterol sulfate 90 mcg/actuation 2 puff inhalation Q6H PRN 08/26/22 01/31/23 Rx aerosol inhaler shortness of breath or wheezing #8.5 grams levothyroxine 75 mcg tablet 75 mcg PO DAILYBB 01/31/23 01/31/23 History oxycodone 10 mg tablet 10 mg PO Q4 PRN Severe Pain. 01/31/23 01/31/23 History pregabalin 100 mg capsule (Lyrica) 100 mg PO AMHS 01/31/23 01/31/23 History rivaroxaban 20 mg tablet (Xarelto) 20 mg PO QPM 01/31/23 01/31/23 History Patient History Medical History (Updated 02/03/23 @ 00:06 by Jo Mcnally MD) Chronic ear infection DVT (deep venous thrombosis) B/L acute PE's with RLE greater saphenous vein thrombus on indefinite AC d/t malignancy (2017) during chemotherapy History of anemia Hx pulmonary embolism Hypertension Hypothyroidism Lesion or mass of paranasal sinuses SCC s/p left ethmoid status post chemo (completed 2018)/radiation followed by orbital exenteration, flap reconstruction Migraine headache Peripheral neuropathy Pulmonary emboli (09/2017) B/L acute PE's with RLE greater saphenous vein thrombus on indefinite AC d/t malignancy (2018) during chemotherapy 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 Surgical History 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, left orbital exenteration, and right scapular tip flap History of sinus surgery (multiple) sinus/eye surgeries r/t the cancer (~) Family History Unknown Heart disease Brother Diabetes Father Myocardial infarction Sinusitis Grandfather Hypertension Stroke Mother Stroke Other Cellulitis Denies family history of Clotting disorder Social History Smoking Status: Never smoker Second Hand Exposure: Yes (in past 20 yrs ago); Do You Dip or Chew Tobacco: No; Hx Alcohol Use: No Hx Substance Use: No Preferred Language: Bermudian Communication Ability: Effective Inclined Railway Operator Required: No Beliefs That Will Affect Care: Restorationist Restorationist Beliefs: pt states beliefs inpact healthcare decisions but does not specify marital status: Current Living Situation: Spouse 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 There is a deep cavitating wound, with puckered edges, some violaceous discoloration, some generalized edema, and facial disfiguration on the left due to the progression and extension of her tumor. There is bitemporal wasting. Her right eye has a pupil that is equal, round and reactive. Her right extraocular movements are intact. Her upper extremity strength is within reasonable limits. There is no respiratory distress noted and there is no conversational dyspnea noted. She is not using accessory muscles. Breath sounds overall are mildly diminished. Abdomen is soft and nontender. Heart tones are S1-S2. I did not appreciate a murmur. Extremities are pale but warm to touch. She is able to follow simple commands. She is awake, alert and oriented x3 for the majority of our visit but did become confused during the last 15 minutes with [address] to [address]. Results & Data Vital Signs (Past 12 Hours) Vital Signs Pulse Resp BP Pulse Ox O2 Del Method 02/02/23 02:29 78 16 183/85 H 98 Room Air Laboratory Results Data reviewed Diagnostic Findings Data reviewed PG Care Time/CCT Total # of Minutes Spent Total Time Spent: 150 Total Time Spent with Patient: Total time spent is greater than 50% in coordination of care (as documented) at patient's floor/unit and/or counseling patient: I spent 150 minutes overall addressing this extremely complex case: 20 in medical data review/discussion with referring provider(s) and/or preparation for the visit, which includes time spent reviewing outside hospital records and [employer] EMR length. 35 in direct interaction with the patient 70 Advance Care Planning/Goals of Care discussions as detailed above in note (must be >16min) 10 in subsequent review and synthesis of assessment and plan 15 in communicating with other providers regarding the patient's case: Primary team, nursing, care management. 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
[2023-02-02] MEDS ORDERED: INFLUENZA VACCINE HIGH-DOSE (HD-IIV4) PF 65+ 0.7mL SYR IM ONE (11:50)
[2023-02-02] MEDS ORDERED: ALBUTEROL HFA 8 GM INHALER INH PRN (12:55)
[2023-02-02] MEDS ORDERED: ACETAMINOPHEN 325 MG TAB PO PRN (12:55)
--- NOTE | 2023-02-02 18:22 | Hospitalist Progress Note ---
Date of Service February 02, 2023 Assessment & Plan (1) Sepsis: Plan: SIRS criteria with elevated WBC, HR with acute encephalopathy, elevated procal, normal lactate Suspected source facial infection in sinuses/essentially sinusitis with enlarging tumor with extension into brain could be meningitis or encephalitis but is much improved today with mentation after antibiotic therapy Also with E. coli UTI. Facial CT shows possible necrotic central tumor vs infection and sinusitis, but does not want any surgery to face even if indicated -continue Vancomycin to cover for h/o prior MRSA -continue high dose ceftriaxone to cover for MANAGER CHANNEL infection given extension of her tumor into brain and possibility of facial and deep space infection -UTI covered with ceftriaxone -Follow up blood cultures-NGTD (2) Metabolic encephalopathy: Plan: Metabolic encephalopathy, POA, resolved 2/2 infection as above (3) Fall: Plan: likely from sepsis, weakness generalized, also with chronic neuropathy peripherally PT/OT evals (4) Acute UTI (urinary tract infection): Plan: As above (5) 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 On immunotherapy then the AdPnP trial. She received two cycles of injection. At her third injection appointment, she preseted with increased confusion and enuresis. This was in 2021 and she has decided not to pursue treatment since then. Tumor is significantly enlarged since last year Sees Palliative outpt for pain medication Wants to remain Full COde for now as she wants to "see her son again" as per Palliative consulted for goals of care discussion and is now accepting of hospice at home, but wants to be a full code Increased oxycodone to 15mg po q3h prn pain (6) Open wound of face: Plan: Consult wound care -she follows with wound clinic as an outpatient secondary to sinus CA (7) Vaginal bleeding: Plan: new for her, post-menopausal pelvic US shows fibroid which could be cause although for thorough workup, should have endometrial biopsy and/or hysteroscopy and MAT PUNCHER evaluation-discussed with patient and and she will forgo this as she is going home with hospice and opts for non-aggressive care is on Xarelto at home for h/o DVT during chemo-remains on Xarelto indefinitely because of high risk of VTE with ongoing malignancy -restart Xarelto tomorrow and monitor for recurrent vaginal bleeding (8) Facial infection: Plan: as above (9) Cancer related pain: Plan: continue oxycodone and increase dose as per Palliative started magic mouthwash for open sores in mouth with mouth pain-much improved continue Lyrica (10) Mouth ulcer: Plan: as above (11) Rhabdomyolysis: Plan: CK elevated after been found on the ground for up to 15 hours. CK and AST improving, renal function normal continue IVFs follow CK in AM no pain anywhere in muscles (12) Hypothyroidism: Plan: continue LT4 Plan VTE Prophylaxis - holding chemical due to bleeding but restart Xarelto tomorrow Diet - regular, pureed Disposition - continued stay med/tele Admission and Anticipated Discharge Date Admission Date: January 31, 2023 Subjective Pt feeling better today. Met with Palliative and has decided to go home with hospice. Oxycodone dose increased for better pain control to 15mg q3h. She is eating but appetite low. was not present for the Palliative meeting but pt's sister was. No further vaginal bleeding since admission She refused tele monitoring overnight-downgrade off tele Also had issues with her IV and initially refusing IV replacement overnight but this AM was willing to get another one. Physical Exam Constitutional: WD/WN, vitals as above Eyes: + eyelid abnormality (OS enucleated) ENMT: large open defect left frontal sinus with packing and Optifoam in place, some mucoid thin drainage coming from medial side of dressing Respiratory: normal respiratory effort, lungs clear to auscultation Cardiovascular: RRR, no murmur, no edema Gastrointestinal (Abdomen): normal bowel sounds, soft, nontender, no hepatosplenomegaly Musculoskeletal: no cyanosis or clubbing, extremities motor strength 5/5 Skin: no rashes, warm and dry Neurologic: awake; no focal motor deficits and not confused Psychiatric: A+Ox3, euthymic affect Results & Data Results & Data Vital Signs (Past 12 Hours) Vital Signs Temp Pulse Resp BP Pulse Ox O2 Del Method 02/02/23 15:22 36.8 C 101 H 18 154/86 H 97 Room Air Laboratory Results CBC, CMP, Mag, CK reviewed BCxs NGTD Ur cx E. 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
[2023-02-02] MEDS: DOCUSATE SODIUM/SENNA 50/8.6MG TAB PO SCH (21:39)
[2023-02-03] MEDS: cefTRIAXone SODIUM 2,000 MG in DEXTROSE 5 % MINI-B 50 ML IV SCH ×2 (00:09→08:50)
[2023-02-03] MEDS: LEVOTHYROXINE SODIUM 75 MCG TABLET PO SCH (06:08)
[2023-02-03] MEDS: oxyCODONE HCL IR 5 MG TAB (IMMEDIATE RELEASE) PO PRN (06:40)
[2023-02-03 07:46] LABS: Basophils # (auto) 0.03 K/uL (0.00-0.20); Basophils % (auto) 0.4 %; Eosinophils # (auto) 0.25 K/uL (0.00-0.50); Eosinophils % (auto) 3.4 %; Hemoglobin 10.5 g/dl (12.0-16.0); Immature Granulocytes # (auto) 0.05 K/uL (0.01-0.20); Immature Granulocytes % (auto) 0.7 %; Lymphocytes # (auto) 0.79 K/uL (1.20-3.40); Lymphocytes % (auto) 10.9 %; Mean Corpuscular Hemoglobin 27.9 pg (25.0-34.0); Mean Corpuscular Hgb Conc 32.8 g/dL (32.0-36.0); Mean Corpuscular Volume 84.9 fL (80.0-100.0); Mean Platelet Volume 10.2 fL (9.4-12.4); Monocytes # (auto) 0.83 K/uL (0.11-0.59); Monocytes % (auto) 11.4 %; Neutrophils # (auto) 5.31 K/uL (1.40-6.50); Neutrophils % (auto) 73.2 %; Platelet Count 247 K/uL (130-400); RDW Coefficient of Variation 14.9 % (11.5-14.5); RDW Standard Deviation 46.7 fL (36.4-46.3); Red Blood Count 3.77 M/uL (4.20-5.40); White Blood Count 7.26 K/ul (4.8-10.8)
[2023-02-03 08:24] LABS: Albumin Level 3.2 gm/dl (3.4-5.0); BUN Creatinine Ratio 15.7 (10-20); Bilirubin,Total 0.4 mg/dl (0.2-1.0); Calcium 8.5 mg/dl (8.6-10.3); Creatinine Clr Calc Pharmacy 83.7 ml/min; Est GFR (African American) 103.9 ml/min; Est GFR (Non-African American) 89.7 ml/min; Globulin 3.1 gm/dl (2.5-4.0); Potassium 4.1 mmol/L (3.5-5.1); Total Protein 6.3 gm/dl (6.0-8.3)
[2023-02-03] MEDS ORDERED: VANCOMYCIN LEVEL ONE (08:30)
--- NOTE | 2023-02-03 08:37 | Pharmacy Report ---
Pharmacy PK ABX Note - Date of Service February 03, 2023 - Assessment and Plan Assessment 67 year old F receiving vancomycin/ceftriaxone for treatment of sepsis likely secondary to deep facial infection complicated by enlarging tumor in sinus cavity. Concern for possible meningitis/encephalitis. Pertinent microbiologic data includes: urine culture (coreas-sensitive E.coli), blood cultures x 2 show no growth at 48 hours. Leukocytosis improved. Remains afebrile. Of note, patient lost IV access on 02/01 so vanco was not given for ~21 hours (a dose of PO linezolid was given in place of IV vancomycin). Line has now been restored. Day # 4 of antimicrobial therapy. Plan Vancomycin * Current regimen: 1250 mg IV every 12 hours * Random level obtained 02/03/23 resulted as 14 mcg/mL. This is predicted to achieve target AUC/JOON of 400-600 mg/L.hr * Predicted AUC at steady state: 496 mg/L.hr * Continue 1250 mg IV every 12 hours * Will repeat level in the next 48-72 hours if therapy is continued and/or change in patient clinical status Ceftriaxone * 2 g IV q12h - reasonable at this time given concern for meningitis Pharmacy will continue to follow and will adjust dose/frequency as necessary. Thank you. Pharmacy has transitioned to AUC monitoring for vancomycin. AUC/JOON is the preferred PK/PD target and is associated with decreased risk of nephrotoxicity compared to traditional trough targets.
[2023-02-03] MEDS: NSS + 20MEQ KCL 20 MEQ/1,000 ML BAG IV SCH (08:46)
[2023-02-03] MEDS: FIRST - Mouthwash BLM 119 ML PO SCH ×2 (08:47→15:26)
[2023-02-03] MEDS: MULTIVITAMIN TAB PO SCH (08:47)
[2023-02-03] MEDS: PREGABALIN 100 MG CAP PO SCH (08:48)
[2023-02-03] MEDS: POLYETHYLENE (MIRALAX) 17 GM PACK PO SCH (08:48)
[2023-02-03] MEDS: VANCOMYCIN HCL 1,250 MG in SODIUM CHLORIDE 0.9% 250 ML IV SCH (11:03)
--- NOTE | 2023-02-03 12:58 | Discharge Summary ---
Date of Service February 03, 2023 Admission HPI Per Admitting Provider Michelle Jacobson is a 67 year old female with open wound in her left eye from primary squamous cell carcinoma (currently not pursuing further treatment) who presents to the ER via ALS from home. She was found face down on the ground at home, lethargic, altered mental state, naked, covered in blood. Currently on Eliquis. Reportedly feeling her normal self yesterday. She is unclear on what happened today. Unclear if she took her medications this morning. Per EMS note she has been having hematochezia for a few days. Unable to get any further history from the patient. Daughter at bedside only knows her father found her down today - no knowledge of any acute deterioration over last few days. Principal Diagnosis Acute urinary tract infection, acute metabolic encephalopathy Discharge Exam General-alert and oriented x3, no fevers, no chills HEENT-facial deformity from underlying sinus cancer with previous enucleation of the left eye and direct opening into the frontal sinuses in the intra -ocular region. Neck-no lymphadenopathy or thyromegaly, trachea midline Chest-clear to auscultation percussion. No rales wheezing or rhonchi Cardiac-regular rate and rhythm, normal S1 and S2 Abdomen-normal bowel sounds, nontender, no hepatosplenomegaly Extremities-no cyanosis, clubbing, or edema Neuro-cranial nerves II through XII intact, motor and sensory function within normal limits, strength symmetrical , no focal deficits Psych-normal affect, normal mood Discharge Data Allergies Allergy/AdvReac Type Severity Reaction Status Date / Time No Known Drug Allergies Allergy Unknown Verified 12/05/22 09:08 Consultations 01/31/23 13:58 ED Decision to Admit Stat 01/31/23 19:22 Consult Palliative Care Routine Ordered Studies 01/31/23 11:07 CT head/brain wo con Stat 01/31/23 13:32 CTA abdomen pelvis w con [CT angio abdomen pelvis w con] Stat 02/01/23 13:19 CT face [CT facial bones w con] Routine US pelvic complete Routine US transvaginal Routine Hospital Course (1) Sepsis: SIRS criteria with elevated WBC, HR with acute encephalopathy, elevated procal, normal lactate. Probably from acute UTI. There is also some concern that there is infection related to the sinus carcinoma. Facial CT shows possible necrotic central tumor vs infection and sinusitis, but does not want any surgery to face even if indicated. Treated while hospitalized with vancomycin and Rocephin. Home on oral Bactrim therapy (2) Metabolic encephalopathy: Present on admission. Now resolved. (3) Fall: likely from sepsis, weakness generalized, also with chronic neuropathy peripherally. Treated with PT/OT while hospitalized (4) Acute UTI (urinary tract infection): Pansensitive E. 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 Followed by immunotherapy with AdPnP trial. She received two cycles of treatment. She then opted to cease further treatment. Sees Palliative care as outpt for pain management. Oxycodone has been increased to 15mg po q3h prn pain (6) Open wound of face: Consulted wound care -she follows with wound clinic as an outpatient. Secondary to sinus CA (7) Vaginal bleeding: post-menopausal. Pelvic US shows fibroid which could be cause although for thorough workup, should have endometrial biopsy and/or hysteroscopy and E[employer]STRUMENT TECHNICIAN evaluation-discussed with patient and and she will forgo this as she opts for non-aggressive care. Xarelto has been discontinued. She will discuss with her PCP whether this should be restarted (8) Facial infection: Suspected infection in the sinus cavity involving the tumor. (9) Cancer related pain: Appreciate palliative care medicine recommendations and consultation. Oxycodone dosage has been uptitrated this admission. She was treated with magic mouthwash for open sores in mouth with mouth pain- much improved. Continue Lyrica (10) Mouth ulcer: as above (11) Rhabdomyolysis: CK elevated after been found on the ground for up to 15 hours. Mild. Now resolved (12) Hypothyroidism: Stable. Continue LT4 Plan Home today, February 03, with home health services Total Time Total Time Spent Total Time Spent (In Minutes): 45 minutes Discharge Plan Discharge Items Patient Disposition: Home - Home Health Services Reason For Visit: SEPSIS Discharge Diagnosis: E. coli urinary tract infection, acute metabolic encephalopathy, suspected sinus cancer infection Activity: Resume your previous activity Non-emergency contact: Primary Care Provider and Oncologist Call non-emergency contact if: you have any medication questions and your symptoms worsen Follow-up/Referrals: Pj Ramirez, [Primary Care Provider] - Diet: Regular Addtl Attending Provider Instructions: Take Bactrim DS twice daily for 1 week Pending Studies at Discharge: No Stand-Alone Forms: My [facility] [employer], Smoking Cessation Medications and DC Order Prescriptions: New oxycodone 5 mg Tablet 15 mg PO Q3H PRN (Reason: pain) Qty: 90 0RF sulfamethoxazole-trimethoprim [Bactrim DS] 800-160 mg tablet 1 tab PO BID 7 Days Qty: 14 0RF sennosides-docusate sodium [Senokot-S] 8.6-50 mg Tablet 2 tab PO QPM Qty: 0 0RF polyethylene glycol 3350 [Miralax] 17 gram Powder In Packet 17 g PO DAILY Qty: 0 0RF Continued acetaminophen 325 mg capsule 650 mg PO Q4H PRN (Reason: pain) Qty: 90 0RF albuterol sulfate 90 mcg/actuation HFA aerosol inhaler 2 puff inhalation Q6H PRN (Reason: shortness of breath or wheezing) Qty: 8.5 0RF multivitamin Tablet 1 tab PO QAM pregabalin [Lyrica] 100 mg capsule 100 mg PO [facility]HS levothyroxine 75 mcg tablet 75 mcg PO DAILYBB Discontinued oxycodone 10 mg tablet 10 mg PO Q4 PRN (Reason: Severe Pain.) Xarelto 20 mg tablet 20 mg PO QPM Rx Instructions: must administer with evening meal Discharge Orders: Discharge Order (Routine); Ordered 02/03/23 Ordered By: Paramjit Sahu Admission Data Admit Date/Time: 01/31/23 16:24 Attending Provider: Paramjit Sahu Admit Provider: Zurdo Adame Primary Care Provider: Pj Ramirez Other Providers: Zurdo Adame ; Jaquelin Montiel Coding Level of Care Code 51523 INP/OBS DISCH >30 MIN Diagnoses Sepsis A41.9 Metabolic encephalopathy G93.41 Fall W19.XXXA Acute UTI (urinary tract infection) N39.0 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
[2023-02-03] MEDS ORDERED: oxyCODONE HCL IR 5 MG TAB (IMMEDIATE RELEASE) PO PRN ×2 (13:48)
--- NOTE | 2023-02-03 13:52 | Palliative Care Progress Note ---
Date of Service February 03, 2023 Assessment & Plan (1) Cancer related pain: Plan: Michelle reports Oxy IR does not provide enough relief for severe pain, so I have added the option of Oxy IR 20mg PO q3h prn severe pain and will continue Oxy IR 15mg Q3h prn moderate pain. No change to lyrica. She declines long acting meds She agrees to follow up with [facility] pall med/Dr Arthur. (2) Weakness generalized: (3) 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: (4) Palliative care by specialist: (5) Primary squamous cell carcinoma of ethmoidal sinus: Plan * DC planned for today, Oxy IR modified as noted above * Follow up with OSH pall med provider as planned * She remains receptive to hospice at home but today states she wants to think about it further. * Encouraged her to return wound clinic * I have updated nursing and primary team. Thank you for allowing us to participate in the ongoing care of this patient. Please don't hesitate to call or page with any additional concerns. Dr. Vi Ball DNP Director, Palliative Care Admission and Anticipated Discharge Date Admission Date: January 31, 2023 Subjective pain is better with Oxy IR 15mg q3h prn, she has used 3 doses Still does not feel it lasts very long and adds that when she had a bout of more severe breakthrough pain, the 15mg did not provide enough relief. she tells me she is going home today Review of Systems Review of Systems: All systems reviewed & are unremarkable except as noted in Subjective Physical Exam Physical Exam: Patient is resting in bed, supine. 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 There is a deep cavitating wound, with puckered edges, some violaceous discoloration, some generalized edema, and facial disfiguration on the left due to the progression and extension of her tumor. There is bitemporal wasting. Her right eye has a pupil that is equal, round and reactive. Her right extraocular movements are intact. Her upper extremity strength is within reasonable limits. There is no respiratory distress noted and there is no conversational dyspnea noted. She is not using accessory muscles. Breath so unds overall are mildly diminished. Abdomen is soft and nontender. Heart tones are S1-S2. I did not appreciate a murmur. Extremities are pale but warm to touch. She is able to follow simple commands. She is awake, alert with intermittent confusion. Results & Data Vital Signs (Past 12 Hours) Vital Signs Temp Pulse Resp BP Pulse Ox O2 Del Method 02/03/23 08:29 36.8 C 89 16 127/84 94 Room Air Laboratory Results reviewed Diagnostic Findings reviewed PG Care Time/CCT Total # of Minutes Spent Total Time Spent: 60 Total Time Spent with Patient: Total time spent is greater than 50% in coordination of care (as documented) at patient's floor/unit and/or counseling patient: Coding [place] [address] SUB INP/OBS CARE 3/50MIN Patient Type Established History Comprehensive Exam Comprehensive Medical Decision Making High Complexity Diagnoses Cancer related pain G89.3 Weakness generalized R53.1 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 T14.8XXA; C80.1 Palliative care by specialist Z51.5 Primary squamous cell carcinoma of ethmoidal sinus C31.1
[2023-02-03] MEDS ORDERED: RIVAROXABAN 20 MG TAB PO SCH (21:00)
== END 2023-02-03 19:05 | disposition home health service (06) | DRG 871 ==
LOC: ED 10:58 → SUATTDRO 16:24 → EDINP 16:24 → 2W 02-01 18:22